=== PATIENT | male | born 1940 | race Hispanic/Latino ===

== ENCOUNTER 2017-10-15 19:38 | Inpatient (IN) | payer MEDICARE, OTHER ==
--- NOTE | 2017-10-15 20:13 | C.PDOC ---
History Of Present Illness 76 y/o male, w/PMhx of hip replacement surgery and falls, presents to the ER for evaluation after he had a fall today. Family states that he was trying to reach for his walker when his right leg gave out and and he fell to the ground. He is complaining of a headache and an abrasion to the right elbow. Of note, patient had his last tetanus injection within the past 10 years. - HPI Time Seen by Provider: 10/15/17 19:43 Chief Complaint (Nursing): Trauma History Per: Patient, Family History/Exam Limitations: no limitations Onset/Duration Of Symptoms: Hrs Severity: Moderate Past Medical History Reviewed: Historical Data, Nursing Documentation, Vital Signs Vital Signs: Last Vital Signs Temp 97.7 F 10/15/17 19:50 Pulse 62 10/15/17 22:35 Resp 19 10/15/17 22:35 BP 162/82 H 10/15/17 22:35 Pulse Ox 99 10/15/17 22:35 - Medical History PMH: Bronchitis, Cardia Arrhythmia, COPD, Depression, Diabetes, Fractures (left and right hip fx), HTN, Hypercholesterolemia, Hyperlipidemia, Chronic Kidney Disease Other Surgeries: Hx of surgeries - [facility] Procedures ANESTH INJECT-SPIN CANAL (06/23/12) CORONAR ARTERIOGR-2 CATH (09/26/14) INJECT STEROID (06/23/12) LEFT HEART CARDIAC CATH (09/26/14) LT HEART ANGIOCARDIOGRAM (09/26/14) LUMBOSAC SPINE X-RAY NEC (06/23/12) OPEN REDUC-INT FIX FEMUR (09/26/14) PACKED CELL TRANSFUSION (09/26/14) PARTIAL HIP REPLACEMENT (07/30/14) SPINAL CANAL INJECT NEC (06/23/12) Family History: States: No Known Family Hx - Social History Hx Tobacco Use: No Hx Alcohol Use: No Hx Substance Use: No - Immunization History Hx Tetanus Toxoid Vaccination: No Hx Influenza Vaccination: Yes Hx Pneumococcal Vaccination: Yes Review Of Systems Except As Marked, All Systems Reviewed And Found Negative. Constitutional: Negative for: Fever, Chills Cardiovascular: Negative for: Chest Pain, Palpitations Respiratory: Negative for: Cough, Shortness of Breath, SOB with Excertion, Wheezing Gastrointestinal: Negative for: Nausea, Vomiting, Abdominal Pain, Diarrhea, Constipation Genitourinary: Negative for: Dysuria, Hematuria Musculoskeletal: Negative for: Neck Pain Skin: Positive for: Other (abrasion to right elbow, hematoma to R forehead) Neurological: Positive for: Headache. Negative for: Weakness, Numbness, Incoordination, Change in Speech, Confusion, Seizures, Altered Mental Status, Dizziness Physical Exam - Physical Exam Appears: Well, Non-toxic, No Acute Distress Skin: Normal Color, Warm, Other Head: Normacephalic, Abrasion (above R eye), Other (hematoma to right forehead) Eye(s): bilateral: Normal Inspection, PERRL, EOMI Nose: Normal Oral Mucosa: Moist Neck: No Midline Cervical Tenderness, Supple Chest: Symmetrical Cardiovascular: Rhythm Regular Respiratory: Normal Breath Sounds, No Rales, No Rhonchi, No Wheezing Gastrointestinal/Abdominal: Soft, No Tenderness Back: Normal Inspection, No CVA Tenderness Extremity: Normal ROM, No Tenderness, Other (abrasion to right elbow) Neurological/Psych: Oriented x3, Normal Speech ED Course And Treatment - Laboratory Results Result Diagrams: 10/15/17 21:51 10/15/17 21:51 O2 Sat by Pulse Oximetry: 98 (RA) Pulse Ox Interpretation: Normal - CT Scan/US CT-Head Other Rad Studies (CT/US): Read By Radiologist, Radiology Report Reviewed CT/US Interpretation: . HEAD W/O CONTRAST Exam Date: 10/15/17. . This imaging exam was performed at [facility]. EXAM: CT Head Without Intravenous Contrast. . EXAM DATE/TIME: Exam ordered 2017 8:00 PM. . CLINICAL HISTORY: 76 years old, male; Injury or trauma; Fall ; Initial encounter; Abrasion;. Forehead; Additional info: Head injury. . TECHNIQUE: Axial computed tomography images of the head/brain without intravenous. contrast. All CT scans at this facility use one or more dose reduction. techniques, viz.: automated exposure control; ma/kV adjustment per patient size. (including targeted exams where dose is matched to indication; i.e. head); or. iterative reconstruction technique. Coronal and sagittal reformatted images were created and reviewed. . COMPARISON: No relevant prior studies available. . FINDINGS: Brain: There is generalized cortical atrophy Low density is noted within. the periventricular white matter extending into the alcazar radiata and centrum. semi-ovale bilaterally. An area of encephalomalacia is noted in the right. posterior parietal lobe reflecting previous changes related to previous. infarct. Area of encephalomalacia is noted in the left temporal lobe again. reflecting encephalomalacia from chronic infarct. Lacunar infarcts are noted. within the external capsule bilaterally. The largest measures 6 mm. There is a. scalp hematoma over the right frontal bone. Ventricles: Unremarkable. No ventriculomegaly. Bones/joints: Unremarkable. No acute fracture. Soft tissues: See above. Vasculature: The is calcification of the cavernous carotid arteries. Sinuses: Mucosal thickening is noted within the maxillary sinuses. bilaterally. Mild mucosal thickening is seen in the ethmoid air cells. Mastoid air cells: There is under pneumatization of the mastoid air cells. bilaterally. Soft tissue or fluid is noted in the left aditus ad antrum of the. mastoid. Auditory system: Soft tissue/debris is noted within the external auditory. canals bilaterally. Orbits: There's been bilateral lens replacement surgery. . IMPRESSION: 1. Scalp hematoma overlying the right frontal bone. No fracture seen. . 2. 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 temporal lobe. . 3. Chronic microvascular ischemic change in the deep white matter including. lacunar infarcts in the external capsules bilaterally. . 4. Fluid/soft tissue in the left mastoid suggesting mastoiditis. Decreased. pneumatization of both mastoid bones may reflect chronic mastoiditis. . 5. Chronic maxillary sinusitis.. Medical Decision Making Medical Decision Making: Plan: --CT-Head --Tylenol PO 9:13PM Patinet has normal ROM of extremities with no bony tenderness. No indication for imaging. No complaint of chest pain. Hips non-tender. No midline tenderness and moving all extremities. CT head negative. Patient neurologically intact. Due to plavix use, Dr. Mancia recommending observation overnight. Dermabond placed on abrasion. Family in agreement of this plan Disposition - Disposition Disposition: HOSPITALIZED Disposition Time: 21:28 Condition: FAIR - Clinical Impression Clinical Impression: Head trauma, Hematoma, Fall - Scribe Statement The provider has reviewed the documentation as recorded by the Antoine Childers Provider Attestation: All medical record entries made by the Scribe were at my direction and personally dictated by me. I have reviewed the chart and agree that the record accurately reflects my personal performance of the history, physical exam, medical decision making, and the department course for this patient. I have also personally directed, reviewed, and agree with the discharge instructions and disposition.
--- NOTE | 2017-10-15 21:09 | CT ---
EXAM: CT Head Without Intravenous Contrast EXAM DATE/TIME: Exam ordered 10/15/2017 8:00 PM CLINICAL HISTORY: 76 years old, male; Injury or trauma; Fall; Initial encounter; Abrasion; Forehead; Additional info: Head injury TECHNIQUE: Axial computed tomography images of the head/brain without intravenous contrast. All CT scans at this facility use one or more dose reduction techniques, viz.: automated exposure control; ma/kV adjustment per patient size (including targeted exams where dose is matched to indication; i.e. head); or iterative reconstruction technique. Coronal and sagittal reformatted images were created and reviewed. COMPARISON: No relevant prior studies available. FINDINGS: Brain: There is generalized cortical atrophy Low density is noted within the periventricular white matter extending into the alcazar radiata and centrum semi-ovale bilaterally. An area of encephalomalacia is noted in the right posterior parietal lobe reflecting previous changes related to previous infarct. Area of encephalomalacia is noted in the left temporal lobe again reflecting encephalomalacia from chronic infarct. Lacunar infarcts are noted within the external capsule bilaterally. The largest measures 6 mm. There is a scalp hematoma over the right frontal bone. Ventricles: Unremarkable. No ventriculomegaly. Bones/joints: Unremarkable. No acute fracture. Soft tissues: See above. Vasculature: The is calcification of the cavernous carotid arteries. Sinuses: Mucosal thickening is noted within the maxillary sinuses bilaterally. Mild mucosal thickening is seen in the ethmoid air cells. Mastoid air cells: There is under pneumatization of the mastoid air cells bilaterally. Soft tissue or fluid is noted in the left aditus ad antrum of the mastoid. Auditory system: Soft tissue/debris is noted within the external auditory canals bilaterally. Orbits: There's been bilateral lens replacement surgery. IMPRESSION: 1. Scalp hematoma overlying the right frontal bone. No fracture seen. 2. Chronic infarcts noted within the right posterior parietal lobe and the left temporal lobe. 3. Chronic microvascular ischemic change in the deep white matter including lacunar infarcts in the external capsules bilaterally. 4. Fluid/soft tissue in the left mastoid suggesting mastoiditis. Decreased pneumatization of both mastoid bones may reflect chronic mastoiditis. 5. Chronic maxillary sinusitis..
[2017-10-15 21:54] LABS: BASO # 0.1 K/uL (0.0-0.2); BASO % 0.8 % (0.0-2.0); EOS # 0.4 K/uL (0.0-0.7); HEMOGLOBIN 11.4 g/dL (12.0-18.0); LYMPH # 1.2 K/uL (1.0-4.3); LYMPH % 13.4 % (20.0-40.0); MEAN CORPUSCULAR HEMOGLOBIN 29.7 pg (27.0-31.0); MEAN CORPUSCULAR HGB CONC 34.8 g/dL (33.0-37.0); MEAN PLATELET VOLUME 8.5 fL (7.2-11.7); MONO # 0.5 K/uL (0.0-0.8); MONO % 6.2 % (0.0-10.0); NEUT # 6.6 K/uL (1.8-7.0); NEUT % 75.6 % (50.0-75.0); RBC 3.82 Mil/uL (4.40-5.90); RED CELL DISTRIBUTION WIDTH 13.2 % (11.5-14.5); WHITE BLOOD COUNT 8.7 K/uL (4.8-10.8)
[2017-10-15] MEDS ORDERED: oxyCODONE 30 mg Immediate Release Tab PO STA (21:54)
[2017-10-15 21:56] LABS: MEAN CELL VOLUME 85.4 fL (80.0-94.0)
[2017-10-15 22:07] LABS: ALB/GLOB RATIO 1.1 (1.0-2.1); ALBUMIN 3.7 g/dL (3.5-5.0); ALT/SGPT 28 U/L (21-72); AST/SGOT 30 U/L (17-59); BLOOD UREA NITROGEN 12 mg/dL (9-20); CALCIUM 8.4 mg/dl (8.6-10.4); GFR AFRICAN-AMERICAN > 60; GFR NON-AFRICAN AMERICAN > 60
[2017-10-15] MEDS ORDERED: oxyCODONE 30 mg Immediate Release Tab ONE (22:09)
--- NOTE | 2017-10-15 23:47 | CP.PCM.HP ---
History of Present Illness - History of Present Illness History of Present Illness: COMPREHENSIVE HISTORY & PHYSICAL EXAM HPI PT. FELL AT HOME PER FAMILY WHILE TRYING TO REACH FOR HIS WALKER . SUSTAINED HEAD TRAUMA AND R. ELBOW ABRASION . NO LOC . CT HEAD R SCALP HEMATOMA , NO SKULL FX, OR INTRACRANIAL BLEED PAST HIST. CAD/STENT/CVA/HTN/T2DM/COPD/B. HIP FX WITH REPLACEMENT PERSONAL HIST: Smoking. N Alcohol. N Allergy N Travel_- . FAMILY HIST : ROS : Constitutional: Negative for weight change, chills, night sweats, fatigue and usage of assist device. Eyes: Negative for redness, swelling, itching, discharge, vision changes, blurry vision, double vision, glaucoma, cataracts, Ears: Negative for hearing loss, ringing, , tinnitus, vertigo Nose: Negative for rhinorrhea, stuffiness, sniffing, itching, postnasal drip, discoloration, nasal congestion and epistaxis. Throat: Negative for throat clearing, sore throat, hoarseness, difficulty swallowing and difficulty speaking. Respiratory: Negative for cough, , sputum production, chest tightness, wheezing, pleuritic chest pain ,daytime somnolence, chronic cough, hemoptysis, snoring at night, Cardiovascular: Negative for chest pain, palpitations, orthopnea, PND, Edema of legs, leg cramps, angina, claudication, , irregular heartbeat, Neurology: Negative for irritability, muscle weakness, numbness and tingling, seizures, tremors, migraines, slurred speech, syncope, memory loss, mood changes , recurrent headaches Gastrointestinal: Negative for difficulty swallowing, diarrhea, constipation, black stools, rectal bleeding, nausea, flatulence, reflux, poor appetite, changes in bowel habits, abdominal pain Genitourinary: Negative for frequent urination, hematuria, discharge, incontinence, urinary retention, frequent UTI, Psychiatric: Negative for depression, anxiety/panic, suicidal tendencies, Musculoskeletal: POS R FOREHEAD AND ELBOW PAIN . BACK PAIN OLD Skin: Negative for rash, ulcers, itching, dry skin and pigmented lesions. P/E: Constitutional: Appears stated age and in no apparent distress. Head: Normocephalic. R. FOREHEAD SUBCUT. HEMATOMA Ears: External ear canals patent without inflammation. Tympanic membranes intact with normal light reflex and landmark. Eyes: Pupils are central, bilaterally equal, symmetrical and reacts to light with normal movements and no icterus or pallor. Nose: External nares are patent. Mucosa is pink Mouth-Throat: Good general appearance and condition. No post-pharyngeal/oropharyngeal erythema and tonsillar hypertrophy. Good dental hygiene. Neck-Lymphatic: Neck is supple with normal ROM, no thyromegaly, lymph nodes or masses. JVD is normal with no carotid bruit. Lungs: Clear to percussion and auscultation with bilateral normal air entry. Cardiovascular: S1 and S2 are normal with no murmurs, gallops and rub. GI Exam: No hepatomegaly. Abdomen is soft and non-tender. No Organomegaly , masses or hernias are evident and bowel sounds are normal and active. Neurology: Higher function and all cranial nerves intact, with no gross motor or sensory deficit. Superficial and deep reflexes are normal with downwards planters. No cerebellar deficit with normal gait. Musculoskeletal: No tender spots with normal curvature of the spine with no swelling or restricted ROM of the small and large joints. R. ELBOW ABRASION Extremities: Homans sign absent. Intact pulses with no pitting edema, calf tenderness or skin color changes. Skin: No rash, eruptions or abnormal skin pigmentation LAB/RADIOLOGY: ASSESMENT : H/O FALL WITH FOREHEAD CONTUSION CAD/DM/COPD/B. HIP SURGERY PLAN: IN VIEW OF PT BEING ON BLOOD ANTICOAGULATION , WILL NEED 48HRS OBSERVATION X RAY HIP TO EVALUATE PROSTHESIS Present on Admission - Present on Admission Any Indicators Present on Admission: No Past Patient History - Infectious Disease Hx of Infectious Diseases: None - Past Medical History & Family History Past Medical History?: Yes - Past Social History Smoking Status: Former Smoker - CARDIAC Hx Cardia Arrhythmia: Yes Hx Hypercholesterolemia: Yes Hx Hypertension: Yes - PULMONARY Hx Bronchitis: Yes Hx Chronic Obstructive Pulmonary Disease (COPD): Yes - NEUROLOGICAL Hx Neurological Disorder: No - HEENT Hx HEENT Problems: No - RENAL Hx Chronic Kidney Disease: Yes - ENDOCRINE/METABOLIC Hx Diabetes Mellitus Type 1: Yes Hx Diabetes Mellitus Type 2: Yes - HEMATOLOGICAL/ONCOLOGICAL Hx Blood Disorders: No - INTEGUMENTARY Hx Dermatological Problems: No - MUSCULOSKELETAL/RHEUMATOLOGICAL Hx Fractures: Yes (left and right hip fx) - GASTROINTESTINAL Hx Gastrointestinal Disorders: No - GENITOURINARY/GYNECOLOGICAL Hx Genitourinary Disorders: No Hx Prostate Problems: Yes - PSYCHIATRIC Hx Depression: Yes Hx Substance Use: No - SURGICAL HISTORY Hx Surgeries: Yes Hx Cardiac Catheterization: Yes Hx Orthopedic Surgery: Yes (left and right hip) - ANESTHESIA Hx Anesthesia: Yes Hx Anesthesia Reactions: No Hx Malignant Hyperthermia: No Meds Allergies/Adverse Reactions: Allergies Allergy/AdvReac Type Severity Reaction Status Date / Time No Known Allergies Allergy Verified 10/15/17 19:47 Results - Vital Signs Recent Vital Signs: Last Vital Signs Temp 97.7 F 10/15/17 19:50 Pulse 62 10/15/17 22:35 Resp 19 10/15/17 22:35 BP 162/82 H 10/15/17 22:35 Pulse Ox 98 10/15/17 22:45 - Labs Result Diagrams: 10/15/17 21:51 10/15/17 21:51 Labs: Laboratory Results - last 24 hr 10/15/17 10/15/17 10/15/17 19:45 21:51 21:51 WBC 8.7 RBC 3.82 L Hgb 11.4 L Hct 32.6 L MCV 85.4 D MCH 29.7 MCHC 34.8 RDW 13.2 Plt Count 204 MPV 8.5 Neut % (Auto) 75.6 H Lymph % (Auto) 13.4 L Navarro % (Auto) 6.2 Eos % (Auto) 4.0 Baso % (Auto) 0.8 Neut # (Auto) 6.6 Lymph # (Auto) 1.2 Navarro # (Auto) 0.5 Eos # (Auto) 0.4 Baso # (Auto) 0.1 Sodium 127 L Potassium 5.1 Chloride 89 L Carbon Dioxide 29 Anion Gap 15 BUN 12 Creatinine 0.9 Est GFR ( Amer) > 60 Est GFR (Non-Af Amer) > 60 POC Glucose (mg/dL) 262 H Random Glucose 195 H Calcium 8.4 L Total Bilirubin 0.5 AST 30 ALT 28 Alkaline Phosphatase 58 Troponin I < 0.0120 Total Protein 7.2 Albumin 3.7 Globulin 3.4 Albumin/Globulin Ratio 1.1
[2017-10-16] MEDS ORDERED: (Lantus) Insulin Glargine, Recombinant SC SCH ×2 (07:30→22:00)
[2017-10-16] MEDS ORDERED: BISOPROLOL FUMARATE 10 MG PO SCH (10:00)
[2017-10-16] MEDS ORDERED: LISINOPRIL 2.5 MG PO SCH (10:00)
[2017-10-16] MEDS ORDERED: Albuterol Sulfate 2 mg/5 ml Cup PO SCH ×2 (10:00→18:00)
[2017-10-16] MEDS ORDERED: Home Med 1 UNIT (Metformin [Glucophage] 500 MG) PO SCH (10:00)
--- NOTE | 2017-10-16 14:07 | CP.PCM.PN ---
Subjective - Date & Time of Evaluation Date of Evaluation: 10/16/17 Time of Evaluation: 14:06 - Subjective Subjective: FOREHEAD PAIN NO LOC VS STABLE R. FOREHEAD HEMATOMA R. ELBOW MOVING N B. HIP ROM ,PAINFUL SEE ORDER Objective - Vital Signs/Intake and Output Vital Signs (last 24 hours): Temp Pulse Resp BP Pulse Ox 98.7 F 73 20 134/75 96 10/16/17 08:00 10/16/17 08:00 10/16/17 08:00 10/16/17 08:00 10/16/17 08:00 - Medications Medications: Current Medications Albuterol Sulfate (Albuterol Sulfate) 2 mg PO BID [facility] Bisoprolol Fumarate (Zebeta) 10 mg PO DAILY [facility] Clopidogrel Bisulfate (Plavix) 75 mg PO DAILY [facility] Last Admin: 10/16/17 10:16 Dose: 75 mg Sodium Chloride (Sodium Chloride 0.9%) 1,000 mls @ 80 mls/hr IV .[id number] [facility] Insulin Glargine (Lantus) 0 unit SC HS [facility] PRN Reason: Protocol Lisinopril (Zestril) 2.5 mg PO DAILY [facility] Metformin HCl (Glucophage) 500 mg PO BIDCC [facility] Mirtazapine (Remeron) 15 mg PO HS [facility] Montelukast Sodium (Singulair) 10 mg PO DAILY [facility] Rosuvastatin Calcium (Crestor) 10 mg PO HS [facility] Sitagliptin Phosphate (Januvia) 100 mg PO DAILY [facility] Last Admin: 10/16/17 10:16 Dose: 100 mg Zolpidem Tartrate (Ambien) 5 mg PO HS [facility] - Labs Labs: 10/15/17 21:51 10/15/17 21:51
[2017-10-16] MEDS: Sodium Chloride 0.9% 1,000 ML IV SCH (15:08)
--- NOTE | 2017-10-16 16:11 | RAD ---
PROCEDURE: Radiographs of the pelvis and bilateral hips HISTORY: h/o fall b. hip surgery COMPARISON: Pelvis x-ray dated 09/26/2014. FINDINGS: BONES: Pelvis: Unremarkable Right hip:Right intramedullary darryn and screw. Left hip:Prior arthroplasty. JOINTS: Right hip: Joint space narrowing. Left hip: Prior arthroplasty. Sacroiliac Joints: Narrowed. Pubic symphysis: Degenerative changes. SOFT TISSUES: Normal. OTHER FINDINGS: None. IMPRESSION: No demonstrated acute fracture or dislocation. Bilateral hip hardware intact.
[2017-10-16] MEDS ORDERED: Albuterol-Ipratrop 3 mg / 0.5 (3 ml) UD INH PRN (16:32)
[2017-10-16] MEDS: (Novolin R) Insulin Human Regular 100 units/ml vial SC SCH (21:25)
[2017-10-17] MEDS: Sodium Chloride 0.9% 1,000 ML IV SCH ×2 (04:00→22:38)
[2017-10-17] MEDS: (Novolin R) Insulin Human Regular 100 units/ml vial SC SCH ×4 (07:39→22:23)
[2017-10-17 09:16] LABS: BASO # 0.1 K/uL (0.0-0.2); BASO % 0.7 % (0.0-2.0); EOS # 0.3 K/uL (0.0-0.7); EOS % 4.6 % (0.0-4.0); HEMOGLOBIN 11.8 g/dL (12.0-18.0); LYMPH # 1.1 K/uL (1.0-4.3); LYMPH % 15.2 % (20.0-40.0); MEAN CELL VOLUME 86.1 fL (80.0-94.0); MEAN CORPUSCULAR HEMOGLOBIN 30.2 pg (27.0-31.0); MEAN PLATELET VOLUME 9.2 fL (7.2-11.7); MONO # 0.5 K/uL (0.0-0.8); MONO % 7.2 % (0.0-10.0); NEUT % 72.3 % (50.0-75.0); RBC 3.91 Mil/uL (4.40-5.90); RED CELL DISTRIBUTION WIDTH 13.3 % (11.5-14.5); WHITE BLOOD COUNT 6.9 K/uL (4.8-10.8)
[2017-10-17 09:33] LABS: ALBUMIN 3.7 g/dL (3.5-5.0); ALT/SGPT 20 U/L (21-72); AST/SGOT 28 U/L (17-59); BLOOD UREA NITROGEN 12 mg/dL (9-20); CALCIUM 8.6 mg/dl (8.6-10.4); GFR AFRICAN-AMERICAN > 60; GFR NON-AFRICAN AMERICAN > 60
--- NOTE | 2017-10-17 15:18 | CP.PCM.PN ---
Subjective - Date & Time of Evaluation Date of Evaluation: 10/17/17 Time of Evaluation: 15:17 - Subjective Subjective: HEADACHE VS STABLE P/E R. FOREHEAD HEMATOMA ABRASION ON R ELBOW IMPROVING PLAN PT /GAIT TRAINING Objective - Vital Signs/Intake and Output Vital Signs (last 24 hours): Temp Pulse Resp BP Pulse Ox 98.1 F 90 20 183/78 H 95 10/17/17 07:00 10/17/17 07:00 10/17/17 07:00 10/17/17 07:00 10/17/17 07:00 Intake and Output: 10/17/17 10/17/17 11:59 23:59 Intake Total 1320 Balance 1320 - Medications Medications: Current Medications Acetaminophen (Tylenol 325mg Tab) 650 mg PO Q6 PRN PRN Reason: Pain, moderate (4-7) Last Admin: 10/17/17 09:36 Dose: 650 mg Albuterol/Ipratropium (Duoneb 3 Mg/0.5 Mg (3 Ml) Ud) 3 ml INH RQ6 PRN PRN Reason: Wheezing Bisoprolol Fumarate (Zebeta) 10 mg PO DAILY [facility] Last Admin: 10/17/17 09:38 Dose: 10 mg Clopidogrel Bisulfate (Plavix) 75 mg PO DAILY [facility] Last Admin: 10/17/17 09:36 Dose: 75 mg Sodium Chloride (Sodium Chloride 0.9%) 1,000 mls @ 80 mls/hr IV .[id number] [facility] Last Admin: 10/17/17 04:00 Dose: 80 mls/hr Insulin Glargine (Lantus) 10 unit SC HS [facility] Insulin Human Regular (Novolin R) 0 unit SC [facility] PRN Reason: Protocol Last Admin: 10/17/17 11:46 Dose: 2 unit Lisinopril (Zestril) 2.5 mg PO DAILY [facility] Last Admin: 10/17/17 09:38 Dose: 2.5 mg Metformin HCl (Glucophage) 500 mg PO BIDCC [facility] Last Admin: 10/17/17 08:00 Dose: 500 mg Mirtazapine (Remeron) 15 mg PO HS [facility] Last Admin: 10/16/17 21:23 Dose: 15 mg Montelukast Sodium (Singulair) 10 mg PO DAILY [facility] Last Admin: 10/17/17 09:36 Dose: 10 mg Rosuvastatin Calcium (Crestor) 10 mg PO [facility] Last Admin: 10/16/17 21:22 Dose: 10 mg Sitagliptin Phosphate (Januvia) 100 mg PO DAILY [facility] Last Admin: 10/17/17 09:36 Dose: 100 mg Zolpidem Tartrate (Ambien) 5 mg PO [facility] Last Admin: 10/16/17 21:21 Dose: 5 mg - Labs Labs: 10/17/17 08:57 10/17/17 08:57
[2017-10-17] MEDS: oxyCODONE 30 mg Immediate Release Tab PO SCH (22:18)
[2017-10-17] MEDS: (Lantus) Insulin Glargine, Recombinant SC SCH (22:19)
[2017-10-18] MEDS: Sodium Chloride 0.9% 1,000 ML IV SCH ×2 (02:15→14:18)
[2017-10-18] MEDS: (Novolin R) Insulin Human Regular 100 units/ml vial SC SCH ×4 (07:30→22:20)
[2017-10-18] MEDS: oxyCODONE 30 mg Immediate Release Tab PO SCH ×2 (10:16→19:06)
--- NOTE | 2017-10-18 15:38 | CP.PCM.PN ---
Subjective - Date & Time of Evaluation Date of Evaluation: 10/18/17 Time of Evaluation: 15:38 - Subjective Subjective: BACKPAIN VS STABLE P/E R. FOREHEAD HEMATOMA ABRASION ON R ELBOW IMPROVING PLAN PT /GAIT TRAINING OXYCODONE PRN Objective - Vital Signs/Intake and Output Vital Signs (last 24 hours): Temp Pulse Resp BP Pulse Ox 97.3 F L 59 L 12 156/63 H 96 10/18/17 07:30 10/18/17 07:30 10/18/17 07:30 10/18/17 07:30 10/18/17 07:30 Intake and Output: 10/18/17 10/18/17 11:59 23:59 Intake Total 840 640 Balance 840 640 - Medications Medications: Current Medications Acetaminophen (Tylenol 325mg Tab) 650 mg PO Q6 PRN PRN Reason: Pain, moderate (4-7) Last Admin: 10/18/17 14:16 Dose: 650 mg Albuterol/Ipratropium (Duoneb 3 Mg/0.5 Mg (3 Ml) Ud) 3 ml INH RQ6 PRN PRN Reason: Wheezing Bisoprolol Fumarate (Zebeta) 10 mg PO DAILY [facility] Last Admin: 10/18/17 10:15 Dose: 10 mg Clopidogrel Bisulfate (Plavix) 75 mg PO DAILY [facility] Last Admin: 10/18/17 10:15 Dose: 75 mg Sodium Chloride (Sodium Chloride 0.9%) 1,000 mls @ 80 mls/hr IV .[id number] [facility] Last Admin: 10/18/17 14:18 Dose: 80 mls/hr Insulin Glargine (Lantus) 10 unit SC HS [facility] Last Admin: 10/17/17 22:19 Dose: 10 unit Insulin Human Regular (Novolin R) 0 unit SC ACHS [facility] PRN Reason: Protocol Last Admin: 10/18/17 11:44 Dose: Not Given Lisinopril (Zestril) 2.5 mg PO DAILY [facility] Last Admin: 10/18/17 10:16 Dose: 2.5 mg Metformin HCl (Glucophage) 500 mg PO BIDCC [facility] Last Admin: 10/18/17 08:43 Dose: 500 mg Mirtazapine (Remeron) 15 mg PO HS [facility] Last Admin: 10/16/17 21:23 Dose: 15 mg Montelukast Sodium (Singulair) 10 mg PO DAILY [facility] Last Admin: 10/18/17 10:16 Dose: 10 mg Oxycodone HCl (Oxycodone Immediate Release Tab) 30 mg PO BID [facility] Last Admin: 10/18/17 10:16 Dose: 30 mg Rosuvastatin Calcium (Crestor) 10 mg PO HS [facility] Last Admin: 10/17/17 22:22 Dose: 10 mg Sitagliptin Phosphate (Januvia) 100 mg PO DAILY [facility] Last Admin: 10/18/17 10:16 Dose: 100 mg Zolpidem Tartrate (Ambien) 5 mg PO HS [facility] Last Admin: 10/17/17 22:23 Dose: 5 mg - Labs Labs: 10/17/17 08:57 10/17/17 08:57
[2017-10-18] MEDS: (Lantus) Insulin Glargine, Recombinant SC SCH (22:22)
[2017-10-19] MEDS: Sodium Chloride 0.9% 1,000 ML IV SCH (02:40)
[2017-10-19] MEDS: (Novolin R) Insulin Human Regular 100 units/ml vial SC SCH ×4 (07:46→21:54)
[2017-10-19] MEDS: oxyCODONE 30 mg Immediate Release Tab PO SCH ×2 (10:14→18:20)
[2017-10-19 11:41] LABS: BASO # 0.1 K/uL (0.0-0.2); BASO % 0.8 % (0.0-2.0); EOS # 0.4 K/uL (0.0-0.7); HEMOGLOBIN 10.6 g/dL (12.0-18.0); LYMPH # 1.3 K/uL (1.0-4.3); LYMPH % 17.9 % (20.0-40.0); MEAN CELL VOLUME 86.5 fL (80.0-94.0); MEAN CORPUSCULAR HEMOGLOBIN 29.9 pg (27.0-31.0); MEAN CORPUSCULAR HGB CONC 34.6 g/dL (33.0-37.0); MEAN PLATELET VOLUME 9.4 fL (7.2-11.7); MONO # 0.6 K/uL (0.0-0.8); MONO % 8.5 % (0.0-10.0); NEUT % 66.8 % (50.0-75.0); RBC 3.55 Mil/uL (4.40-5.90); RED CELL DISTRIBUTION WIDTH 13.2 % (11.5-14.5); WHITE BLOOD COUNT 7.5 K/uL (4.8-10.8)
[2017-10-19 11:47] LABS: PROTHROMBIN TIME 11.2 SECONDS (9.7-12.2)
[2017-10-19 12:11] LABS: BLOOD UREA NITROGEN 19 mg/dL (9-20); CALCIUM 8.3 mg/dl (8.6-10.4); GFR AFRICAN-AMERICAN > 60; GFR NON-AFRICAN AMERICAN > 60
--- NOTE | 2017-10-19 14:04 | CP.PCM.DIS ---
Provider - Provider Date of Admission: 10/16/17 15:39 Attending physician: Dayton Mancia MD Primary care physician: Dayton Mancia MD Time Spent in preparation of Discharge (in minutes): 35 Hospital Course - Lab Results Lab Results: Most Recent Lab Values WBC 7.5 K/uL (4.8-10.8) 10/19/17 11:34 RBC 3.55 Mil/uL (4.40-5.90) L 10/19/17 11:34 Hgb 10.6 g/dL (12.0-18.0) L 10/19/17 11:34 Hct 30.7 % (35.0-51.0) L 10/19/17 11:34 MCV 86.5 fL (80.0-94.0) 10/19/17 11:34 MCH 29.9 pg (27.0-31.0) 10/19/17 11:34 MCHC 34.6 g/dL (33.0-37.0) 10/19/17 11:34 RDW 13.2 % (11.5-14.5) 10/19/17 11:34 Plt Count 172 K/uL (130-400) 10/19/17 11:34 MPV 9.4 fL (7.2-11.7) 10/19/17 11:34 Neut % (Auto) 66.8 % (50.0-75.0) 10/19/17 11:34 Lymph % (Auto) 17.9 % (20.0-40.0) L 10/19/17 11:34 [place] % (Auto) 8.5 % (0.0-10.0) 10/19/17 11:34 Eos % (Auto) 6.0 % (0.0-4.0) H 10/19/17 11:34 Baso % (Auto) 0.8 % (0.0-2.0) 10/19/17 11:34 Neut # (Auto) 5.0 K/uL (1.8-7.0) 10/19/17 11:34 Lymph # (Auto) 1.3 K/uL (1.0-4.3) 10/19/17 11:34 [place] # (Auto) 0.6 K/uL (0.0-0.8) 10/19/17 11:34 Eos # (Auto) 0.4 K/uL (0.0-0.7) 10/19/17 11:34 Baso # (Auto) 0.1 K/uL (0.0-0.2) 10/19/17 11:34 PT 11.2 SECONDS (9.7-12.2) 10/19/17 11:34 INR 1.0 10/19/17 11:34 Sodium 134 mmol/L (132-148) 10/19/17 11:34 Potassium 4.3 mmol/L (3.6-5.2) 10/19/17 11:34 Chloride 99 mmol/L (98-107) 10/19/17 11:34 Carbon Dioxide 28 mmol/L (22-30) 10/19/17 11:34 Anion Gap 12 (10-20) 10/19/17 11:34 BUN 19 mg/dL (9-20) 10/19/17 11:34 Creatinine 1.0 mg/dL (0.8-1.5) 10/19/17 11:34 Est GFR ( Amer) > 60 10/19/17 11:34 Est GFR (Non-Af Amer) > 60 10/19/17 11:34 POC Glucose (mg/dL) 176 mg/dL (65-110) H 10/19/17 11:19 Random Glucose 170 mg/dL (75-110) H 10/19/17 11:34 Calcium 8.3 mg/dl (8.6-10.4) L 10/19/17 11:34 Total Bilirubin 0.6 mg/dL (0.2-1.3) 10/17/17 08:57 AST 28 U/L (17-59) 10/17/17 08:57 ALT 20 U/L (21-72) L D 10/17/17 08:57 Alkaline Phosphatase 71 U/L (38-126) 10/17/17 08:57 Troponin I < 0.0120 ng/mL (0.00-0.120) 10/15/17 21:51 Total Protein 7.4 g/dL (6.3-8.3) 10/17/17 08:57 Albumin 3.7 g/dL (3.5-5.0) 10/17/17 08:57 Globulin 3.7 gm/dL (2.2-3.9) 10/17/17 08:57 Albumin/Globulin Ratio 1.0 (1.0-2.1) 10/17/17 08:57 - Hospital Course Hospital Course: PT. FELL AT HOME PER FAMILY WHILE TRYING TO REACH FOR HIS WALKER . SUSTAINED HEAD TRAUMA AND R. ELBOW ABRASION . NO LOC . CT HEAD R SCALP HEMATOMA , NO SKULL FX, OR INTRACRANIAL BLEED PAST HIST. CAD/STENT/CVA/HTN/T2DM/COPD/B. HIP FX WITH REPLACEMENT SKELETAL SURVEY SHOWED NO FX OR DISPLACEMENT PT HAD GROIN/BACKPAIN HAD UNSTEADY /PAINFUL GAIT PT WAS TRANSFERRED TO REHAB FOR FURTHER PT/GAIT TRAINING Discharge Plan - Discharge Medications Prescriptions: Insulin Glargine, Recombina [Lantus] 10 unit SC HS 30 Days unit - Follow Up Plan Condition: FAIR Disposition: HOME/ ROUTINE Referrals: Dayton Mancia MD [Primary Care Provider] -
[2017-10-19] MEDS: (Lantus) Insulin Glargine, Recombinant SC SCH (21:59)
[2017-10-20 00:20] VITALS: RESP 20
[2017-10-20 07:38] VITALS: BP 180/69; PULSE 56; TEMP 97.8; O2SAT 95
[2017-10-20] MEDS: (Novolin R) Insulin Human Regular 100 units/ml vial SC SCH (07:40)
[2017-10-20] MEDS: oxyCODONE 30 mg Immediate Release Tab PO SCH (09:10)
--- NOTE | 2017-10-20 15:30 | CP.PCM.PN ---
Subjective - Date & Time of Evaluation Date of Evaluation: 10/20/17 Time of Evaluation: 11:00 - Subjective Subjective: Alert, awake, follows commands. Objective - Vital Signs/Intake and Output Vital Signs (last 24 hours): Temp Pulse Resp BP Pulse Ox 97.8 F 56 L 20 180/69 H 95 10/20/17 07:31 10/20/17 07:31 10/20/17 07:31 10/20/17 07:31 10/20/17 07:31 Intake and Output: 10/20/17 10/20/17 06:59 18:59 Intake Total 750 Balance 750 - Labs Labs: 10/19/17 11:34 10/19/17 11:34 PT 11.2 SECONDS (9.7-12.2) 10/19/17 11:34 INR 1.0 10/19/17 11:34 Assessment and Plan - Assessment and Plan (Free Text) Assessment: Patient is seen and examined. Apparently patient refused to go to the rehab last night when the transportation arrived. Sitting on the chair, alert, talking , no complaints of pain. The son arrived and agreed to go with the transportation today and the patient agreed to go. No distress noted, will continue with PT/OT. Dr Mancia made aware.
== END 2017-10-20 13:20 | DRG 605 ==
LOC: SUPCPDRO 19:38 → C.ER 19:38 → C.9E 22:05 → C.3T 22:52 → OBSVTOIN 10-16 15:39 → C.3T 10-16 21:10
PROVIDERS: ADMIT Internal Medicine Cardiovascular Disease; ATTEND Internal Medicine Cardiovascular Disease
DX: S00.03XA Contusion of scalp, initial encounter (principal); S50.311A Abrasion of right elbow, initial encounter; S00.83XA Contusion of other part of head, initial encounter; W19.XXXA Unspecified fall, initial encounter; E11.22 Type 2 diabetes mellitus with diabetic chronic kidney disease; J44.9 Chronic obstructive pulmonary disease, unspecified; I12.9 Hypertensive chronic kidney disease with stage 1 through stage 4 chronic kidney disease, or unspecified chronic kidney disease; N18.9 Chronic kidney disease, unspecified; J32.0 Chronic maxillary sinusitis; R26.81 Unsteadiness on feet; E78.5 Hyperlipidemia, unspecified; E78.00 Pure hypercholesterolemia, unspecified; Z96.642 Presence of left artificial hip joint; Y92.009 Unspecified place in unspecified non-institutional (private) residence as the place of occurrence of the external cause; Z87.891 Personal history of nicotine dependence; Z79.4 Long term (current) use of insulin; Z91.81 History of falling; Z87.81 Personal history of (healed) traumatic fracture; Z98.890 Other specified postprocedural states

== ENCOUNTER 2018-02-02 10:36 | Emergency (ER) | payer MEDICARE, OTHER ==
[2018-02-02 10:48] VITALS: TEMP 99.1
[2018-02-02] MEDS ORDERED: Albuterol-Ipratrop 3 mg / 0.5 (3 ml) UD INH STA (11:00)
[2018-02-02] MEDS ORDERED: Albuterol-Ipratrop 3 mg / 0.5 (3 ml) UD ONE (11:02)
--- NOTE | 2018-02-02 11:13 | C.PDOC ---
History Of Present Illness <Janiya Evangelista - Last Filed: 02/02/18 11:16> <Cristiano Millan - Last Filed: 02/02/18 13:35> 77 year old male with past medical history per chart (as patient states he does not know - his son gives him all his medications) CAD with stent, HTN, CVA, HLD , COPD, Diabetes Type II, hip fracture with hip replacement presents to the ER s /p fall Thursday. Patient states he was rushing to go to the bathroom without his walker when he fell getting out of his bed. He states he fell backwards and hit his head but denies loss of consciousness. Patient states this was an unwitnessed fall. He states he has lower back pain and left anterior rib pain. The rib pain is made worse when he breathes. He states he has been coughing green/white sputum since Thursday. He denies chest pain, shortness of breath, fever, home oxygen, or palpitations. (Janiya Evangelista) - HPI History Per: Patient History/Exam Limitations: no limitations <Janiya Evangelista - Last Filed: 02/02/18 11:16> <Cristiano Millan - Last Filed: 02/02/18 13:35> - HPI Chief Complaint (Nursing): Trauma Past Medical History - Medical History PMH: Bronchitis, Cardia Arrhythmia, COPD, Depression, Diabetes, Fractures (left and right hip fx), HTN, Hypercholesterolemia, Hyperlipidemia, Chronic Kidney Disease Surgical History: Family History: States: Unknown Family Hx - Social History Hx Tobacco Use: No Hx Alcohol Use: No Hx Substance Use: No - Immunization History Hx Tetanus Toxoid Vaccination: No Hx Influenza Vaccination: Yes Hx Pneumococcal Vaccination: Yes <Janiya Evangelista - Last Filed: 02/02/18 11:16> Vital Signs: Last Vital Signs Temp 99.1 F 02/02/18 10:45 Pulse 88 02/02/18 10:45 Resp 22 02/02/18 11:04 BP 176/94 H 02/02/18 10:45 Pulse Ox 93 L 02/02/18 11:19 - [facility] Procedures ANESTH INJECT-SPIN CANAL (06/23/12) CORONAR ARTERIOGR-2 CATH (09/26/14) INJECT STEROID (06/23/12) LEFT HEART CARDIAC CATH (09/26/14) LT HEART ANGIOCARDIOGRAM (09/26/14) LUMBOSAC SPINE X-RAY NEC (06/23/12) OPEN REDUC-INT FIX FEMUR (09/26/14) PACKED CELL TRANSFUSION (09/26/14) PARTIAL HIP REPLACEMENT (07/30/14) SPINAL CANAL INJECT NEC (06/23/12) Review Of Systems Constitutional: Negative for: Fever, Chills Cardiovascular: Negative for: Chest Pain, Palpitations, Edema Respiratory: Positive for: Cough, Sputum. Negative for: Shortness of Breath Gastrointestinal: Positive for: Other (left anterior rib pain ). Negative for: Nausea, Vomiting, Abdominal Pain Musculoskeletal: Positive for: Other (lower back pain ) <Janiya Evangelista - Last Filed: 02/02/18 11:16> Physical Exam - Physical Exam Appears: Chronically Ill Skin: Normal Color Head: Atraumatic, Normacephalic Eye(s): bilateral: Normal Inspection, PERRL, EOMI Oral Mucosa: Moist Lymphatic: No Adenopathy (negative cervical lymphadenopathy ) Cardiovascular: Rhythm Regular Respiratory: Wheezing (bilateral wheezing ) Gastrointestinal/Abdominal: Soft, No Tenderness, Other (tenderness to the left anterior rib 5-7 ) Neurological/Psych: Oriented x3 Gait: With Assistance <Janiya Evangelista - Last Filed: 02/02/18 11:16> ED Course And Treatment O2 Sat by Pulse Oximetry: 93 <Janiya Evangelista - Last Filed: 02/02/18 11:16> Medical Decision Making <Janiya Evangelista - Last Filed: 02/02/18 11:16> <Cristiano Millan - Last Filed: 02/02/18 13:35> Medical Decision Making: Seen and examined with resident. 77 y/o M p/w mechanical fall, complains of pain in L sided thorax, lower back. Denies dyspnea, fever, cough. On exam, tenderness over lateral rib cage without deformity or crepitus. XR reveals rib fracture, other old rib fractures. No pneumonia or pneumothorax. No wheezing on exam at discharge, patient denies dyspnea. Will discharge, patient will take his prescribed pain medication that he has at home. F/u Dr. Mancia, instructed to return to ED for worsening pain, dyspnea, fever, cough, or any other problem. XR RIBS FINDINGS: LEFT RIBS: A nondisplaced fracture of the lateral segment of the 7th rib is appreciated. Old healed fractures of the 6th and 7th ribs more posteriorly, as well as the 4th and 5th ribs laterally. LUNGS: Clear. PLEURA: No pneumothorax or pleural fluid. CARDIOVASCULAR: Normal sized heart. No pulmonary vascular congestion. OTHER FINDINGS: None. XR LS SPINE FINDINGS: BONES: Straightened upper lumbar curvature. No fracture or spondylolisthesis is appreciated gross degenerative endplate sclerosis, osteophyte development and disc height loss is identified diffusely, compatible with advanced degenerative disease. DISC SPACES: As above. OTHER FINDINGS: None. CT HEAD IMPRESSION: Stable unenhanced head CT with exception of resolution of right frontal scalp hematoma. No fracture or acute intracranial finding appreciated in the current exam. Stable age related neuro degenerative changes are identified as well as bilateral chronic basal ganglia lacunes and right frontal chronic lobar infarction. (Cristiaon Millan) Disposition Discussed With : Cristiano Blanca [facility] Doctor Will See Patient In The: ED <Janiya Evangelista - Last Filed: 02/02/18 11:16> - Disposition Disposition Time: 13:24 <Cristiano Millan - Last Filed: 02/02/18 13:35> - Disposition Referrals: Dayton Mancia MD [Staff Provider] - Disposition: HOME/ ROUTINE Condition: STABLE Instructions: Rib Fracture (DC) Forms: [facility] (Armenian) - Clinical Impression Clinical Impression: Rib fracture Critical Care Time - PA / RANCH COOK / Resident Statement / has reviewed & agrees with the documentation as recorded. / has examined the patient and agrees with the treatment plan. <Janiya Evangelista - Last Filed: 02/02/18 11:16>
--- NOTE | 2018-02-02 11:55 | CT ---
Date of service: 02/02/2018 PROCEDURE: CT HEAD WITHOUT CONTRAST. HISTORY: s/p fall COMPARISON: Noncontrast head CT 10/15/2017. TECHNIQUE: Axial computed tomography images were obtained through the head/brain without intravenous contrast. Radiation dose: Total exam DLP = 1160.04 mGy-cm. This CT exam was performed using one or more of the following dose reduction techniques: Automated exposure control, adjustment of the mA and/or kV according to patient size, and/or use of iterative reconstruction technique. FINDINGS: HEMORRHAGE: No intracranial hemorrhage. BRAIN: Chronic lobar infarction right parietal lobe reiterated as well as bilateral basal ganglia chronic lacunes. Corticomedullary differentiation remains good throughout. Proportional, diffuse cerebral atrophy and chronic microangiopathy are reiterated. No interval mass effect is identified or suspicious extra-axial fluid collection in the midline brain and appears diffusely unremarkable nevertheless. Posterior fossa contents remain unremarkable including the brainstem. VENTRICLES: Unremarkable. No hydrocephalus. CALVARIUM: No destructive bony lesion or displaced fracture identified including through the skullbase. Resolution of prior moderate right frontal scalp hematoma with no scalp hematoma appreciated throughout the scalp soft tissues diffusely. PARANASAL SINUSES: Unremarkable as visualized. No significant inflammatory changes. MASTOID AIR CELLS: Unremarkable as visualized. No inflammatory changes. OTHER FINDINGS: None. IMPRESSION: Stable unenhanced head CT with exception of resolution of right frontal scalp hematoma. No fracture or acute intracranial finding appreciated in the current exam. Stable age related neuro degenerative changes are identified as well as bilateral chronic basal ganglia lacunes and right frontal chronic lobar infarction.
--- NOTE | 2018-02-02 13:11 | RAD ---
Date of service: 02/02/2018 PROCEDURE: Radiographs of the Chest and Left Ribs. HISTORY: s/p fall; anterior left rib 5-6 pain; wheezing COMPARISON: Portable chest 08/17/2015.. TECHNIQUE: Frontal radiograph of the chest and multiple oblique radiographs of the left ribs were obtained. FINDINGS: LEFT RIBS: A nondisplaced fracture of the lateral segment of the 7th rib is appreciated. Old healed fractures of the 6th and 7th ribs more posteriorly, as well as the 4th and 5th ribs laterally. LUNGS: Clear. PLEURA: No pneumothorax or pleural fluid. CARDIOVASCULAR: Normal sized heart. No pulmonary vascular congestion. OTHER FINDINGS: None. IMPRESSION: There is a definite acute fracture of the lateral segment left 7th rib. Additional fractures at the more posterior segments of the 6th and 7th ribs as well as the lateral segments of the 4th and 5th ribs are felt to be chronic though underlying acute fracture not excluded here. CT may be helpful for better characterization if indicated. No infiltrate or apparent pneumothorax bilaterally.
--- NOTE | 2018-02-02 13:12 | RAD ---
Date of service: 02/02/2018 PROCEDURE: Radiographs of the Lumbar Spine. HISTORY: s/p fall; lower back pain COMPARISON: No prior. FINDINGS: BONES: Straightened upper lumbar curvature. No fracture or spondylolisthesis is appreciated gross degenerative endplate sclerosis, osteophyte development and disc height loss is identified diffusely, compatible with advanced degenerative disease. DISC SPACES: As above. OTHER FINDINGS: None. 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
[2018-02-02] MEDS ORDERED: Oxycodone/Acetaminophen 5/325 mg Tab PO STA (13:23)
[2018-02-02] MEDS ORDERED: Oxycodone/Acetaminophen 5/325 mg Tab ONE (13:28)
[2018-02-02 14:08] VITALS: BP 176/89; PULSE 78; RESP 20; O2SAT 96
== END 2018-02-02 14:17 | disposition home or self-care (01) ==
LOC: C.ER 10:36
DX: S22.32XA Fracture of one rib, left side, initial encounter for closed fracture (principal); W06.XXXA Fall from bed, initial encounter; Y92.003 Bedroom of unspecified non-institutional (private) residence as the place of occurrence of the external cause; I25.10 Atherosclerotic heart disease of native coronary artery without angina pectoris; J44.9 Chronic obstructive pulmonary disease, unspecified; E11.22 Type 2 diabetes mellitus with diabetic chronic kidney disease; Z95.5 Presence of coronary angioplasty implant and graft; Z87.891 Personal history of nicotine dependence

== ENCOUNTER 2018-03-02 05:04 | Inpatient (IN) | payer MEDICARE, OTHER ==
--- NOTE | 2018-03-02 05:27 | C.PDOC ---
History Of Present Illness 77 year old male with PMHx DM, HTN, HLD is brought in to the ED by EMS from home for evaluation of reported low blood sugar. As per EMS patient was found by son altered and found to habe low blood sugar. Patient was given 1 AMP of dextrose, upon arrival to the ED patient is alert, responsive. Patient denies any complaints however patient is found to be hypothermic while in the ED. Time Seen by Provider: 03/02/18 05:10 Chief Complaint (Nursing): Medical Clearance History Per: Patient, EMS, Family History/Exam Limitations: no limitations Onset/Duration Of Symptoms: Hrs Current Symptoms Are (Timing): Better Recent travel outside of the [place]: No Additional History Per: Patient, EMS, Family Past Medical History Reviewed: Historical Data, Nursing Documentation, Vital Signs Vital Signs: Last Vital Signs Temp 98.1 F 03/08/18 00:00 Pulse 52 L 03/08/18 00:00 Resp 20 03/08/18 00:00 BP 166/63 H 03/08/18 00:00 Pulse Ox 100 03/08/18 00:00 - Medical History PMH: Bronchitis, Cardia Arrhythmia, COPD, Depression, Diabetes, Fractures (left and right hip fx), HTN, Hypercholesterolemia, Hyperlipidemia, Chronic Kidney Disease Surgical History: No Surg Hx - [facility] Procedures ANESTH INJECT-SPIN CANAL (06/23/12) CORONAR ARTERIOGR-2 CATH (09/26/14) INJECT STEROID (06/23/12) LEFT HEART CARDIAC CATH (09/26/14) LT HEART ANGIOCARDIOGRAM (09/26/14) LUMBOSAC SPINE X-RAY NEC (06/23/12) OPEN REDUC-INT FIX FEMUR (09/26/14) PACKED CELL TRANSFUSION (09/26/14) PARTIAL HIP REPLACEMENT (07/30/14) SPINAL CANAL INJECT NEC (06/23/12) Family History: States: Unknown Family Hx - Social History Hx Tobacco Use: No Hx Alcohol Use: No Hx Substance Use: No - Immunization History Hx Tetanus Toxoid Vaccination: No Hx Influenza Vaccination: Yes Hx Pneumococcal Vaccination: Yes Review Of Systems Except As Marked, All Systems Reviewed And Found Negative. Cardiovascular: Negative for: Chest Pain Respiratory: Negative for: Shortness of Breath Neurological: Negative for: Confusion, Dizziness Physical Exam - Physical Exam Appears: Non-toxic, No Acute Distress Skin: Normal Color, Warm, Dry Head: Atraumatic, Normacephalic Eye(s): bilateral: Normal Inspection Oral Mucosa: Moist Neck: Normal ROM, Supple Chest: Symmetrical Cardiovascular: Rhythm Regular Respiratory: Normal Breath Sounds, No Rales, No Rhonchi, No Wheezing Gastrointestinal/Abdominal: Soft, No Tenderness, No Guarding, No Rebound Extremity: Normal ROM, No Tenderness, No Swelling Neurological/Psych: Oriented x3, Normal Speech, Normal Cognition Gait: Steady ED Course And Treatment - Laboratory Results Result Diagrams: 03/07/18 07:49 03/07/18 07:49 ECG: Interpreted By Me, Viewed By Me ECG Rhythm: Sinus Bradycardia Interpretation Of ECG: Poor tracing secondary to artifact Rate From EC (BPM) O2 Sat by Pulse Oximetry: 98 (ON RA) Pulse Ox Interpretation: Normal Medical Decision Making Medical Decision Making: sp hypoglyecmia episode - pt unsure of diabetic meds, but previous records shows long acting dm meds. Plan: * VBG * EKG * CXR * Labs * UA pt also noted to be hypothermic upon arrival to er. ?2/2 sepsis vs hypoglyecmic episod.e cxr neg. no LA, no leukoctyosis, thyrod studies neg. UA pending. d51/ 2ns started. case discussed with dr laboy. requests obs. Disposition - Disposition Disposition: HOSPITALIZED Disposition Time: 12:00 Condition: STABLE - Clinical Impression Clinical Impression: Hypoglycemia - Scribe Statement The provider has reviewed the documentation as recorded by the Scribe Chuck Alberto All medical record entries made by the Scribe were at my direction and personally dictated by me. I have reviewed the chart and agree that the record accurately reflects my personal performance of the history, physical exam, medical decision making, and the department course for this patient. I have also personally directed, reviewed, and agree with the discharge instructions and disposition.
[2018-03-02 05:39] LABS: VENOUS BLOOD GAS BASE EXCESS 2.8 mmol/L (0.0-2.0); VENOUS BLOOD GAS PCO2 61 mmHg (40-60); VENOUS BLOOD GAS PO2 16 mm/Hg (30-55); VENOUS BLOOD PH 7.31 (7.32-7.43)
[2018-03-02 05:43] LABS: BASO # 0.1 K/uL (0.0-0.2); BASO % 0.7 % (0.0-2.0); EOS # 0.1 K/uL (0.0-0.7); EOS % 1.7 % (0.0-4.0); HEMOGLOBIN 11.4 g/dL (12.0-18.0); LYMPH % 13.8 % (20.0-40.0); MEAN CELL VOLUME 83.7 fL (80.0-94.0); MEAN CORPUSCULAR HEMOGLOBIN 29.1 pg (27.0-31.0); MEAN CORPUSCULAR HGB CONC 34.8 g/dL (33.0-37.0); MEAN PLATELET VOLUME 8.9 fL (7.2-11.7); MONO # 0.4 K/uL (0.0-0.8); NEUT # 5.6 K/uL (1.8-7.0); NEUT % 77.8 % (50.0-75.0); RBC 3.92 Mil/uL (4.40-5.90); RED CELL DISTRIBUTION WIDTH 14.7 % (11.5-14.5); WHITE BLOOD COUNT 7.3 K/uL (4.8-10.8)
[2018-03-02 06:10] LABS: ALB/GLOB RATIO 1.2 (1.0-2.1); ALBUMIN 3.9 g/dL (3.5-5.0); ALT/SGPT 39 U/L (21-72); AST/SGOT 34 U/L (17-59); BLOOD UREA NITROGEN 14 mg/dL (9-20); CALCIUM 9.2 mg/dl (8.6-10.4); GFR NON-AFRICAN AMERICAN > 60; LIPASE 11 U/L (23-300)
[2018-03-02 06:12] LABS: PROTHROMBIN TIME 10.5 SECONDS (9.7-12.2)
[2018-03-02] MEDS ORDERED: Albuterol 0.083% Inhal Sol (2.5 mg/3 mL) UD INH PRN (06:28)
[2018-03-02] MEDS ORDERED: Dextrose 5%/0.45% NS 1,000 ML IV SCH (06:30)
--- NOTE | 2018-03-02 09:46 | RAD ---
Date of service: 03/02/2018 PROCEDURE: CHEST RADIOGRAPH, 1 VIEW HISTORY: chest pain COMPARISON: 02/03/2008 FINDINGS: LUNGS: Clear. Nodular density projecting of the right lung base and right hemidiaphragm is believe most compatible with a nipple shadow given its projection over extraosseous soft tissues on the prior 02/02/2018 images PLEURA: No pneumothorax or pleural fluid seen. CARDIOVASCULAR: Borderline cardiomegaly. Tortuous thoracic aorta -as before. Atherosclerotic vascular calcifications present. OSSEOUS STRUCTURES: Right posterior 7th rib healed fracture deformity. Unchanged. Last exam 02/02/2018 referenced old left rib fractures. These are more difficult to appreciate on this exam probably due to differences in technique. And the prior study being on left rib series VISUALIZED UPPER ABDOMEN: Normal. OTHER FINDINGS: None. IMPRESSION: No active disease. Other findings as above.
[2018-03-02] MEDS ORDERED: Home Med 1 UNIT (Metformin [Glucophage] 500 MG) PO SCH (10:00)
[2018-03-02] MEDS ORDERED: BISOPROLOL FUMARATE 10 MG PO SCH (10:00)
[2018-03-02] MEDS: (Novolin R) Insulin Human Regular 100 units/ml vial SC SCH ×4 (10:50→21:18)
[2018-03-02] MEDS: oxyCODONE 30 mg Immediate Release Tab PO SCH ×3 (10:53→21:18)
--- NOTE | 2018-03-02 14:13 | CP.PCM.HP ---
History of Present Illness - History of Present Illness History of Present Illness: COMPREHENSIVE HISTORY & PHYSICAL EXAM Patient was brought to the emergency room by paramedics in hypoglycemia. HPI This morning patient was found to be disoriented and generalized weakness. The son called the paramedics found her blood sugar and responded partly with D50 IV push. Patient currently is clear mental status and in no acute distress PAST HIST. Patient has a history of type 2 diabetes. Occasionally the son gives patient Lantus at night for high sugar but most of the time patient takes metformin. Patient used to take glipizide was discontinued due to frequent hypoglycemia. Patient has a history of coronary artery disease COPD bilateral hip fractures and lumbar radiculopathy. PERSONAL HIST: Smoking. N Alcohol. N Allergy N Travel_- . FAMILY HIST : ROS : Constitutional: Negative for weight change, chills Eyes: Negative for redness, swelling, itching, discharge, vision changes, blurry vision, double vision, glaucoma, cataracts, Ears: Negative for hearing loss, ringing, , tinnitus, vertigo Nose: Negative for rhinorrhea, stuffiness, sniffing, itching, postnasal drip, discoloration, nasal congestion and epistaxis. Throat: Negative for throat clearing, sore throat, hoarseness, difficulty swallowing and difficulty speaking. Respiratory: Negative for cough, , sputum production, chest tightness, wheezing, pleuritic chest pain ,daytime somnolence, chronic cough, hemoptysis, snoring at night, Cardiovascular: Negative for chest pain, palpitations, orthopnea, PND, Edema of legs, leg cramps, angina, claudication, , irregular heartbeat, Neurology: Negative for irritability, muscle weakness, numbness and tingling, seizures, tremors, migraines, slurred speech, syncope, memory loss, mood changes , recurrent headaches Gastrointestinal: Negative for difficulty swallowing, diarrhea, constipation, black stools, rectal bleeding, nausea, flatulence, reflux, poor appetite, changes in bowel habits, abdominal pain Genitourinary: Negative for frequent urination, hematuria, discharge, incontinence, urinary retention, frequent UTI, Psychiatric: Negative for depression, anxiety/panic, suicidal tendencies, Musculoskeletal: Negative for swollen joints, back pain, , neck pain, morning stiffness of joints, . Skin: Negative for rash, ulcers, itching, dry skin and pigmented lesions. P/E: Constitutional: Appears stated age and in no apparent distress. Head: Normocephalic. Ears: External ear canals patent without inflammation. Tympanic membranes intact with normal light reflex and landmark. Eyes: Pupils are central, bilaterally equal, symmetrical and reacts to light with normal movements and no icterus or pallor. Nose: External nares are patent. Mucosa is pink Mouth-Throat: Good general appearance and condition. No post-pharyngeal/oropharyngeal erythema and tonsillar hypertrophy. Good dental hygiene. Neck-Lymphatic: Neck is supple with normal ROM, no thyromegaly, lymph nodes or masses. JVD is normal with no carotid bruit. Lungs: Clear to percussion and auscultation with bilateral normal air entry. Cardiovascular: S1 and S2 are normal with no murmurs, gallops and rub. GI Exam: No hepatomegaly. Abdomen is soft and non-tender. No Organomegaly , masses or hernias are evident and bowel sounds are normal and active. Neurology: Higher function and all cranial nerves intact, with no gross motor or sensory deficit. Superficial and deep reflexes are normal with downwards planters. No cerebellar deficit with normal gait. Musculoskeletal: No tender spots with normal curvature of the spine with no swelling or restricted ROM of the small and large joints. Extremities: Homans sign absent. Intact pulses with no pitting edema, calf tenderness or skin color changes. Skin: No rash, eruptions or abnormal skin pigmentation LAB/RADIOLOGY: ASSESMENT : Symptomatic hypoglycemia improving with medications Type 2 diabetes occasionally takes insulin COPD coronary artery disease Bilateral hip fracture with lumbar radiculopathy PLAN: See orders Present on Admission - Present on Admission Any Indicators Present on Admission: No Past Patient History - Infectious Disease Hx of Infectious Diseases: None - Past Medical History & Family History Past Medical History?: Yes - Past Social History Smoking Status: Former Smoker - CARDIAC Hx Cardia Arrhythmia: Yes Hx Hypercholesterolemia: Yes Hx Hypertension: Yes - PULMONARY Hx Bronchitis: Yes Hx Chronic Obstructive Pulmonary Disease (COPD): Yes - NEUROLOGICAL Hx Neurological Disorder: Yes HX Cerebrovascular Accident: Yes - HEENT Hx HEENT Problems: No - RENAL Hx Chronic Kidney Disease: Yes - ENDOCRINE/METABOLIC Hx Endocrine Disorders: Yes Hx Diabetes Mellitus Type 1: Yes Hx Diabetes Mellitus Type 2: Yes - HEMATOLOGICAL/ONCOLOGICAL Hx Blood Disorders: No - INTEGUMENTARY Hx Dermatological Problems: No - MUSCULOSKELETAL/RHEUMATOLOGICAL Hx Fractures: Yes (left and right hip fx) - GASTROINTESTINAL Hx Gastrointestinal Disorders: No - GENITOURINARY/GYNECOLOGICAL Hx Genitourinary Disorders: Yes Hx Prostate Problems: Yes - PSYCHIATRIC Hx Depression: Yes Hx Substance Use: No - SURGICAL HISTORY Hx Surgeries: Yes Hx Cardiac Catheterization: Yes Hx Orthopedic Surgery: Yes (left and right hip) - ANESTHESIA Hx Anesthesia: Yes Hx Anesthesia Reactions: No Hx Malignant Hyperthermia: No Meds Allergies/Adverse Reactions: Allergies Allergy/AdvReac Type Severity Reaction Status Date / Time No Known Allergies Allergy Verified 03/02/18 05:21 Results - Vital Signs Recent Vital Signs: Last Vital Signs Temp 98 F 03/02/18 11:15 Pulse 84 03/02/18 11:30 Resp 20 03/02/18 11:15 BP 151/73 H 03/02/18 11:15 Pulse Ox 99 03/02/18 11:57 - Labs Result Diagrams: 03/02/18 05:40 03/02/18 05:40 Labs: Laboratory Results - last 24 hr 03/02/18 03/02/18 03/02/18 05:16 05:30 05:40 WBC 7.3 RBC 3.92 L Hgb 11.4 L Hct 32.8 L MCV 83.7 D MCH 29.1 MCHC 34.8 RDW 14.7 H Plt Count 209 MPV 8.9 Neut % (Auto) 77.8 H Lymph % (Auto) 13.8 L [place] % (Auto) 6.0 Eos % (Auto) 1.7 Baso % (Auto) 0.7 Neut # (Auto) 5.6 Lymph # (Auto) 1.0 [place] # (Auto) 0.4 Eos # (Auto) 0.1 Baso # (Auto) 0.1 PT INR APTT pO2 16 L VBG pH 7.31 L VBG pCO2 61 H VBG HCO3 24.9 VBG Total CO2 32.6 H VBG O2 Sat (Calc) 24.6 L VBG Base Excess 2.8 H VBG Potassium 3.4 L Sodium 130.0 L Chloride 94.0 L Glucose 98 Lactate 1.8 Potassium Carbon Dioxide Anion Gap BUN Creatinine Est GFR ( Amer) Est GFR (Non-Af Amer) POC Glucose (mg/dL) 138 H Random Glucose Calcium Total Bilirubin AST ALT Alkaline Phosphatase Troponin I Total Protein Albumin Globulin Albumin/Globulin Ratio Lipase Free T4 TSH 3rd Generation Venous Blood Potassium 3.4 L 03/02/18 03/02/18 03/02/18 05:40 05:40 05:40 WBC RBC Hgb Hct MCV MCH MCHC RDW Plt Count MPV Neut % (Auto) Lymph % (Auto) [place] % (Auto) Eos % (Auto) Baso % (Auto) Neut # (Auto) Lymph # (Auto) [place] # (Auto) Eos # (Auto) Baso # (Auto) PT 10.5 INR 1.0 APTT 34 pO2 VBG pH VBG pCO2 VBG HCO3 VBG Total CO2 VBG O2 Sat (Calc) VBG Base Excess VBG Potassium Sodium 131 L Chloride 91 L Glucose Lactate Potassium 3.7 Carbon Dioxide 31 H Anion Gap 14 BUN 14 Creatinine 0.8 Est GFR ( Amer) > 60 Est GFR (Non-Af Amer) > 60 POC Glucose (mg/dL) Random Glucose 100 Calcium 9.2 Total Bilirubin 0.3 AST 34 ALT 39 Alkaline Phosphatase 136 H D Troponin I 0.0310 Total Protein 7.2 Albumin 3.9 Globulin 3.3 Albumin/Globulin Ratio 1.2 Lipase 11 L Free T4 1.24 TSH 3rd Generation 3.74 Venous Blood Potassium 03/02/18 03/02/18 03/02/18 06:11 08:34 10:58 WBC RBC Hgb Hct MCV MCH MCHC RDW Plt Count MPV Neut % (Auto) Lymph % (Auto) [place] % (Auto) Eos % (Auto) Baso % (Auto) Neut # (Auto) Lymph # (Auto) [place] # (Auto) Eos # (Auto) Baso # (Auto) PT INR APTT pO2 VBG pH VBG pCO2 VBG HCO3 VBG Total CO2 VBG O2 Sat (Calc) VBG Base Excess VBG Potassium Sodium Chloride Glucose Lactate Potassium Carbon Dioxide Anion Gap BUN Creatinine Est GFR ( Amer) Est GFR (Non-Af Amer) POC Glucose (mg/dL) 75 94 167 H Random Glucose Calcium Total Bilirubin AST ALT Alkaline Phosphatase Troponin I Total Protein Albumin Globulin Albumin/Globulin Ratio Lipase Free T4 TSH 3rd Generation Venous Blood Potassium 03/02/18 11:43 WBC RBC Hgb Hct MCV MCH MCHC RDW Plt Count MPV Neut % (Auto) Lymph % (Auto) [place] % (Auto) Eos % (Auto) Baso % (Auto) Neut # (Auto) Lymph # (Auto) [place] # (Auto) Eos # (Auto) Baso # (Auto) PT INR APTT pO2 VBG pH VBG pCO2 VBG HCO3 VBG Total CO2 VBG O2 Sat (Calc) VBG Base Excess VBG Potassium Sodium Chloride Glucose Lactate Potassium Carbon Dioxide Anion Gap BUN Creatinine Est GFR ( Amer) Est GFR (Non-Af Amer) POC Glucose (mg/dL) 184 H Random Glucose Calcium Total Bilirubin AST ALT Alkaline Phosphatase Troponin I Total Protein Albumin Globulin Albumin/Globulin Ratio Lipase Free T4 TSH 3rd Generation Venous Blood Potassium
[2018-03-02] MEDS: Piperacill/Tazo 3.375gm in Dex 3.375 GM/50 ML BAG IVPB SCH (18:46)
[2018-03-02] MEDS ORDERED: (Lantus) Insulin Glargine, Recombinant SC SCH (22:00)
--- NOTE | 2018-03-02 23:53 | CP.PCM.CON ---
History of Present Illness - History of Present Illness History of Present Illness: INFECTIOUS DISEASE CONSULT' HPI; 77-year-old male with history off DM type II, CAD, COPD, history of LEFT hip fracture/ ORIF and lumbar radiculopathy who was admitted on 03/02/18 because of altered mental status, confusion and found to be hypoglycemic. Patient responded to D50 IV push by paramedics. Patient presently clear mental status and in no acute distress. Infectious disease consultation requested by PMD for evaluation off bilateral ulceration of both feet digits. Patient denies any pain or any malodorous discharge. Patient also denies any pain to the ulceration sites or 2 lower extremities. Patient denies any nausea or vomiting, fever or chills, chest pain, dyspnea. Patient is hard of hearing and wants his TV loud. Meds: See MAR All: NKDA PSH: L hip ORIF FH: Unknown SH: Denies smoking or alcohol use Review of Systems - Constitutional Constitutional: absent: Chills, Fever - EENT Eyes: absent: Change in Vision Ears: Decreased Hearing Nose/Mouth/Throat: absent: Dry Mouth, Mouth Lesions - Cardiovascular Cardiovascular: absent: Chest Pain, Leg Edema, Pedal Edema - Respiratory Respiratory: absent: Cough, Hemoptysis - Gastrointestinal Gastrointestinal: absent: Diarrhea, Nausea, Odynophagia, Vomiting - Genitourinary Genitourinary: absent: Dysuria, Urinary Frequency - Neurological Neurological: absent: Headaches, Paresthesias - Hematologic/Lymphatic Hematologic: As Per HPI. absent: Easy Bruising Past Patient History - Infectious Disease Hx of Infectious Diseases: None - Past Medical History & Family History Past Medical History?: Yes - Past Social History Smoking Status: Former Smoker - CARDIAC Hx Cardia Arrhythmia: Yes Hx Hypercholesterolemia: Yes Hx Hypertension: Yes - PULMONARY Hx Bronchitis: Yes Hx Chronic Obstructive Pulmonary Disease (COPD): Yes - NEUROLOGICAL Hx Neurological Disorder: Yes HX Cerebrovascular Accident: Yes - HEENT Hx HEENT Problems: No - RENAL Hx Chronic Kidney Disease: Yes - ENDOCRINE/METABOLIC Hx Endocrine Disorders: Yes Hx Diabetes Mellitus Type 1: Yes Hx Diabetes Mellitus Type 2: Yes - HEMATOLOGICAL/ONCOLOGICAL Hx Blood Disorders: No - INTEGUMENTARY Hx Dermatological Problems: No - MUSCULOSKELETAL/RHEUMATOLOGICAL Hx Fractures: Yes (left and right hip fx) - GASTROINTESTINAL Hx Gastrointestinal Disorders: No - GENITOURINARY/GYNECOLOGICAL Hx Genitourinary Disorders: Yes Hx Prostate Problems: Yes - PSYCHIATRIC Hx Depression: Yes Hx Substance Use: No - SURGICAL HISTORY Hx Surgeries: Yes Hx Cardiac Catheterization: Yes Hx Orthopedic Surgery: Yes (left and right hip) - ANESTHESIA Hx Anesthesia: Yes Hx Anesthesia Reactions: No Hx Malignant Hyperthermia: No Meds Allergies/Adverse Reactions: Allergies Allergy/AdvReac Type Severity Reaction Status Date / Time No Known Allergies Allergy Verified 03/02/18 05:21 - Medications Medications: Current Medications Acetaminophen (Tylenol 325mg Tab) 650 mg PO Q6 PRN PRN Reason: Pain, moderate (4-7) Albuterol Sulfate (Albuterol 0.083% Inhal Sandrine (2.5 Mg/3 Ml) Ud) 2.5 mg INH RQ6 PRN PRN Reason: Wheezing Bisoprolol Fumarate (Zebeta) 10 mg PO DAILY [facility] Clopidogrel Bisulfate (Plavix) 75 mg PO DAILY [facility] Last Admin: 03/02/18 10:53 Dose: 75 mg Heparin Sodium (Porcine) (Heparin) 5,000 units SC Q12 [facility] Last Admin: 03/02/18 21:19 Dose: 5,000 units Piperacillin Sod/Tazobactam Sod (Zosyn 3.375 Gm Iv Premix) 3.375 gm in 50 mls @ 200 mls/hr IVPB Q8H [facility] PRN Reason: Protocol Last Admin: 03/02/18 18:46 Dose: 200 mls/hr Insulin Glargine (Lantus) 10 unit SC HS [facility] Last Admin: 03/02/18 22:18 Dose: 10 unit Insulin Human Regular (Novolin R) 0 unit SC ACHS [facility] PRN Reason: Protocol Last Admin: 03/02/18 21:18 Dose: Not Given Metformin HCl (Glucophage) 500 mg PO BID [facility] Last Admin: 03/02/18 18:51 Dose: Not Given Mirtazapine (Remeron) 15 mg PO HS [facility] Last Admin: 03/02/18 21:18 Dose: 15 mg Montelukast Sodium (Singulair) 10 mg PO HS [facility] Oxycodone HCl (Oxycodone Immediate Release Tab) 30 mg PO BID [facility] Last Admin: 03/02/18 21:18 Dose: 30 mg Pneumococcal Polyvalent Vaccine (Pneumovax 23 Vaccine) 0.5 ml IM .ONCE ONE Stop: 03/04/18 10:01 Rosuvastatin Calcium (Crestor) 10 mg PO HS RADHA Sitagliptin Phosphate (Januvia) 100 mg PO DAILY [facility] Last Admin: 03/02/18 10:52 Dose: 100 mg Physical Exam - Constitutional Appears: No Acute Distress - Head Exam Head Exam: ATRAUMATIC, NORMOCEPHALIC - Eye Exam Eye Exam: EOMI, PERRL - ENT Exam ENT Exam: Normal Oropharynx - Neck Exam Neck exam: Positive for: Normal Inspection - Respiratory Exam Respiratory Exam: NORMAL BREATHING PATTERN - Cardiovascular Exam Cardiovascular Exam: REGULAR RHYTHM, +S1, +S2 - GI/Abdominal Exam GI & Abdominal Exam: Normal Bowel Sounds, Soft. absent: Tenderness - Extremities Exam Extremities exam: Positive for: normal capillary refill (left foot third digit, fifth digit with superficial ulcerations. No malodorous no drainage noted.), pedal pulses present. Negative for: calf tenderness, normal inspection ( third digit with superficial ulceration. No malodorous discharge. Bilateral elongated dystrophic toenails noted both feet.), pedal edema - Neurological Exam Neurological exam: Abnormal Gait, CN II-XII Intact, Oriented x3 - Psychiatric Exam Psychiatric exam: Normal Mood - Skin Skin Exam: Normal Color, Warm Results - Vital Signs Recent Vital Signs: Last Vital Signs Temp 98 F 03/02/18 16:28 Pulse 71 03/02/18 16:28 Resp 20 03/02/18 16:28 BP 157/72 H 03/02/18 16:28 Pulse Ox 97 03/02/18 16:28 - Labs Result Diagrams: 03/03/18 07:13 03/03/18 07:13 Labs: Laboratory Results - last 24 hr 03/02/18 03/02/18 03/02/18 05:16 05:30 05:40 WBC 7.3 RBC 3.92 L Hgb 11.4 L Hct 32.8 L MCV 83.7 D MCH 29.1 MCHC 34.8 RDW 14.7 H Plt Count 209 MPV 8.9 Neut % (Auto) 77.8 H Lymph % (Auto) 13.8 L [place] % (Auto) 6.0 Eos % (Auto) 1.7 Baso % (Auto) 0.7 Neut # (Auto) 5.6 Lymph # (Auto) 1.0 [place] # (Auto) 0.4 Eos # (Auto) 0.1 Baso # (Auto) 0.1 PT INR APTT pO2 16 L VBG pH 7.31 L VBG pCO2 61 H VBG HCO3 24.9 VBG Total CO2 32.6 H VBG O2 Sat (Calc) 24.6 L VBG Base Excess 2.8 H VBG Potassium 3.4 L Sodium 130.0 L Chloride 94.0 L Glucose 98 Lactate 1.8 Potassium Carbon Dioxide Anion Gap BUN Creatinine Est GFR ( Amer) Est GFR (Non-Af Amer) POC Glucose (mg/dL) 138 H Random Glucose Calcium Total Bilirubin AST ALT Alkaline Phosphatase Troponin I Total Protein Albumin Globulin Albumin/Globulin Ratio Lipase Free T4 TSH 3rd Generation Venous Blood Potassium 3.4 L 03/02/18 03/02/18 03/02/18 05:40 05:40 05:40 WBC RBC Hgb Hct MCV MCH MCHC RDW Plt Count MPV Neut % (Auto) Lymph % (Auto) [place] % (Auto) Eos % (Auto) Baso % (Auto) Neut # (Auto) Lymph # (Auto) [place] # (Auto) Eos # (Auto) Baso # (Auto) PT 10.5 INR 1.0 APTT 34 pO2 VBG pH VBG pCO2 VBG HCO3 VBG Total CO2 VBG O2 Sat (Calc) VBG Base Excess VBG Potassium Sodium 131 L Chloride 91 L Glucose Lactate Potassium 3.7 Carbon Dioxide 31 H Anion Gap 14 BUN 14 Creatinine 0.8 Est GFR ( Amer) > 60 Est GFR (Non-Af Amer) > 60 POC Glucose (mg/dL) Random Glucose 100 Calcium 9.2 Total Bilirubin 0.3 AST 34 ALT 39 Alkaline Phosphatase 136 H D Troponin I 0.0310 Total Protein 7.2 Albumin 3.9 Globulin 3.3 Albumin/Globulin Ratio 1.2 Lipase 11 L Free T4 1.24 TSH 3rd Generation 3.74 Venous Blood Potassium 03/02/18 03/02/18 03/02/18 06:11 08:34 10:58 WBC RBC Hgb Hct MCV MCH MCHC RDW Plt Count MPV Neut % (Auto) Lymph % (Auto) [place] % (Auto) Eos % (Auto) Baso % (Auto) Neut # (Auto) Lymph # (Auto) [place] # (Auto) Eos # (Auto) Baso # (Auto) PT INR APTT pO2 VBG pH VBG pCO2 VBG HCO3 VBG Total CO2 VBG O2 Sat (Calc) VBG Base Excess VBG Potassium Sodium Chloride Glucose Lactate Potassium Carbon Dioxide Anion Gap BUN Creatinine Est GFR ( Amer) Est GFR (Non-Af Amer) POC Glucose (mg/dL) 75 94 167 H Random Glucose Calcium Total Bilirubin AST ALT Alkaline Phosphatase Troponin I Total Protein Albumin Globulin Albumin/Globulin Ratio Lipase Free T4 TSH 3rd Generation Venous Blood Potassium 03/02/18 03/02/18 03/02/18 11:43 16:37 20:59 WBC RBC Hgb Hct MCV MCH MCHC RDW Plt Count MPV Neut % (Auto) Lymph % (Auto) [place] % (Auto) Eos % (Auto) Baso % (Auto) Neut # (Auto) Lymph # (Auto) [place] # (Auto) Eos # (Auto) Baso # (Auto) PT INR APTT pO2 VBG pH VBG pCO2 VBG HCO3 VBG Total CO2 VBG O2 Sat (Calc) VBG Base Excess VBG Potassium Sodium Chloride Glucose Lactate Potassium Carbon Dioxide Anion Gap BUN Creatinine Est GFR ( Amer) Est GFR (Non-Af Amer) POC Glucose (mg/dL) 184 H 140 H 236 H Random Glucose Calcium Total Bilirubin AST ALT Alkaline Phosphatase Troponin I Total Protein Albumin Globulin Albumin/Globulin Ratio Lipase Free T4 TSH 3rd Generation Venous Blood Potassium - Imaging and Cardiology x-ray feet Status: Report reviewed by me (no acute findings. Bilateral hammertoes.) Assessment & Plan (1) Bilateral pressure ulcer of feet Status: Acute (2) COPD (chronic obstructive pulmonary disease) Status: Acute (3) Diabetes Status: Acute (4) HTN (hypertension) Status: Acute (5) Onychomycosis of left great toe Assessment and Plan: podiatry in case. bilateral foot care. dressing dry/clean. Status: Acute - Assessment and Plan (Free Text) Plan: PLAN; ESR CRP. CONTINUE ZOSYN 3.375 EVERY 8 HOURLY. THREE-PHASE BONE SCAN LEFT FOOT TO RULE OUT OSTEOMYELITIS THIRD AND FIFTH DIGIT. wE WILL REVIEW ULTRASOUND OF LOWER EXTREMITIES ORDERED BY PODIATRY. lOCAL WOUND CARE PER PODIATRY..
[2018-03-03] MEDS ORDERED: DiphenhydrAMINE 50 mg/ml Inj IVP STA (01:49)
[2018-03-03] MEDS: Piperacill/Tazo 3.375gm in Dex 3.375 GM/50 ML BAG IVPB SCH ×3 (02:25→18:27)
[2018-03-03] MEDS ORDERED: Dextrose 50% SYRINGE Inj (50 ml) IV STA ×2 (06:56→16:38)
[2018-03-03 07:35] LABS: BASO # 0.1 K/uL (0.0-0.2); BASO % 0.7 % (0.0-2.0); EOS # 0.2 K/uL (0.0-0.7); HEMOGLOBIN 10.6 g/dL (12.0-18.0); LYMPH % 11.9 % (20.0-40.0); MEAN CELL VOLUME 83.7 fL (80.0-94.0); MEAN CORPUSCULAR HEMOGLOBIN 29.3 pg (27.0-31.0); MEAN CORPUSCULAR HGB CONC 35.1 g/dL (33.0-37.0); MEAN PLATELET VOLUME 9.7 fL (7.2-11.7); MONO # 0.5 K/uL (0.0-0.8); MONO % 6.5 % (0.0-10.0); NEUT # 6.5 K/uL (1.8-7.0); NEUT % 78.9 % (50.0-75.0); NRBC % 0.1 % (0.0-2.0); RBC 3.62 Mil/uL (4.40-5.90); RED CELL DISTRIBUTION WIDTH 14.9 % (11.5-14.5); WHITE BLOOD COUNT 8.2 K/uL (4.8-10.8)
[2018-03-03] MEDS: (Novolin R) Insulin Human Regular 100 units/ml vial SC SCH ×4 (07:36→21:39)
[2018-03-03 08:01] LABS: ALB/GLOB RATIO 1.1 (1.0-2.1); ALBUMIN 3.4 g/dL (3.5-5.0); ALT/SGPT 28 U/L (21-72); AST/SGOT 27 U/L (17-59); BLOOD UREA NITROGEN 13 mg/dL (9-20); CALCIUM 8.8 mg/dl (8.6-10.4); GFR NON-AFRICAN AMERICAN > 60
[2018-03-03] MEDS: oxyCODONE 30 mg Immediate Release Tab PO SCH ×2 (10:28→17:34)
--- NOTE | 2018-03-03 11:30 | CP.PCM.CON ---
History of Present Illness - History of Present Illness History of Present Illness: Podiatry Consult note for Dr. Juárez 77M with PMH DM2, COPD, CAD seen and evaluated at bedside for ulcerations of b/ l toes as well as elongated, dystrophic nails. Patient states that he is not sure how long the ulcerations have been present. He denies any pain to the ulceration sites. Denies any redness, drainage or malodor from the ulceration sites. Patient is AAO x 3 and NAD during examination. Denies any acute overnight events or other pedal complaints at this time. Denies any recent N/V/F /C/CP/D Meds: See MAR All: NKDA PSH: L hip ORIF FH: Unknown SH: Denies smoking or alcohol use Review of Systems - Review of Systems All systems: reviewed and no additional remarkable complaints except Review of Systems: as per HPI Past Patient History - Infectious Disease Hx of Infectious Diseases: None - Past Medical History & Family History Past Medical History?: Yes - Past Social History Smoking Status: Former Smoker - CARDIAC Hx Cardia Arrhythmia: Yes Hx Hypercholesterolemia: Yes Hx Hypertension: Yes - PULMONARY Hx Bronchitis: Yes Hx Chronic Obstructive Pulmonary Disease (COPD): Yes - NEUROLOGICAL Hx Neurological Disorder: Yes HX Cerebrovascular Accident: Yes - HEENT Hx HEENT Problems: No - RENAL Hx Chronic Kidney Disease: Yes - ENDOCRINE/METABOLIC Hx Endocrine Disorders: Yes Hx Diabetes Mellitus Type 1: Yes Hx Diabetes Mellitus Type 2: Yes - HEMATOLOGICAL/ONCOLOGICAL Hx Blood Disorders: No - INTEGUMENTARY Hx Dermatological Problems: No - MUSCULOSKELETAL/RHEUMATOLOGICAL Hx Fractures: Yes (left and right hip fx) - GASTROINTESTINAL Hx Gastrointestinal Disorders: No - GENITOURINARY/GYNECOLOGICAL Hx Genitourinary Disorders: Yes Hx Prostate Problems: Yes - PSYCHIATRIC Hx Depression: Yes Hx Substance Use: No - SURGICAL HISTORY Hx Surgeries: Yes Hx Cardiac Catheterization: Yes Hx Orthopedic Surgery: Yes (left and right hip) - ANESTHESIA Hx Anesthesia: Yes Hx Anesthesia Reactions: No Hx Malignant Hyperthermia: No Meds Allergies/Adverse Reactions: Allergies Allergy/AdvReac Type Severity Reaction Status Date / Time No Known Allergies Allergy Verified 03/02/18 05:21 - Medications Medications: Current Medications Acetaminophen (Tylenol 325mg Tab) 650 mg PO Q6 PRN PRN Reason: Pain, moderate (4-7) Albuterol Sulfate (Albuterol 0.083% Inhal Sandrine (2.5 Mg/3 Ml) Ud) 2.5 mg INH RQ6 PRN PRN Reason: Wheezing Bisoprolol Fumarate (Zebeta) 10 mg PO DAILY [facility] Last Admin: 03/03/18 10:38 Dose: 10 mg Clopidogrel Bisulfate (Plavix) 75 mg PO DAILY [facility] Last Admin: 03/03/18 10:28 Dose: 75 mg Heparin Sodium (Porcine) (Heparin) 5,000 units SC Q12 [facility] Last Admin: 03/03/18 10:28 Dose: 5,000 units Piperacillin Sod/Tazobactam Sod (Zosyn 3.375 Gm Iv Premix) 3.375 gm in 50 mls @ 200 mls/hr IVPB Q8H [facility] PRN Reason: Protocol Last Admin: 03/03/18 10:39 Dose: 200 mls/hr Insulin Glargine (Lantus) 10 unit SC HS [facility] Last Admin: 03/02/18 22:18 Dose: 10 unit Insulin Human Regular (Novolin R) 0 unit SC ACHS [facility] PRN Reason: Protocol Last Admin: 03/03/18 07:36 Dose: Not Given Metformin HCl (Glucophage) 500 mg PO BID [facility] Last Admin: 03/03/18 10:28 Dose: 500 mg Mirtazapine (Remeron) 15 mg PO HS [facility] Last Admin: 03/02/18 21:18 Dose: 15 mg Montelukast Sodium (Singulair) 10 mg PO HS [facility] Mupirocin (Bactroban Ointment) 0 gm TOP DAILY [facility] Last Admin: 03/03/18 10:32 Dose: Not Given Oxycodone HCl (Oxycodone Immediate Release Tab) 30 mg PO BID [facility] Last Admin: 03/03/18 10:28 Dose: 30 mg Pneumococcal Polyvalent Vaccine (Pneumovax 23 Vaccine) 0.5 ml IM .ONCE ONE Stop: 03/04/18 10:01 Rosuvastatin Calcium (Crestor) 10 mg PO HS [facility] Sitagliptin Phosphate (Januvia) 100 mg PO DAILY [facility] Last Admin: 03/03/18 10:28 Dose: 100 mg Physical Exam - Constitutional Appears: Well, Non-toxic, No Acute Distress - Extremities Exam Additional comments: B/l LE focused exam: Vasc: DP/PT pulses 1/4 b/l. Skin temperature warm to warm from proximal to distal. CFT < 3 seconds to all digits b/l. No edema noted to periwound areas Neuro: Epicritic and protective sensation grossly intact b/l Derm: Superficial, unstagable ulcerations noted to dorsal aspect of left third and fifth digit as well as right third digit. Minimal periwound erythema noted to all wounds without streaking. No malodor, no drainage, no probe to bone, no other clinical signs of infection. Elongated, dystrophic, onychomycotic toe nails noted to digits 1-5 b/l MSK: Minimal tenderness on palpation of all ulceration sites. ROM WNL at all major joints given age and comorbidities. MMT 4/5 in all major muscle groups b/l - Neurological Exam Neurological exam: Alert, Oriented x3 - Psychiatric Exam Psychiatric exam: Normal Affect, Normal Mood Results - Vital Signs Recent Vital Signs: Last Vital Signs Temp 97.6 F 03/03/18 08:02 Pulse 72 03/03/18 08:02 Resp 20 03/03/18 08:02 BP 155/80 H 03/03/18 08:02 Pulse Ox 96 03/03/18 08:02 - Labs Result Diagrams: 03/03/18 07:13 03/03/18 07:13 Labs: Laboratory Results - last 24 hr 03/02/18 03/02/18 03/02/18 06:11 11:43 16:37 WBC RBC Hgb Hct MCV MCH MCHC RDW Plt Count MPV Neut % (Auto) Lymph % (Auto) [place] % (Auto) Eos % (Auto) Baso % (Auto) Neut # (Auto) Lymph # (Auto) [place] # (Auto) Eos # (Auto) Baso # (Auto) Sodium Potassium Chloride Carbon Dioxide Anion Gap BUN Creatinine Est GFR ( Amer) Est GFR (Non-Af Amer) POC Glucose (mg/dL) 75 184 H 140 H Random Glucose Calcium Phosphorus Magnesium Total Bilirubin AST ALT Alkaline Phosphatase Total Protein Albumin Globulin Albumin/Globulin Ratio 03/02/18 03/03/18 03/03/18 20:59 01:57 06:10 WBC RBC Hgb Hct MCV MCH MCHC RDW Plt Count MPV Neut % (Auto) Lymph % (Auto) [place] % (Auto) Eos % (Auto) Baso % (Auto) Neut # (Auto) Lymph # (Auto) [place] # (Auto) Eos # (Auto) Baso # (Auto) Sodium Potassium Chloride Carbon Dioxide Anion Gap BUN Creatinine Est GFR ( Amer) Est GFR (Non-Af Amer) POC Glucose (mg/dL) 236 H 149 H 53 L Random Glucose Calcium Phosphorus Magnesium Total Bilirubin AST ALT Alkaline Phosphatase Total Protein Albumin Globulin Albumin/Globulin Ratio 03/03/18 03/03/18 03/03/18 06:12 06:50 07:13 WBC 8.2 RBC 3.62 L Hgb 10.6 L Hct 30.3 L MCV 83.7 MCH 29.3 MCHC 35.1 RDW 14.9 H Plt Count 192 MPV 9.7 Neut % (Auto) 78.9 H Lymph % (Auto) 11.9 L [place] % (Auto) 6.5 Eos % (Auto) 2.0 Baso % (Auto) 0.7 Neut # (Auto) 6.5 Lymph # (Auto) 1.0 [place] # (Auto) 0.5 Eos # (Auto) 0.2 Baso # (Auto) 0.1 Sodium Potassium Chloride Carbon Dioxide Anion Gap BUN Creatinine Est GFR ( Amer) Est GFR (Non-Af Amer) POC Glucose (mg/dL) 52 L 59 L Random Glucose Calcium Phosphorus Magnesium Total Bilirubin AST ALT Alkaline Phosphatase Total Protein Albumin Globulin Albumin/Globulin Ratio 03/03/18 03/03/18 03/03/18 07:13 07:16 11:01 WBC RBC Hgb Hct MCV MCH MCHC RDW Plt Count MPV Neut % (Auto) Lymph % (Auto) [place] % (Auto) Eos % (Auto) Baso % (Auto) Neut # (Auto) Lymph # (Auto) [place] # (Auto) Eos # (Auto) Baso # (Auto) Sodium 129 L Potassium 3.8 Chloride 92 L Carbon Dioxide 29 Anion Gap 13 BUN 13 Creatinine 0.8 Est GFR ( Amer) > 60 Est GFR (Non-Af Amer) > 60 POC Glucose (mg/dL) 220 H 202 H Random Glucose 52 L Calcium 8.8 Phosphorus 3.0 Magnesium 1.5 L Total Bilirubin 0.5 AST 27 ALT 28 Alkaline Phosphatase 117 Total Protein 6.6 Albumin 3.4 L Globulin 3.2 Albumin/Globulin Ratio 1.1 Assessment & Plan - Assessment and Plan (Free Text) Assessment: 77M with PMH DM2, COPD, CAD seen and evaluated at bedside for ulcerations of b/ l toes as well as elongated, dystrophic nails Plan: Patient seen and evaluated with Dr. Juárez Afebrile, absent leukocytosis Continue IV abx per ID B/l foot xrays: Read pending Wound dressed with DSD Bactroban ordered for tomorrow's dressing change PVR/Segmental pressures ordered Will debride patient's nails during tomorrow's dressing change Podiatry will continue to follow while patient in house - Date & Time Date: 03/03/18 Time: 11:37
--- NOTE | 2018-03-03 13:46 | CP.PCM.PN ---
Subjective - Date & Time of Evaluation Date of Evaluation: 03/03/18 Time of Evaluation: 13:43 - Subjective Subjective: CHIEF COMPLAINTS TODAY : No further hypoglycemic episodes. Patient has a wound on the left third toe which appears to be infected ROS. HEENT : N. Resp : No cough, wheezing ,pleuritic CP ,or hemoptysis Cardio : No anginal CP, PND, orthopnea, palpitation GI : No abd.pain, n/v ,diarrhea or GI bleeding . [employer] : No headache, vertigo, focal deficit. Musculoskel : No joint swelling , Derm : No rash Psych : Normal affect. Ext : No swelling ,calf pain PE. Pt. is alert awake in no distress. V.S As noted in the chart Head ,ear nose,throat and eyes : Normal. Neck : Supple with normal carotids. Lungs: Clear air entry. Heart : S1 & S2 normal with S4. No murmur. Abd : Soft non tender with normal bowel sounds. Neuro : Moves all ext. with no localized deficit. Ext : No edema with intact pulses.Non tender calves on the dorsal surface of the third right toe there is a superficial ulcer with dried pus Derm : No rashes or decubitus ulcer. LABS/RADIOLOGY: ASSESSMENT/PLAN : Continue IV antibiotics Local wound care as outlined by the lap hand tool monitor blood sugars Objective - Vital Signs/Intake and Output Vital Signs (last 24 hours): Temp Pulse Resp BP Pulse Ox 97.6 F 60 20 155/80 H 96 03/03/18 08:02 03/03/18 11:27 03/03/18 08:02 03/03/18 08:02 03/03/18 08:02 - Medications Medications: Current Medications Acetaminophen (Tylenol 325mg Tab) 650 mg PO Q6 PRN PRN Reason: Pain, moderate (4-7) Albuterol Sulfate (Albuterol 0.083% Inhal Sandrine (2.5 Mg/3 Ml) Ud) 2.5 mg INH RQ6 PRN PRN Reason: Wheezing Bisoprolol Fumarate (Zebeta) 10 mg PO DAILY [facility] Clopidogrel Bisulfate (Plavix) 75 mg PO DAILY [facility] Last Admin: 03/03/18 10:28 Dose: 75 mg Heparin Sodium (Porcine) (Heparin) 5,000 units SC Q12 [facility] Last Admin: 03/03/18 10:28 Dose: 5,000 units Piperacillin Sod/Tazobactam Sod (Zosyn 3.375 Gm Iv Premix) 3.375 gm in 50 mls @ 200 mls/hr IVPB Q8H [facility] PRN Reason: Protocol Last Admin: 03/03/18 10:39 Dose: 200 mls/hr Insulin Glargine (Lantus) 10 unit SC HS [facility] Last Admin: 03/02/18 22:18 Dose: 10 unit Insulin Human Regular (Novolin R) 0 unit SC [facility] PRN Reason: Protocol Last Admin: 03/03/18 13:16 Dose: 3 units Metformin HCl (Glucophage) 500 mg PO BID [facility] Last Admin: 03/03/18 10:28 Dose: 500 mg Mirtazapine (Remeron) 15 mg PO [facility] Last Admin: 03/02/18 21:18 Dose: 15 mg Montelukast Sodium (Singulair) 10 mg PO HS [facility] Mupirocin (Bactroban Ointment) 0 gm TOP DAILY [facility] Last Admin: 03/03/18 10:32 Dose: Not Given Oxycodone HCl (Oxycodone Immediate Release Tab) 30 mg PO BID [facility] Last Admin: 03/03/18 10:28 Dose: 30 mg Pneumococcal Polyvalent Vaccine (Pneumovax 23 Vaccine) 0.5 ml IM .ONCE ONE Stop: 03/04/18 10:01 Rosuvastatin Calcium (Crestor) 10 mg PO [facility] Sitagliptin Phosphate (Januvia) 100 mg PO DAILY [facility] Last Admin: 03/03/18 10:28 Dose: 100 mg - Labs Labs: 03/03/18 07:13 03/03/18 07:13 PT 10.5 SECONDS (9.7-12.2) 03/02/18 05:40 INR 1.0 03/02/18 05:40 APTT 34 SECONDS (21-34) 03/02/18 05:40
--- NOTE | 2018-03-03 14:21 | VASCLAB ---
Date of service: 03/03/2018 STUDY DESCRIPTION: HISTORY: b/l diabetic ulcerations on toes PRIORS: None. TECHNIQUE: Pulse volume recording waveforms and segmental pressures of bilateral lower extremities at multiple levels were obtained. Ankle Brachial Indices (ABIs) were calculated. Report prepared by Quirino Daniels, BS, RVT RIGHT LOWER EXTREMITY: * Brachial artery: Pressure - 170 mmHg. * High thigh: Pressure - 220 mmHg: Ratio - NC: PVR waveform - Pulsatile * Low thigh: Pressure - 220 mmHg: Ratio - NC PVR waveform: Pulsatile * Calf: Pressure - 220 mmHg: Ratio - NC PVR waveform: Pulsatile * Posterior tibial Artery: Pressure - 220 mmHg: Ratio - NC PVR waveform: Pulsatile * Dorsalis pedis Artery: Pressure - 220 mmHg: Ratio - NC PVR waveform: Pulsatile * Great toe: Pressure - mmHg: Ratio - PVR waveform: Ankle brachial index (DEISY): NC LEFT LOWER EXTREMITY: * Brachial artery: Pressure - 168 mmHg. * High thigh: Pressure - 220 mmHg: Ratio - NC: PVR waveform - Pulsatile * Low thigh: Pressure - 220 mmHg: Ratio - NC PVR waveform: Pulsatile * Calf: Pressure - 220 mmHg: Ratio - NC PVR waveform: Pulsatile * Posterior tibial Artery: Pressure - 220 mmHg: Ratio - NC PVR waveform: Pulsatile * Dorsalis pedis Artery: Pressure - 220 mmHg: Ratio - NC PVR waveform: Pulsatile * Great toe: Pressure - mmHg: Ratio - PVR waveform: Ankle brachial index (DEISY): NC OTHER FINDINGS: Right: Left: IMPRESSION: Right: The ankle pressure index of the right lower extremity is non-diagnostic due to possible arterial wall calcifications. Left: The ankle pressure index of the left lower extremity is non-diagnostic due to possible arterial wall calcifications.
[2018-03-03] MEDS ORDERED: Dextrose 50% SYRINGE Inj (50 ml) ONE (16:38)
--- NOTE | 2018-03-03 16:55 | CARD ---
APPROVED REPORT Date of service: 03/02/2018 EKG Measurement Heart [id number] <Conclusion> Sinus rhythm Possible reversal of V2 -V3 electrodes Low voltage in precordial leads Abnormal ECG
--- NOTE | 2018-03-03 17:08 | RAD ---
Date of service: 03/03/2018 PROCEDURE: Bilateral Feet Radiographs. HISTORY: ulcers of feet COMPARISON: None. FINDINGS: BONES: Right Foot: No acute fractures . Diffuse osteopenia. Left Foot: No fractures identified. Diffuse osteopenia JOINTS: Right Foot: Mild hallux valgus deformity. Left Foot: Moderate hallux valgus deformity. SOFT TISSUES: Right Foot: Normal. Left Foot: Normal. OTHER FINDINGS: Bilateral hammertoe deformities. IMPRESSION: No acute findings related to/accounting for the clinical presentation. Additional benign and/or incidental findings described above.
[2018-03-03 19:06] LABS: URINE BILIRUBIN NEGATIVE (NEGATIVE); URINE BLOOD NEGATIVE (NEGATIVE); URINE CLARITY Clear (Clear); URINE COLOR Straw (YELLOW); URINE GLUCOSE (UA) 3+ mg/dL (Normal); URINE LEUKOCYTE ESTERASE NEG Leu/uL (Negative); URINE PROTEIN NEGATIVE (NEGATIVE); URINE UROBILINOGEN NORMAL mg/dL (0.2-1.0)
[2018-03-04] MEDS: Piperacill/Tazo 3.375gm in Dex 3.375 GM/50 ML BAG IVPB SCH ×3 (02:12→18:26)
[2018-03-04 07:24] LABS: BASO # 0.1 K/uL (0.0-0.2); EOS # 0.1 K/uL (0.0-0.7); EOS % 2.3 % (0.0-4.0); HEMOGLOBIN 10.7 g/dL (12.0-18.0); LYMPH # 0.7 K/uL (1.0-4.3); LYMPH % 11.1 % (20.0-40.0); MEAN CELL VOLUME 83.9 fL (80.0-94.0); MEAN CORPUSCULAR HEMOGLOBIN 29.5 pg (27.0-31.0); MEAN CORPUSCULAR HGB CONC 35.2 g/dL (33.0-37.0); MEAN PLATELET VOLUME 9.9 fL (7.2-11.7); MONO # 0.4 K/uL (0.0-0.8); MONO % 5.4 % (0.0-10.0); NEUT # 5.3 K/uL (1.8-7.0); NEUT % 80.2 % (50.0-75.0); NRBC % 0.1 % (0.0-2.0); RBC 3.62 Mil/uL (4.40-5.90); RED CELL DISTRIBUTION WIDTH 14.8 % (11.5-14.5); WHITE BLOOD COUNT 6.6 K/uL (4.8-10.8)
[2018-03-04 07:34] LABS: BLOOD UREA NITROGEN 13 mg/dL (9-20); GFR NON-AFRICAN AMERICAN > 60
[2018-03-04] MEDS: (Novolin R) Insulin Human Regular 100 units/ml vial SC SCH ×4 (08:47→21:44)
[2018-03-04] MEDS ORDERED: Pneumococcal 23-Valent Vaccine IM ONE (10:00)
[2018-03-04 10:37] LABS: ALB/GLOB RATIO 1.1 (1.0-2.1); ALBUMIN 3.4 g/dL (3.5-5.0); ALT/SGPT 28 U/L (21-72); AST/SGOT 28 U/L (17-59); BILIRUBIN,DIRECT 0.3 mg/dL (0.0-0.4)
[2018-03-04] MEDS: oxyCODONE 30 mg Immediate Release Tab PO SCH ×2 (11:33→18:19)
--- NOTE | 2018-03-04 12:56 | NM ---
Date of service: 03/04/2018 PROCEDURE: Whole Body Bone Scan HISTORY: LE, r/o osteo COMPARISON: 09/19/2014. Three-phase bone scan March 03, 2018. Bilateral foot radiographs TECHNIQUE: Following administration of 23.4 miCu of Tc MDP three-phase bone scan attention lower extremities. FINDINGS: Flow component: Increased flow to the right 4th digit and left 3rd digit. Blood pool component: Accumulation of radionuclide right 4th digit, left 3rd digit. Delayed images at 3:00: Retention of radionuclide right 4th digit and left 3rd digit. Other findings: Degenerative changes both knees and feet. IMPRESSION: Positive three-phase bone scan right 4th digit left 3rd digit.
--- NOTE | 2018-03-04 14:02 | CP.PCM.PN ---
Subjective - Date & Time of Evaluation Date of Evaluation: 03/04/18 Time of Evaluation: 11:59 - Subjective Subjective: Podiatry Progress Note for Dr. Juárez 77M seen and evaluated at bedside for b/l diabetic foot ulcerations and elongated, dystrophic nails. Patient is AAO x 3 and NAD, resting comfortably in bed. Denies any pain to his feet. Denies any acute overnight events or new pedal complaints at this time. Denies any recent N/V/F/C/CP/SOB/D/posterior calf pain when squeezed. Objective - Vital Signs/Intake and Output Vital Signs (last 24 hours): Temp Pulse Resp BP Pulse Ox 98.3 F 66 18 175/65 H 96 03/04/18 07:59 03/04/18 07:59 03/04/18 07:59 03/04/18 07:59 03/04/18 07:59 - Medications Medications: Current Medications Acetaminophen (Tylenol 325mg Tab) 650 mg PO Q6 PRN PRN Reason: Pain, moderate (4-7) Albuterol Sulfate (Albuterol 0.083% Inhal Sandrine (2.5 Mg/3 Ml) Ud) 2.5 mg INH RQ6 PRN PRN Reason: Wheezing Bisoprolol Fumarate (Zebeta) 10 mg PO DAILY [facility] Last Admin: 03/04/18 11:34 Dose: 10 mg Clopidogrel Bisulfate (Plavix) 75 mg PO DAILY [facility] Last Admin: 03/04/18 11:32 Dose: 75 mg Heparin Sodium (Porcine) (Heparin) 5,000 units SC Q12 [facility] Last Admin: 03/04/18 11:32 Dose: 5,000 units Piperacillin Sod/Tazobactam Sod (Zosyn 3.375 Gm Iv Premix) 3.375 gm in 50 mls @ 200 mls/hr IVPB Q8H [facility] PRN Reason: Protocol Last Admin: 03/04/18 11:57 Dose: 200 mls/hr Insulin Glargine (Lantus) 10 unit SC HS [facility] Last Admin: 03/02/18 22:18 Dose: 10 unit Insulin Human Regular (Novolin R) 0 unit SC ACHS [facility] PRN Reason: Protocol Last Admin: 03/04/18 11:57 Dose: 6 units Metformin HCl (Glucophage) 500 mg PO BID [facility] Last Admin: 03/04/18 11:32 Dose: 500 mg Mirtazapine (Remeron) 15 mg PO [facility] Last Admin: 03/03/18 21:48 Dose: 15 mg Montelukast Sodium (Singulair) 10 mg PO [facility] Last Admin: 03/03/18 21:48 Dose: 10 mg Mupirocin (Bactroban Ointment) 0 gm TOP DAILY [facility] Last Admin: 03/04/18 11:35 Dose: Not Given Oxycodone HCl (Oxycodone Immediate Release Tab) 30 mg PO BID [facility] Last Admin: 03/04/18 11:33 Dose: 30 mg Rosuvastatin Calcium (Crestor) 10 mg PO [facility] Last Admin: 03/03/18 21:48 Dose: 10 mg Sitagliptin Phosphate (Januvia) 100 mg PO DAILY [facility] Last Admin: 03/03/18 10:28 Dose: 100 mg - Labs Labs: 03/04/18 06:27 03/04/18 06:27 PT 10.5 SECONDS (9.7-12.2) 03/02/18 05:40 INR 1.0 03/02/18 05:40 APTT 34 SECONDS (21-34) 03/02/18 05:40 - Constitutional Appears: Well, Non-toxic, No Acute Distress - Extremities Exam Additional comments: B/l LE focused exam: Vasc: DP/PT pulses 1/4 b/l. Skin temperature warm to warm from proximal to distal. CFT < 3 seconds to all digits b/l. No edema noted to periwound areas Neuro: Epicritic and protective sensation grossly intact b/l Derm: Superficial, unstagable ulcerations noted to dorsal aspect of left third and fifth digit as well as right third digit. Minimal periwound erythema noted to all wounds without streaking, improved since yesterday. No malodor, no drainage, no probe to bone, no other clinical signs of infection. Elongated, dystrophic, onychomycotic toe nails noted to digits 1-5 b/l MSK: Minimal tenderness on palpation of all ulceration sites. ROM WNL at all major joints given age and comorbidities. MMT 4/5 in all major muscle groups b/l - Neurological Exam Neurological Exam: Alert, Awake, Oriented x3 - Psychiatric Exam Psychiatric exam: Normal Affect, Normal Mood Assessment and Plan - Assessment and Plan (Free Text) Assessment: 77M seen and evaluated at bedside for b/l diabetic foot ulcerations and elongated, dystrophic nails Plan: Patient seen and evaluated Plan discussed with attending Dr. Juárez Afebrile, absent leukocytosis Foot xrays: No acute findings related to/accounting for the clinical presentation DEISY/PVRs: Nondiagnostic due to vessel wall calcifications Vascular consult placed, recs appreciated Wounds dressed with Bactroban, DSD Nails 1-5 b/l reduced to appropriate length using nail nippers without incident No plan for surgical intervention at this time Podiatry will continue to follow while patient in house
--- NOTE | 2018-03-04 14:22 | CP.PCM.PN ---
Subjective - Date & Time of Evaluation Date of Evaluation: 03/04/18 Time of Evaluation: 14:21 - Subjective Subjective: CHIEF COMPLAINTS TODAY : No further hypoglycemic episodes. Patient has a wound on the left third toe which appears to be infected ROS. HEENT : N. Resp : No cough, wheezing ,pleuritic CP ,or hemoptysis Cardio : No anginal CP, PND, orthopnea, palpitation GI : No abd.pain, n/v ,diarrhea or GI bleeding . [employer] : No headache, vertigo, focal deficit. Musculoskel : No joint swelling , Derm : No rash Psych : Normal affect. Ext : No swelling ,calf pain PE. Pt. is alert awake in no distress. V.S As noted in the chart Head ,ear nose,throat and eyes : Normal. Neck : Supple with normal carotids. Lungs: Clear air entry. Heart : S1 & S2 normal with S4. No murmur. Abd : Soft non tender with normal bowel sounds. Neuro : Moves all ext. with no localized deficit. Ext : No edema with intact pulses.Non tender calves on the dorsal surface of the third right toe there is a superficial ulcer with dried pus Derm : No rashes or decubitus ulcer. LABS/RADIOLOGY: Bone scan is positive for osteomyelitis of the fourth right toe and third left toe. There is severe vascular calcification of lower extremities could not determine arterial Doppler studies ASSESSMENT/PLAN : Continue IV antibiotics local wound care. Objective - Vital Signs/Intake and Output Vital Signs (last 24 hours): Temp Pulse Resp BP Pulse Ox 98.3 F 66 18 175/65 H 96 03/04/18 07:59 03/04/18 07:59 03/04/18 07:59 03/04/18 07:59 03/04/18 07:59 - Medications Medications: Current Medications Acetaminophen (Tylenol 325mg Tab) 650 mg PO Q6 PRN PRN Reason: Pain, moderate (4-7) Albuterol Sulfate (Albuterol 0.083% Inhal Sandrine (2.5 Mg/3 Ml) Ud) 2.5 mg INH RQ6 PRN PRN Reason: Wheezing Bisoprolol Fumarate (Zebeta) 10 mg PO DAILY [facility] Last Admin: 03/04/18 11:34 Dose: 10 mg Clopidogrel Bisulfate (Plavix) 75 mg PO DAILY [facility] Last Admin: 03/04/18 11:32 Dose: 75 mg Heparin Sodium (Porcine) (Heparin) 5,000 units SC Q12 [facility] Last Admin: 03/04/18 11:32 Dose: 5,000 units Piperacillin Sod/Tazobactam Sod (Zosyn 3.375 Gm Iv Premix) 3.375 gm in 50 mls @ 200 mls/hr IVPB Q8H [facility] PRN Reason: Protocol Last Admin: 03/04/18 11:57 Dose: 200 mls/hr Insulin Glargine (Lantus) 10 unit SC [facility] Last Admin: 03/02/18 22:18 Dose: 10 unit Insulin Human Regular (Novolin R) 0 unit SC ACHS [facility] PRN Reason: Protocol Last Admin: 03/04/18 11:57 Dose: 6 units Metformin HCl (Glucophage) 500 mg PO BID [facility] Last Admin: 03/04/18 11:32 Dose: 500 mg Mirtazapine (Remeron) 15 mg PO [facility] Last Admin: 03/03/18 21:48 Dose: 15 mg Montelukast Sodium (Singulair) 10 mg PO [facility] Last Admin: 03/03/18 21:48 Dose: 10 mg Mupirocin (Bactroban Ointment) 0 gm TOP DAILY [facility] Last Admin: 03/04/18 11:35 Dose: Not Given Oxycodone HCl (Oxycodone Immediate Release Tab) 30 mg PO BID [facility] Last Admin: 03/04/18 11:33 Dose: 30 mg Rosuvastatin Calcium (Crestor) 10 mg PO [facility] Last Admin: 03/03/18 21:48 Dose: 10 mg Sitagliptin Phosphate (Januvia) 100 mg PO DAILY [facility] Last Admin: 03/03/18 10:28 Dose: 100 mg - Labs Labs: 03/04/18 06:27 03/04/18 06:27 PT 10.5 SECONDS (9.7-12.2) 03/02/18 05:40 INR 1.0 03/02/18 05:40 APTT 34 SECONDS (21-34) 03/02/18 05:40
--- NOTE | 2018-03-04 14:26 | CP.PCM.PN ---
Subjective - Date & Time of Evaluation Date of Evaluation: 03/04/18 Time of Evaluation: 14:26 - Subjective Subjective: CHIEF COMPLAINTS TODAY : AFEBRILE, VSS denies any further hypoglycemic episodes. Bilateral ulcers on the dorsal surface of the left third and fifth digit left foot and right fourth digit right foot ROS. HEENT : N. Resp : No cough, wheezing ,pleuritic CP ,or hemoptysis Cardio : No anginal CP, PND, orthopnea, palpitation GI : No abd.pain, n/v ,diarrhea or GI bleeding . NEONATAL SPECIALIST : No headache, vertigo, focal deficit. Musculoskel : No joint swelling , Derm : No rash Psych : Normal affect. Ext : No swelling ,calf pain PE. Pt. is alert awake in no distress. V.S As noted in the chart Head ,ear nose,throat and eyes : Normal. Neck : Supple with normal carotids. Lungs: Clear air entry. Heart : S1 & S2 normal with S4. No murmur. Abd : Soft non tender with normal bowel sounds. Neuro : Moves all ext. with no localized deficit. Ext : No edema with intact pulses.Non tender calves .left foot third digit and fifth digit with ulcerations. On the dorsal surface of the third right toe there is a superficial ulcer with dried pus Derm : No rashes or decubitus ulcer. LABS/RADIOLOGY: Bone scan is positive for osteomyelitis of the fourth right toe and third left toe. There is severe vascular calcification of lower extremities could not determine arterial Doppler Objective - Vital Signs/Intake and Output Vital Signs (last 24 hours): Temp Pulse Resp BP Pulse Ox 98.3 F 66 18 175/65 H 96 03/04/18 07:59 03/04/18 07:59 03/04/18 07:59 03/04/18 07:59 03/04/18 07:59 - Medications Medications: Current Medications Acetaminophen (Tylenol 325mg Tab) 650 mg PO Q6 PRN PRN Reason: Pain, moderate (4-7) Albuterol Sulfate (Albuterol 0.083% Inhal Sandrine (2.5 Mg/3 Ml) Ud) 2.5 mg INH RQ6 PRN PRN Reason: Wheezing Bisoprolol Fumarate (Zebeta) 10 mg PO DAILY [facility] Last Admin: 03/04/18 11:34 Dose: 10 mg Clopidogrel Bisulfate (Plavix) 75 mg PO DAILY [facility] Last Admin: 03/04/18 11:32 Dose: 75 mg Heparin Sodium (Porcine) (Heparin) 5,000 units SC Q12 [facility] Last Admin: 03/04/18 11:32 Dose: 5,000 units Piperacillin Sod/Tazobactam Sod (Zosyn 3.375 Gm Iv Premix) 3.375 gm in 50 mls @ 200 mls/hr IVPB Q8H [facility] PRN Reason: Protocol Last Admin: 03/04/18 11:57 Dose: 200 mls/hr Insulin Glargine (Lantus) 10 unit SC [facility] Last Admin: 03/02/18 22:18 Dose: 10 unit Insulin Human Regular (Novolin R) 0 unit SC ACHS [facility] PRN Reason: Protocol Last Admin: 03/04/18 11:57 Dose: 6 units Metformin HCl (Glucophage) 500 mg PO BID [facility] Last Admin: 03/04/18 11:32 Dose: 500 mg Mirtazapine (Remeron) 15 mg PO [facility] Last Admin: 03/03/18 21:48 Dose: 15 mg Montelukast Sodium (Singulair) 10 mg PO [facility] Last Admin: 03/03/18 21:48 Dose: 10 mg Mupirocin (Bactroban Ointment) 0 gm TOP DAILY [facility] Last Admin: 03/04/18 11:35 Dose: Not Given Oxycodone HCl (Oxycodone Immediate Release Tab) 30 mg PO BID [facility] Last Admin: 03/04/18 11:33 Dose: 30 mg Rosuvastatin Calcium (Crestor) 10 mg PO [facility] Last Admin: 03/03/18 21:48 Dose: 10 mg Sitagliptin Phosphate (Januvia) 100 mg PO DAILY [facility] Last Admin: 03/03/18 10:28 Dose: 100 mg - Labs Labs: 03/04/18 06:27 03/04/18 06:27 PT 10.5 SECONDS (9.7-12.2) 03/02/18 05:40 INR 1.0 03/02/18 05:40 APTT 34 SECONDS (21-34) 03/02/18 05:40 Assessment and Plan (1) Bilateral pressure ulcer of feet Assessment & Plan: three-phase bone scan +ve osteomyelitis left third digit/and right fourth digit. WOUND CULTURE LT FOOT ULCER ORDERED 9/6/18 VASCULAR W/U IN PROGRESS. UNABLE TO GET MRI LT FOOT BECAUSE OF HARDWARE /AND SCREWS BILATERAL HIPS. CONTINUE iv ZOSYN 3.375 EVERY 8 HOURLY FOR NOW WHILE AWAITING CULTURES. WILL ADJUST ANTIBIOTICS ACCORDING TO CULTURES. TO DISCUSS CASE WITH PODIATRY DR. BILLS CASE DISCUSSED WITH RECRUIT INSTRUCTOR MR PERFECTO ProctorBrittany Status: Acute (2) COPD (chronic obstructive pulmonary disease) Status: Acute (3) Diabetes Status: Acute (4) HTN (hypertension) Status: Acute (5) Onychomycosis of left great toe Assessment & Plan: FOOT CARE PER PODIATRY dR. Bills. Status: Acute
--- NOTE | 2018-03-04 15:54 | CP.PCM.CON ---
History of Present Illness - History of Present Illness History of Present Illness: Surgery Consult Note for Dr. Saeed A 77 year old male with PMHx of DM2, COPD, CAD with ulcerations of b/l toes as well as onchomyochotic nails. Patient was seen and evaluated at bedside. Patient is in no acute distress. Patient states he is unaware how long the ulcerations have been present. He denies pain, loss of sensation, drainage, redness, or malodor at the ulceration sites. Patient denies headache, fever, nausea, vomiting, chest pain, palpitations, and shortness of breath. Review of Systems - Constitutional Constitutional: As Per HPI - EENT Eyes: As Per HPI Ears: As Per HPI - Cardiovascular Cardiovascular: As Per HPI - Respiratory Respiratory: As Per HPI - Gastrointestinal Gastrointestinal: As Per HPI - Genitourinary Genitourinary: As Per HPI - Reproductive: Male Reproductive:Male: As Per HPI - Musculoskeletal Musculoskeletal: As Per HPI, Back Pain - Integumentary Integumentary: As Per HPI - Neurological Neurological: As Per HPI - Psychiatric Psychiatric: As Per HPI - Endocrine Endocrine: As Per HPI - Hematologic/Lymphatic Hematologic: As Per HPI Past Patient History - Infectious Disease Hx of Infectious Diseases: None - Past Medical History & Family History Past Medical History?: Yes - Past Social History Smoking Status: Former Smoker - CARDIAC Hx Cardia Arrhythmia: Yes Hx Hypercholesterolemia: Yes Hx Hypertension: Yes - PULMONARY Hx Bronchitis: Yes Hx Chronic Obstructive Pulmonary Disease (COPD): Yes - NEUROLOGICAL Hx Neurological Disorder: Yes HX Cerebrovascular Accident: Yes - HEENT Hx HEENT Problems: No - RENAL Hx Chronic Kidney Disease: Yes - ENDOCRINE/METABOLIC Hx Endocrine Disorders: Yes Hx Diabetes Mellitus Type 1: Yes Hx Diabetes Mellitus Type 2: Yes - HEMATOLOGICAL/ONCOLOGICAL Hx Blood Disorders: No - INTEGUMENTARY Hx Dermatological Problems: No - MUSCULOSKELETAL/RHEUMATOLOGICAL Hx Fractures: Yes (left and right hip fx) - GASTROINTESTINAL Hx Gastrointestinal Disorders: No - GENITOURINARY/GYNECOLOGICAL Hx Genitourinary Disorders: Yes Hx Prostate Problems: Yes - PSYCHIATRIC Hx Depression: Yes Hx Substance Use: No - SURGICAL HISTORY Hx Surgeries: Yes Hx Cardiac Catheterization: Yes Hx Orthopedic Surgery: Yes (left and right hip) - ANESTHESIA Hx Anesthesia: Yes Hx Anesthesia Reactions: No Hx Malignant Hyperthermia: No Meds Allergies/Adverse Reactions: Allergies Allergy/AdvReac Type Severity Reaction Status Date / Time No Known Allergies Allergy Verified 03/02/18 05:21 - Medications Medications: Current Medications Acetaminophen (Tylenol 325mg Tab) 650 mg PO Q6 PRN PRN Reason: Pain, moderate (4-7) Albuterol Sulfate (Albuterol 0.083% Inhal Sandrine (2.5 Mg/3 Ml) Ud) 2.5 mg INH RQ6 PRN PRN Reason: Wheezing Bisoprolol Fumarate (Zebeta) 10 mg PO DAILY [facility] Last Admin: 03/04/18 11:34 Dose: 10 mg Clopidogrel Bisulfate (Plavix) 75 mg PO DAILY [facility] Last Admin: 03/04/18 11:32 Dose: 75 mg Heparin Sodium (Porcine) (Heparin) 5,000 units SC Q12 [facility] Last Admin: 03/04/18 11:32 Dose: 5,000 units Piperacillin Sod/Tazobactam Sod (Zosyn 3.375 Gm Iv Premix) 3.375 gm in 50 mls @ 200 mls/hr IVPB Q8H [facility] PRN Reason: Protocol Last Admin: 03/04/18 11:57 Dose: 200 mls/hr Insulin Glargine (Lantus) [address] [facility] Last Admin: 03/02/18 22:18 Dose: 10 unit Insulin Human Regular (Novolin R) 0 unit SC [facility] PRN Reason: Protocol Last Admin: 03/04/18 11:57 Dose: 6 units Metformin HCl (Glucophage) 500 mg PO BID [facility] Last Admin: 03/04/18 11:32 Dose: 500 mg Mirtazapine (Remeron) 15 mg PO [facility] Last Admin: 03/03/18 21:48 Dose: 15 mg Montelukast Sodium (Singulair) 10 mg PO HS [facility] Last Admin: 03/03/18 21:48 Dose: 10 mg Mupirocin (Bactroban Ointment) 0 gm TOP DAILY [facility] Last Admin: 03/04/18 11:35 Dose: Not Given Oxycodone HCl (Oxycodone Immediate Release Tab) 30 mg PO BID [facility] Last Admin: 03/04/18 11:33 Dose: 30 mg Rosuvastatin Calcium (Crestor) 10 [address] [facility] Last Admin: 03/03/18 21:48 Dose: 10 mg Sitagliptin Phosphate (Januvia) 100 mg PO DAILY [facility] Last Admin: 03/03/18 10:28 Dose: 100 mg Physical Exam - Head Exam Head Exam: NORMAL INSPECTION - Eye Exam Eye Exam: EOMI, Normal appearance, PERRL Pupil Exam: NORMAL ACCOMODATION - ENT Exam ENT Exam: Mucous Membranes Moist, Normal Exam - Neck Exam Neck exam: Positive for: Normal Inspection - Respiratory Exam Respiratory Exam: NORMAL BREATHING PATTERN - Cardiovascular Exam Cardiovascular Exam: +S1, +S2. absent: Systolic Murmur - GI/Abdominal Exam GI & Abdominal Exam: Normal Bowel Sounds - Extremities Exam Extremities exam: Positive for: tenderness. Negative for: calf tenderness Additional comments: Tenderness to palpation of right third toe, left third and fifth toes - Back Exam Back exam: NORMAL INSPECTION - Neurological Exam Neurological exam: Alert, Oriented x3 - Psychiatric Exam Psychiatric exam: Normal Affect, Normal Mood - Skin Skin Exam: Erythema, Warm Additional comments: Right third toe and left third and fifth toes dorsal ulcerations with erythema Results - Vital Signs Recent Vital Signs: Last Vital Signs Temp 98.3 F 03/04/18 07:59 Pulse 66 03/04/18 07:59 Resp 18 03/04/18 07:59 BP 175/65 H 03/04/18 07:59 Pulse Ox 96 03/04/18 07:59 - Labs Result Diagrams: 03/04/18 06:27 03/04/18 06:27 Labs: Laboratory Results - last 24 hr 03/03/18 03/03/18 03/03/18 16:32 16:33 17:02 WBC RBC Hgb Hct MCV MCH MCHC RDW Plt Count MPV Neut % (Auto) Lymph % (Auto) Ritchie % (Auto) Eos % (Auto) Baso % (Auto) Neut # (Auto) Lymph # (Auto) Ritchie # (Auto) Eos # (Auto) Baso # (Auto) Sodium Potassium Chloride Carbon Dioxide Anion Gap BUN Creatinine Est GFR ( Amer) Est GFR (Non-Af Amer) POC Glucose (mg/dL) 27 L* 27 L* 206 H Random Glucose Hemoglobin A1c Calcium Total Bilirubin Direct Bilirubin AST ALT Alkaline Phosphatase Total Protein Albumin Globulin Albumin/Globulin Ratio Urine Color Urine Clarity Urine pH Ur Specific [place] Urine Protein Urine Glucose (UA) Urine Ketones Urine Blood Urine Nitrate Urine Bilirubin Urine Urobilinogen Ur Leukocyte Esterase Urine WBC (Auto) Urine RBC (Auto) 03/03/18 03/03/18 03/04/18 18:45 21:05 01:56 WBC RBC Hgb Hct MCV MCH MCHC RDW Plt Count MPV Neut % (Auto) Lymph % (Auto) Ritchie % (Auto) Eos % (Auto) Baso % (Auto) Neut # (Auto) Lymph # (Auto) Ritchie # (Auto) Eos # (Auto) Baso # (Auto) Sodium Potassium Chloride Carbon Dioxide Anion Gap BUN Creatinine Est GFR ( Amer) Est GFR (Non-Af Amer) POC Glucose (mg/dL) 189 H 162 H Random Glucose Hemoglobin A1c Calcium Total Bilirubin Direct Bilirubin AST ALT Alkaline Phosphatase Total Protein Albumin Globulin Albumin/Globulin Ratio Urine Color Straw Urine Clarity Clear Urine pH 7.0 Ur Specific [place] 1.006 Urine Protein Negative Urine Glucose (UA) 3+ H Urine Ketones Negative Urine Blood Negative Urine Nitrate Negative Urine Bilirubin Negative Urine Urobilinogen Normal Ur Leukocyte Esterase Neg Urine WBC (Auto) < 1 Urine RBC (Auto) < 1 03/04/18 03/04/18 03/04/18 06:10 06:27 06:27 WBC 6.6 RBC 3.62 L Hgb 10.7 L Hct 30.4 L MCV 83.9 MCH 29.5 MCHC 35.2 RDW 14.8 H Plt Count 180 MPV 9.9 Neut % (Auto) 80.2 H Lymph % (Auto) 11.1 L Ritchie % (Auto) 5.4 Eos % (Auto) 2.3 Baso % (Auto) 1.0 Neut # (Auto) 5.3 Lymph # (Auto) 0.7 L Ritchie # (Auto) 0.4 Eos # (Auto) 0.1 Baso # (Auto) 0.1 Sodium 128 L Potassium 4.2 Chloride 91 L Carbon Dioxide 29 Anion Gap 12 BUN 13 Creatinine 0.9 Est GFR ( Amer) > 60 Est GFR (Non-Af Amer) > 60 POC Glucose (mg/dL) 185 H Random Glucose 170 H Hemoglobin A1c Calcium 9.0 Total Bilirubin 0.4 Direct Bilirubin 0.3 AST 28 ALT 28 Alkaline Phosphatase 115 Total Protein 6.5 Albumin 3.4 L Globulin 3.1 Albumin/Globulin Ratio 1.1 Urine Color Urine Clarity Urine pH Ur Specific [place] Urine Protein Urine Glucose (UA) Urine Ketones Urine Blood Urine Nitrate Urine Bilirubin Urine Urobilinogen Ur Leukocyte Esterase Urine WBC (Auto) Urine RBC (Auto) 03/04/18 03/04/18 06:27 11:46 WBC RBC Hgb Hct MCV MCH MCHC RDW Plt Count MPV Neut % (Auto) Lymph % (Auto) Ritchie % (Auto) Eos % (Auto) Baso % (Auto) Neut # (Auto) Lymph # (Auto) Ritchie # (Auto) Eos # (Auto) Baso # (Auto) Sodium Potassium Chloride Carbon Dioxide Anion Gap BUN Creatinine Est GFR ( Amer) Est GFR (Non-Af Amer) POC Glucose (mg/dL) 347 H Random Glucose Hemoglobin A1c 7.7 H Calcium Total Bilirubin Direct Bilirubin AST ALT Alkaline Phosphatase Total Protein Albumin Globulin Albumin/Globulin Ratio Urine Color Urine Clarity Urine pH Ur Specific [place] Urine Protein Urine Glucose (UA) Urine Ketones Urine Blood Urine Nitrate Urine Bilirubin Urine Urobilinogen Ur Leukocyte Esterase Urine WBC (Auto) Urine RBC (Auto) Assessment & Plan - Assessment and Plan (Free Text) Assessment: A 77 year old male with PMHx of DM2, COPD, and CAD with ulcerations of b/l toes Plan: Afebrile, absent leukocytosis Continue IV abx per ID recs wound dressing changed with resident arterial duplex and CTA ordered F/U further recs with Dr. Saeed
[2018-03-04 16:53] LABS: BASO # 0.1 K/uL (0.0-0.2); BASO % 0.7 % (0.0-2.0); EOS # 0.2 K/uL (0.0-0.7); EOS % 2.7 % (0.0-4.0); HEMOGLOBIN 10.7 g/dL (12.0-18.0); LYMPH # 1.5 K/uL (1.0-4.3); MEAN CELL VOLUME 85.7 fL (80.0-94.0); MEAN CORPUSCULAR HEMOGLOBIN 28.4 pg (27.0-31.0); MEAN CORPUSCULAR HGB CONC 33.2 g/dL (33.0-37.0); MEAN PLATELET VOLUME 9.7 fL (7.2-11.7); MONO # 0.7 K/uL (0.0-0.8); MONO % 7.8 % (0.0-10.0); NEUT # 6.1 K/uL (1.8-7.0); NEUT % 71.8 % (50.0-75.0); RBC 3.78 Mil/uL (4.40-5.90); RED CELL DISTRIBUTION WIDTH 15.1 % (11.5-14.5); WHITE BLOOD COUNT 8.6 K/uL (4.8-10.8)
[2018-03-04 17:27] LABS: BLOOD UREA NITROGEN 16 mg/dL (9-20); GFR NON-AFRICAN AMERICAN > 60
[2018-03-04 17:28] LABS: ALB/GLOB RATIO 1.1 (1.0-2.1); ALBUMIN 3.6 g/dL (3.5-5.0); ALT/SGPT 22 U/L (21-72); AST/SGOT 29 U/L (17-59); CALCIUM 8.9 mg/dl (8.6-10.4)
[2018-03-05] MEDS: Piperacill/Tazo 3.375gm in Dex 3.375 GM/50 ML BAG IVPB SCH ×3 (03:40→18:24)
--- NOTE | 2018-03-05 07:40 | CP.PCM.PN ---
<Elliot Juárez - Last Filed: 03/05/18 07:40> Subjective - Date & Time of Evaluation Date of Evaluation: 03/05/18 Time of Evaluation: 07:38 - Subjective Subjective: Pt seen for continued treatment of ungradable ulcers which appear rather superficial b/l . Bone scan noted and positive for OM . Objective - Vital Signs/Intake and Output Vital Signs (last 24 hours): Temp Pulse Resp BP Pulse Ox 97.4 F L 54 L 20 196/83 H 100 03/05/18 07:23 03/05/18 07:23 03/05/18 07:23 03/05/18 07:23 03/05/18 07:23 - Medications Medications: Current Medications Acetaminophen (Tylenol 325mg Tab) 650 mg PO Q6 PRN PRN Reason: Pain, moderate (4-7) Albuterol Sulfate (Albuterol 0.083% Inhal Sandrine (2.5 Mg/3 Ml) Ud) 2.5 mg INH RQ6 PRN PRN Reason: Wheezing Bisoprolol Fumarate (Zebeta) 10 mg PO DAILY [facility] Last Admin: 03/04/18 11:34 Dose: 10 mg Clopidogrel Bisulfate (Plavix) 75 mg PO DAILY [facility] Last Admin: 03/04/18 11:32 Dose: 75 mg Heparin Sodium (Porcine) (Heparin) 5,000 units SC Q12 [facility] Last Admin: 03/04/18 21:45 Dose: 5,000 units Piperacillin Sod/Tazobactam Sod (Zosyn 3.375 Gm Iv Premix) 3.375 gm in 50 mls @ 200 mls/hr IVPB Q8H [facility] PRN Reason: Protocol Last Admin: 03/05/18 03:40 Dose: 200 mls/hr Insulin Glargine (Lantus) 10 unit SC HS [facility] Last Admin: 03/02/18 22:18 Dose: 10 unit Insulin Human Regular (Novolin R) 0 unit SC ACHS [facility] PRN Reason: Protocol Last Admin: 03/04/18 21:44 Dose: Not Given Metformin HCl (Glucophage) 500 mg PO BID [facility] Last Admin: 03/04/18 18:18 Dose: Not Given Mirtazapine (Remeron) 15 mg PO HS [facility] Last Admin: 03/04/18 21:46 Dose: 15 mg Montelukast Sodium (Singulair) 10 mg PO HS [facility] Last Admin: 03/04/18 21:46 Dose: 10 mg Mupirocin (Bactroban Ointment) 0 gm TOP DAILY [facility] Last Admin: 03/04/18 11:35 Dose: Not Given Oxycodone HCl (Oxycodone Immediate Release Tab) 30 mg PO BID [facility] Last Admin: 03/04/18 18:19 Dose: Not Given Rosuvastatin Calcium (Crestor) 10 mg PO [facility] Last Admin: 03/04/18 21:45 Dose: 10 mg Sitagliptin Phosphate (Januvia) 100 mg PO DAILY [facility] Last Admin: 03/03/18 10:28 Dose: 100 mg - Labs Labs: 03/04/18 16:42 03/04/18 16:42 PT 10.5 SECONDS (9.7-12.2) 03/02/18 05:40 INR 1.0 03/02/18 05:40 APTT 34 SECONDS (21-34) 03/02/18 05:40 Assessment and Plan - Assessment and Plan (Free Text) Plan: P/ Wounds are superficial and arterial calcifications noted . Best to treat with IV antibiotics . Will discuss with DR Cristina . <Clark Weaver - Last Filed: 03/05/18 13:33> Subjective - Subjective Subjective: Podiatry Progress Note for Dr. Juárez 77M seen and evaluated at bedside for b/l diabetic foot ulcerations. Patient is AAO x 3 and NAD, resting comfortably in bed. Denies any pain to his feet. Denies any acute overnight events or new pedal complaints at this time. Denies any recent N/V/F/C/CP/SOB/D/posterior calf pain when squeezed. Objective - Vital Signs/Intake and Output Vital Signs (last 24 hours): Temp Pulse Resp BP Pulse Ox 97.4 F L 48 L 20 196/83 H 100 03/05/18 07:23 03/05/18 08:39 03/05/18 07:23 03/05/18 07:23 03/05/18 07:23 - Medications Medications: Current Medications Acetaminophen (Tylenol 325mg Tab) 650 mg PO Q6 PRN PRN Reason: Pain, moderate (4-7) Albuterol Sulfate (Albuterol 0.083% Inhal Sandrine (2.5 Mg/3 Ml) Ud) 2.5 mg INH RQ6 PRN PRN Reason: Wheezing Bisoprolol Fumarate (Zebeta) 10 mg PO DAILY [facility] Last Admin: 03/05/18 09:19 Dose: 10 mg Clopidogrel Bisulfate (Plavix) 75 mg PO DAILY [facility] Last Admin: 03/05/18 09:20 Dose: 75 mg Heparin Sodium (Porcine) (Heparin) 5,000 units SC Q12 [facility] Last Admin: 03/05/18 09:20 Dose: 5,000 units Piperacillin Sod/Tazobactam Sod (Zosyn 3.375 Gm Iv Premix) 3.375 gm in 50 mls @ 200 mls/hr IVPB Q8H [facility] PRN Reason: Protocol Last Admin: 03/05/18 10:47 Dose: 200 mls/hr Insulin Glargine (Lantus) 10 unit SC HS [facility] Last Admin: 03/02/18 22:18 Dose: 10 unit Insulin Human Regular (Novolin R) 0 unit SC ACHS [facility] PRN Reason: Protocol Last Admin: 03/05/18 12:57 Dose: 3 units Metformin HCl (Glucophage) 500 mg PO BID [facility] Last Admin: 03/05/18 09:19 Dose: 500 mg Mirtazapine (Remeron) 15 mg PO HS [facility] Last Admin: 03/04/18 21:46 Dose: 15 mg Montelukast Sodium (Singulair) 10 mg PO HS [facility] Last Admin: 03/04/18 21:46 Dose: 10 mg Mupirocin (Bactroban Ointment) 0 gm TOP DAILY [facility] Last Admin: 03/04/18 11:35 Dose: Not Given Oxycodone HCl (Oxycodone Immediate Release Tab) 30 mg PO BID [facility] Last Admin: 03/05/18 09:25 Dose: Not Given Rosuvastatin Calcium (Crestor) 10 mg PO HS [facility] Last Admin: 03/04/18 21:45 Dose: 10 mg Sitagliptin Phosphate (Januvia) 100 mg PO DAILY [facility] Last Admin: 03/03/18 10:28 Dose: 100 mg - Labs Labs: 03/05/18 08:19 03/05/18 08:19 PT 10.5 SECONDS (9.7-12.2) 03/02/18 05:40 INR 1.0 03/02/18 05:40 APTT 34 SECONDS (21-34) 03/02/18 05:40 - Constitutional Appears: Well, Non-toxic, No Acute Distress - Extremities Exam Additional comments: Dressings left C/D/I - Neurological Exam Neurological Exam: Alert, Awake, Oriented x3 - Psychiatric Exam Psychiatric exam: Normal Affect, Normal Mood Assessment and Plan - Assessment and Plan (Free Text) Assessment: 77M seen and evaluated at bedside for b/l diabetic foot ulcerations Plan: Nuclear bone scan + for OM Abdominal angiography read pending No plan for surgical intervention at this time Podiatry will continue to follow while patient in house
[2018-03-05 08:28] LABS: BASO # 0.1 K/uL (0.0-0.2); BASO % 0.9 % (0.0-2.0); EOS # 0.2 K/uL (0.0-0.7); EOS % 2.9 % (0.0-4.0); HEMOGLOBIN 10.9 g/dL (12.0-18.0); LYMPH # 0.9 K/uL (1.0-4.3); LYMPH % 13.6 % (20.0-40.0); MEAN CELL VOLUME 83.8 fL (80.0-94.0); MEAN CORPUSCULAR HEMOGLOBIN 29.2 pg (27.0-31.0); MEAN CORPUSCULAR HGB CONC 34.9 g/dL (33.0-37.0); MEAN PLATELET VOLUME 9.4 fL (7.2-11.7); MONO # 0.4 K/uL (0.0-0.8); MONO % 6.3 % (0.0-10.0); NEUT # 5.1 K/uL (1.8-7.0); NEUT % 76.3 % (50.0-75.0); RBC 3.74 Mil/uL (4.40-5.90); RED CELL DISTRIBUTION WIDTH 14.7 % (11.5-14.5); WHITE BLOOD COUNT 6.7 K/uL (4.8-10.8)
[2018-03-05] MEDS: (Novolin R) Insulin Human Regular 100 units/ml vial SC SCH ×4 (08:32→22:39)
[2018-03-05 08:43] LABS: ALB/GLOB RATIO 1.2 (1.0-2.1); ALBUMIN 3.7 g/dL (3.5-5.0); ALT/SGPT 31 U/L (21-72); AST/SGOT 25 U/L (17-59); BLOOD UREA NITROGEN 15 mg/dL (9-20); GFR NON-AFRICAN AMERICAN > 60
[2018-03-05] MEDS: oxyCODONE 30 mg Immediate Release Tab PO SCH ×2 (09:25→18:25)
--- NOTE | 2018-03-05 09:40 | CP.PCM.PN ---
Subjective - Date & Time of Evaluation Date of Evaluation: 03/05/18 Time of Evaluation: 09:36 - Subjective Subjective: Surgery Pt seen and examined w Dr. Saeed. Denies foot pain. dopplerable distal LE pulses. Palapble SFA and popliteal. Pt went for bone scan yesterday. + for OM. Objective - Vital Signs/Intake and Output Vital Signs (last 24 hours): Temp Pulse Resp BP Pulse Ox 97.4 F L 48 L 20 196/83 H 100 03/05/18 07:23 03/05/18 08:39 03/05/18 07:23 03/05/18 07:23 03/05/18 07:23 - Medications Medications: Current Medications Acetaminophen (Tylenol 325mg Tab) 650 mg PO Q6 PRN PRN Reason: Pain, moderate (4-7) Albuterol Sulfate (Albuterol 0.083% Inhal Sandrine (2.5 Mg/3 Ml) Ud) 2.5 mg INH RQ6 PRN PRN Reason: Wheezing Bisoprolol Fumarate (Zebeta) 10 mg PO DAILY [facility] Last Admin: 03/05/18 09:19 Dose: 10 mg Clopidogrel Bisulfate (Plavix) 75 mg PO DAILY [facility] Last Admin: 03/05/18 09:20 Dose: 75 mg Heparin Sodium (Porcine) (Heparin) 5,000 units SC Q12 [facility] Last Admin: 03/05/18 09:20 Dose: 5,000 units Piperacillin Sod/Tazobactam Sod (Zosyn 3.375 Gm Iv Premix) 3.375 gm in 50 mls @ 200 mls/hr IVPB Q8H [facility] PRN Reason: Protocol Last Admin: 03/05/18 03:40 Dose: 200 mls/hr Insulin Glargine (Lantus) 10 unit SC HS [facility] Last Admin: 03/02/18 22:18 Dose: 10 unit Insulin Human Regular (Novolin R) 0 unit SC ACHS [facility] PRN Reason: Protocol Last Admin: 03/05/18 08:32 Dose: 2 units Metformin HCl (Glucophage) 500 mg PO BID [facility] Last Admin: 03/05/18 09:19 Dose: 500 mg Mirtazapine (Remeron) 15 mg PO HS [facility] Last Admin: 03/04/18 21:46 Dose: 15 mg Montelukast Sodium (Singulair) 10 mg PO HS [facility] Last Admin: 03/04/18 21:46 Dose: 10 mg Mupirocin (Bactroban Ointment) 0 gm TOP DAILY [facility] Last Admin: 03/04/18 11:35 Dose: Not Given Oxycodone HCl (Oxycodone Immediate Release Tab) 30 mg PO BID [facility] Last Admin: 03/05/18 09:25 Dose: Not Given Rosuvastatin Calcium (Crestor) 10 mg PO [facility] Last Admin: 03/04/18 21:45 Dose: 10 mg Sitagliptin Phosphate (Januvia) 100 mg PO DAILY [facility] Last Admin: 03/03/18 10:28 Dose: 100 mg - Labs Labs: 03/05/18 08:19 03/05/18 08:19 PT 10.5 SECONDS (9.7-12.2) 03/02/18 05:40 INR 1.0 03/02/18 05:40 APTT 34 SECONDS (21-34) 03/02/18 05:40 - Constitutional Appears: No Acute Distress - Head Exam Head Exam: ATRAUMATIC, NORMAL INSPECTION, NORMOCEPHALIC - Eye Exam Eye Exam: EOMI, Normal appearance, PERRL Pupil Exam: NORMAL ACCOMODATION, PERRL - ENT Exam ENT Exam: Mucous Membranes Moist, Normal Exam - Neck Exam Neck Exam: Full ROM, Normal Inspection. absent: Lymphadenopathy - Respiratory Exam Respiratory Exam: NORMAL BREATHING PATTERN - Cardiovascular Exam Cardiovascular Exam: REGULAR RHYTHM, +S1, +S2. absent: Murmur - GI/Abdominal Exam GI & Abdominal Exam: Normal Bowel Sounds - Exam Exam: NORMAL INSPECTION - Extremities Exam Extremities Exam: Full ROM. absent: Normal Inspection Additional comments: palpable SFA popliteal b/l. dopplerable distal pulses - Back Exam Back Exam: NORMAL INSPECTION - Neurological Exam Neurological Exam: Alert, Awake, CN II-XII Intact, Normal Gait, Oriented x3 - Psychiatric Exam Psychiatric exam: Normal Affect, Normal Mood - Skin Skin Exam: Erythema, Intact, Normal Color, Warm Assessment and Plan - Assessment and Plan (Free Text) Assessment: A 77 year old male with PMHx of DM2, COPD, and CAD with ulcerations of b/l toes : unlikely PVD : good distal pulses BOne scan R toes osteomyelitis Plan: Afebrile, absent leukocytosis f/u CTA Continue IV abx per ID recs wound dressing changed with resident F/U further recs with Dr. Saeed
[2018-03-05] MEDS ORDERED: Iodixanol 320 mg/ml 150 ml Bottle IV ONE (11:56)
--- NOTE | 2018-03-05 13:59 | CP.PCM.PN ---
Subjective - Date & Time of Evaluation Date of Evaluation: 03/05/18 Time of Evaluation: 13:57 - Subjective Subjective: CHIEF COMPLAINTS TODAY : No further hypoglycemic episodes. Patient has a wound on the left third toe which appears to be infected ROS. HEENT : N. Resp : No cough, wheezing ,pleuritic CP ,or hemoptysis Cardio : No anginal CP, PND, orthopnea, palpitation GI : No abd.pain, n/v ,diarrhea or GI bleeding . THERAPIST ASST : No headache, vertigo, focal deficit. Musculoskel : No joint swelling , Derm : No rash Psych : Normal affect. Ext : No swelling ,calf pain PE. Pt. is alert awake in no distress. V.S As noted in the chart Head ,ear nose,throat and eyes : Normal. Neck : Supple with normal carotids. Lungs: Clear air entry. Heart : S1 & S2 normal with S4. No murmur. Abd : Soft non tender with normal bowel sounds. Neuro : Moves all ext. with no localized deficit. Ext : No edema with intact pulses.Non tender calves on the dorsal surface of the third right toe there is a superficial ulcer with dried pus Derm : No rashes or decubitus ulcer. LABS/RADIOLOGY: Bone scan is positive for osteomyelitis of the fourth right toe and third left toe. There is severe vascular calcification of lower extremities could not determine arterial Doppler studies ASSESSMENT/PLAN : Continue IV antibiotics local wound care. CTA of the lower extremities. Patient will need a PICC antibiotics and probably 2 weeks of rehab Objective - Vital Signs/Intake and Output Vital Signs (last 24 hours): Temp Pulse Resp BP Pulse Ox 97.4 F L 48 L 20 196/83 H 100 03/05/18 07:23 03/05/18 08:39 03/05/18 07:23 03/05/18 07:23 03/05/18 07:23 - Medications Medications: Current Medications Acetaminophen (Tylenol 325mg Tab) 650 mg PO Q6 PRN PRN Reason: Pain, moderate (4-7) Albuterol Sulfate (Albuterol 0.083% Inhal Sandrine (2.5 Mg/3 Ml) Ud) 2.5 mg INH RQ6 PRN PRN Reason: Wheezing Bisoprolol Fumarate (Zebeta) 10 mg PO DAILY [facility] Last Admin: 03/05/18 09:19 Dose: 10 mg Clopidogrel Bisulfate (Plavix) 75 mg PO DAILY [facility] Last Admin: 03/05/18 09:20 Dose: 75 mg Heparin Sodium (Porcine) (Heparin) 5,000 units SC Q12 [facility] Last Admin: 03/05/18 09:20 Dose: 5,000 units Piperacillin Sod/Tazobactam Sod (Zosyn 3.375 Gm Iv Premix) 3.375 gm in 50 mls @ 200 mls/hr IVPB Q8H [facility] PRN Reason: Protocol Last Admin: 03/05/18 10:47 Dose: 200 mls/hr Insulin Glargine (Lantus) 10 unit SC HS [facility] Last Admin: 03/02/18 22:18 Dose: 10 unit Insulin Human Regular (Novolin R) 0 unit SC ACHS [facility] PRN Reason: Protocol Last Admin: 03/05/18 12:57 Dose: 3 units Metformin HCl (Glucophage) 500 mg PO BID [facility] Last Admin: 03/05/18 09:19 Dose: 500 mg Mirtazapine (Remeron) 15 mg PO [facility] Last Admin: 03/04/18 21:46 Dose: 15 mg Montelukast Sodium (Singulair) 10 mg PO HS [facility] Last Admin: 03/04/18 21:46 Dose: 10 mg Mupirocin (Bactroban Ointment) 0 gm TOP DAILY [facility] Last Admin: 03/04/18 11:35 Dose: Not Given Oxycodone HCl (Oxycodone Immediate Release Tab) 30 mg PO BID [facility] Last Admin: 03/05/18 09:25 Dose: Not Given Rosuvastatin Calcium (Crestor) 10 mg PO [facility] Last Admin: 03/04/18 21:45 Dose: 10 mg Sitagliptin Phosphate (Januvia) 100 mg PO DAILY [facility] Last Admin: 03/03/18 10:28 Dose: 100 mg - Labs Labs: 03/05/18 08:19 03/05/18 08:19 PT 10.5 SECONDS (9.7-12.2) 03/02/18 05:40 INR 1.0 03/02/18 05:40 APTT 34 SECONDS (21-34) 03/02/18 05:40
--- NOTE | 2018-03-05 14:51 | CT ---
Date of service: 03/05/2018 PROCEDURE: CT Angiography Abdomen, Pelvis and Lower Extremity with Contrast HISTORY: pvd gangrene COMPARISON: None available. TECHNIQUE: Technique: CT angiography of the abdomen, pelvis and bilateral lower extremities performed in the arterial phase of enhancement. Coronal and sagittal reformats, and well as rotating MIP images of the vessels generated at the workstation. Intravenous contrast dose: 150 MILLILITERS VISIPAQUE 20 Radiation dose: Total exam DLP = 1364.18 MGy-cm. This CT exam was performed using one or more of the following dose reduction techniques: Automated exposure control, adjustment of the mA and/or kV according to patient size, and/or use of iterative reconstruction technique. FINDINGS: CT ANGIOGRAPHY: ABDOMINAL AORTA:: The abdominal was unremarkable without aneurysm or stenosis. MAJOR AORTIC BRANCHES: Celiac [place]: Unremarkable. Superior mesenteric artery: Unremarkable. Inferior mesenteric artery: Unremarkable. Renal arteries: Unremarkable. PELVIC ARTERIES: Right Common Iliac: Unremarkable. Right External Iliac: Unremarkable. Right Internal Iliac: Unremarkable. Left Common Iliac: Unremarkable. Left External Iliac: Unremarkable. Left Internal Iliac: Unremarkable. RIGHT LOWER EXTREMITY ARTERIES: Right Common Femoral: Unremarkable. Right Superficial Femoral: Mild calcific plaque throughout the SFA without significant stenosis. Right Profunda Femoris: Unremarkable. Right Popliteal:Mild plaque in the popliteal artery without significant stenosis. Right Anterior Tibial: Heavily calcified which limits evaluation. Believed to be occluded. Right Tibioperoneal Trunk: Unremarkable. Right Posterior Tibial: Heavily calcified which limits evaluation. Believed to be patent. Right Peroneal: Moderate calcific plaque. Appears patent. Right dorsalis pedis : Unremarkable. LEFT LOWER EXTREMITY ARTERIES: Left Common Femoral: Unremarkable. Left Superficial Femoral: Mild plaque throughout the SFA without significant stenosis. Left Profunda Femoris: Unremarkable. Left Popliteal: No significant stenosis. Left Anterior Tibial: Moderate calcific throughout tibial anterior tibial artery which limits evaluation. Anterior tibial artery appears occluded in distal segment. Left Tibioperoneal Trunk: Unremarkable. Left Posterior Tibial: Moderate calcific plaque and patent. Left Peroneal: Moderate Calcific plaque but appears patent. Left Dorsalis pedis: Unremarkable. NON-ANGIOGRAPHIC ASPECT OF THE EXAM: LOWER THORAX: Unremarkable. LIVER: Unremarkable. No gross lesion or ductal dilatation. GALLBLADDER AND BILE DUCTS: Several small gallstones. Gallbladder otherwise unremarkable. PANCREAS: Slightly atrophic pancreas. SPLEEN: Unremarkable. ADRENALS: Unremarkable. No mass. KIDNEYS AND URETERS: Unremarkable. No hydronephrosis. No solid mass. STOMACH AND BOWEL: Live very limited evaluation without PO contrast. No obstruction. No gross mural thickening. APPENDIX: PERITONEUM: Unremarkable. No free fluid. No free air. LYMPH NODES: Unremarkable. No enlarged lymph nodes. BLADDER: Urinary bladder is very distended. REPRODUCTIVE: Unremarkable. BONES: No acute fracture. OTHER FINDINGS: None. IMPRESSION: CT ANGIOGRAM ABDOMEN/PELVIS: 1. Essentially unremarkable CT angiogram of the abdomen pelvis. LEFT LOWER EXTREMITY CT ANGIOGRAM: 1. There is moderate plaque throughout the SFA and popliteal artery without significant stenosis. 2. The common femoral artery is unremarkable. The profunda femoral artery is unremarkable. 3. Runoff shows moderately calcified anterior and posterior tibial arteries along with peroneal artery. The anterior tibial artery is believed to be occluded in the distal segment. Both the posterior tibial artery and peroneal artery are believed to be patent. RIGHT LOWER EXTREMITY CT ANGIOGRAM: 1. There is moderate plaque throughout the SFA and popliteal artery without significant stenosis. 2. The common femoral artery is unremarkable. The profunda femoral artery is unremarkable. 3. Runoff shows moderately calcified anterior and posterior tibial arteries along with peroneal artery. The anterior tibial artery is occluded in the distal segment. Both the posterior tibial artery and peroneal artery are believed to be patent.
--- NOTE | 2018-03-05 19:08 | CP.PCM.PN ---
Subjective - Date & Time of Evaluation Date of Evaluation: 03/05/18 Time of Evaluation: 19:08 - Subjective Subjective: CHIEF COMPLAINTS TODAY : AFEBRILE, VSS AWAKE AND ALERT Bilateral ulcers on the dorsal surface of the left third and fifth digit left foot and right fourth digit right foot S/P CT ANGIO. ROS. HEENT : N. Resp : No cough, wheezing ,pleuritic CP ,or hemoptysis Cardio : No anginal CP, PND, orthopnea, palpitation GI : No abd.pain, n/v ,diarrhea or GI bleeding . 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 Musculoskel : No joint swelling , Derm : No rash Psych : Normal affect. Ext : No swelling ,calf pain PE. Pt. is alert awake in no distress. V.S As noted in the chart Head ,ear nose,throat and eyes : Normal. Neck : Supple with normal carotids. Lungs: Clear air entry. Heart : S1 & S2 normal with S4. No murmur. Abd : Soft non tender with normal bowel sounds. Neuro : Moves all ext. with no localized deficit. Ext : No edema with intact pulses.Non tender calves .left foot third digit and fifth digit with ulcerations. On the dorsal surface of the third right toe there is a superficial ulcer with dried pus Derm : No rashes or decubitus ulcer. LABS/RADIOLOGY: Bone scan is positive for osteomyelitis of the fourth right toe and third left toe. There is severe vascular calcification of lower extremities could not determine arterial Doppler CT ABD. ANGIO/ILEO-FEM RUN OFF DONE- Objective - Vital Signs/Intake and Output Vital Signs (last 24 hours): Temp Pulse Resp BP Pulse Ox 97.9 F 53 L 20 165/78 H 97 03/05/18 16:55 03/05/18 16:55 03/05/18 16:55 03/05/18 16:55 03/05/18 16:55 - Medications Medications: Current Medications Acetaminophen (Tylenol 325mg Tab) 650 mg PO Q6 PRN PRN Reason: Pain, moderate (4-7) Albuterol Sulfate (Albuterol 0.083% Inhal Sandrine (2.5 Mg/3 Ml) Ud) 2.5 mg INH RQ6 PRN PRN Reason: Wheezing Bisoprolol Fumarate (Zebeta) 10 mg PO DAILY [facility] Last Admin: 09/07/18 09:19 Dose: 10 mg Clopidogrel Bisulfate (Plavix) 75 mg PO DAILY [facility] Last Admin: 03/05/18 09:20 Dose: 75 mg Heparin Sodium (Porcine) (Heparin) 5,000 units SC Q12 [facility] Last Admin: 03/05/18 09:20 Dose: 5,000 units Piperacillin Sod/Tazobactam Sod (Zosyn 3.375 Gm Iv Premix) 3.375 gm in 50 mls @ 200 mls/hr IVPB Q8H [facility] PRN Reason: Protocol Last Admin: 03/05/18 18:24 Dose: 200 mls/hr Insulin Glargine (Lantus) 10 unit SC [facility] Last Admin: 03/02/18 22:18 Dose: 10 unit Insulin Human Regular (Novolin R) 0 unit SC ACHS [facility] PRN Reason: Protocol Last Admin: 03/05/18 17:34 Dose: 2 units Metformin HCl (Glucophage) 500 mg PO BID [facility] Last Admin: 03/05/18 17:28 Dose: 500 mg Mirtazapine (Remeron) 15 mg PO [facility] Last Admin: 03/04/18 21:46 Dose: 15 mg Montelukast Sodium (Singulair) 10 mg PO [facility] Last Admin: 03/04/18 21:46 Dose: 10 mg Mupirocin (Bactroban Ointment) 0 gm TOP DAILY [facility] Last Admin: 03/05/18 11:00 Dose: Not Given Oxycodone HCl (Oxycodone Immediate Release Tab) 30 mg PO BID [facility] Last Admin: 03/05/18 09:25 Dose: Not Given Rosuvastatin Calcium (Crestor) 10 mg PO [facility] Last Admin: 03/04/18 21:45 Dose: 10 mg Sitagliptin Phosphate (Januvia) 100 mg PO DAILY [facility] Last Admin: 03/03/18 10:28 Dose: 100 mg - Labs Labs: 03/05/18 08:19 03/05/18 08:19 PT 10.5 SECONDS (9.7-12.2) 03/02/18 05:40 INR 1.0 03/02/18 05:40 APTT 34 SECONDS (21-34) 03/02/18 05:40 Assessment and Plan (1) Bilateral pressure ulcer of feet Assessment & Plan: three-phase bone scan +ve osteomyelitis left third digit/and right fourth digit. WOUND CULTURE LT FOOT ULCER -03/04/18 GRAM-POSITIVE COCCI- CULTURE PENDING VASCULAR W/U IN PROGRESSS S/P CT ANGIO UNABLE TO GET MRI LT FOOT BECAUSE OF HARDWARE /AND SCREWS BILATERAL HIPS. CONTINUE iv ZOSYN 3.375 EVERY 8 HOURLY FOR NOW WHILE AWAITING CULTURES. WILL ADJUST ANTIBIOTICS ACCORDING TO CULTURES. PODIATRY F/U DR. CANNON NOTED. PATIENT HAS SUPERFICIAL ULCERS BUT BONE SCAN LIGHTED UP / ? EARLY ACUTE OSTEOMYLTIS. AWAIT VASCULAR SURGERY RECOMENDATIONS, BUT IF NO VASCULAR INTERVENTION, WILL CONSIDER IV ABX FOR 4-[address] CANNON -PODIATRY/AND LWC. CASE DISCUSSED WITH PRODUCTION PAINTER PERFECTO Harry Status: Acute (2) COPD (chronic obstructive pulmonary disease) Status: Acute (3) Diabetes Status: Acute (4) HTN (hypertension) Status: Acute (5) Onychomycosis of left great toe Status: Acute
[2018-03-06] MEDS: Piperacill/Tazo 3.375gm in Dex 3.375 GM/50 ML BAG IVPB SCH ×2 (02:31→10:00)
--- NOTE | 2018-03-06 08:07 | CP.PCM.PN ---
Subjective - Date & Time of Evaluation Date of Evaluation: 03/06/18 Time of Evaluation: 08:05 - Subjective Subjective: Surgery Pt seen and examined. No acute events. Denies pain. CTA reviewed with Dr. Saeed. plan for angio on Thursday discussed. Objective - Vital Signs/Intake and Output Vital Signs (last 24 hours): Temp Pulse Resp BP Pulse Ox 97.9 F 55 L 20 142/58 L 95 03/05/18 23:35 03/06/18 00:00 03/05/18 23:35 03/05/18 23:35 03/05/18 23:35 Intake and Output: 03/06/18 03/06/18 06:59 18:59 Output Total 500 Balance -500 - Medications Medications: Current Medications Acetaminophen (Tylenol 325mg Tab) 650 mg PO Q6 PRN PRN Reason: Pain, moderate (4-7) Albuterol Sulfate (Albuterol 0.083% Inhal Sandrine (2.5 Mg/3 Ml) Ud) 2.5 mg INH RQ6 PRN PRN Reason: Wheezing Bisoprolol Fumarate (Zebeta) 10 mg PO DAILY [facility] Last Admin: 03/05/18 09:19 Dose: 10 mg Clopidogrel Bisulfate (Plavix) 75 mg PO DAILY [facility] Last Admin: 03/05/18 09:20 Dose: 75 mg Piperacillin Sod/Tazobactam Sod (Zosyn 3.375 Gm Iv Premix) 3.375 gm in 50 mls @ 200 mls/hr IVPB Q8H [facility] PRN Reason: Protocol Last Admin: 03/06/18 02:31 Dose: 200 mls/hr Insulin Glargine (Lantus) 10 unit SC [facility] Last Admin: 03/02/18 22:18 Dose: 10 unit Insulin Human Regular (Novolin R) 0 unit SC ACHS [facility] PRN Reason: Protocol Last Admin: 03/05/18 22:39 Dose: Not Given Metformin HCl (Glucophage) 500 mg PO BID [facility] Last Admin: 03/05/18 17:28 Dose: 500 mg Mirtazapine (Remeron) 15 mg PO HS [facility] Last Admin: 03/05/18 21:21 Dose: 15 mg Montelukast Sodium (Singulair) 10 mg PO [facility] Last Admin: 03/05/18 21:21 Dose: 10 mg Mupirocin (Bactroban Ointment) 0 gm TOP DAILY [facility] Last Admin: 03/05/18 11:00 Dose: Not Given Oxycodone HCl (Oxycodone Immediate Release Tab) 30 mg PO BID [facility] Last Admin: 03/05/18 18:25 Dose: 30 mg Rosuvastatin Calcium (Crestor) 10 mg PO HS [facility] Last Admin: 03/05/18 21:21 Dose: 10 mg Sitagliptin Phosphate (Januvia) 100 mg PO DAILY [facility] Last Admin: 03/03/18 10:28 Dose: 100 mg - Labs Labs: 03/05/18 08:19 03/05/18 08:19 PT 10.5 SECONDS (9.7-12.2) 03/02/18 05:40 INR 1.0 03/02/18 05:40 APTT 34 SECONDS (21-34) 03/02/18 05:40 - Constitutional Appears: No Acute Distress - Head Exam Head Exam: ATRAUMATIC, NORMAL INSPECTION, NORMOCEPHALIC - Eye Exam Eye Exam: EOMI, Normal appearance, PERRL Pupil Exam: NORMAL ACCOMODATION, PERRL - ENT Exam ENT Exam: Mucous Membranes Moist, Normal Exam - Neck Exam Neck Exam: Full ROM, Normal Inspection. absent: Lymphadenopathy - Respiratory Exam Respiratory Exam: NORMAL BREATHING PATTERN - Cardiovascular Exam Cardiovascular Exam: REGULAR RHYTHM - GI/Abdominal Exam GI & Abdominal Exam: Soft, Normal Bowel Sounds. absent: Distended, Tenderness - Extremities Exam Extremities Exam: absent: Normal Inspection Additional comments: dressing in place on foot. - Neurological Exam Neurological Exam: Alert, Awake, CN II-XII Intact, Oriented x3 - Psychiatric Exam Psychiatric exam: Normal Affect, Normal Mood - Skin Skin Exam: Erythema, Intact, Warm. absent: Dry, Normal Color Assessment and Plan - Assessment and Plan (Free Text) Assessment: A 77 year old male with PMHx of DM2, COPD, and CAD with ulcerations of b/l toes : unlikely PVD : good distal pulses BOne scan R toes osteomyelitis CTA severe b/l calcification Plan: Afebrile, absent leukocytosis -Angioplasty on Mon -Npo aftermidnight on MOn Continue IV abx per ID recs wound dressing changed with resident F/U further recs with Dr. Saeed
[2018-03-06] MEDS: (Novolin R) Insulin Human Regular 100 units/ml vial SC SCH ×4 (08:11→21:48)
[2018-03-06] MEDS: oxyCODONE 30 mg Immediate Release Tab PO SCH (09:56)
--- NOTE | 2018-03-06 11:51 | CP.PCM.PN ---
Subjective - Date & Time of Evaluation Date of Evaluation: 03/06/18 Time of Evaluation: 11:51 - Subjective Subjective: CHIEF COMPLAINTS TODAY : AFEBRILE, VSS AWAKE AND ALERT Bilateral ulcers on the dorsal surface of the left third and fifth digit left foot and right fourth digit right foot S/P CT ANGIO. for angioplasty THURSDAY ROS. HEENT : N. Resp : No cough, wheezing ,pleuritic CP ,or hemoptysis Cardio : No anginal CP, PND, orthopnea, palpitation GI : No abd.pain, n/v ,diarrhea or GI bleeding . 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 Musculoskel : No joint swelling , Derm : No rash Psych : Normal affect. Ext : No swelling ,calf pain PE. Pt. is alert awake in no distress. V.S As noted in the chart Head ,ear nose,throat and eyes : Normal. Neck : Supple with normal carotids. Lungs: Clear air entry. Heart : S1 & S2 normal with S4. No murmur. Abd : Soft non tender with normal bowel sounds. Neuro : Moves all ext. with no localized deficit. Ext : No edema with intact pulses.Non tender calves .left foot third digit and fifth digit with ulcerations. On the dorsal surface of the third right toe there is a superficial ulcer with dried pus Derm : No rashes or decubitus ulcer. LABS/RADIOLOGY: WOUND CULTURE +VE MRSA Bone scan is positive for osteomyelitis of the fourth right toe and third left toe. There is severe vascular calcification of lower extremities could not determine arterial Doppler CT ABD. ANGIO/ILEO-FEM RUN OFF DONE- Objective - Vital Signs/Intake and Output Vital Signs (last 24 hours): Temp Pulse Resp BP Pulse Ox 98 F 54 L 18 151/66 H 98 03/06/18 08:00 03/06/18 08:00 03/06/18 08:00 03/06/18 08:00 03/06/18 08:00 Intake and Output: 03/06/18 03/06/18 06:59 18:59 Output Total 500 Balance -500 - Medications Medications: Current Medications Acetaminophen (Tylenol 325mg Tab) 650 mg PO Q6 PRN PRN Reason: Pain, moderate (4-7) Albuterol Sulfate (Albuterol 0.083% Inhal Sandrine (2.5 Mg/3 Ml) Ud) 2.5 mg INH RQ6 PRN PRN Reason: Wheezing Bisoprolol Fumarate (Zebeta) 10 mg PO DAILY [facility] Last Admin: 03/06/18 09:56 Dose: 10 mg Clopidogrel Bisulfate (Plavix) 75 mg PO DAILY [facility] Last Admin: 03/06/18 09:56 Dose: 75 mg Vancomycin HCl 1 gm/ Sodium (Chloride) 250 mls @ 166.7 mls/hr IVPB Q24H [facility] PRN Reason: Protocol Ciprofloxacin (Cipro 400mg/200ml Dsw) 400 mg in 200 mls @ 133 mls/hr IVPB Q12H [facility] PRN Reason: Protocol Insulin Glargine (Lantus) 10 unit SC HS [facility] Last Admin: 03/02/18 22:18 Dose: 10 unit Insulin Human Regular (Novolin R) 0 unit SC [facility] PRN Reason: Protocol Last Admin: 03/06/18 08:11 Dose: Not Given Metformin HCl (Glucophage) 500 mg PO BID [facility] Last Admin: 03/06/18 09:56 Dose: 500 mg Mirtazapine (Remeron) 15 mg PO HS [facility] Last Admin: 03/05/18 21:21 Dose: 15 mg Montelukast Sodium (Singulair) 10 mg PO [facility] Last Admin: 03/05/18 21:21 Dose: 10 mg Mupirocin (Bactroban Ointment) 0 gm TOP DAILY [facility] Last Admin: 03/06/18 10:18 Dose: Not Given Rosuvastatin Calcium (Crestor) 10 mg PO [facility] Last Admin: 03/05/18 21:21 Dose: 10 mg Sitagliptin Phosphate (Januvia) 100 mg PO DAILY [facility] Last Admin: 03/03/18 10:28 Dose: 100 mg - Labs Labs: 03/05/18 08:19 03/05/18 08:19 PT 10.5 SECONDS (9.7-12.2) 03/02/18 05:40 INR 1.0 03/02/18 05:40 APTT 34 SECONDS (21-34) 03/02/18 05:40 Assessment and Plan (1) Bilateral pressure ulcer of feet Assessment & Plan: WOUND CULTURE LT FOOT ULCER -03/04/18 MRSA ADD IV VANCOMYCIN 1GM IVPB Q 24HRLY 03/06/18 START IV CIPRO 400MG IVPB [id number] 03/06/18 DC iv ZOSYN 3.375 EVERY 8 HOURLY VASCULAR W/U IN PROGRESSS S/P CT ANGIO PER VASCULAR SURGERY. Status: Acute (2) COPD (chronic obstructive pulmonary disease) Status: Acute (3) Diabetes Status: Acute (4) HTN (hypertension) Status: Acute (5) Onychomycosis of left great toe Assessment & Plan: LWC PER PODIATRY. Status: Acute
--- NOTE | 2018-03-06 12:17 | PQF ---
PROVIDER RESPONSE TEXT: Metabolic Encephalopathy in the setting f Hypoglycemia and Hyponatremia treated with D50 IV and IVF w / D5 NS 125ml/hr :Metabolic Encephalopathy in the setting f Hypoglycemia and Hyponatremia treated wit h D50 IV and IVF w/ D5 NS 125ml/hr REVIEWER QUERY TEXT: Clarification of Clinical Diagnostic Findings Please clarify documentation or clinical relevance for the clinical / diagnostic findings or whether those are insignificant or unable to be further specified. Metabolic Encephalopathy in the setting f Hypoglycemia and Hyponatremia treated with D50 IV and IVF w / D5 NS 125ml/hr -Other Explanation. -Unable to Determine The patient's Clinical Indicators include: Clinical Findings: Hypoglycemia w/ BS= 27. Disorientation, AMS, Gen weakness. Lw Na level of 128 Treatment D50 IV , IVF w/ D5 NS 125ml/hr Risk Factor : Hypoglycemia, Hyponatremia Query created by: Cathy Piña on 03/04/2018 7:09 PM Electronically signed by: Dayton Mancia MD 03/06/2018 12:14 PM
[2018-03-06] MEDS: Ciprofloxacin 400mg/200ml D5W 400 MG/200 ML BAG IVPB SCH (13:46)
--- NOTE | 2018-03-06 14:32 | CP.PCM.PN ---
Subjective - Date & Time of Evaluation Date of Evaluation: 03/06/18 Time of Evaluation: 14:32 - Subjective Subjective: CHIEF COMPLAINTS TODAY : No further hypoglycemic episodes. Patient has a wound on the left third toe which appears to be infected ROS. HEENT : N. Resp : No cough, wheezing ,pleuritic CP ,or hemoptysis Cardio : No anginal CP, PND, orthopnea, palpitation GI : No abd.pain, n/v ,diarrhea or GI bleeding . 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 Musculoskel : No joint swelling , Derm : No rash Psych : Normal affect. Ext : No swelling ,calf pain PE. Pt. is alert awake in no distress. V.S As noted in the chart Head ,ear nose,throat and eyes : Normal. Neck : Supple with normal carotids. Lungs: Clear air entry. Heart : S1 & S2 normal with S4. No murmur. Abd : Soft non tender with normal bowel sounds. Neuro : Moves all ext. with no localized deficit. Ext : No edema with intact pulses.Non tender calves on the dorsal surface of the third right toe there is a superficial ulcer with dried pus Derm : No rashes or decubitus ulcer. LABS/RADIOLOGY: Bone scan is positive for osteomyelitis of the fourth right toe and third left toe. There is severe vascular calcification of lower extremities could not determine arterial Doppler studies the wound culture fromower extremities shows MRSA ASSESSMENT/PLAN : Continue IV antibiotics local wound care. CTA of the lower extremities. Patient will need a PICC antibiotics and probably 2 weeks of rehab Objective - Vital Signs/Intake and Output Vital Signs (last 24 hours): Temp Pulse Resp BP Pulse Ox 98 F 54 L 18 151/66 H 98 03/06/18 08:00 03/06/18 08:00 03/06/18 08:00 03/06/18 08:00 03/06/18 08:00 - Medications Medications: Current Medications Acetaminophen (Tylenol 325mg Tab) 650 mg PO Q6 PRN PRN Reason: Pain, moderate (4-7) Albuterol Sulfate (Albuterol 0.083% Inhal Sandrine (2.5 Mg/3 Ml) Ud) 2.5 mg INH RQ6 PRN PRN Reason: Wheezing Bisoprolol Fumarate (Zebeta) 10 mg PO DAILY [facility] Last Admin: 03/06/18 09:56 Dose: 10 mg Clopidogrel Bisulfate (Plavix) 75 mg PO DAILY [facility] Last Admin: 03/06/18 09:56 Dose: 75 mg Vancomycin HCl 1 gm/ Sodium (Chloride) 200 mls @ 166.7 mls/hr IVPB Q24H [facility] PRN Reason: Protocol Ciprofloxacin (Cipro 400mg/200ml Dsw) 400 mg in 200 mls @ 133 mls/hr IVPB Q12H [facility] PRN Reason: Protocol Last Admin: 03/06/18 13:46 Dose: 133 mls/hr Insulin Glargine (Lantus) 10 unit SC [facility] Last Admin: 03/02/18 22:18 Dose: 10 unit Insulin Human Regular (Novolin R) 0 unit SC [facility] PRN Reason: Protocol Last Admin: 03/06/18 12:10 Dose: 3 units Metformin HCl (Glucophage) 500 mg PO BID [facility] Last Admin: 03/06/18 09:56 Dose: 500 mg Mirtazapine (Remeron) 15 mg PO [facility] Last Admin: 03/05/18 21:21 Dose: 15 mg Montelukast Sodium (Singulair) 10 mg PO [facility] Last Admin: 03/05/18 21:21 Dose: 10 mg Mupirocin (Bactroban Ointment) 0 gm TOP DAILY [facility] Last Admin: 03/06/18 10:18 Dose: Not Given Rosuvastatin Calcium (Crestor) 10 mg PO [facility] Last Admin: 03/05/18 21:21 Dose: 10 mg Sitagliptin Phosphate (Januvia) 100 mg PO DAILY [facility] Last Admin: 03/03/18 10:28 Dose: 100 mg - Labs Labs: 03/05/18 08:19 03/05/18 08:19 PT 10.5 SECONDS (9.7-12.2) 03/02/18 05:40 INR 1.0 03/02/18 05:40 APTT 34 SECONDS (21-34) 03/02/18 05:40
--- NOTE | 2018-03-06 15:33 | CP.PCM.PN ---
<Elliot Juárez - Last Filed: 03/06/18 15:32> Subjective - Date & Time of Evaluation Date of Evaluation: 03/06/18 Time of Evaluation: 15:32 - Subjective Subjective: Pt seen for continued treatment of toe ulcers both feet . Objective - Vital Signs/Intake and Output Vital Signs (last 24 hours): Temp Pulse Resp BP Pulse Ox 98 F 54 L 18 151/66 H 98 03/06/18 08:00 03/06/18 08:00 03/06/18 08:00 03/06/18 08:00 03/06/18 08:00 Intake and Output: 03/06/18 03/06/18 06:59 18:59 Intake Total 800 Output Total 500 350 Balance -500 450 - Medications Medications: Current Medications Acetaminophen (Tylenol 325mg Tab) 650 mg PO Q6 PRN PRN Reason: Pain, moderate (4-7) Albuterol Sulfate (Albuterol 0.083% Inhal Sandrine (2.5 Mg/3 Ml) Ud) 2.5 mg INH RQ6 PRN PRN Reason: Wheezing Bisoprolol Fumarate (Zebeta) 10 mg PO DAILY [facility] Last Admin: 03/06/18 09:56 Dose: 10 mg Clopidogrel Bisulfate (Plavix) 75 mg PO DAILY [facility] Last Admin: 03/06/18 09:56 Dose: 75 mg Vancomycin HCl 1 gm/ Sodium (Chloride) 200 mls @ 166.7 mls/hr IVPB Q24H [facility] PRN Reason: Protocol Ciprofloxacin (Cipro 400mg/200ml Dsw) 400 mg in 200 mls @ 133 mls/hr IVPB Q12H [facility] PRN Reason: Protocol Last Admin: 03/06/18 13:46 Dose: 133 mls/hr Insulin Glargine (Lantus) 10 unit SC HS [facility] Last Admin: 03/02/18 22:18 Dose: 10 unit Insulin Human Regular (Novolin R) 0 unit SC [facility] PRN Reason: Protocol Last Admin: 03/06/18 12:10 Dose: 3 units Metformin HCl (Glucophage) 500 mg PO BID [facility] Last Admin: 03/06/18 09:56 Dose: 500 mg Mirtazapine (Remeron) 15 mg PO HS [facility] Last Admin: 03/05/18 21:21 Dose: 15 mg Montelukast Sodium (Singulair) 10 mg PO HS [facility] Last Admin: 03/05/18 21:21 Dose: 10 mg Mupirocin (Bactroban Ointment) 0 gm TOP DAILY [facility] Last Admin: 03/06/18 10:18 Dose: Not Given Rosuvastatin Calcium (Crestor) 10 mg PO [facility] Last Admin: 03/05/18 21:21 Dose: 10 mg Sitagliptin Phosphate (Januvia) 100 mg PO DAILY [facility] Last Admin: 03/03/18 10:28 Dose: 100 mg - Labs Labs: 03/05/18 08:19 03/05/18 08:19 PT 10.5 SECONDS (9.7-12.2) 03/02/18 05:40 INR 1.0 03/02/18 05:40 APTT 34 SECONDS (21-34) 03/02/18 05:40 <Milena Salgado - Last Filed: 03/06/18 21:08> Objective - Vital Signs/Intake and Output Vital Signs (last 24 hours): Temp Pulse Resp BP Pulse Ox 98.4 F 57 L 20 133/61 96 03/06/18 19:00 03/06/18 19:00 03/06/18 19:00 03/06/18 19:00 03/06/18 19:00 Intake and Output: 03/06/18 03/07/18 18:59 06:59 Intake Total 800 Output Total 350 Balance 450 - Medications Medications: Current Medications Acetaminophen (Tylenol 325mg Tab) 650 mg PO Q6 PRN PRN Reason: Pain, moderate (4-7) Albuterol Sulfate (Albuterol 0.083% Inhal Sandrine (2.5 Mg/3 Ml) Ud) 2.5 mg INH RQ6 PRN PRN Reason: Wheezing Bisoprolol Fumarate (Zebeta) 10 mg PO DAILY [facility] Last Admin: 03/06/18 09:56 Dose: 10 mg Clopidogrel Bisulfate (Plavix) 75 mg PO DAILY [facility] Last Admin: 03/06/18 09:56 Dose: 75 mg Vancomycin HCl 1 gm/ Sodium (Chloride) 200 mls @ 166.7 mls/hr IVPB Q24H [facility] PRN Reason: Protocol Last Admin: 03/06/18 17:38 Dose: 166.7 mls/hr Ciprofloxacin (Cipro 400mg/200ml Dsw) 400 mg in 200 mls @ 133 mls/hr IVPB Q12H [facility] PRN Reason: Protocol Last Admin: 03/06/18 13:46 Dose: 133 mls/hr Insulin Glargine (Lantus) 10 unit SC HS [facility] Last Admin: 03/02/18 22:18 Dose: 10 unit Insulin Human Regular (Novolin R) 0 unit SC [facility] PRN Reason: Protocol Last Admin: 03/06/18 17:36 Dose: Not Given Metformin HCl (Glucophage) 500 mg PO BID [facility] Last Admin: 03/06/18 18:32 Dose: 500 mg Mirtazapine (Remeron) 15 mg PO HS [facility] Last Admin: 03/05/18 21:21 Dose: 15 mg Montelukast Sodium (Singulair) 10 mg PO [facility] Last Admin: 03/05/18 21:21 Dose: 10 mg Mupirocin (Bactroban Ointment) 0 gm TOP DAILY [facility] Last Admin: 03/06/18 10:18 Dose: Not Given Rosuvastatin Calcium (Crestor) 10 mg PO [facility] Last Admin: 03/05/18 21:21 Dose: 10 mg Sitagliptin Phosphate (Januvia) 100 mg PO DAILY [facility] Last Admin: 03/03/18 10:28 Dose: 100 mg - Labs Labs: 03/05/18 08:19 03/05/18 08:19 PT 10.5 SECONDS (9.7-12.2) 03/02/18 05:40 INR 1.0 03/02/18 05:40 APTT 34 SECONDS (21-34) 03/02/18 05:40 - Constitutional Appears: Well, Non-toxic, No Acute Distress - Extremities Exam Additional comments: Dressing is clean, dry and intact. No strike through noted - Neurological Exam Neurological Exam: Alert, Awake, Oriented x3 - Psychiatric Exam Psychiatric exam: Normal Affect, Normal Mood Assessment and Plan - Assessment and Plan (Free Text) Assessment: 77M seen and evaluated at bedside for b/l diabetic foot ulcerations Plan: Nuclear bone scan + for OM No plan for surgical intervention at this time Podiatry will continue to follow while patient in house
[2018-03-06] MEDS: Vancomycin 1 GM in Sodium Chloride 0.9% 200 ML IVPB SCH (17:38)
[2018-03-07] MEDS: Ciprofloxacin 400mg/200ml D5W 400 MG/200 ML BAG IVPB SCH ×2 (01:16→13:42)
[2018-03-07] MEDS: (Novolin R) Insulin Human Regular 100 units/ml vial SC SCH ×4 (07:19→22:20)
--- NOTE | 2018-03-07 08:00 | CP.PCM.PN ---
Subjective - Date & Time of Evaluation Date of Evaluation: 03/07/18 Time of Evaluation: 07:58 - Subjective Subjective: Vascular surgery progress note for Dr. Justin Elliott, PGY-2 Pt S & E at bedside at 0700 Pt reports no LE pain, no other complaints at this time. Understands he is for angio tomorrow. Objective - Vital Signs/Intake and Output Vital Signs (last 24 hours): Temp Pulse Resp BP Pulse Ox 98.3 F 50 L 20 150/67 97 03/06/18 23:35 03/07/18 07:00 03/06/18 23:35 03/06/18 23:35 03/06/18 23:35 - Medications Medications: Current Medications Acetaminophen (Tylenol 325mg Tab) 650 mg PO Q6 PRN PRN Reason: Pain, moderate (4-7) Bisoprolol Fumarate (Zebeta) 10 mg PO DAILY [facility] Last Admin: 03/06/18 09:56 Dose: 10 mg Clopidogrel Bisulfate (Plavix) 75 mg PO DAILY [facility] Last Admin: 03/06/18 09:56 Dose: 75 mg Vancomycin HCl 1 gm/ Sodium (Chloride) 200 mls @ 166.7 mls/hr IVPB Q24H [facility] PRN Reason: Protocol Last Admin: 03/06/18 17:38 Dose: 166.7 mls/hr Ciprofloxacin (Cipro 400mg/200ml Dsw) 400 mg in 200 mls @ 133 mls/hr IVPB Q12H [facility] PRN Reason: Protocol Last Admin: 03/07/18 01:16 Dose: 133 mls/hr Insulin Glargine (Lantus) 10 unit SC HS [facility] Last Admin: 03/02/18 22:18 Dose: 10 unit Insulin Human Regular (Novolin R) 0 unit SC [facility] PRN Reason: Protocol Last Admin: 03/07/18 07:19 Dose: Not Given Metformin HCl (Glucophage) 500 mg PO BID [facility] Last Admin: 03/06/18 18:32 Dose: 500 mg Mirtazapine (Remeron) 15 mg PO HS [facility] Last Admin: 03/06/18 21:51 Dose: 15 mg Montelukast Sodium (Singulair) 10 mg PO HS [facility] Last Admin: 03/06/18 21:51 Dose: 10 mg Mupirocin (Bactroban Ointment) 0 gm TOP DAILY [facility] Last Admin: 03/06/18 10:18 Dose: Not Given Rosuvastatin Calcium (Crestor) 10 mg PO HS [facility] Last Admin: 03/06/18 21:51 Dose: 10 mg Sitagliptin Phosphate (Januvia) 100 mg PO DAILY [facility] Last Admin: 03/03/18 10:28 Dose: 100 mg - Labs Labs: 03/05/18 08:19 03/05/18 08:19 PT 10.5 SECONDS (9.7-12.2) 03/02/18 05:40 INR 1.0 03/02/18 05:40 APTT 34 SECONDS (21-34) 03/02/18 05:40 - Constitutional Appears: Non-toxic, No Acute Distress - Head Exam Head Exam: ATRAUMATIC, NORMAL INSPECTION, NORMOCEPHALIC - Eye Exam Eye Exam: EOMI, Normal appearance - ENT Exam ENT Exam: Mucous Membranes Moist, Normal Exam - Neck Exam Neck Exam: Full ROM, Normal Inspection - Respiratory Exam Respiratory Exam: NORMAL BREATHING PATTERN - Cardiovascular Exam Cardiovascular Exam: REGULAR RHYTHM - GI/Abdominal Exam GI & Abdominal Exam: Soft. absent: Tenderness - Extremities Exam Extremities Exam: absent: Normal Inspection (dressings in place over feet) - Neurological Exam Neurological Exam: Alert, Awake, CN II-XII Intact, Oriented x3 - Psychiatric Exam Psychiatric exam: Normal Affect, Normal Mood - Skin Skin Exam: Dry, Normal Color, Warm Assessment and Plan - Assessment and Plan (Free Text) Assessment: 77M with PMHx of DM2, COPD, and CAD with ulcerations of b/l toes BOne scan R toes osteomyelitis CTA severe b/l calcification Plan: Angio 03/09 NPO after MN Cont IV Abx Wound care PRN DW Dr. Christophe Elliott, PGY-2
[2018-03-07 08:05] LABS: BASO # 0.1 K/uL (0.0-0.2); EOS # 0.2 K/uL (0.0-0.7); HEMOGLOBIN 9.6 g/dL (12.0-18.0); LYMPH # 1.1 K/uL (1.0-4.3); LYMPH % 16.3 % (20.0-40.0); MEAN CELL VOLUME 83.5 fL (80.0-94.0); MEAN CORPUSCULAR HEMOGLOBIN 29.2 pg (27.0-31.0); MEAN CORPUSCULAR HGB CONC 34.9 g/dL (33.0-37.0); MEAN PLATELET VOLUME 9.7 fL (7.2-11.7); MONO # 0.5 K/uL (0.0-0.8); MONO % 7.1 % (0.0-10.0); NEUT # 4.7 K/uL (1.8-7.0); NEUT % 72.6 % (50.0-75.0); RBC 3.31 Mil/uL (4.40-5.90); RED CELL DISTRIBUTION WIDTH 15.1 % (11.5-14.5); WHITE BLOOD COUNT 6.5 K/uL (4.8-10.8)
[2018-03-07 08:28] LABS: ALBUMIN 2.9 g/dL (3.5-5.0); ALT/SGPT 27 U/L (21-72); AST/SGOT 19 U/L (17-59); BLOOD UREA NITROGEN 18 mg/dL (9-20); CALCIUM 8.2 mg/dl (8.6-10.4); GFR NON-AFRICAN AMERICAN > 60
--- NOTE | 2018-03-07 15:56 | CP.PCM.PN ---
Subjective - Date & Time of Evaluation Date of Evaluation: 03/07/18 Time of Evaluation: 15:56 - Subjective Subjective: CHIEF COMPLAINTS TODAY : No further hypoglycemic episodes. Patient has a wound on the left third toe which appears to be infected ROS. HEENT : N. Resp : No cough, wheezing ,pleuritic CP ,or hemoptysis Cardio : No anginal CP, PND, orthopnea, palpitation GI : No abd.pain, n/v ,diarrhea or GI bleeding . DOCUMENT IMPROVEMENT SPECIALIST : No headache, vertigo, focal deficit. Musculoskel : No joint swelling , Derm : No rash Psych : Normal affect. Ext : No swelling ,calf pain PE. Pt. is alert awake in no distress. V.S As noted in the chart Head ,ear nose,throat and eyes : Normal. Neck : Supple with normal carotids. Lungs: Clear air entry. Heart : S1 & S2 normal with S4. No murmur. Abd : Soft non tender with normal bowel sounds. Neuro : Moves all ext. with no localized deficit. Ext : No edema with intact pulses.Non tender calves on the dorsal surface of the third right toe there is a superficial ulcer with dried pus Derm : No rashes or decubitus ulcer. LABS/RADIOLOGY: Bone scan is positive for osteomyelitis of the fourth right toe and third left toe. There is severe vascular calcification of lower extremities could not determine arterial Doppler studies the wound culture fromower extremities shows MRSA ASSESSMENT/PLAN : Continue IV antibiotics local wound care. CTA of the lower extremities. Patient will need a PICC antibiotics and probably 2 weeks of rehab Objective - Vital Signs/Intake and Output Vital Signs (last 24 hours): Temp Pulse Resp BP Pulse Ox 98.3 F 50 L 20 150/67 97 03/06/18 23:35 03/07/18 07:00 03/06/18 23:35 03/06/18 23:35 03/06/18 23:35 - Medications Medications: Current Medications Acetaminophen (Tylenol 325mg Tab) 650 mg PO Q6 PRN PRN Reason: Pain, moderate (4-7) Bisoprolol Fumarate (Zebeta) 10 mg PO DAILY [facility] Last Admin: 03/07/18 09:24 Dose: 10 mg Clopidogrel Bisulfate (Plavix) 75 mg PO DAILY [facility] Last Admin: 03/07/18 09:24 Dose: 75 mg Vancomycin HCl 1 gm/ Sodium (Chloride) 200 mls @ 166.7 mls/hr IVPB Q24H [facility] PRN Reason: Protocol Last Admin: 03/06/18 17:38 Dose: 166.7 mls/hr Ciprofloxacin (Cipro 400mg/200ml Dsw) 400 mg in 200 mls @ 133 mls/hr IVPB Q12H [facility] PRN Reason: Protocol Last Admin: 03/07/18 13:42 Dose: 133 mls/hr Insulin Glargine (Lantus) 10 unit SC HS [facility] Last Admin: 03/02/18 22:18 Dose: 10 unit Insulin Human Regular (Novolin R) 0 unit SC [facility] PRN Reason: Protocol Last Admin: 03/07/18 12:42 Dose: 3 units Metformin HCl (Glucophage) 500 mg PO BID [facility] Last Admin: 03/07/18 09:24 Dose: 500 mg Mirtazapine (Remeron) 15 mg PO HS [facility] Last Admin: 03/06/18 21:51 Dose: 15 mg Montelukast Sodium (Singulair) 10 mg PO [facility] Last Admin: 03/06/18 21:51 Dose: 10 mg Mupirocin (Bactroban Ointment) 0 gm TOP DAILY [facility] Last Admin: 03/07/18 09:40 Dose: Not Given Rosuvastatin Calcium (Crestor) 10 mg PO [facility] Last Admin: 03/06/18 21:51 Dose: 10 mg Sitagliptin Phosphate (Januvia) 100 mg PO DAILY [facility] Last Admin: 03/03/18 10:28 Dose: 100 mg - Labs Labs: 03/07/18 07:49 03/07/18 07:49 PT 10.5 SECONDS (9.7-12.2) 03/02/18 05:40 INR 1.0 03/02/18 05:40 APTT 34 SECONDS (21-34) 03/02/18 05:40
[2018-03-07] MEDS: Vancomycin 1 GM in Sodium Chloride 0.9% 200 ML IVPB SCH (17:31)
--- NOTE | 2018-03-07 23:35 | CP.PCM.PN ---
Subjective - Date & Time of Evaluation Date of Evaluation: 03/07/18 Time of Evaluation: 23:35 - Subjective Subjective: CHIEF COMPLAINTS TODAY : AFEBRILE, VSS AWAKE AND ALERT Bilateral ulcers on the dorsal surface of the left third and fifth digit left foot and right fourth digit right foot for CT -angio ON THURSDAY ROS. HEENT : N. Resp : No cough, wheezing ,pleuritic CP ,or hemoptysis Cardio : No anginal CP, PND, orthopnea, palpitation GI : No abd.pain, n/v ,diarrhea or GI bleeding . COMMUNITY HEALTH SPECIALIST : No headache, vertigo, focal deficit. Musculoskel : No joint swelling , Derm : No rash Psych : Normal affect. Ext : No swelling ,calf pain PE. Pt. is alert awake in no distress. V.S As noted in the chart Head ,ear nose,throat and eyes : Normal. Neck : Supple with normal carotids. Lungs: Clear air entry. Heart : S1 & S2 normal with S4. No murmur. Abd : Soft non tender with normal bowel sounds. Neuro : Moves all ext. with no localized deficit. Ext : No edema with intact pulses.Non tender calves .left foot third digit and fifth digit with ulcerations. On the dorsal surface of the third right toe there is a superficial ulcer with dried pus Derm : No rashes or decubitus ulcer. LABS/RADIOLOGY: WOUND CULTURE +VE MRSA Bone scan is positive for osteomyelitis of the fourth right toe and third left toe. There is severe vascular calcification of lower extremities could not determine arterial Doppler CT ABD. ANGIO/ILEO-FEM RUN OFF DONE-NOTED Objective - Vital Signs/Intake and Output Vital Signs (last 24 hours): Temp Pulse Resp BP Pulse Ox 98.2 F 55 L 20 167/73 H 97 03/07/18 15:00 03/07/18 18:00 03/07/18 15:00 03/07/18 15:00 03/07/18 18:00 Intake and Output: 03/07/18 03/08/18 18:59 06:59 Intake Total 440 Output Total 650 Balance -210 - Medications Medications: Current Medications Acetaminophen (Tylenol 325mg Tab) 650 mg PO Q6 PRN PRN Reason: Pain, moderate (4-7) Bisoprolol Fumarate (Zebeta) 10 mg PO DAILY [facility] Last Admin: 03/07/18 09:24 Dose: 10 mg Clopidogrel Bisulfate (Plavix) 75 mg PO DAILY [facility] Last Admin: 03/07/18 09:24 Dose: 75 mg Vancomycin HCl 1 gm/ Sodium (Chloride) 200 mls @ 166.7 mls/hr IVPB Q24H [facility] PRN Reason: Protocol Last Admin: 03/07/18 17:31 Dose: 166.7 mls/hr Ciprofloxacin (Cipro 400mg/200ml Dsw) 400 mg in 200 mls @ 133 mls/hr IVPB Q12H [facility] PRN Reason: Protocol Last Admin: 03/07/18 13:42 Dose: 133 mls/hr Insulin Glargine (Lantus) 10 unit SC [facility] Last Admin: 03/02/18 22:18 Dose: 10 unit Insulin Human Regular (Novolin R) 0 unit SC [facility] PRN Reason: Protocol Last Admin: 03/07/18 22:20 Dose: Not Given Metformin HCl (Glucophage) 500 mg PO BID [facility] Last Admin: 03/07/18 17:31 Dose: 500 mg Mirtazapine (Remeron) 15 mg PO [facility] Last Admin: 03/07/18 21:40 Dose: 15 mg Montelukast Sodium (Singulair) 10 mg PO [facility] Last Admin: 03/07/18 21:40 Dose: 10 mg Mupirocin (Bactroban Ointment) 0 gm TOP DAILY [facility] Last Admin: 03/07/18 09:40 Dose: Not Given Rosuvastatin Calcium (Crestor) 10 mg PO [facility] Last Admin: 03/07/18 21:40 Dose: 10 mg Sitagliptin Phosphate (Januvia) 100 mg PO DAILY [facility] Last Admin: 03/03/18 10:28 Dose: 100 mg - Labs Labs: 03/07/18 07:49 03/07/18 07:49 PT 10.5 SECONDS (9.7-12.2) 03/02/18 05:40 INR 1.0 03/02/18 05:40 APTT 34 SECONDS (21-34) 03/02/18 05:40 Assessment and Plan (1) Bilateral pressure ulcer of feet Assessment & Plan: WOUND CULTURE LT FOOT ULCER -03/04/18 MRSA ON IV VANCOMYCIN 1GM IVPB Q 24HRLY 03/06/18 ON IV CIPRO 400MG IVPB [id number] 03/06/18 VASCULAR W/U IN PROGRESSS S/P CT ANGIO PER VASCULAR SURGERY. NPO IN AM -FOR OR. Status: Acute (2) COPD (chronic obstructive pulmonary disease) Status: Acute (3) Diabetes Status: Acute (4) HTN (hypertension) Status: Acute (5) Onychomycosis of left great toe Status: Acute
[2018-03-08] MEDS: Ciprofloxacin 400mg/200ml D5W 400 MG/200 ML BAG IVPB SCH ×2 (01:40→14:00)
[2018-03-08] MEDS: (Novolin R) Insulin Human Regular 100 units/ml vial SC SCH ×4 (07:37→22:22)
[2018-03-08] MEDS ORDERED: Lidocaine 2% MPF (5 ml) Inj ONE (09:03)
[2018-03-08] MEDS ORDERED: Iodixanol 320 MG/ML 200 ML BOTTLE IV ONE (09:04)
[2018-03-08] MEDS ORDERED: Iodixanol 320 MG/ML 100 ML BOTTLE IV ONE ×3 (09:04→12:00)
[2018-03-08] MEDS ORDERED: Heparin 2,000 ML IV ONE (09:04)
--- NOTE | 2018-03-08 10:05 | CP.PCM.PN ---
<Elliot Juárez - Last Filed: 03/08/18 10:02> Subjective - Date & Time of Evaluation Date of Evaluation: 03/08/18 Time of Evaluation: 10:02 - Subjective Subjective: continued tx of ulcers of toes Dr Saeed to do angiography . Objective - Vital Signs/Intake and Output Vital Signs (last 24 hours): Temp Pulse Resp BP Pulse Ox 98.1 F 52 L 20 166/63 H 100 03/08/18 00:00 03/08/18 00:00 03/08/18 00:00 03/08/18 00:00 03/08/18 00:00 Intake and Output: 03/08/18 03/08/18 06:59 18:59 Intake Total 440 Output Total 2550 Balance -2110 - Medications Medications: Current Medications Acetaminophen (Tylenol 325mg Tab) 650 mg PO Q6 PRN PRN Reason: Pain, moderate (4-7) Bisoprolol Fumarate (Zebeta) 10 mg PO DAILY [facility] Last Admin: 03/07/18 09:24 Dose: 10 mg Clopidogrel Bisulfate (Plavix) 75 mg PO DAILY [facility] Last Admin: 03/07/18 09:24 Dose: 75 mg Vancomycin HCl 1 gm/ Sodium (Chloride) 200 mls @ 166.7 mls/hr IVPB Q24H [facility] PRN Reason: Protocol Last Admin: 03/07/18 17:31 Dose: 166.7 mls/hr Ciprofloxacin (Cipro 400mg/200ml Dsw) 400 mg in 200 mls @ 133 mls/hr IVPB Q12H [facility] PRN Reason: Protocol Last Admin: 03/08/18 01:40 Dose: 133 mls/hr Insulin Glargine (Lantus) 10 unit SC HS [facility] Last Admin: 03/02/18 22:18 Dose: 10 unit Insulin Human Regular (Novolin R) 0 unit SC ACHS [facility] PRN Reason: Protocol Last Admin: 03/08/18 07:37 Dose: Not Given Metformin HCl (Glucophage) 500 mg PO BID [facility] Last Admin: 03/07/18 17:31 Dose: 500 mg Mirtazapine (Remeron) 15 mg PO HS [facility] Last Admin: 03/07/18 21:40 Dose: 15 mg Montelukast Sodium (Singulair) 10 mg PO [facility] Last Admin: 09/09/18 21:40 Dose: 10 mg Mupirocin (Bactroban Ointment) 0 gm TOP DAILY [facility] Last Admin: 03/07/18 09:40 Dose: Not Given Rosuvastatin Calcium (Crestor) 10 mg PO [facility] Last Admin: 03/07/18 21:40 Dose: 10 mg Sitagliptin Phosphate (Januvia) 100 mg PO DAILY [facility] Last Admin: 03/03/18 10:28 Dose: 100 mg - Labs Labs: 03/07/18 07:49 03/07/18 07:49 PT 10.5 SECONDS (9.7-12.2) 03/02/18 05:40 INR 1.0 03/02/18 05:40 APTT 34 SECONDS (21-34) 03/02/18 05:40 <Suzy Rodrigues - Last Filed: 03/09/18 10:33> Objective - Vital Signs/Intake and Output Vital Signs (last 24 hours): Temp Pulse Resp BP Pulse Ox 98.1 F 52 L 20 166/63 H 100 03/08/18 00:00 03/08/18 00:00 03/08/18 00:00 03/08/18 00:00 03/08/18 00:00 Intake and Output: 03/08/18 03/08/18 06:59 18:59 Intake Total 440 Output Total 2550 Balance -2110 - Medications Medications: Current Medications Acetaminophen (Tylenol 325mg Tab) 650 mg PO Q6 PRN PRN Reason: Pain, moderate (4-7) Bisoprolol Fumarate (Zebeta) 10 mg PO DAILY [facility] Last Admin: 03/07/18 09:24 Dose: 10 mg Clopidogrel Bisulfate (Plavix) 75 mg PO DAILY [facility] Last Admin: 03/07/18 09:24 Dose: 75 mg Vancomycin HCl 1 gm/ Sodium (Chloride) 200 mls @ 166.7 mls/hr IVPB Q24H [facility] PRN Reason: Protocol Last Admin: 03/07/18 17:31 Dose: 166.7 mls/hr Ciprofloxacin (Cipro 400mg/200ml Dsw) 400 mg in 200 mls @ 133 mls/hr IVPB Q12H [facility] PRN Reason: Protocol Last Admin: 03/08/18 01:40 Dose: 133 mls/hr Insulin Glargine (Lantus) 10 unit SC [facility] Last Admin: 03/02/18 22:18 Dose: 10 unit Insulin Human Regular (Novolin R) 0 unit SC ACHS [facility] PRN Reason: Protocol Last Admin: 03/08/18 07:37 Dose: Not Given Metformin HCl (Glucophage) 500 mg PO BID [facility] Last Admin: 03/07/18 17:31 Dose: 500 mg Mirtazapine (Remeron) 15 mg PO HS [facility] Last Admin: 03/07/18 21:40 Dose: 15 mg Montelukast Sodium (Singulair) 10 mg PO HS [facility] Last Admin: 03/07/18 21:40 Dose: 10 mg Mupirocin (Bactroban Ointment) 0 gm TOP DAILY [facility] Last Admin: 03/07/18 09:40 Dose: Not Given Rosuvastatin Calcium (Crestor) 10 mg PO [facility] Last Admin: 03/07/18 21:40 Dose: 10 mg Sitagliptin Phosphate (Januvia) 100 mg PO DAILY [facility] Last Admin: 03/03/18 10:28 Dose: 100 mg - Labs Labs: 03/07/18 07:49 03/07/18 07:49 PT 10.5 SECONDS (9.7-12.2) 03/02/18 05:40 INR 1.0 03/02/18 05:40 APTT 34 SECONDS (21-34) 03/02/18 05:40 - Constitutional Appears: Well, Non-toxic - Extremities Exam Additional comments: B/L LE focused exam: Vasc: DP/PT pulses 1/4 B/L. Skin temperature warm to warm from proximal to distal. CFT < 3 seconds to all digits B/L. No edema noted to periwound areas Neuro: Epicritic and protective sensation grossly intact B/L Derm: Superficial, unstagable ulcerations noted to dorsal aspect of left third and fifth digit as well as right fourth digit. Minimal periwound erythema noted to all wounds without streaking or ascending cellulitis noted. No malodor, no active drainage or purulence, no probe to bone, no other clinical signs of infection. Elongated, dystrophic, onychomycotic toenails noted to digits 1-5 B/L MSK: Minimal tenderness on palpation of all ulceration sites. ROM WNL at all major joints given age and comorbidities. MMT 4/5 in all major muscle groups B/L - Neurological Exam Neurological Exam: Alert, Awake Assessment and Plan - Assessment and Plan (Free Text) Assessment: 77M seen and evaluated at bedside for bilateral diabetic foot ulcerations Plan: Pt seen and examined at bedside with attending Dr. Juárez Nuclear bone scan + for OM to right 4th digit and left 3rd digit Pt to go for angiography with Dr. Saeed today No plan for surgical intervention at this time Continue local wound care with saline cleanse and bandage of bactroban, 4x4 and Kerlix dressing Podiatry will continue to follow while patient in house
[2018-03-08] MEDS ORDERED: Midazolam 2 MG/2 ML VIAL ONE ×3 (11:19→12:12)
[2018-03-08] MEDS ORDERED: Etomidate 20 mg/10ml Inj IV ONE (12:13)
--- NOTE | 2018-03-08 12:56 | CP.PCM.PN ---
Subjective - Date & Time of Evaluation Date of Evaluation: 03/08/18 Time of Evaluation: 12:56 - Subjective Subjective: CHIEF COMPLAINTS TODAY : No further hypoglycemic episodes. Patient has a wound on the left third toe which appears to be infected ROS. HEENT : N. Resp : No cough, wheezing ,pleuritic CP ,or hemoptysis Cardio : No anginal CP, PND, orthopnea, palpitation GI : No abd.pain, n/v ,diarrhea or GI bleeding . FLAP MAKER : No headache, vertigo, focal deficit. Musculoskel : No joint swelling , Derm : No rash Psych : Normal affect. Ext : No swelling ,calf pain PE. Pt. is alert awake in no distress. V.S As noted in the chart Head ,ear nose,throat and eyes : Normal. Neck : Supple with normal carotids. Lungs: Clear air entry. Heart : S1 & S2 normal with S4. No murmur. Abd : Soft non tender with normal bowel sounds. Neuro : Moves all ext. with no localized deficit. Ext : No edema with intact pulses.Non tender calves on the dorsal surface of the third right toe there is a superficial ulcer with dried pus Derm : No rashes or decubitus ulcer. LABS/RADIOLOGY: Bone scan is positive for osteomyelitis of the fourth right toe and third left toe. There is severe vascular calcification of lower extremities could not determine arterial Doppler studies the wound culture fromower extremities shows MRSA ASSESSMENT/PLAN : Continue IV antibiotics local wound care. CTA of the lower extremities. Patient will need a PICC antibiotics and probably 2 weeks of rehab Objective - Vital Signs/Intake and Output Vital Signs (last 24 hours): Temp Pulse Resp BP Pulse Ox 98.1 F 52 L 20 166/63 H 100 03/08/18 00:00 03/08/18 00:00 03/08/18 00:00 03/08/18 00:00 03/08/18 00:00 Intake and Output: 03/08/18 03/08/18 11:59 23:59 Output Total 1900 Balance -1900 - Medications Medications: Current Medications Acetaminophen (Tylenol 325mg Tab) 650 mg PO Q6 PRN PRN Reason: Pain, moderate (4-7) Bisoprolol Fumarate (Zebeta) 10 mg PO DAILY [facility] Last Admin: 03/07/18 09:24 Dose: 10 mg Clopidogrel Bisulfate (Plavix) 75 mg PO DAILY [facility] Last Admin: 03/07/18 09:24 Dose: 75 mg Vancomycin HCl 1 gm/ Sodium (Chloride) 200 mls @ 166.7 mls/hr IVPB Q24H [facility] PRN Reason: Protocol Last Admin: 03/07/18 17:31 Dose: 166.7 mls/hr Ciprofloxacin (Cipro 400mg/200ml Dsw) 400 mg in 200 mls @ 133 mls/hr IVPB Q12H [facility] PRN Reason: Protocol Last Admin: 03/08/18 01:40 Dose: 133 mls/hr Insulin Glargine (Lantus) 10 unit SC HS [facility] Last Admin: 03/02/18 22:18 Dose: 10 unit Insulin Human Regular (Novolin R) 0 unit SC ACHS [facility] PRN Reason: Protocol Last Admin: 03/08/18 11:30 Dose: Not Given Metformin HCl (Glucophage) 500 mg PO BID [facility] Last Admin: 03/08/18 10:00 Dose: Not Given Mirtazapine (Remeron) 15 mg PO [facility] Last Admin: 03/07/18 21:40 Dose: 15 mg Montelukast Sodium (Singulair) 10 mg PO HS [facility] Last Admin: 03/07/18 21:40 Dose: 10 mg Mupirocin (Bactroban Ointment) 0 gm TOP DAILY [facility] Last Admin: 03/08/18 11:00 Dose: Not Given Rosuvastatin Calcium (Crestor) 10 mg PO [facility] Last Admin: 03/07/18 21:40 Dose: 10 mg Sitagliptin Phosphate (Januvia) 100 mg PO DAILY [facility] Last Admin: 03/03/18 10:28 Dose: 100 mg - Labs Labs: 03/07/18 07:49 03/07/18 07:49 PT 10.5 SECONDS (9.7-12.2) 03/02/18 05:40 INR 1.0 03/02/18 05:40 APTT 34 SECONDS (21-34) 03/02/18 05:40
--- NOTE | 2018-03-08 13:04 | PCM.SURG1 ---
Surgeon's Initial Post Op Note - Surgeon's Notes Surgeon: anna [employer] Designer: 0 Type of Anesthesia: IV Sedation Anesthesia Administered By: jill Pre-Operative Diagnosis: ischemic ulceration both feet Operative Findings: severe tibial disease bilaterally Post-Operative Diagnosis: same Operation Performed: aortofemoral angiogram via left groin. selective catherization of right femoral artery. balloon angioplasty 2mm of psoterior tibial artery. perclose left groin Specimen/Specimens Removed: 0 Estimated Blood Loss: EBL {In ML}: 50 Blood Products Given: N/A Drains Used: No Drains Post-Op Condition: Good Date of Surgery/Procedure: 03/08/18 Time of Surgery/Procedure: 13:04
[2018-03-08] MEDS: Vancomycin 1 GM in Sodium Chloride 0.9% 200 ML IVPB SCH (17:46)
--- NOTE | 2018-03-08 21:29 | CP.PCM.PN ---
Subjective - Date & Time of Evaluation Date of Evaluation: 03/08/18 Time of Evaluation: 21:29 - Subjective Subjective: S/P OR TODAY EVENTS NOTED. PT SEEN POST OP. 03/08/18 COMFORTABLE Pre-Operative Diagnosis: ischemic ulceration both feet Operative Findings: severe tibial disease bilaterally Post-Operative Diagnosis: same Operation Performed: aortofemoral angiogram via left groin. selective catherization of right femoral artery. balloon angioplasty 2mm of psoterior tibial artery. perclose left groin ROS. HEENT : N. Resp : No cough, wheezing ,pleuritic CP ,or hemoptysis Cardio : No anginal CP, PND, orthopnea, palpitation GI : No abd.pain, n/v ,diarrhea or GI bleeding . AUDIO VIDEO MECHANIC : No headache, vertigo, focal deficit. Musculoskel : No joint swelling , Derm : No rash Psych : Normal affect. Ext : No swelling ,calf pain PE. Pt. is alert awake in no distress. V.S As noted in the chart Head ,ear nose,throat and eyes : Normal. Neck : Supple with normal carotids. Lungs: Clear air entry. Heart : S1 & S2 normal with S4. No murmur. Abd : Soft non tender with normal bowel sounds. Neuro : Moves all ext. with no localized deficit. Ext : No edema with intact pulses.Non tender calves .left foot third digit and fifth digit with ulcerations. On the dorsal surface of the third right toe there is a superficial ulcer with dried pus Derm : No rashes or decubitus ulcer. LABS/RADIOLOGY: WOUND CULTURE +VE MRSA Bone scan is positive for osteomyelitis of the fourth right toe and third left toe. There is severe vascular calcification of lower extremities could not determine arterial Doppler CT ABD. ANGIO/ILEO-FEM RUN OFF DONE-NOTED Objective - Vital Signs/Intake and Output Vital Signs (last 24 hours): Temp Pulse Resp BP Pulse Ox 97.6 F 47 L 18 149/61 98 03/08/18 16:00 03/08/18 17:19 03/08/18 16:00 03/08/18 16:00 03/08/18 16:00 - Medications Medications: Current Medications Acetaminophen (Tylenol 325mg Tab) 650 mg PO Q6 PRN PRN Reason: Pain, moderate (4-7) Bisoprolol Fumarate (Zebeta) 10 mg PO DAILY [facility] Last Admin: 03/08/18 10:00 Dose: Not Given Clopidogrel Bisulfate (Plavix) 75 mg PO DAILY [facility] Last Admin: 03/08/18 10:00 Dose: Not Given Vancomycin HCl 1 gm/ Sodium (Chloride) 200 mls @ 166.7 mls/hr IVPB Q24H [facility] PRN Reason: Protocol Last Admin: 03/08/18 17:46 Dose: 166.7 mls/hr Ciprofloxacin (Cipro 400mg/200ml Dsw) 400 mg in 200 mls @ 133 mls/hr IVPB Q12H [facility] PRN Reason: Protocol Last Admin: 03/08/18 14:00 Dose: Not Given Insulin Glargine (Lantus) 10 unit SC [facility] Last Admin: 03/02/18 22:18 Dose: 10 unit Insulin Human Regular (Novolin R) 0 unit SC [facility] PRN Reason: Protocol Last Admin: 03/08/18 11:30 Dose: Not Given Metformin HCl (Glucophage) 500 mg PO BID [facility] Last Admin: 03/08/18 17:47 Dose: 500 mg Mirtazapine (Remeron) 15 mg PO [facility] Last Admin: 03/07/18 21:40 Dose: 15 mg Montelukast Sodium (Singulair) 10 mg PO [facility] Last Admin: 03/07/18 21:40 Dose: 10 mg Mupirocin (Bactroban Ointment) 0 gm TOP DAILY [facility] Last Admin: 03/08/18 11:00 Dose: Not Given Rosuvastatin Calcium (Crestor) 10 mg PO [facility] Last Admin: 03/07/18 21:40 Dose: 10 mg Sitagliptin Phosphate (Januvia) 100 mg PO DAILY [facility] Last Admin: 03/03/18 10:28 Dose: 100 mg - Labs Labs: 03/07/18 07:49 03/07/18 07:49 PT 10.5 SECONDS (9.7-12.2) 03/02/18 05:40 INR 1.0 03/02/18 05:40 APTT 34 SECONDS (21-34) 03/02/18 05:40 Assessment and Plan (1) Bilateral pressure ulcer of feet Assessment & Plan: WOUND CULTURE LT FOOT ULCER -03/04/18 MRSA ON IV VANCOMYCIN 1GM IVPB Q 24HRLY 03/06/18 ON IV CIPRO 400MG IVPB [id number] 03/06/18. F/U VANCO TROUGH IN AM CASE DISCUSSED WITH ATTENDING. PATIENT WILL NEED picc LINE FOR iv ANTIBIOTICS X 4WKS F/U -PO RX X2WKS LWC PER DR CANNON. Status: Acute (2) COPD (chronic obstructive pulmonary disease) Status: Acute (3) Diabetes Status: Acute (4) HTN (hypertension) Status: Acute (5) Onychomycosis of left great toe Status: Acute
[2018-03-09] MEDS: Ciprofloxacin 400mg/200ml D5W 400 MG/200 ML BAG IVPB SCH ×2 (02:06→14:33)
[2018-03-09 07:36] LABS: ALBUMIN 2.8 g/dL (3.5-5.0); ALT/SGPT 31 U/L (21-72); AST/SGOT 28 U/L (17-59); BASO # 0.1 K/uL (0.0-0.2); BASO % 0.7 % (0.0-2.0); BILIRUBIN,DIRECT 0.2 mg/dL (0.0-0.4); BLOOD UREA NITROGEN 16 mg/dL (9-20); CALCIUM 8.4 mg/dl (8.6-10.4); EOS # 0.3 K/uL (0.0-0.7); EOS % 3.2 % (0.0-4.0); GFR NON-AFRICAN AMERICAN > 60; HEMOGLOBIN 9.7 g/dL (12.0-18.0); LYMPH # 1.1 K/uL (1.0-4.3); LYMPH % 12.9 % (20.0-40.0); MEAN CELL VOLUME 84.6 fL (80.0-94.0); MEAN CORPUSCULAR HEMOGLOBIN 29.3 pg (27.0-31.0); MEAN CORPUSCULAR HGB CONC 34.6 g/dL (33.0-37.0); MEAN PLATELET VOLUME 9.4 fL (7.2-11.7); MONO # 0.6 K/uL (0.0-0.8); MONO % 6.7 % (0.0-10.0); NEUT # 6.4 K/uL (1.8-7.0); NEUT % 76.5 % (50.0-75.0); RBC 3.33 Mil/uL (4.40-5.90); RED CELL DISTRIBUTION WIDTH 14.9 % (11.5-14.5); WHITE BLOOD COUNT 8.4 K/uL (4.8-10.8)
--- NOTE | 2018-03-09 07:46 | VAS ---
DATE: 03/08/2018 PREOPERATIVE DIAGNOSIS: Ischemic ulceration, both feet. PROCEDURE CARRIED OUT: Aortofemoral angiogram via right groin with selective catheterization of left femoral artery, balloon angioplasty of posterior tibial artery. SURGEON: Jeffrey Saeed Jr., MD ASSISTANTS: None. ANESTHESIOLOGIST: Bonny Goode CRNA. INDICATIONS: The patient is a 77-year-old man with ischemic ulcerations in both feet. OPERATIVE FINDINGS: The aorta and renal arteries are free of significant occlusive disease. Both common femoral and external iliac, common femoral arteries, superficial femoral and profunda femoral arteries are wide open. On the right side which is the more affected leg, the posterior tibial was occluded at the ankle. With no named vessel in the foot, the anterior tibial artery was diffusely diseased in its proximal segment and was visualized again, and it is a very flimsy vessel in the foot. Subsequent to the performance of diagnostic arteriogram, a stiff-angled Glidewire was advanced over the aortic bifurcation. A 6-Emirati sheath positioned in the proximal portion of the popliteal artery. After it was positioned in the popliteal artery, we attempted to cross the lesion distal, which was unsuccessful with a variety of guidewires and devices. We then carried out a balloon angioplasty using a 2-mm balloon with 2 segmental stenoses in the mid portion of the posterior tibial artery. Attempts were then made to carry out a balloon angioplasty of the anterior tibial artery, but we were unable to cross the lesion in its [id number] third segment. We then took detailed pictures of the left leg, particularly the tibial segments. However, due to lack of the patient's cooperation, numerous films were taken. We can only ascertain that the trifurcation was intact. The peroneal artery appeared to continue down the foot and the posterior tibial artery was the main vessel into the foot. However, detailed visualization of the foot itself was impossible due the patient's movement. Again, we attempted this numerous times and we were unable to successfully visualize all the vessels down to the area of the foot. Direct examination will be necessary. Heparin was given after Perclose device was deployed in the left groin, and the procedure was terminated. Jeffrey Saeed Jr., MD
[2018-03-09] MEDS: (Novolin R) Insulin Human Regular 100 units/ml vial SC SCH ×4 (08:30→21:20)
--- NOTE | 2018-03-09 10:58 | CP.PCM.PN ---
Subjective - Date & Time of Evaluation Date of Evaluation: 03/09/18 Time of Evaluation: 10:54 - Subjective Subjective: PGY-1 vasc surgery note for Dr Saeed Patient is seen and examined at bedside. report no acute evens overnight. Patient denies fever, chills, lower extremity pain. Patient to go for Angio of left lower extremity tomorrow. Objective - Vital Signs/Intake and Output Vital Signs (last 24 hours): Temp Pulse Resp BP Pulse Ox 98.0 F 73 20 173/70 H 98 03/09/18 00:00 03/09/18 00:00 03/09/18 00:00 03/09/18 00:00 03/09/18 00:00 Intake and Output: 03/09/18 03/09/18 06:59 18:59 Intake Total 500 Output Total 1450 Balance -950 - Medications Medications: Current Medications Acetaminophen (Tylenol 325mg Tab) 650 mg PO Q6 PRN PRN Reason: Pain, moderate (4-7) Bisoprolol Fumarate (Zebeta) 10 mg PO DAILY [facility] Last Admin: 03/08/18 10:00 Dose: Not Given Clopidogrel Bisulfate (Plavix) 75 mg PO DAILY [facility] Last Admin: 03/08/18 10:00 Dose: Not Given Vancomycin HCl 1 gm/ Sodium (Chloride) 200 mls @ 166.7 mls/hr IVPB Q24H [facility] PRN Reason: Protocol Last Admin: 03/08/18 17:46 Dose: 166.7 mls/hr Ciprofloxacin (Cipro 400mg/200ml Dsw) 400 mg in 200 mls @ 133 mls/hr IVPB Q12H [facility] PRN Reason: Protocol Last Admin: 03/09/18 02:06 Dose: 133 mls/hr Insulin Glargine (Lantus) 10 unit SC HS [facility] Last Admin: 03/02/18 22:18 Dose: 10 unit Insulin Human Regular (Novolin R) 0 unit SC ACHS [facility] PRN Reason: Protocol Last Admin: 03/09/18 08:30 Dose: 2 units Metformin HCl (Glucophage) 500 mg PO BID [facility] Last Admin: 03/08/18 17:47 Dose: 500 mg Mirtazapine (Remeron) 15 mg PO HS [facility] Last Admin: 03/08/18 21:44 Dose: 15 mg Montelukast Sodium (Singulair) 10 mg PO HS [facility] Last Admin: 03/08/18 21:44 Dose: 10 mg Mupirocin (Bactroban Ointment) 0 gm TOP DAILY [facility] Last Admin: 03/08/18 11:00 Dose: Not Given Rosuvastatin Calcium (Crestor) 10 mg PO HS [facility] Last Admin: 03/08/18 21:44 Dose: 10 mg Sitagliptin Phosphate (Januvia) 100 mg PO DAILY [facility] Last Admin: 03/03/18 10:28 Dose: 100 mg - Labs Labs: 03/09/18 06:52 03/09/18 06:52 PT 10.5 SECONDS (9.7-12.2) 03/02/18 05:40 INR 1.0 03/02/18 05:40 APTT 34 SECONDS (21-34) 03/02/18 05:40 - Head Exam Head Exam: ATRAUMATIC, NORMAL INSPECTION, NORMOCEPHALIC - Eye Exam Eye Exam: EOMI, Normal appearance - ENT Exam ENT Exam: Mucous Membranes Moist, Normal Exam - Neck Exam Neck Exam: Full ROM - Respiratory Exam Respiratory Exam: NORMAL BREATHING PATTERN. absent: Accessory Muscle Use, Respiratory Distress - GI/Abdominal Exam GI & Abdominal Exam: Soft - Extremities Exam Extremities Exam: absent: Pedal Edema, Tenderness - Back Exam Back Exam: NORMAL INSPECTION - Neurological Exam Neurological Exam: Alert, Awake, Oriented x3 - Psychiatric Exam Psychiatric exam: Normal Affect, Normal Mood - Skin Skin Exam: Normal Color, Warm Assessment and Plan - Assessment and Plan (Free Text) Assessment: 77 yo M with PMHx of DM2, COPD, and CAD with ulcerations of b/l toes s/p aortofemoral angiogram via left groin, selective catherization of right femoral artery, balloon angioplasty 2mm of posterior tibial artery Plan: - plan for angio tomorow 03/10 on left lower extremity - NPO after midnight -f/u am labs - continue abx and pain medication as indicated - wound care PRN Plan discussed with Lalit Kapoor, PGY-1
--- NOTE | 2018-03-09 11:22 | RAD ---
Date of service: 03/09/2018 HISTORY: PICC placement COMPARISON: Comparison chest 03/02/2018 FINDINGS: Interval placement right-sided PICC line with tip in the SVC LUNGS: Slight progression of right basilar atelectasis ; rule out developing right lower lobe infiltrate. And blunting right CP angle could be due to small effusion. Mild left basilar atelectasis and/or scarring. PLEURA: As above. No pneumothorax apparent. CARDIOVASCULAR: Normal. OSSEOUS STRUCTURES: No significant abnormalities. VISUALIZED UPPER ABDOMEN: Normal. OTHER FINDINGS: None. IMPRESSION: Interval placement right-sided PICC line with tip in the SVC. Slight progression of right basilar atelectasis ; rule out developing right lower lobe infiltrate. And blunting right CP angle could be due to small effusion. Mild left basilar atelectasis and/or scarring. The
--- NOTE | 2018-03-09 14:10 | CP.PCM.PN ---
Subjective - Date & Time of Evaluation Date of Evaluation: 03/09/18 Time of Evaluation: 14:08 - Subjective Subjective: CHIEF COMPLAINTS TODAY : No further hypoglycemic episodes. Patient has a wound on the left third toe which appears to be infected ROS. HEENT : N. Resp : No cough, wheezing ,pleuritic CP ,or hemoptysis Cardio : No anginal CP, PND, orthopnea, palpitation GI : No abd.pain, n/v ,diarrhea or GI bleeding . PAINTER SPRAY : No headache, vertigo, focal deficit. Musculoskel : No joint swelling , Derm : No rash Psych : Normal affect. Ext : No swelling ,calf pain PE. Pt. is alert awake in no distress. V.S As noted in the chart Head ,ear nose,throat and eyes : Normal. Neck : Supple with normal carotids. Lungs: Clear air entry. Heart : S1 & S2 normal with S4. No murmur. Abd : Soft non tender with normal bowel sounds. Neuro : Moves all ext. with no localized deficit. Ext : No edema with intact pulses.Non tender calves on the dorsal surface of the third right toe there is a superficial ulcer with dried pus Derm : No rashes or decubitus ulcer. LABS/RADIOLOGY: Bone scan is positive for osteomyelitis of the fourth right toe and third left toe. There is severe vascular calcification of lower extremities could not determine arterial Doppler studies the wound culture fromower extremities shows MRSA ASSESSMENT/PLAN : Continue IV antibiotics local wound care. patient had aortofemoral aortogram on the left groin. Posterior tibial 2 mm angioplasty on the right done. Patient is for angiogram left leg in AM Patient has a PICC line and will be transferred to [place] for IV antibiotics and local wound care Objective - Vital Signs/Intake and Output Vital Signs (last 24 hours): Temp Pulse Resp BP Pulse Ox 98.0 F 73 20 173/70 H 98 03/09/18 00:00 03/09/18 00:00 03/09/18 00:00 03/09/18 00:00 03/09/18 00:00 Intake and Output: 03/09/18 03/09/18 11:59 23:59 Output Total 150 Balance -150 - Medications Medications: Current Medications Acetaminophen (Tylenol 325mg Tab) 650 mg PO Q6 PRN PRN Reason: Pain, moderate (4-7) Bisoprolol Fumarate (Zebeta) 10 mg PO DAILY [facility] Last Admin: 03/08/18 10:00 Dose: Not Given Clopidogrel Bisulfate (Plavix) 75 mg PO DAILY [facility] Last Admin: 03/09/18 10:20 Dose: 75 mg Vancomycin HCl 1 gm/ Sodium (Chloride) 200 mls @ 166.7 mls/hr IVPB Q24H [facility] PRN Reason: Protocol Last Admin: 03/08/18 17:46 Dose: 166.7 mls/hr Ciprofloxacin (Cipro 400mg/200ml Dsw) 400 mg in 200 mls @ 133 mls/hr IVPB Q12H [facility] PRN Reason: Protocol Last Admin: 03/09/18 02:06 Dose: 133 mls/hr Insulin Glargine (Lantus) 10 unit SC HS [facility] Last Admin: 03/02/18 22:18 Dose: 10 unit Insulin Human Regular (Novolin R) 0 unit SC ACHS [facility] PRN Reason: Protocol Last Admin: 03/09/18 12:30 Dose: 8 units Metformin HCl (Glucophage) 500 mg PO BID [facility] Last Admin: 03/09/18 10:20 Dose: 500 mg Mirtazapine (Remeron) 15 mg PO HS [facility] Last Admin: 03/08/18 21:44 Dose: 15 mg Montelukast Sodium (Singulair) 10 mg PO HS [facility] Last Admin: 03/08/18 21:44 Dose: 10 mg Mupirocin (Bactroban Ointment) 0 gm TOP DAILY [facility] Last Admin: 03/09/18 12:30 Dose: Not Given Rosuvastatin Calcium (Crestor) 10 mg PO HS [facility] Last Admin: 03/08/18 21:44 Dose: 10 mg Sitagliptin Phosphate (Januvia) 100 mg PO DAILY [facility] Last Admin: 03/03/18 10:28 Dose: 100 mg - Labs Labs: 03/09/18 06:52 03/09/18 06:52 PT 10.5 SECONDS (9.7-12.2) 03/02/18 05:40 INR 1.0 03/02/18 05:40 APTT 34 SECONDS (21-34) 03/02/18 05:40
--- NOTE | 2018-03-09 14:25 | CP.PCM.PN ---
Subjective - Date & Time of Evaluation Date of Evaluation: 03/09/18 Time of Evaluation: 14:25 - Subjective Subjective: Subjective: afebrile COMFORTABLE S/P PICC LINE RT ARM 03/09/18 PT FOR OR IN AM FOR ANGIOPLASTY LT. EXTREMITY ROS. HEENT : N. Resp : No cough, wheezing ,pleuritic CP ,or hemoptysis Cardio : No anginal CP, PND, orthopnea, palpitation GI : No abd.pain, n/v ,diarrhea or GI bleeding . DEVOPS ARCHITECT : No headache, vertigo, focal deficit. Musculoskel : No joint swelling , Derm : No rash Psych : Normal affect. Ext : No swelling ,calf pain B/L TOE ULCERS LT FOOT 3RD, 5TH DIGIT RT FOOT 3RD DIGIT PE. Pt. is alert awake in no distress. V.S As noted in the chart Head ,ear nose,throat and eyes : Normal. Neck : Supple with normal carotids. Lungs: Clear air entry. Heart : S1 & S2 normal with S4. No murmur. Abd : Soft non tender with normal bowel sounds. Neuro : Moves all ext. with no localized deficit. Ext : No edema with intact pulses.Non tender calves .left foot third digit and fifth digit with ulcerations. On the dorsal surface of the third right toe there is a superficial ulcer with dried pus Derm : No rashes or decubitus ulcer. LABS/RADIOLOGY: bun 16/CREATININE 0.9 VANCO TROUGH 6.8 LOW.03/09/18 WOUND CULTURE +VE MRSA Bone scan is positive for osteomyelitis of the fourth right toe and third left toe. There is severe vascular calcification of lower extremities could not determine arterial Doppler CT ABD. ANGIO/ILEO-FEM RUN OFF DONE-NOTED Objective - Vital Signs/Intake and Output Vital Signs (last 24 hours): Temp Pulse Resp BP Pulse Ox 98.0 F 73 20 173/70 H 98 03/09/18 00:00 03/09/18 00:00 03/09/18 00:00 03/09/18 00:00 03/09/18 00:00 Intake and Output: 03/09/18 03/09/18 06:59 18:59 Intake Total 500 Output Total 1450 Balance -950 - Medications Medications: Current Medications Acetaminophen (Tylenol 325mg Tab) 650 mg PO Q6 PRN PRN Reason: Pain, moderate (4-7) Bisoprolol Fumarate (Zebeta) 10 mg PO DAILY [facility] Last Admin: 03/08/18 10:00 Dose: Not Given Clopidogrel Bisulfate (Plavix) 75 mg PO DAILY [facility] Last Admin: 03/09/18 10:20 Dose: 75 mg Vancomycin HCl 1 gm/ Sodium (Chloride) 200 mls @ 166.7 mls/hr IVPB Q24H [facility] PRN Reason: Protocol Last Admin: 03/08/18 17:46 Dose: 166.7 mls/hr Ciprofloxacin (Cipro 400mg/200ml Dsw) 400 mg in 200 mls @ 133 mls/hr IVPB Q12H [facility] PRN Reason: Protocol Last Admin: 03/09/18 02:06 Dose: 133 mls/hr Insulin Glargine (Lantus) 10 unit SC HS [facility] Last Admin: 03/02/18 22:18 Dose: 10 unit Insulin Human Regular (Novolin R) 0 unit SC ACHS [facility] PRN Reason: Protocol Last Admin: 03/09/18 12:30 Dose: 8 units Metformin HCl (Glucophage) 500 mg PO BID [facility] Last Admin: 03/09/18 10:20 Dose: 500 mg Mirtazapine (Remeron) 15 mg PO HS [facility] Last Admin: 03/08/18 21:44 Dose: 15 mg Montelukast Sodium (Singulair) 10 mg PO HS [facility] Last Admin: 03/08/18 21:44 Dose: 10 mg Mupirocin (Bactroban Ointment) 0 gm TOP DAILY [facility] Last Admin: 03/09/18 12:30 Dose: Not Given Rosuvastatin Calcium (Crestor) 10 mg PO HS [facility] Last Admin: 03/08/18 21:44 Dose: 10 mg Sitagliptin Phosphate (Januvia) 100 mg PO DAILY [facility] Last Admin: 03/03/18 10:28 Dose: 100 mg - Labs Labs: 03/09/18 06:52 03/09/18 06:52 PT 10.5 SECONDS (9.7-12.2) 03/02/18 05:40 INR 1.0 03/02/18 05:40 APTT 34 SECONDS (21-34) 03/02/18 05:40 Assessment and Plan (1) Osteomyelitis of right foot Assessment & Plan: INCREASE IV VANCOMYCIN 1.4 GM IVPB Q 24HRLY START IN A.M. 03/06/18 X 4WEEKS ON IV CIPRO 400MG IVPB [id number] 03/06/18. X 4 WKS-- F/U BY PO ABX - LEVAQUIN 750MG OD [id number]. F/U VANCO TROUGH WEEKLY AND KEEP BETWEEN 10-20MG/DL/ BMP,CBC, ESR. CRP WEEKLY LFTS WEEKLY. WATCH FOR TENDINITIS,ARTHRITIS AND OTHER SIDE EFFECTS OF QUINOLONES. Status: Acute (2) Bilateral pressure ulcer of feet Assessment & Plan: CASE DISCUSSED WITH ATTENDING. PATIENT S/P PICC LINE RT ARM. CONTINUE iv ANTIBIOTICS X 4WKS ABOVE F/U -PO RX WITH LEVAQUIN 750MG PO OD X2WKS [facility] PER DR CANNON. Status: Acute (3) COPD (chronic obstructive pulmonary disease) Status: Acute (4) Diabetes Status: Acute (5) HTN (hypertension) Status: Acute (6) Onychomycosis of left great toe Status: Acute
[2018-03-09] MEDS: Vancomycin 1 GM in Sodium Chloride 0.9% 200 ML IVPB SCH (17:30)
[2018-03-10] MEDS: Ciprofloxacin 400mg/200ml D5W 400 MG/200 ML BAG IVPB SCH ×2 (01:50→13:23)
[2018-03-10] MEDS: Vancomycin 1.4 GM in Sodium Chloride 0.9% 250 ML IVPB SCH (05:19)
[2018-03-10] MEDS: (Novolin R) Insulin Human Regular 100 units/ml vial SC SCH ×4 (08:02→21:09)
[2018-03-10 08:13] LABS: INR 1.1; PROTHROMBIN TIME 11.9 SECONDS (9.7-12.2)
[2018-03-10 08:21] LABS: BASO % 0.6 % (0.0-2.0); EOS # 0.3 K/uL (0.0-0.7); EOS % 3.8 % (0.0-4.0); HEMOGLOBIN 9.6 g/dL (12.0-18.0); LYMPH # 1.1 K/uL (1.0-4.3); LYMPH % 15.9 % (20.0-40.0); MEAN CELL VOLUME 84.6 fL (80.0-94.0); MEAN CORPUSCULAR HGB CONC 34.3 g/dL (33.0-37.0); MEAN PLATELET VOLUME 9.4 fL (7.2-11.7); MONO # 0.4 K/uL (0.0-0.8); NEUT # 5.1 K/uL (1.8-7.0); NEUT % 73.7 % (50.0-75.0); RBC 3.31 Mil/uL (4.40-5.90); RED CELL DISTRIBUTION WIDTH 14.9 % (11.5-14.5)
[2018-03-10 08:27] LABS: BLOOD UREA NITROGEN 14 mg/dL (9-20); CALCIUM 8.4 mg/dl (8.6-10.4); GFR NON-AFRICAN AMERICAN > 60
[2018-03-10] MEDS ORDERED: Potassium Chloride 20 mEq ER Tab PO SCH (10:00)
--- NOTE | 2018-03-10 12:02 | CP.PCM.PN ---
Subjective - Date & Time of Evaluation Date of Evaluation: 03/10/18 Time of Evaluation: 12:02 - Subjective Subjective: Podiatry Progress Note - Dr. Juárez 77 y/o male seen at bedside this morning with Dr. Juárez for bilateral superficial toe ulcerations. Pt resting comfortably in bed. Denies pain to the digits. Denies any new pedal complaints. Denies F/C/N/V/CP/SOB Objective - Vital Signs/Intake and Output Vital Signs (last 24 hours): Temp Pulse Resp BP Pulse Ox 98.1 F 48 L 20 171/68 H 99 03/10/18 08:32 03/10/18 08:32 03/10/18 08:32 03/10/18 08:32 03/10/18 08:32 Intake and Output: 03/10/18 03/10/18 06:59 18:59 Intake Total 200 600 Output Total 400 450 Balance -200 150 - Medications Medications: Current Medications Acetaminophen (Tylenol 325mg Tab) 650 mg PO Q6 PRN PRN Reason: Pain, moderate (4-7) Bisoprolol Fumarate (Zebeta) 10 mg PO DAILY [facility] Last Admin: 03/08/18 10:00 Dose: Not Given Clopidogrel Bisulfate (Plavix) 75 mg PO DAILY [facility] Last Admin: 03/10/18 09:47 Dose: Not Given Ciprofloxacin (Cipro 400mg/200ml Dsw) 400 mg in 200 mls @ 133 mls/hr IVPB Q12H [facility] PRN Reason: Protocol Last Admin: 03/10/18 01:50 Dose: 133 mls/hr Vancomycin HCl 1.4 gm/ Sodium (Chloride) 250 mls @ 166.7 mls/hr IVPB Q24H [facility] PRN Reason: Protocol Last Admin: 03/10/18 05:19 Dose: 166.7 mls/hr Potassium Chloride (Potassium Chloride 20 Meq/100 Ml) 20 meq in 100 mls @ 50 mls/hr IVPB Q2H [facility] Stop: 03/10/18 15:59 Last Admin: 03/10/18 11:04 Dose: 50 mls/hr Insulin Glargine (Lantus) 10 unit SC HS [facility] Last Admin: 03/02/18 22:18 Dose: 10 unit Insulin Human Regular (Novolin R) 0 unit SC ACHS [facility] PRN Reason: Protocol Last Admin: 03/10/18 11:15 Dose: Not Given Metformin HCl (Glucophage) 500 mg PO BID [facility] Last Admin: 03/10/18 09:47 Dose: Not Given Mirtazapine (Remeron) 15 mg PO [facility] Last Admin: 03/09/18 22:01 Dose: 15 mg Montelukast Sodium (Singulair) 10 mg PO [facility] Last Admin: 03/09/18 22:02 Dose: 10 mg Mupirocin (Bactroban Ointment) 0 gm TOP DAILY [facility] Last Admin: 03/09/18 12:30 Dose: Not Given Rosuvastatin Calcium (Crestor) 10 mg PO [facility] Last Admin: 03/09/18 22:02 Dose: 10 mg Sitagliptin Phosphate (Januvia) 100 mg PO DAILY [facility] Last Admin: 03/03/18 10:28 Dose: 100 mg - Labs Labs: 03/10/18 07:46 03/10/18 07:46 PT 11.9 SECONDS (9.7-12.2) 03/10/18 07:46 INR 1.1 03/10/18 07:46 APTT 33 SECONDS (21-34) 03/10/18 07:46 - Constitutional Appears: Well, Non-toxic, No Acute Distress - Extremities Exam Additional comments: B/L LE focused exam: Vasc: DP/PT pulses 1/4 B/L. Skin temperature warm to warm from proximal to distal. CFT < 3 seconds to all digits B/L. No edema noted to periwound areas Neuro: Epicritic and protective sensation grossly intact B/L Derm: Superficial, unstagable ulcerations noted to dorsal aspect of left third and fifth digit as well as right fourth digit. Minimal periwound erythema noted to all wounds without streaking or ascending cellulitis noted. No malodor, no active drainage or purulence, no probe to bone, no other clinical signs of infection. Elongated, dystrophic, onychomycotic toenails noted to digits 1-5 B/L MSK: Minimal tenderness on palpation of all ulceration sites. ROM WNL at all major joints given age and comorbidities. MMT 4/5 in all major muscle groups B/L - Neurological Exam Neurological Exam: Alert, Awake, Oriented x3 - Psychiatric Exam Psychiatric exam: Normal Affect, Normal Mood Assessment and Plan - Assessment and Plan (Free Text) Assessment: 77 y/o male with bilateral superficial toe ulcerations Plan: Pt seen and evaluated at bedside with attending Dr. Juárez Afebrile, no leukocytosis Wounds cleaned with saline and dressed with bactroban, 4x4 gauze Pt s/p angio with Dr. Saeed No plan for surgical intervention at this time Continue local wound care with saline cleanse and bandage of bactroban, 4x4 and Kerlix dressing Podiatry will continue to follow while patient in house
--- NOTE | 2018-03-10 14:01 | CP.PCM.PN ---
Subjective - Date & Time of Evaluation Date of Evaluation: 03/10/18 Time of Evaluation: 14:01 - Subjective Subjective: afebrile COMFORTABLE S/P PICC LINE RT ARM 03/09/18 PT FOR OR IN TODAY FOR ANGIOPLASTY LT. EXTREMITY ROS. HEENT : N. Resp : No cough, wheezing ,pleuritic CP ,or hemoptysis Cardio : No anginal CP, PND, orthopnea, palpitation GI : No abd.pain, n/v ,diarrhea or GI bleeding . 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 Musculoskel : No joint swelling , Derm : No rash Psych : Normal affect. Ext : No swelling ,calf pain B/L TOE ULCERS LT FOOT 3RD, 5TH DIGIT RT FOOT 3RD DIGIT PE. Pt. is alert awake in no distress. V.S As noted in the chart Head ,ear nose,throat and eyes : Normal. Neck : Supple with normal carotids. Lungs: Clear air entry. Heart : S1 & S2 normal with S4. No murmur. Abd : Soft non tender with normal bowel sounds. Neuro : Moves all ext. with no localized deficit. Ext : No edema with intact pulses.Non tender calves .left foot third digit and fifth digit with ulcerations. On the dorsal surface of the third right toe there is a superficial ulcer with dried pus Derm : No rashes or decubitus ulcer. LABS/RADIOLOGY: bun 16/CREATININE 0.9 VANCO TROUGH 6.8 LOW.03/09/18 WOUND CULTURE +VE MRSA Bone scan is positive for osteomyelitis of the fourth right toe and third left toe. There is severe vascular calcification of lower extremities could not determine arterial Doppler Objective - Vital Signs/Intake and Output Vital Signs (last 24 hours): Temp Pulse Resp BP Pulse Ox 98.1 F 48 L 20 171/68 H 99 03/10/18 08:32 03/10/18 08:32 03/10/18 08:32 03/10/18 08:32 03/10/18 08:32 Intake and Output: 03/10/18 03/10/18 06:59 18:59 Intake Total 200 600 Output Total 400 450 Balance -200 150 - Medications Medications: Current Medications Acetaminophen (Tylenol 325mg Tab) 650 mg PO Q6 PRN PRN Reason: Pain, moderate (4-7) Bisoprolol Fumarate (Zebeta) 10 mg PO DAILY [facility] Last Admin: 03/08/18 10:00 Dose: Not Given Clopidogrel Bisulfate (Plavix) 75 mg PO DAILY [facility] Last Admin: 03/10/18 09:47 Dose: Not Given Ciprofloxacin (Cipro 400mg/200ml Dsw) 400 mg in 200 mls @ 133 mls/hr IVPB Q12H [facility] PRN Reason: Protocol Last Admin: 03/10/18 13:23 Dose: 133 mls/hr Vancomycin HCl 1.4 gm/ Sodium (Chloride) 250 mls @ 166.7 mls/hr IVPB Q24H [facility] PRN Reason: Protocol Last Admin: 03/10/18 05:19 Dose: 166.7 mls/hr Potassium Chloride (Potassium Chloride 20 Meq/100 Ml) 20 meq in 100 mls @ 50 mls/hr IVPB Q2H [facility] Stop: 03/10/18 15:59 Last Admin: 03/10/18 11:04 Dose: 50 mls/hr Insulin Glargine (Lantus) 10 unit SC HS [facility] Last Admin: 03/02/18 22:18 Dose: 10 unit Insulin Human Regular (Novolin R) 0 unit SC ACHS [facility] PRN Reason: Protocol Last Admin: 03/10/18 11:15 Dose: Not Given Metformin HCl (Glucophage) 500 mg PO BID [facility] Last Admin: 03/10/18 09:47 Dose: Not Given Mirtazapine (Remeron) 15 mg PO HS [facility] Last Admin: 03/09/18 22:01 Dose: 15 mg Montelukast Sodium (Singulair) 10 mg PO HS [facility] Last Admin: 03/09/18 22:02 Dose: 10 mg Mupirocin (Bactroban Ointment) 0 gm TOP DAILY [facility] Last Admin: 03/09/18 12:30 Dose: Not Given Rosuvastatin Calcium (Crestor) 10 mg PO HS [facility] Last Admin: 03/09/18 22:02 Dose: 10 mg Sitagliptin Phosphate (Januvia) 100 mg PO DAILY [facility] Last Admin: 03/03/18 10:28 Dose: 100 mg - Labs Labs: 03/10/18 07:46 03/10/18 07:46 PT 11.9 SECONDS (9.7-12.2) 03/10/18 07:46 INR 1.1 03/10/18 07:46 APTT 33 SECONDS (21-34) 03/10/18 07:46 Assessment and Plan (1) Osteomyelitis of right foot Assessment & Plan: ON IV VANCOMYCIN 1.4 GM IVPB Q 24HRLY START IN A.M. 03/06/18 X 4WEEKS ON IV CIPRO 400MG IVPB [id number] 03/06/18. X 4 WKS-- F/U BY PO ABX - LEVAQUIN 750MG OD [id number]. F/U VANCO TROUGH WEEKLY AND KEEP BETWEEN 10-20 TX/ML/ BMP,CBC, ESR. CRP WEEKLY LFTS WEEKLY. WATCH FOR TENDINITIS,ARTHRITIS AND OTHER SIDE EFFECTS OF QUINOLONES. Status: Acute (2) Bilateral pressure ulcer of feet Status: Acute (3) COPD (chronic obstructive pulmonary disease) Status: Acute (4) Diabetes Status: Acute (5) HTN (hypertension) Status: Acute (6) Onychomycosis of left great toe Assessment & Plan: [facility] PER DR CANNON. Status: Acute
--- NOTE | 2018-03-10 14:02 | CP.PCM.PN ---
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 HEENT : N. Resp : No cough, wheezing ,pleuritic CP ,or hemoptysis Cardio : No anginal CP, PND, orthopnea, palpitation GI : No abd.pain, n/v ,diarrhea or GI bleeding . 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 Musculoskel : No joint swelling , Derm : No rash Psych : Normal affect. Ext : No swelling ,calf pain PE. Pt. is alert awake in no distress. V.S As noted in the chart Head ,ear nose,throat and eyes : Normal. Neck : Supple with normal carotids. Lungs: Clear air entry. Heart : S1 & S2 normal with S4. No murmur. Abd : Soft non tender with normal bowel sounds. Neuro : Moves all ext. with no localized deficit. Ext : No edema with intact pulses.Non tender calves on the dorsal surface of the third right toe there is a superficial ulcer with dried pus Derm : No rashes or decubitus ulcer. LABS/RADIOLOGY: Bone scan is positive for osteomyelitis of the fourth right toe and third left toe. There is severe vascular calcification of lower extremities could not determine arterial Doppler studies the wound culture fromower extremities shows MRSA ASSESSMENT/PLAN : Continue IV antibiotics local wound care. patient had aortofemoral aortogram on the left groin. Posterior tibial 2 mm angioplasty on the right done. Patient is for angiogram left leg in AM Patient has a PICC line and will be transferred to [place] for IV antibiotics and local wound care WILL ADD LISINOPRIL Objective - Vital Signs/Intake and Output Vital Signs (last 24 hours): Temp Pulse Resp BP Pulse Ox 98.1 F 48 L 20 171/68 H 99 03/10/18 08:32 03/10/18 08:32 03/10/18 08:32 03/10/18 08:32 03/10/18 08:32 Intake and Output: 03/10/18 03/10/18 11:59 23:59 Intake Total 600 Output Total 450 Balance 150 - Medications Medications: Current Medications Acetaminophen (Tylenol 325mg Tab) 650 mg PO Q6 PRN PRN Reason: Pain, moderate (4-7) Bisoprolol Fumarate (Zebeta) 10 mg PO DAILY [facility] Last Admin: 03/08/18 10:00 Dose: Not Given Clopidogrel Bisulfate (Plavix) 75 mg PO DAILY [facility] Last Admin: 03/10/18 09:47 Dose: Not Given Ciprofloxacin (Cipro 400mg/200ml Dsw) 400 mg in 200 mls @ 133 mls/hr IVPB Q12H [facility] PRN Reason: Protocol Last Admin: 03/10/18 13:23 Dose: 133 mls/hr Vancomycin HCl 1.4 gm/ Sodium (Chloride) 250 mls @ 166.7 mls/hr IVPB Q24H [facility] PRN Reason: Protocol Last Admin: 03/10/18 05:19 Dose: 166.7 mls/hr Potassium Chloride (Potassium Chloride 20 Meq/100 Ml) 20 meq in 100 mls @ 50 mls/hr IVPB Q2H [facility] Stop: 03/10/18 15:59 Last Admin: 03/10/18 11:04 Dose: 50 mls/hr Insulin Glargine (Lantus) 10 unit SC [facility] Last Admin: 03/02/18 22:18 Dose: 10 unit Insulin Human Regular (Novolin R) 0 unit SC ACHS [facility] PRN Reason: Protocol Last Admin: 03/10/18 11:15 Dose: Not Given Metformin HCl (Glucophage) 500 mg PO BID [facility] Last Admin: 03/10/18 09:47 Dose: Not Given Mirtazapine (Remeron) 15 mg PO HS [facility] Last Admin: 03/09/18 22:01 Dose: 15 mg Montelukast Sodium (Singulair) 10 mg PO [facility] Last Admin: 03/09/18 22:02 Dose: 10 mg Mupirocin (Bactroban Ointment) 0 gm TOP DAILY [facility] Last Admin: 03/09/18 12:30 Dose: Not Given Rosuvastatin Calcium (Crestor) 10 mg PO [facility] Last Admin: 03/09/18 22:02 Dose: 10 mg Sitagliptin Phosphate (Januvia) 100 mg PO DAILY [facility] Last Admin: 03/03/18 10:28 Dose: 100 mg - Labs Labs: 03/10/18 07:46 03/10/18 07:46 PT 11.9 SECONDS (9.7-12.2) 03/10/18 07:46 INR 1.1 03/10/18 07:46 APTT 33 SECONDS (21-34) 03/10/18 07:46
[2018-03-10] MEDS ORDERED: Iodixanol 320 MG/ML 200 ML BOTTLE IV ONE ×2 (16:59→17:27)
[2018-03-10] MEDS ORDERED: Midazolam 2 MG/2 ML VIAL ONE ×2 (17:23)
[2018-03-10] MEDS ORDERED: Lidocaine 2% MPF (5 ml) Inj ONE (17:34)
--- NOTE | 2018-03-10 18:22 | PCM.SURG1 ---
Surgeon's Initial Post Op Note - Surgeon's Notes Surgeon: anna Tar Boiler: 0 Type of Anesthesia: IV Sedation Anesthesia Administered By: [facility] Pre-Operative Diagnosis: ischemic ulceration left foot Operative Findings: severe tibial disease. anterior tibial occluded. peroneal major vessel to foot. psoterior tibial severely diseased. perclose right groin Post-Operative Diagnosis: same Operation Performed: aortofemoral angiogram. selctive catherization of left femoral artery. balloon angioplasty posterior tibial 1.5-2.0 balloon. perclose Specimen/Specimens Removed: 0 Estimated Blood Loss: EBL {In ML}: 25 Blood Products Given: N/A Drains Used: No Drains Post-Op Condition: Good Date of Surgery/Procedure: 03/10/18 Time of Surgery/Procedure: 18:23
[2018-03-10] MEDS: Dextrose 5%/0.45% NS 1,000 ML IV SCH (18:54)
[2018-03-11] MEDS: Ciprofloxacin 400mg/200ml D5W 400 MG/200 ML BAG IVPB SCH ×2 (02:02→14:29)
[2018-03-11] MEDS: Vancomycin 1.4 GM in Sodium Chloride 0.9% 250 ML IVPB SCH (05:24)
--- NOTE | 2018-03-11 07:29 | CP.PCM.PN ---
Subjective - Date & Time of Evaluation Date of Evaluation: 03/11/18 Time of Evaluation: 07:25 - Subjective Subjective: Surgery Pt seen and examined. Pt underwent angioplasty yesterday and tolerated it well. distal pusles present. Dressing in place. denies leg/foot pain. Objective - Vital Signs/Intake and Output Vital Signs (last 24 hours): Temp Pulse Resp BP Pulse Ox 97.9 F 55 L 20 180/68 H 99 03/10/18 23:40 03/11/18 04:00 03/10/18 23:40 03/10/18 23:40 03/10/18 23:40 Intake and Output: 03/11/18 03/11/18 06:59 18:59 Intake Total 1680 Output Total 2250 Balance -570 - Medications Medications: Current Medications Acetaminophen (Tylenol 325mg Tab) 650 mg PO Q6 PRN PRN Reason: Pain, moderate (4-7) Bisoprolol Fumarate (Zebeta) 10 mg PO DAILY [facility] Last Admin: 03/08/18 10:00 Dose: Not Given Clopidogrel Bisulfate (Plavix) 75 mg PO DAILY [facility] Last Admin: 03/10/18 09:47 Dose: Not Given Ciprofloxacin (Cipro 400mg/200ml Dsw) 400 mg in 200 mls @ 133 mls/hr IVPB Q12H RADHA PRN Reason: Protocol Last Admin: 03/11/18 02:02 Dose: 133 mls/hr Vancomycin HCl 1.4 gm/ Sodium (Chloride) 250 mls @ 166.7 mls/hr IVPB Q24H RADHA PRN Reason: Protocol Last Admin: 03/11/18 05:24 Dose: 166.7 mls/hr Dextrose/Sodium Chloride (Dextrose 5%/0.45% Ns 1000 Ml) 1,000 mls @ 82.5 mls/ hr IV .Q12H8M [facility] Last Admin: 03/10/18 18:54 Dose: 82.5 mls/hr Insulin Glargine (Lantus) 10 unit SC HS [facility] Last Admin: 03/02/18 22:18 Dose: 10 unit Insulin Human Regular (Novolin R) 0 unit SC ACHS RADHA PRN Reason: Protocol Last Admin: 03/10/18 21:09 Dose: 2 units Lisinopril (Zestril) 20 mg PO DAILY [facility] Last Admin: 03/10/18 14:45 Dose: 20 mg Metformin HCl (Glucophage) 500 mg PO BID [facility] Last Admin: 03/10/18 18:00 Dose: Not Given Mirtazapine (Remeron) 15 mg PO [facility] Last Admin: 03/10/18 21:08 Dose: 15 mg Montelukast Sodium (Singulair) 10 mg PO [facility] Last Admin: 03/10/18 21:08 Dose: 10 mg Mupirocin (Bactroban Ointment) 0 gm TOP DAILY [facility] Last Admin: 03/10/18 14:34 Dose: Not Given Rosuvastatin Calcium (Crestor) 10 mg PO [facility] Last Admin: 03/10/18 21:09 Dose: 10 mg Sitagliptin Phosphate (Januvia) 100 mg PO DAILY [facility] Last Admin: 03/03/18 10:28 Dose: 100 mg - Labs Labs: 03/10/18 07:46 03/10/18 07:46 PT 11.9 SECONDS (9.7-12.2) 03/10/18 07:46 INR 1.1 03/10/18 07:46 APTT 33 SECONDS (21-34) 03/10/18 07:46 - Constitutional Appears: No Acute Distress - Head Exam Head Exam: ATRAUMATIC, NORMAL INSPECTION, NORMOCEPHALIC - Eye Exam Eye Exam: EOMI, Normal appearance, PERRL Pupil Exam: NORMAL ACCOMODATION, PERRL - ENT Exam ENT Exam: Mucous Membranes Moist, Normal Exam - Neck Exam Neck Exam: Full ROM, Normal Inspection. absent: Lymphadenopathy - Respiratory Exam Respiratory Exam: NORMAL BREATHING PATTERN - Cardiovascular Exam Cardiovascular Exam: REGULAR RHYTHM, +S1, +S2. absent: Murmur - GI/Abdominal Exam GI & Abdominal Exam: Soft, Normal Bowel Sounds. absent: Distended, Firm, Guarding, Rigid, Tenderness - Extremities Exam Extremities Exam: Full ROM, Normal Capillary Refill, Normal Inspection. absent : Joint Swelling, Pedal Edema Additional comments: dopplerable distal pulses. feet dressing in place. NT - Back Exam Back Exam: NORMAL INSPECTION - Neurological Exam Neurological Exam: Alert, Awake, CN II-XII Intact, Normal Gait, Oriented x3 - Psychiatric Exam Psychiatric exam: Normal Affect, Normal Mood - Skin Skin Exam: Dry, Intact, Normal Color, Warm Assessment and Plan - Assessment and Plan (Free Text) Assessment: POD 1 s/p aortofemoral angiogram. selctive catherization of left femoral artery. balloon angioplasty posterior tibial 1.5-2.0 balloon POD 3 s/p angio , R LE angioplasty good distal pulses and warm feet Groin site no hematoma -Clear for DC for surgical standpoint. -Medical managment Will DW Dr. Saeed
[2018-03-11] MEDS: (Novolin R) Insulin Human Regular 100 units/ml vial SC SCH ×2 (08:35→12:52)
[2018-03-11] MEDS: Dextrose 5%/0.45% NS 1,000 ML IV SCH (08:35)
[2018-03-11 08:56] LABS: ALB/GLOB RATIO 0.9 (1.0-2.1); ALBUMIN 2.7 g/dL (3.5-5.0); ALT/SGPT 49 U/L (21-72); AST/SGOT 45 U/L (17-59); BLOOD UREA NITROGEN 13 mg/dL (9-20); CALCIUM 8.2 mg/dl (8.6-10.4); GFR NON-AFRICAN AMERICAN > 60
[2018-03-11] MEDS ORDERED: Nitroglycerin 2% Ointment Foilpak UD TOP ONE (12:00)
--- NOTE | 2018-03-11 13:07 | CP.PCM.PN ---
Subjective - Date & Time of Evaluation Date of Evaluation: 03/11/18 Time of Evaluation: 13:07 - Subjective Subjective: PATIENT SEEN AND EXAMINED Objective - Vital Signs/Intake and Output Vital Signs (last 24 hours): Temp Pulse Resp BP Pulse Ox 97.5 F L 55 L 18 173/72 H 100 03/11/18 08:48 03/11/18 08:48 03/11/18 08:48 03/11/18 11:17 03/11/18 08:48 Intake and Output: 03/11/18 03/11/18 06:59 18:59 Intake Total 1680 Output Total 2250 Balance -570 - Medications Medications: Current Medications Acetaminophen (Tylenol 325mg Tab) 650 mg PO Q6 PRN PRN Reason: Pain, moderate (4-7) Bisoprolol Fumarate (Zebeta) 10 mg PO DAILY [facility] Last Admin: 03/08/18 10:00 Dose: Not Given Clopidogrel Bisulfate (Plavix) 75 mg PO DAILY [facility] Last Admin: 03/11/18 09:56 Dose: 75 mg Ciprofloxacin (Cipro 400mg/200ml Dsw) 400 mg in 200 mls @ 133 mls/hr IVPB Q12H RADHA PRN Reason: Protocol Last Admin: 03/11/18 02:02 Dose: 133 mls/hr Vancomycin HCl 1.4 gm/ Sodium (Chloride) 250 mls @ 166.7 mls/hr IVPB Q24H RADHA PRN Reason: Protocol Last Admin: 03/11/18 05:24 Dose: 166.7 mls/hr Dextrose/Sodium Chloride (Dextrose 5%/0.45% Ns 1000 Ml) 1,000 mls @ 82.5 mls/ hr IV .Q12H8M [facility] Last Admin: 03/11/18 08:35 Dose: 82.5 mls/hr Insulin Glargine (Lantus) 10 unit SC HS [facility] Last Admin: 03/02/18 22:18 Dose: 10 unit Insulin Human Regular (Novolin R) 0 unit SC ACHS [facility] PRN Reason: Protocol Last Admin: 03/11/18 12:52 Dose: 4 units Lisinopril (Zestril) 20 mg PO DAILY [facility] Last Admin: 03/11/18 09:57 Dose: 20 mg Metformin HCl (Glucophage) 500 mg PO BID [facility] Last Admin: 03/11/18 09:56 Dose: 500 mg Mirtazapine (Remeron) 15 mg PO HS [facility] Last Admin: 03/10/18 21:08 Dose: 15 mg Montelukast Sodium (Singulair) 10 mg PO HS [facility] Last Admin: 03/10/18 21:08 Dose: 10 mg Mupirocin (Bactroban Ointment) 0 gm TOP DAILY [facility] Last Admin: 03/11/18 09:58 Dose: Not Given Rosuvastatin Calcium (Crestor) 10 mg PO HS [facility] Last Admin: 03/10/18 21:09 Dose: 10 mg Sitagliptin Phosphate (Januvia) 100 mg PO DAILY [facility] Last Admin: 03/03/18 10:28 Dose: 100 mg - Labs Labs: 03/10/18 07:46 03/11/18 07:47 PT 11.9 SECONDS (9.7-12.2) 03/10/18 07:46 INR 1.1 03/10/18 07:46 APTT 33 SECONDS (21-34) 03/10/18 07:46 Assessment and Plan - Assessment and Plan (Free Text) Assessment: PLACE UNDER THE SERVICE OF DR NINO AT [facility] ----CALL DR NINO FOR ADMITTING ORDER FOLLOW UP WITH DR LUTHER ---CALL FOR APPOINTMENT FOLLOW UP WITH DR CANNON ---CALL FOR APPOINTMENT No plan for surgical intervention at this time/ Wounds dressed with Bactroban, DSD CONTINUE HOME MEDICATION DISCONTINUE ZEBETA DUE TO SNUS WHIT JANUVIA AND LANTUS DUE TO HYPOGLYCEMIA NEW PRESCRIPTION GIVEN LISINOPRIL MG PO DAILY CIPRO IV 400 MG Q12H FOR 22 MORE DAYS FOR A TOTAL OF 4 WEEKS THEN F/U BY PO LEVAQUIN 750 MG QOD FOR 2 WEEKS VANCO 1.4 G IVPB Q24H FOR 22 MORE DAYS FOR A TOTAL OF 4 WEEKS F/U VANCO THROUGH WEEKLY (KEEP BETWEEN 10-20) BMP CBC ESR CRP WEEKLY BLOOE WORK AND SEND THE RESULT TO DR LUTHER (ID) ACTIVITY TOLERATED AND FACILITY PROTOCOL PICC LINE CARE AND FACILITY PROTOCOL CALL DR NINO OR GO TO THE EMERGENCY ROOM IF SYMPTOM RETURN OR WORSENING
--- NOTE | 2018-03-11 14:05 | CP.PCM.DIS ---
Provider - Provider Date of Admission: 03/03/18 17:10 Attending physician: Dayton Mancia MD Time Spent in preparation of Discharge (in minutes): 35 Hospital Course - Lab Results Lab Results: Micro Results 03/06/18 14:14 Naris MRSA Culture (Admit) - Final MRSA NOT DETECTED 03/02/18 06:00 Blood Blood Culture - Final NO GROWTH AFTER 5 DAYS 03/02/18 06:00 Blood Gram Stain - Final TEST NOT PERFORMED 03/02/18 06:30 Blood Blood Culture - Final NO GROWTH AFTER 5 DAYS 03/02/18 06:30 Blood Gram Stain - Final TEST NOT PERFORMED 03/04/18 20:18 Toe Gram Stain - Final 03/04/18 20:18 Toe Wound Culture - Final Methicillin Resistant S Aureus 03/03/18 18:45 Urine,Clean Catch Urine Culture - Final No Growth (<1,000 CFU/ML) Most Recent Lab Values WBC 7.0 K/uL (4.8-10.8) 03/10/18 07:46 RBC 3.31 Mil/uL (4.40-5.90) L 03/10/18 07:46 Hgb 9.6 g/dL (12.0-18.0) L 03/10/18 07:46 Hct 28.0 % (35.0-51.0) L 03/10/18 07:46 MCV 84.6 fL (80.0-94.0) 03/10/18 07:46 MCH 29.0 pg (27.0-31.0) 03/10/18 07:46 MCHC 34.3 g/dL (33.0-37.0) 03/10/18 07:46 RDW 14.9 % (11.5-14.5) H 03/10/18 07:46 Plt Count 152 K/uL (130-400) 03/10/18 07:46 MPV 9.4 fL (7.2-11.7) 03/10/18 07:46 Neut % (Auto) 73.7 % (50.0-75.0) 03/10/18 07:46 Lymph % (Auto) 15.9 % (20.0-40.0) L 03/10/18 07:46 Russell % (Auto) 6.0 % (0.0-10.0) 03/10/18 07:46 Eos % (Auto) 3.8 % (0.0-4.0) 03/10/18 07:46 Baso % (Auto) 0.6 % (0.0-2.0) 03/10/18 07:46 Neut # (Auto) 5.1 K/uL (1.8-7.0) 03/10/18 07:46 Lymph # (Auto) 1.1 K/uL (1.0-4.3) 03/10/18 07:46 Russell # (Auto) 0.4 K/uL (0.0-0.8) 03/10/18 07:46 Eos # (Auto) 0.3 K/uL (0.0-0.7) 03/10/18 07:46 Baso # (Auto) 0.0 K/uL (0.0-0.2) 03/10/18 07:46 ESR 40 mm/hr (0-15) H 03/05/18 08:19 PT 11.9 SECONDS (9.7-12.2) 03/10/18 07:46 INR 1.1 03/10/18 07:46 APTT 33 SECONDS (21-34) 03/10/18 07:46 pO2 16 mm/Hg (30-55) L 03/02/18 05:30 VBG pH 7.31 (7.32-7.43) L 03/02/18 05:30 VBG pCO2 61 mmHg (40-60) H 03/02/18 05:30 VBG HCO3 24.9 mmol/L 03/02/18 05:30 VBG Total CO2 32.6 mmol/L (22-28) H 03/02/18 05:30 VBG O2 Sat (Calc) 24.6 % (40-65) L 03/02/18 05:30 VBG Base Excess 2.8 mmol/L (0.0-2.0) H 03/02/18 05:30 VBG Potassium 3.4 mmol/L (3.6-5.2) L 03/02/18 05:30 Sodium 130.0 mmol/l (132-148) L 03/02/18 05:30 Chloride 94.0 mmol/L (98-107) L 03/02/18 05:30 Glucose 98 mg/dl (75-110) 03/02/18 05:30 Lactate 1.8 mmol/L (0.7-2.1) 03/02/18 05:30 Sodium 132 mmol/L (132-148) 03/11/18 07:47 Potassium 3.9 mmol/L (3.6-5.2) 03/11/18 07:47 Chloride 98 mmol/L (98-107) 03/11/18 07:47 Carbon Dioxide 29 mmol/L (22-30) 03/11/18 07:47 Anion Gap 9 (10-20) L 03/11/18 07:47 BUN 13 mg/dL (9-20) 03/11/18 07:47 Creatinine 0.8 mg/dL (0.8-1.5) 03/11/18 07:47 Est GFR ( Amer) > 60 03/11/18 07:47 Est GFR (Non-Af Amer) > 60 03/11/18 07:47 POC Glucose (mg/dL) 288 mg/dL (65-110) H 03/11/18 11:50 Random Glucose 244 mg/dL (75-110) H 03/11/18 07:47 Hemoglobin A1c 7.7 % (4.2-6.5) H 03/04/18 06:27 Calcium 8.2 mg/dl (8.6-10.4) L 03/11/18 07:47 Phosphorus 3.0 mg/dL (2.5-4.5) 03/03/18 07:13 Magnesium 1.5 mg/dL (1.6-2.3) L 03/03/18 07:13 Total Bilirubin 0.2 mg/dL (0.2-1.3) 03/11/18 07:47 Direct Bilirubin 0.2 mg/dL (0.0-0.4) 03/09/18 06:52 AST 45 U/L (17-59) 03/11/18 07:47 ALT 49 U/L (21-72) 03/11/18 07:47 Alkaline Phosphatase 91 U/L (38-126) 03/11/18 07:47 Troponin I 0.0310 ng/mL (0.00-0.120) 03/02/18 05:40 C-React Prot High Sens 11.83 mg/L (1.00-3.00) H 03/05/18 08:19 Total Protein 5.6 g/dL (6.3-8.3) L 03/11/18 07:47 Albumin 2.7 g/dL (3.5-5.0) L 03/11/18 07:47 Globulin 2.9 gm/dL (2.2-3.9) 03/11/18 07:47 Albumin/Globulin Ratio 0.9 (1.0-2.1) L 03/11/18 07:47 Lipase 11 U/L (23-300) L 03/02/18 05:40 Free T4 1.24 ng/dL (0.78-2.19) 03/02/18 05:40 TSH 3rd Generation 3.74 mIU/L (0.46-4.68) 03/02/18 05:40 Venous Blood Potassium 3.4 mmol/L (3.6-5.2) L 03/02/18 05:30 Urine Color Straw (YELLOW) 03/03/18 18:45 Urine Clarity Clear (Clear) 03/03/18 18:45 Urine pH 7.0 (5.0-8.0) 03/03/18 18:45 Ur Specific Gardner 1.006 (1.003-1.030) 03/03/18 18:45 Urine Protein Negative mg/dL (NEGATIVE) 03/03/18 18:45 Urine Glucose (UA) 3+ mg/dL (Normal) H 03/03/18 18:45 Urine Ketones Negative mg/dL (NEGATIVE) 03/03/18 18:45 Urine Blood Negative (NEGATIVE) 03/03/18 18:45 Urine Nitrate Negative (NEGATIVE) 03/03/18 18:45 Urine Bilirubin Negative (NEGATIVE) 03/03/18 18:45 Urine Urobilinogen Normal mg/dL (0.2-1.0) 03/03/18 18:45 Ur Leukocyte Esterase Neg Hermes/uL (Negative) 03/03/18 18:45 Urine WBC (Auto) < 1 /hpf (0-5) 03/03/18 18:45 Urine RBC (Auto) < 1 /hpf (0-3) 03/03/18 18:45 Vancomycin Trough 6.8 ug/mL (5.0-10.0) 03/09/18 17:23 - Hospital Course Hospital Course: This morning patient was found to be disoriented and generalized weakness. The son called the paramedics found her blood sugar and responded partly with D50 IV push. Patient currently is clear mental status and in no acute distress PAST HIST. Patient has a history of type 2 diabetes. Occasionally the son gives patient Lantus at night for high sugar but most of the time patient takes metformin. Patient used to take glipizide was discontinued due to frequent hypoglycemia. Patient has a history of coronary artery disease COPD bilateral hip fractures and lumbar radiculopathy. Patient's blood sugar stabilized with insulin sliding scale. On further examination patient had discoloration of lower extremity both right and left toes. Further workup showed patient had osteomyelitis right third and left fourth toe. Patient wound culture showed staph aureus MRSA. Patient also underwent selective angiogram of the right and the left femoral arteries. Patient had successful angioplasty of the left posterior tibial and right peroneal artery. Patient is now being transferred to rehab center for IV antibiotics for MRSA infection of the lower extremity with osteomyelitis. Discharge Exam - Head Exam Head Exam: ATRAUMATIC, NORMAL INSPECTION, NORMOCEPHALIC Discharge Plan - Discharge Medications Prescriptions: Ciprofloxacin Lactate/D5w [Ciprofloxacn-D5w 200 mg/100 ml] 400 mg IV Q12H 22 Days piggyback Levofloxacin [Levaquin] 750 mg PO QOD6 14 Days tablet - Follow Up Plan Condition: STABLE Disposition: HOME/ ROUTINE Instructions: Fungal Nail Infections, Peripherally-Inserted Central Catheter, Pressure Sores (DC), Low Blood Sugar, Adult (DC), How to Prevent Pressure Sores Additional Instructions: PLACE UNDER THE SERVICE OF DR MANCIA AT [facility] ----CALL DR MANCIA FOR ADMITTING ORDER FOLLOW UP WITH DR CRISTINA ---CALL FOR APPOINTMENT FOLLOW UP WITH DR JUÁREZ ---CALL FOR APPOINTMENT No plan for surgical intervention at this time/ Wounds dressed with Bactroban, DSD CONTINUE HOME MEDICATION DISCONTINUE ZEBETA DUE TO SNUS WHIT JANUVIA AND LANTUS DUE TO HYPOGLYCEMIA NEW PRESCRIPTION GIVEN LISINOPRIL MG PO DAILY CIPRO IV 400 MG Q12H FOR 22 MORE DAYS FOR A TOTAL OF 4 WEEKS THEN F/U BY PO LEVAQUIN 750 MG QOD FOR 2 WEEKS VANCO 1.4 G IVPB Q24H FOR 22 MORE DAYS FOR A TOTAL OF 4 WEEKS F/U VANCO THROUGH WEEKLY (KEEP BETWEEN 10-20) BMP CBC ESR CRP WEEKLY BLOOE WORK AND SEND THE RESULT TO DR CRISTINA (ID) ACTIVITY TOLERATED AND FACILITY PROTOCOL PICC LINE CARE AND FACILITY PROTOCOL CALL DR MANCIA OR GO TO THE EMERGENCY ROOM IF SYMPTOM RETURN OR WORSENING Referrals: Anders Cristina MD [Staff Provider] - Jeffrey Saeed Jr., MD [Staff Provider] - Dayton Mancia MD [Staff Provider] - Elliot Juárez DPM [Staff Provider] -
--- NOTE | 2018-03-11 14:13 | CP.PCM.PN ---
Subjective - Date & Time of Evaluation Date of Evaluation: 03/11/18 Time of Evaluation: 14:13 - Subjective Subjective: afebrile COMFORTABLE. NO COMPLAINTS B/L GROINS NO HEMATOMA. +VE DISTAL PULSES S/P PICC LINE RT ARM 03/09/18 S/P ANGIOPLASTY LT. EXTREMITY. 03/10/18-POD 1 FOR [facility] TODAY ROS. HEENT : N. Resp : No cough, wheezing ,pleuritic CP ,or hemoptysis Cardio : No anginal CP, PND, orthopnea, palpitation GI : No abd.pain, n/v ,diarrhea or GI bleeding . FLORICULTURIST : No headache, vertigo, focal deficit. Musculoskel : No joint swelling , Derm : No rash Psych : Normal affect. Ext : No swelling ,calf pain B/L TOE ULCERS LT FOOT 3RD, 5TH DIGIT RT FOOT 3RD DIGIT PE. Pt. is alert awake in no distress. V.S As noted in the chart Head ,ear nose,throat and eyes : Normal. Neck : Supple with normal carotids. Lungs: Clear air entry. Heart : S1 & S2 normal with S4. No murmur. Abd : Soft non tender with normal bowel sounds. Neuro : Moves all ext. with no localized deficit. Ext : No edema with intact pulses.Non tender calves .left foot third digit and fifth digit with ulcerations. On the dorsal surface of the third right toe there is a superficial ulcer with dried pus Derm : No rashes or decubitus ulcer. LABS/RADIOLOGY: bun 16/CREATININE 0.9 VANCO TROUGH 6.8 LOW.03/09/18 WOUND CULTURE +VE MRSA Bone scan is positive for osteomyelitis of the fourth right toe and third left toe. There is severe vascular calcification of lower extremities could not determine arterial Doppler Objective - Vital Signs/Intake and Output Vital Signs (last 24 hours): Temp Pulse Resp BP Pulse Ox 97.5 F L 55 L 18 173/72 H 100 03/11/18 08:48 03/11/18 08:48 03/11/18 08:48 03/11/18 11:17 03/11/18 08:48 Intake and Output: 03/11/18 03/11/18 06:59 18:59 Intake Total 1680 Output Total 2250 Balance -570 - Medications Medications: Current Medications Acetaminophen (Tylenol 325mg Tab) 650 mg PO Q6 PRN PRN Reason: Pain, moderate (4-7) Bisoprolol Fumarate (Zebeta) 10 mg PO DAILY [facility] Last Admin: 03/08/18 10:00 Dose: Not Given Clopidogrel Bisulfate (Plavix) 75 mg PO DAILY [facility] Last Admin: 03/11/18 09:56 Dose: 75 mg Ciprofloxacin (Cipro 400mg/200ml Dsw) 400 mg in 200 mls @ 133 mls/hr IVPB Q12H [facility] PRN Reason: Protocol Last Admin: 03/11/18 02:02 Dose: 133 mls/hr Vancomycin HCl 1.4 gm/ Sodium (Chloride) 250 mls @ 166.7 mls/hr IVPB Q24H [facility] PRN Reason: Protocol Last Admin: 03/11/18 05:24 Dose: 166.7 mls/hr Dextrose/Sodium Chloride (Dextrose 5%/0.45% Ns 1000 Ml) 1,000 mls @ 82.5 mls/ hr IV .Q12H8M [facility] Last Admin: 03/11/18 08:35 Dose: 82.5 mls/hr Insulin Glargine (Lantus) 10 unit SC [facility] Last Admin: 03/02/18 22:18 Dose: 10 unit Insulin Human Regular (Novolin R) 0 unit SC ACHS [facility] PRN Reason: Protocol Last Admin: 03/11/18 12:52 Dose: 4 units Lisinopril (Zestril) 20 mg PO DAILY [facility] Last Admin: 03/11/18 09:57 Dose: 20 mg Metformin HCl (Glucophage) 500 mg PO BID [facility] Last Admin: 03/11/18 09:56 Dose: 500 mg Mirtazapine (Remeron) 15 mg PO [facility] Last Admin: 03/10/18 21:08 Dose: 15 mg Montelukast Sodium (Singulair) 10 mg PO HS [facility] Last Admin: 03/10/18 21:08 Dose: 10 mg Mupirocin (Bactroban Ointment) 0 gm TOP DAILY [facility] Last Admin: 03/11/18 09:58 Dose: Not Given Rosuvastatin Calcium (Crestor) 10 mg PO HS [facility] Last Admin: 03/10/18 21:09 Dose: 10 mg Sitagliptin Phosphate (Januvia) 100 mg PO DAILY [facility] Last Admin: 03/03/18 10:28 Dose: 100 mg - Labs Labs: 03/10/18 07:46 03/11/18 07:47 PT 11.9 SECONDS (9.7-12.2) 03/10/18 07:46 INR 1.1 03/10/18 07:46 APTT 33 SECONDS (21-34) 03/10/18 07:46 Assessment and Plan (1) Osteomyelitis of right foot Assessment & Plan: ON IV VANCOMYCIN 1.4 GM IVPB Q 24HRLY START IN A.M. 03/06/18 X 4WEEKS i.e 22days more ON IV CIPRO 400MG IVPB [id number] 03/06/18. X 4 WKS--i.e 22days more F/U BY PO ABX - LEVAQUIN 750MG OD [id number]. F/U VANCO TROUGH WEEKLY AND KEEP BETWEEN 10-20 micrgram/ML/ BMP,CBC, ESR. CRP WEEKLY LFTS WEEKLY. WATCH FOR TENDINITIS,ARTHRITIS AND OTHER SIDE EFFECTS OF QUINOLONES. Status: Acute (2) Bilateral pressure ulcer of feet Assessment & Plan: lwc as per podiatry. DR CANNON ON CASE Status: Acute (3) COPD (chronic obstructive pulmonary disease) Status: Acute (4) Diabetes Status: Acute (5) HTN (hypertension) Status: Acute (6) Onychomycosis of left great toe Assessment & Plan: LWC PER PODIATRY. Status: Acute (7) PVD (peripheral vascular disease) with claudication Assessment & Plan: POD 1 s/p aortofemoral angiogram. selctive catherization of left femoral artery. balloon angioplasty posterior tibial 1.5-2.0 balloon POD 3 s/p angio , R LE angioplasty good distal pulses and warm feet Groin site no hematoma pt cleared by surgeryfor dc to [facility]. Status: Acute
[2018-03-11 17:27] VITALS: BP 156/66; PULSE 60; RESP 20; TEMP 98; O2SAT 96
--- NOTE | 2018-03-11 17:43 | VAS ---
DATE: 03/10/2018 OPERATIVE ANGIOGRAM REPORT PREOPERATIVE DIAGNOSIS: Ischemic ulceration of the left foot. PROCEDURE CARRIED OUT: Aortofemoral angiogram via right groin with selective catheterization of left femoral artery, balloon angioplasty of posterior tibial artery using 1.5 to 2 mm tapered balloon. SURGEON: Jeffrey Saeed Jr., MD BENEFIT DIRECTOR: None. ANESTHESIOLOGIST: Alexandra Gandhi MD ANESTHESIA: Local with sedation. INDICATIONS: The patient is an elderly man, who had an angiogram few days ago for a treatment of the right leg. At that time, he was found to have severe tibial disease; however, due to variety of reasons, we were unable to obtain adequate views of the left foot. OPERATIVE FINDINGS: 1. The aorta and renal arteries were free of significant occlusive disease. 2. The iliac arteries and vessel had occlusive disease in the proximal portion of the profunda femoris and popliteal arteries are widely patent. Subsequent to the performance of the diagnostic arteriogram, a stiff-angled Glidewire was advanced over the aortic bifurcation and a 6-Latvian sheath positioned in the popliteal artery. Using road mapping techniques, we attempted to cross the anterior tibial artery, which was unsuccessful. We then went to the posterior tibial artery, crossed this down to the level of the ankle over the completion films. Despite the administration of nitroglycerin, the administration of contrast is suboptimal and did not feel that much improvement except in the segment, there is some marked improvement. We then terminated the procedure. There were no named vessels in the foot, except for remnant of the dorsalis pedis artery, which was too small, which we taken for the bypass. The operation carried out was aortofemoral angiogram via right groin with selective catheterization of the left femoral artery, balloon angioplasty of the left posterior tibial artery, and then a Perclose device was deployed in the right groin. Jeffrey Saeed Jr., MD
== END 2018-03-11 19:49 | DRG 981 ==
LOC: C.ER 05:04 → C.9E 06:18 → C.5S 10:47 → OBSVTOIN 03-03 17:10 → C.5S 03-06 07:53
PROVIDERS: ADMIT Internal Medicine Cardiovascular Disease; ATTEND Internal Medicine Cardiovascular Disease
PROC: 047S3ZZ Dilation of Left Posterior Tibial Artery, Percutaneous Approach (ICD-10-PCS; principal; 2018-03-08)
PROC: 02HV33Z Insertion of Infusion Device into Superior Vena Cava, Percutaneous Approach (ICD-10-PCS; 2018-03-09)
PROC: 047R3ZZ Dilation of Right Posterior Tibial Artery, Percutaneous Approach (ICD-10-PCS; 2018-03-10)
PROC: B41DYZZ Fluoroscopy of Aorta and Bilateral Lower Extremity Arteries using Other Contrast (ICD-10-PCS; 2018-03-10)
DX: E11.649 Type 2 diabetes mellitus with hypoglycemia without coma (principal); G93.41 Metabolic encephalopathy; M86.9 Osteomyelitis, unspecified; E11.51 Type 2 diabetes mellitus with diabetic peripheral angiopathy without gangrene; I12.9 Hypertensive chronic kidney disease with stage 1 through stage 4 chronic kidney disease, or unspecified chronic kidney disease; M54.16 Radiculopathy, lumbar region; B35.1 Tinea unguium; E11.22 Type 2 diabetes mellitus with diabetic chronic kidney disease; N18.9 Chronic kidney disease, unspecified; E78.00 Pure hypercholesterolemia, unspecified; I25.10 Atherosclerotic heart disease of native coronary artery without angina pectoris; J44.9 Chronic obstructive pulmonary disease, unspecified; E11.69 Type 2 diabetes mellitus with other specified complication; B95.62 Methicillin resistant Staphylococcus aureus infection as the cause of diseases classified elsewhere; F32.9 Major depressive disorder, single episode, unspecified

== ENCOUNTER 2018-06-21 16:17 | Inpatient (IN) | payer MEDICARE, OTHER ==
[2018-06-21 16:22] VITALS: BMI 21.6
--- NOTE | 2018-06-21 16:30 | C.PDOC ---
History Of Present Illness 77 years old male presents to ED for complaints of left foot diabetic ulcer that began few days ago. As per son, he noticed blood when changing patient's socks few days ago then cleaned it with hydrogen peroxide. As per son, patient's foot looked better but never healed. Denies fever or any other complaints. As per son, patient is on pain medication for his medical problems, so "not sure if patient is experiencing pain due to the ulcer." ADMITTED 02/2018 HO osteomyelitis right third and left fourth toe +MRSA. Patient also underwent selective angiogram of the right and the left femoral arteries. Patient had successful angioplasty of the left posterior tibial and right peroneal artery. Time Seen by Provider: 06/21/18 16:28 Chief Complaint (Nursing): Lower Extremity Problem/Injury History Per: Patient History/Exam Limitations: no limitations Onset/Duration Of Symptoms: Days Current Symptoms Are (Timing): Still Present Recent travel outside of the [place]: No Past Medical History Reviewed: Historical Data, Nursing Documentation, Vital Signs Vital Signs: Last Vital Signs Temp 97.6 F 06/21/18 16:23 Pulse 81 06/21/18 16:23 Resp 17 06/21/18 16:23 BP 157/79 H 06/21/18 16:23 Pulse Ox 100 06/21/18 16:23 - Medical History PMH: Bronchitis, Cardia Arrhythmia, COPD, Depression, Diabetes, Fractures (left and right hip fx), HTN, Hypercholesterolemia, Hyperlipidemia, Chronic Kidney Di sease Surgical History: - [facility] Procedures ANESTH INJECT-SPIN CANAL (06/23/12) CORONAR ARTERIOGR-2 CATH (09/26/14) DILATION OF LEFT POSTERIOR TIBIAL ARTERY, PERC APPROACH (03/03/18) DILATION OF RIGHT POSTERIOR TIBIAL ARTERY, PERC APPROACH (03/03/18) FLUOROSCOPY OF AORTA, BI LE ART USING OTH CONTRAST (03/03/18) INJECT STEROID (06/23/12) INSERTION OF INFUSION DEV INTO SUP VENA CAVA, PERC APPROACH (03/03/18) LEFT HEART CARDIAC CATH (09/26/14) LT HEART ANGIOCARDIOGRAM (09/26/14) LUMBOSAC SPINE X-RAY NEC (06/23/12) OPEN REDUC-INT FIX FEMUR (09/26/14) PACKED CELL TRANSFUSION (09/26/14) PARTIAL HIP REPLACEMENT (02/01/15) SPINAL CANAL INJECT NEC (06/23/12) Family History: States: Unknown Family Hx - Social History Hx Tobacco Use: No Hx Alcohol Use: No Hx Substance Use: No - Immunization History Hx Tetanus Toxoid Vaccination: No Hx Influenza Vaccination: Yes Hx Pneumococcal Vaccination: Yes Review Of Systems Constitutional: Negative for: Fever, Chills Musculoskeletal: Positive for: Other (Left foot ulcer ) Physical Exam - Physical Exam Appears: Non-toxic, No Acute Distress Skin: Normal Color, Warm, Dry, No Rash Head: Atraumatic, Normacephalic Eye(s): bilateral: Normal Inspection Oral Mucosa: Moist Neck: Normal ROM, Supple Chest: Symmetrical, No Tenderness Cardiovascular: Rhythm Regular, No Murmur Respiratory: Normal Breath Sounds, No Rales, No Rhonchi, No Wheezing, Other (NARD) Extremity: Normal ROM, Other (Ulcer on top of left 3rd toe. Local edema. Clear crusting. ) Extremity: Bilateral: Normal ROM Pulses: Left Radial: Normal, Right Radial: Normal Neurological/Psych: Oriented x3, Normal Speech ED Course And Treatment - Laboratory Results Result Diagrams: 06/21/18 17:14 06/21/18 17:14 ECG: Interpreted By Me ECG Rhythm: Sinus Rhythm ECG Interpretation: Normal Rate From EC O2 Sat by Pulse Oximetry: 100 (RA) Pulse Ox Interpretation: Normal Progress - Re-Evaluation Re-evaluation Note: 06/21/18 16:55 D/W DR NINO WILL ADMIT - Data Reviewed Data Reviewed: Lab, Diagnostic imaging, EKG, Old records Medical Decision Making Medical Decision Making: Plan: * IV Fluids * CXR * Blood work * EKG * Blood Culture * Wound Culture * Foot X-Ray Disposition Counseled Patient/Family Regarding: Studies Performed, Diagnosis, Need For Followup - Disposition Disposition: HOSPITALIZED Disposition Time: 16:56 Condition: STABLE - POA Present On Arrival: Poor Glycemic Control - Clinical Impression Clinical Impression: Diabetic ulcer of left foot - Scribe Statement The provider has reviewed the documentation as recorded by the Antoine Hull All medical record entries made by the Romanibsony were at my direction and personally dictated by me. I have reviewed the chart and agree that the record accurately reflects my personal performance of the history, physical exam, medical decision making, and the department course for this patient. I have also personally directed, reviewed, and agree with the discharge instructions and disposition.
[2018-06-21] MEDS ORDERED: Piperacillin/Tazobact 3.375 gm 100 ML IV STA (16:57)
[2018-06-21 17:26] LABS: BASO % 0.7 % (0.0-2.0); EOS # 0.2 K/uL (0.0-0.7); EOS % 2.2 % (0.0-4.0); HEMOGLOBIN 10.1 g/dL (12.0-18.0); LYMPH % 15.3 % (20.0-40.0); MEAN CELL VOLUME 85.2 fL (80.0-94.0); MEAN CORPUSCULAR HEMOGLOBIN 28.4 pg (27.0-31.0); MEAN CORPUSCULAR HGB CONC 33.3 g/dL (33.0-37.0); MEAN PLATELET VOLUME 9.4 fL (7.2-11.7); MONO # 0.5 K/uL (0.0-0.8); MONO % 7.3 % (0.0-10.0); NEUT # 5.1 K/uL (1.8-7.0); NEUT % 74.5 % (50.0-75.0); RBC 3.55 Mil/uL (4.40-5.90); RED CELL DISTRIBUTION WIDTH 15.4 % (11.5-14.5); WHITE BLOOD COUNT 6.9 K/uL (4.8-10.8)
--- NOTE | 2018-06-21 17:33 | RAD ---
Date of service: 06/21/2018 PROCEDURE: CHEST RADIOGRAPH, 1 VIEW HISTORY: MED CLEAR COMPARISON: 03/09/2018 FINDINGS: LUNGS: Clear. PLEURA: No pneumothorax or pleural fluid seen. CARDIOVASCULAR: Atherosclerotic calcifications identified primarily aortic arch. No radiographic findings to suggest acute or significant cardiovascular disease. OSSEOUS STRUCTURES: Bilateral rib fractures, healed and unchanged compared to the prior study. VISUALIZED UPPER ABDOMEN: Normal. OTHER FINDINGS: Removal of support apparatus since the prior study: PICC line IMPRESSION: No active disease.No significant interval change compared to the prior examination(s).
[2018-06-21 17:38] LABS: CALCIUM 8.5 mg/dl (8.6-10.4)
[2018-06-21] MEDS ORDERED: Piperacillin/Tazobact 3.375 gm 100 ML IVPB ONE (17:51)
--- NOTE | 2018-06-21 19:34 | CP.PCM.CON ---
History of Present Illness - History of Present Illness History of Present Illness: INFECTIOUS DISEASE CONSULT; HPI; 77 years old male presents to ED for complaints of left foot diabetic ulcer that began few days ago. As per son, he noticed blood when changing patient's socks few days ago then cleaned it with hydrogen peroxide. As per son, patient's foot looked better but never healed. Denies fever or any other complaints. As per son, patient is on pain medication for his medical problems, so "not sure if patient is experiencing pain due to the ulcer." ADMITTED 02/2018 HO osteomyelitis right third and left fourth toe +MRSA. Patient also underwent selective angiogram of the right and the left femoral arteries. Patient had successful angioplasty of the left posterior tibial and right peroneal artery. PMH: Bronchitis, Cardia Arrhythmia, COPD, Depression, Diabetes, Fractures (left and right hip fx), HTN, Hypercholesterolemia, Hyperlipidemia, Chronic Kidney Disease Surgical History: L hip ORIF - [facility] Procedures ANESTH INJECT-SPIN CANAL (06/23/12) CORONAR ARTERIOGR-2 CATH (09/26/14) DILATION OF LEFT POSTERIOR TIBIAL ARTERY, PERC APPROACH (03/03/18) DILATION OF RIGHT POSTERIOR TIBIAL ARTERY, PERC APPROACH (03/03/18) FLUOROSCOPY OF AORTA, BI LE ART USING OTH CONTRAST (03/03/18) INJECT STEROID (06/23/12) INSERTION OF INFUSION DEV INTO SUP VENA CAVA, PERC APPROACH (03/03/18) LEFT HEART CARDIAC CATH (09/26/14) LT HEART ANGIOCARDIOGRAM (09/26/14) LUMBOSAC SPINE X-RAY NEC (06/23/12) OPEN REDUC-INT FIX FEMUR (09/26/14) PACKED CELL TRANSFUSION (09/26/14) PARTIAL HIP REPLACEMENT (07/30/14) SPINAL CANAL INJECT NEC (06/23/12) Family History: States: Unknown Family Hx - Social History Hx Tobacco Use: No Hx Alcohol Use: No Hx Substance Use: No - Immunization History Hx Tetanus Toxoid Vaccination: No Hx Influenza Vaccination: Yes Hx Pneumococcal Vaccination: Yes Meds: See MAR All: NKDA Review of Systems - Constitutional Constitutional: absent: Chills, Fever - EENT Eyes: absent: Change in Vision Nose/Mouth/Throat: absent: Mouth Lesions - Cardiovascular Cardiovascular: Dyspnea on Exertion. absent: Chest Pain, Dyspnea, Pedal Edema - Respiratory Respiratory: absent: Cough - Gastrointestinal Gastrointestinal: absent: Abdominal Pain, Diarrhea, Nausea, Vomiting - Genitourinary Genitourinary: absent: Dysuria, Freq UTI - Neurological Neurological: absent: Headaches - Psychiatric Psychiatric: Depression - Hematologic/Lymphatic Hematologic: As Per HPI. absent: Easy Bleeding, Easy Bruising Past Patient History - Infectious Disease Hx of Infectious Diseases: None - Past Medical History & Family History Past Medical History?: Yes - Past Social History Smoking Status: Former Smoker - CARDIAC Hx Cardia Arrhythmia: Yes Hx Hypercholesterolemia: Yes Hx Hypertension: Yes - PULMONARY Hx Bronchitis: Yes Hx Chronic Obstructive Pulmonary Disease (COPD): Yes - NEUROLOGICAL Hx Neurological Disorder: Yes HX Cerebrovascular Accident: Yes - HEENT Hx HEENT Problems: No - RENAL Hx Chronic Kidney Disease: Yes - ENDOCRINE/METABOLIC Hx Endocrine Disorders: Yes Hx Diabetes Mellitus Type 1: Yes Hx Diabetes Mellitus Type 2: Yes - HEMATOLOGICAL/ONCOLOGICAL Hx Blood Disorders: No - INTEGUMENTARY Hx Dermatological Problems: No - MUSCULOSKELETAL/RHEUMATOLOGICAL Hx Fractures: Yes (left and right hip fx) - GASTROINTESTINAL Hx Gastrointestinal Disorders: No - GENITOURINARY/GYNECOLOGICAL Hx Genitourinary Disorders: Yes Hx Prostate Problems: Yes - PSYCHIATRIC Hx Depression: Yes Hx Substance Use: No - SURGICAL HISTORY Hx Surgeries: Yes Hx Cardiac Catheterization: Yes Hx Orthopedic Surgery: Yes (left and right hip) - ANESTHESIA Hx Anesthesia: Yes Hx Anesthesia Reactions: No Hx Malignant Hyperthermia: No Meds Allergies/Adverse Reactions: Allergies Allergy/AdvReac Type Severity Reaction Status Date / Time No Known Allergies Allergy Verified 06/21/18 16:22 Physical Exam - Constitutional Appears: No Acute Distress - Head Exam Head Exam: NORMAL INSPECTION - Eye Exam Eye Exam: EOMI, PERRL - ENT Exam ENT Exam: Normal Oropharynx - Neck Exam Neck exam: Positive for: Normal Inspection - Respiratory Exam Respiratory Exam: Decreased Breath Sounds, NORMAL BREATHING PATTERN - Cardiovascular Exam Cardiovascular Exam: REGULAR RHYTHM, +S1, +S2 - GI/Abdominal Exam GI & Abdominal Exam: Normal Bowel Sounds, Soft. absent: Organomegaly - Extremities Exam Extremities exam: Positive for: pedal pulses present (LT 2ND TOE ULCER WITH NECROSIS AND SEROSANGUINOUS DRAINAGE.). Negative for: calf tenderness, pedal edema - Neurological Exam Neurological exam: Alert, CN II-XII Intact, Oriented x3 - Psychiatric Exam Psychiatric exam: Normal Mood - Skin Skin Exam: Normal Color, Warm Results - Vital Signs Recent Vital Signs: Last Vital Signs Temp 98.6 F 06/21/18 19:20 Pulse 68 06/21/18 19:20 Resp 20 06/21/18 19:20 BP 153/81 H 06/21/18 19:20 Pulse Ox 95 06/21/18 19:20 - Labs Result Diagrams: 06/21/18 17:14 06/21/18 17:14 Labs: Laboratory Results - last 24 hr 06/21/18 06/21/18 17:14 17:14 WBC 6.9 RBC 3.55 L Hgb 10.1 L Hct 30.3 L MCV 85.2 MCH 28.4 MCHC 33.3 RDW 15.4 H Plt Count 166 MPV 9.4 Neut % (Auto) 74.5 Lymph % (Auto) 15.3 L [place] % (Auto) 7.3 Eos % (Auto) 2.2 Baso % (Auto) 0.7 Neut # (Auto) 5.1 Lymph # (Auto) 1.0 [place] # (Auto) 0.5 Eos # (Auto) 0.2 Baso # (Auto) 0.0 Sodium 133 Potassium 4.9 Chloride 97 L Carbon Dioxide 29 Anion Gap 12 BUN 38 H Creatinine 1.5 Est GFR ( Amer) 55 Est GFR (Non-Af Amer) 45 Random Glucose 254 H Calcium 8.5 L - Imaging and Cardiology Chest x-ray Status: Report reviewed by me (NAD) Assessment & Plan (1) Diabetic ulcer of left foot Status: Acute (2) PVD (peripheral vascular disease) Status: Acute (3) Acute renal insufficiency Status: Acute (4) Closed left hip fracture Status: Acute (5) Diabetes Status: Acute - Assessment and Plan (Free Text) Plan: PLAN. PANCULTURE ESR CRP. WOUND CULTURE LT 2ND TOE ULCER. MRSA SCREEN. START IV ROCEPHIN 1GM IVPB QD DAILY. 06/21/18. ADD IV CLEOCIN 300MG IVPB Q 8HRLY 06/21/18. F/U CULTURES TO ADJUST ABX. F/U XRAY LT FOOT 3 VIEW R/O FRACTURE /OR OSSEOUS PROCESS. LWC ORDERED. WOUND CARE-.Wound clean with sterile saline and dress with betadine, DSD
--- NOTE | 2018-06-21 19:50 | CP.PCM.HP ---
History of Present Illness - History of Present Illness History of Present Illness: 77 years old white male admitted with possible osteomyelitis of the left third foot toe. Few months ago patient was admitted with osteomyelitis of the left third toe patient had extensive IV antibiotics and rehab. Patient also had angioplasty with stent on the right tibial artery. Apparently the wound had healed. But recently there was an opening of the wound with some discharge and dried up scab surrounding inflammation and also mild pain. Patient presented to emergency room was evaluated and admitted for possible osteomyelitis recurrent. Past history patient has a history of COPD history of coronary artery disease with stent history of bilateral hip prostheses history of hypertension history of type 2 diabetes and history of hypertensionselective Present on Admission - Present on Admission Any Indicators Present on Admission: No Review of Systems - Constitutional Constitutional: absent: As Per HPI, Anorexia, Chills, Daytime Sleepiness, Excessive Sweating, Fatigue, Fever, Frequent Falls, Headache, Increased Appetite, Lethargy, Malaise, Night Sweats, Snoring, Sleep Apnea, Weight Gain, Weight Loss, Weakness, Other - EENT Eyes: absent: As Per HPI, Blind Spots, Blurred Vision, Change in Vision, Decreased Night Vision, Diplopia, Discharge, Dry Eye, Exophthalmos, Floaters, Irritation, Itchy Eyes, Loss of Peripheral Vision, Pain, Photophobia, Requires Corrective Lenses, Sees Flashes, Spots in Vision, Tunnel Vision, Other Visual Disturbances, Loss of Vision, Other Nose/Mouth/Throat: absent: As Per HPI, Epistaxis, Nasal Congestion, Nasal Discharge, Nasal Obstruction, Nasal Trauma, Nose Pain, Post Nasal Drip, Sinus P ain, Sinus Pressure, Bleeding Gums, Change in Voice, Dental Pain, Dry Mouth, Dysphagia, Halitosis, Hoarsness, Lip Swelling, Mouth Lesions, Mouth Pain, Odynophagia, Sore Throat, Throat Swelling, Tongue Swelling, Facial Pain, Neck Pain, Neck Mass, Other - Cardiovascular Cardiovascular: absent: As Per HPI, Acrocyanosis, Chest Pain, Chest Pain at Rest, Chest Pain with Activity, Claudication, Diaphoresis, Dyspnea, Dyspnea on Exertion, Edema, Irregular Heart Rhythm, Pain Radiating to Arm/Neck/Jaw, Leg Edema, Leg Ulcers, Lightheadedness, Orthopnea, Palpitations, Paroxysmal Nocturnal Dyspnea, Pedal Edema, Radiating Pain, Rapid Heart Rate, Slow Heart Rate, Syncope, Other - Respiratory Respiratory: Dyspnea, Wheezing. absent: As Per HPI, Cough, Hemoptysis, Dyspnea on Exertion, Snoring, Stridor, Pain on Inspiration, Chest Congestion, Excessive Mucous Production, Change in Mucous Color, Pain with Coughing, Other - Gastrointestinal Gastrointestinal: absent: As Per HPI, Abdominal Pain, Belching, Bloating, Change in Bowel Habits, Change in Stool Character, Coffee Ground Emesis, Constipation, Cramping, Diarrhea, Dyspepsia, Dysphagia, Early Satiety, Excessive Flatus, Fecal Incontinence, Heartburn, Hematemesis, Hematochezia, Loose Stools, Melena, Nausea, Odynophagia, Temesmus, Vomiting, Other - Genitourinary Genitourinary: absent: As Per HPI, Change in Urinary Stream, Difficulty Urinating, Dysuria, Flank Pain, Hematuria, Pyuria, Nocturia, Urinary Incontinence, Urinary Frequency, Urinary Hesitance, Urinary Urgency, Voiding Freq/Small Amts, Freq UTI, Hx Renal/Bladder Calculi, Hx /Renal Surgery, Bladder Distension, Other - Musculoskeletal Musculoskeletal: Arthralgias, Muscle Cramps, Muscle Weakness, Myalgias - Neurological Neurological: Paresthesias, Radicular Pain, Restless Legs, Weakness Past Patient History - Infectious Disease Hx of Infectious Diseases: None - Past Medical History & Family History Past Medical History?: Yes - Past Social History Smoking Status: Former Smoker - CARDIAC Hx Cardia Arrhythmia: Yes Hx Hypercholesterolemia: Yes Hx Hypertension: Yes - PULMONARY Hx Bronchitis: Yes Hx Chronic Obstructive Pulmonary Disease (COPD): Yes - NEUROLOGICAL Hx Neurological Disorder: Yes HX Cerebrovascular Accident: Yes - HEENT Hx HEENT Problems: No - RENAL Hx Chronic Kidney Disease: Yes - ENDOCRINE/METABOLIC Hx Endocrine Disorders: Yes Hx Diabetes Mellitus Type 1: Yes Hx Diabetes Mellitus Type 2: Yes - HEMATOLOGICAL/ONCOLOGICAL Hx Blood Disorders: No - INTEGUMENTARY Hx Dermatological Problems: No - MUSCULOSKELETAL/RHEUMATOLOGICAL Hx Fractures: Yes (left and right hip fx) - GASTROINTESTINAL Hx Gastrointestinal Disorders: No - GENITOURINARY/GYNECOLOGICAL Hx Genitourinary Disorders: Yes Hx Prostate Problems: Yes - PSYCHIATRIC Hx Depression: Yes Hx Substance Use: No - SURGICAL HISTORY Hx Surgeries: Yes Hx Cardiac Catheterization: Yes Hx Orthopedic Surgery: Yes (left and right hip) - ANESTHESIA Hx Anesthesia: Yes Hx Anesthesia Reactions: No Hx Malignant Hyperthermia: No Meds Allergies/Adverse Reactions: Allergies Allergy/AdvReac Type Severity Reaction Status Date / Time No Known Allergies Allergy Verified 06/21/18 16:22 Physical Exam - Constitutional Appears: Well - Head Exam Head Exam: ATRAUMATIC, NORMAL INSPECTION, NORMOCEPHALIC - Eye Exam Eye Exam: EOMI, Normal appearance, PERRL Pupil Exam: NORMAL ACCOMODATION, PERRL - ENT Exam ENT Exam: Mucous Membranes Moist, Normal Exam - Neck Exam Neck exam: Positive for: Normal Inspection - Respiratory Exam Respiratory Exam: Clear to Auscultation Bilateral, Rhonchi, NORMAL BREATHING PATTERN - Cardiovascular Exam Cardiovascular Exam: REGULAR RHYTHM - GI/Abdominal Exam GI & Abdominal Exam: Normal Bowel Sounds, Soft. absent: Tenderness - Rectal Exam Rectal Exam: NORMAL INSPECTION - Exam Exam: Circumcision, NORMAL INSPECTION External exam: NORMAL EXTERNAL EXAM Speculum exam: NORMAL SPECULUM EXAM Bimanual exam: NORMAL BIMANUAL EXAM - Extremities Exam Extremities exam: Positive for: full ROM. Negative for: calf tenderness, pedal edema (right third toe on the dorsal surface there is dried up scab with surroon. The whole toe is swo and tender to touch) - Back Exam Back exam: NORMAL INSPECTION - Neurological Exam Neurological exam: Alert, CN II-XII Intact, Normal Gait, Oriented x3, Reflexes Normal - Psychiatric Exam Psychiatric exam: Normal Affect, Normal Mood - Skin Skin Exam: Dry, Intact, Normal Color, Warm Results - Vital Signs Recent Vital Signs: Last Vital Signs Temp 98.6 F 06/21/18 19:20 Pulse 68 06/21/18 19:20 Resp 20 06/21/18 19:20 BP 153/81 H 06/21/18 19:20 Pulse Ox 95 06/21/18 19:20 - Labs Result Diagrams: 06/21/18 17:14 06/22/18 06:30 Labs: Laboratory Results - last 24 hr 06/21/18 06/21/18 17:14 17:14 WBC 6.9 RBC 3.55 L Hgb 10.1 L Hct 30.3 L MCV 85.2 MCH 28.4 MCHC 33.3 RDW 15.4 H Plt Count 166 MPV 9.4 Neut % (Auto) 74.5 Lymph % (Auto) 15.3 L [place] % (Auto) 7.3 Eos % (Auto) 2.2 Baso % (Auto) 0.7 Neut # (Auto) 5.1 Lymph # (Auto) 1.0 [place] # (Auto) 0.5 Eos # (Auto) 0.2 Baso # (Auto) 0.0 Sodium 133 Potassium 4.9 Chloride 97 L Carbon Dioxide 29 Anion Gap 12 BUN 38 H Creatinine 1.5 Est GFR ( Amer) 55 Est GFR (Non-Af Amer) 45 Random Glucose 254 H Calcium 8.5 L Assessment & Plan (1) Diabetic ulcer of left foot Status: Acute Comment: local wound care. IVcs bone scan. ID and podiatry evaluation (2) PVD (peripheral vascular disease) Status: Acute (3) COPD (chronic obstructive pulmonary disease) Status: Acute (4) COPD exacerbation Status: Acute (5) Diabetes Status: Acute (6) HTN (hypertension) Status: Acute
[2018-06-21] MEDS: Clindamycin 300 MG in Sodium Chloride 0.9% 50 ML IVPB SCH (20:33)
[2018-06-21] MEDS: Saccharomyces Boulardi 250 mg Cap PO SCH (21:52)
[2018-06-22] MEDS: Clindamycin 300 MG in Sodium Chloride 0.9% 50 ML IVPB SCH ×2 (03:38→12:15)
[2018-06-22 07:07] LABS: CALCIUM 8.4 mg/dl (8.6-10.4)
--- NOTE | 2018-06-22 08:52 | RAD ---
Date of service: 06/21/2018 PROCEDURE: Left Foot Radiographs. HISTORY: DFU 3 TOE COMPARISON: None. FINDINGS: BONES: No definite acute fracture appreciable. Diffuse osteopenia is identified suggesting osteoporosis. Clinically correlate further. No destructive bony lesion appreciable. JOINTS: Degenerative joint disease is seen diffusely but seen worst at the 1st metatarsophalangeal joint. No subluxation or dislocation appreciated. Mild hallux valgus deformity evident. SOFT TISSUES: Vascular calcifications are identified at the dorsal and plantar foot soft tissues as well as anterior and posterior ankle soft tissues. OTHER FINDINGS: None. IMPRESSION: No acute fracture or dislocation identified. Diffuse degenerative joint disease appreciated, seen worst at the 1st metatarsophalangeal joint.
[2018-06-22] MEDS: Enoxaparin 40 mg Syringe SC SCH (12:29)
--- NOTE | 2018-06-22 14:57 | CP.PCM.PN ---
Subjective - Date & Time of Evaluation Date of Evaluation: 06/22/18 Time of Evaluation: 14:55 - Subjective Subjective: CHIEF COMPLAINTS TODAY : Patient currently is complaining of mild pain in the left foot ROS. HEENT : N. Resp : No cough, wheezing ,pleuritic CP ,or hemoptysis Cardio : No anginal CP, PND, orthopnea, palpitation GI : No abd.pain, n/v ,diarrhea or GI bleeding . [employer] : No headache, vertigo, focal deficit. Musculoskel : No joint swelling , Derm : No rash Psych : Normal affect. Ext : No swelling ,calf pain PE. Pt. is alert awake in no distress. V.S As noted in the chart Head ,ear nose,throat and eyes : Normal. Neck : Supple with normal carotids. Lungs: Clear air entry. Heart : S1 & S2 normal with S4. No murmur. Abd : Soft non tender with normal bowel sounds. Neuro : Moves all ext. with no localized deficit. Ext : No edema with intact pulses.Non tender calves the left third toe is swollen with inflammation and cellulitis with dried up scab on the dorsum surface Derm : No rashes or decubitus ulcer. LABS/RADIOLOGY: ASSESSMENT/PLAN : Continue IV antibiotics sugar monitoring and a bone scan Objective - Vital Signs/Intake and Output Vital Signs (last 24 hours): Temp Pulse Resp BP Pulse Ox 97.5 F L 72 20 146/69 96 06/22/18 08:06 06/22/18 08:06 06/22/18 08:06 06/22/18 08:06 06/22/18 08:06 Intake and Output: 06/22/18 06/22/18 11:59 23:59 Intake Total 290 Balance 290 - Medications Medications: Current Medications Clopidogrel Bisulfate (Plavix) 75 mg PO DAILY [facility] Last Admin: 06/22/18 13:49 Dose: 75 mg Ezetimibe (Zetia) 10 mg PO DAILY [facility] Last Admin: 06/22/18 13:49 Dose: 10 mg Enoxaparin Sodium (Lovenox) 40 mg SC DAILY [facility] Last Admin: 06/22/18 12:29 Dose: 40 mg Ceftriaxone Sodium 1 gm/ (Sodium Chloride) 100 mls @ 100 mls/hr IVPB DAILY [facility]; Protocol Last Admin: 06/22/18 10:45 Dose: 100 mls/hr Clindamycin Phosphate 300 mg/ (Sodium Chloride) 52 mls @ 100 mls/hr IVPB Q8H [facility]; Protocol Last Admin: 06/22/18 12:15 Dose: 100 mls/hr Insulin Human Regular (Novolin R) 0 unit SC ACHS [facility]; Protocol Lisinopril (Zestril) 20 mg PO DAILY [facility] Last Admin: 06/22/18 13:50 Dose: 20 mg Metformin HCl (Glucophage) 500 mg PO BIDCC [facility] Mirtazapine (Remeron) 15 mg PO HS [facility] Oxycodone HCl (Oxycodone Immediate Release Tab) 30 mg PO BID [facility] Rosuvastatin Calcium (Crestor) 10 mg PO DAILY [facility] Last Admin: 06/22/18 13:49 Dose: 10 mg Saccharomyces Boulardii (Florastor) 250 mg PO HS [facility] Last Admin: 06/21/18 21:52 Dose: 250 mg Sitagliptin Phosphate (Januvia) 100 mg PO DAILY [facility] Last Admin: 06/22/18 13:50 Dose: 100 mg - Labs Labs: 06/21/18 17:14 06/22/18 06:30 Assessment and Plan (1) Diabetic ulcer of left foot Status: Acute (2) PVD (peripheral vascular disease) Status: Acute (3) COPD (chronic obstructive pulmonary disease) Status: Acute (4) COPD exacerbation Status: Acute (5) Diabetes Status: Acute (6) HTN (hypertension) Status: Acute
[2018-06-22] MEDS: (Novolin R) Insulin Human Regular 100 units/ml vial SC SCH ×2 (16:30→21:54)
[2018-06-22] MEDS: oxyCODONE 30 mg Immediate Release Tab PO SCH (17:51)
[2018-06-22] MEDS: Saccharomyces Boulardi 250 mg Cap PO SCH (21:47)
--- NOTE | 2018-06-22 23:46 | CP.PCM.PN ---
Subjective - Date & Time of Evaluation Date of Evaluation: 06/22/18 Time of Evaluation: 23:46 - Subjective Subjective: CHIEF COMPLAINTS TODAY : AFEBRILE c/o pain left foot. ROS. HEENT : N. Resp : No cough, wheezing ,pleuritic CP ,or hemoptysis Cardio : No anginal CP, PND, orthopnea, palpitation GI : No abd.pain, n/v ,diarrhea or GI bleeding . 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 Musculoskel : No joint swelling , Derm : No rash Psych : Normal affect. Ext : No swelling ,calf pain LT.FOOT IN DRESSING. PE. Pt. is alert awake in no distress. V.S As noted in the chart Head ,ear nose,throat and eyes : Normal. Neck : Supple with normal carotids. Lungs: Clear air entry. Heart : S1 & S2 normal with S4. No murmur. Abd : Soft non tender with normal bowel sounds. Neuro : Moves all ext. with no localized deficit. Ext : No edema with intact pulses.Non tender calves , the left 2ND toe is swollen with inflammation and cellulitis with NECROTIC SCAB on the dorsum surface. Derm : No rashes or decubitus ulcer. LABS/RADIOLOGY: REVIEWED wound culture +GPC BLOOD CULTURE 1:2 SETS +VE GPC IN CLUSTERS ( anerobic vial ) esr 25 XRAY LT FOOT; diffuse degenerative disease. No osseous lesions seen.no fracture ASSESSMENT/PLAN : Continue IV antibiotics iv rocephin /iv vancomycin. f/u cultures.. 3phase bone scan left foot r/o osteomyelitis second toe. sugar monitoring Objective - Vital Signs/Intake and Output Vital Signs (last 24 hours): Temp Pulse Resp BP Pulse Ox 97.7 F 68 20 154/57 H 96 06/22/18 15:00 06/22/18 15:00 06/22/18 15:00 06/22/18 15:00 06/22/18 15:00 Intake and Output: 06/22/18 06/23/18 18:59 06:59 Intake Total 450 Balance 450 - Medications Medications: Current Medications Clopidogrel Bisulfate (Plavix) 75 mg PO DAILY [facility] Last Admin: 06/22/18 13:49 Dose: 75 mg Ezetimibe (Zetia) 10 mg PO DAILY [facility] Last Admin: 06/22/18 13:49 Dose: 10 mg Enoxaparin Sodium (Lovenox) 40 mg SC DAILY [facility] Last Admin: 06/22/18 12:29 Dose: 40 mg Ceftriaxone Sodium 1 gm/ (Sodium Chloride) 100 mls @ 100 mls/hr IVPB DAILY [facility]; Protocol Last Admin: 06/22/18 10:45 Dose: 100 mls/hr Clindamycin Phosphate 300 mg/ (Sodium Chloride) 52 mls @ 100 mls/hr IVPB Q8H S ; Protocol Last Admin: 06/22/18 12:15 Dose: 100 mls/hr Insulin Human Regular (Novolin R) 0 unit SC [facility]; Protocol Last Admin: 06/22/18 21:54 Dose: Not Given Lisinopril (Zestril) 20 mg PO DAILY [facility] Last Admin: 06/22/18 13:50 Dose: 20 mg [facility] Last Admin: 06/22/18 17:50 Dose: 500 mg Mirtazapine (Remeron) 15 mg PO [facility] Oxycodone HCl (Oxycodone Immediate Release Tab) 30 mg PO BID [facility] Last Admin: 06/22/18 17:51 Dose: 30 mg Rosuvastatin Calcium (Crestor) 10 mg PO DAILY [facility] Last Admin: 06/22/18 13:49 Dose: 10 mg Saccharomyces Boulardii (Florastor) 250 mg PO HS [facility] Last Admin: 06/22/18 21:47 Dose: 250 mg Sitagliptin Phosphate (Januvia) 100 mg PO DAILY [facility] Last Admin: 06/22/18 13:50 Dose: 100 mg - Labs Labs: 06/21/18 17:14 06/22/18 06:30 Assessment and Plan (1) Diabetic ulcer of left foot Status: Acute (2) PVD (peripheral vascular disease) Status: Acute (3) Acute renal insufficiency Status: Acute (4) Closed left hip fracture Status: Acute (5) Diabetes Status: Acute - Assessment and Plan (Free Text) Plan: CONTINUE IV ROCEPHIN 1GM IVPB QD DAILY. 06/21/18. ON IV CLEOCIN 300MG IVPB Q 8HRLY 06/21/18. F/U CULTURES TO ADJUST ABX. F/U XRAY LT FOOT 3 VIEW R/O FRACTURE /OR OSSEOUS PROCESS. LWC ORDERED. WOUND CARE-.Wound clean with sterile saline and dress with betadine, DSD
[2018-06-23] MEDS: Clindamycin 300 MG in Sodium Chloride 0.9% 50 ML IVPB SCH ×4 (03:04→18:54)
[2018-06-23 07:31] LABS: BASO # 0.1 K/uL (0.0-0.2); BASO % 1.1 % (0.0-2.0); EOS # 0.3 K/uL (0.0-0.7); EOS % 4.8 % (0.0-4.0); LYMPH # 1.7 K/uL (1.0-4.3); LYMPH % 28.8 % (20.0-40.0); MEAN CELL VOLUME 84.5 fL (80.0-94.0); MEAN CORPUSCULAR HEMOGLOBIN 28.8 pg (27.0-31.0); MEAN CORPUSCULAR HGB CONC 34.1 g/dL (33.0-37.0); MEAN PLATELET VOLUME 10.1 fL (7.2-11.7); MONO # 0.5 K/uL (0.0-0.8); MONO % 8.4 % (0.0-10.0); NEUT # 3.3 K/uL (1.8-7.0); NEUT % 56.9 % (50.0-75.0); RBC 3.14 Mil/uL (4.40-5.90); RED CELL DISTRIBUTION WIDTH 15.3 % (11.5-14.5); WHITE BLOOD COUNT 5.8 K/uL (4.8-10.8)
[2018-06-23 07:48] LABS: ALB/GLOB RATIO 1.1 (1.0-2.1); ALBUMIN 3.2 g/dL (3.5-5.0); CALCIUM 8.4 mg/dl (8.6-10.4)
[2018-06-23] MEDS: (Novolin R) Insulin Human Regular 100 units/ml vial SC SCH ×4 (07:57→21:25)
[2018-06-23] MEDS: oxyCODONE 30 mg Immediate Release Tab PO SCH ×2 (09:38→17:47)
[2018-06-23] MEDS: Enoxaparin 40 mg Syringe SC SCH (09:40)
--- NOTE | 2018-06-23 13:02 | NM ---
Date of service: 06/23/2018 PROCEDURE: Three-phase bone Scan HISTORY: R/O LT FOOT OSTEO 2ND TOE COMPARISON: 03/04/2018 three-phase bone scan. 06/21/2018 radiographs left foot. TECHNIQUE: Following administration of 24.3 miCu of Tc MDP three-phase bone scan performed with particular attention directed to the 2nd digit left foot. FINDINGS: Flow component: Increased flow to the left lower extremity, including the 2nd digit Blood pool component: Accumulation of radionuclide left 2nd digit Delayed images at 3:00: Retention of radionuclide 2nd digit. Other findings: Degenerative changes both knees and ankles IMPRESSION: Positive 3 phase bone scan for acute osseous process left 2nd digit.
--- NOTE | 2018-06-23 14:06 | CP.PCM.PN ---
Subjective - Date & Time of Evaluation Date of Evaluation: 06/23/18 Time of Evaluation: 14:05 - Subjective Subjective: CHIEF COMPLAINTS TODAY : Patient currently is complaining of mild pain in the left foot ROS. HEENT : N. Resp : No cough, wheezing ,pleuritic CP ,or hemoptysis Cardio : No anginal CP, PND, orthopnea, palpitation GI : No abd.pain, n/v ,diarrhea or GI bleeding . 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 Musculoskel : No joint swelling , Derm : No rash Psych : Normal affect. Ext : No swelling ,calf pain PE. Pt. is alert awake in no distress. V.S As noted in the chart Head ,ear nose,throat and eyes : Normal. Neck : Supple with normal carotids. Lungs: Clear air entry. Heart : S1 & S2 normal with S4. No murmur. Abd : Soft non tender with normal bowel sounds. Neuro : Moves all ext. with no localized deficit. Ext : No edema with intact pulses.Non tender calves the left third toe is swollen with inflammation and cellulitis with dried up scab on the dorsum surface Derm : No rashes or decubitus ulcer. 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 cONTINUE iv ANTIBIOTICS AND MONITOR BLOOD SUGAR Objective - Vital Signs/Intake and Output Vital Signs (last 24 hours): Temp Pulse Resp BP Pulse Ox 97.5 F L 57 L 20 117/64 96 06/23/18 07:36 06/23/18 07:36 06/23/18 07:36 06/23/18 07:36 06/23/18 07:36 Intake and Output: 06/23/18 06/23/18 11:59 23:59 Intake Total 410 Balance 410 - Medications Medications: Current Medications Clopidogrel Bisulfate (Plavix) 75 mg PO DAILY [facility] Last Admin: 06/23/18 09:39 Dose: 75 mg Ezetimibe (Zetia) 10 mg PO DAILY [facility] Last Admin: 06/23/18 09:39 Dose: 10 mg Enoxaparin Sodium (Lovenox) 40 mg SC DAILY [facility] Last Admin: 06/23/18 09:40 Dose: 40 mg Ceftriaxone Sodium 1 gm/ (Sodium Chloride) 100 mls @ 100 mls/hr IVPB DAILY [facility]; Protocol Last Admin: 06/23/18 09:46 Dose: 100 mls/hr Clindamycin Phosphate 300 mg/ (Sodium Chloride) 52 mls @ 100 mls/hr IVPB Q8H [facility]; Protocol Last Admin: 06/23/18 11:57 Dose: 100 mls/hr Insulin Human Regular (Novolin R) 0 unit SC ACHS [facility]; Protocol Last Admin: 06/23/18 11:56 Dose: 2 units Lisinopril (Zestril) 20 mg PO DAILY [facility] Last Admin: 06/23/18 09:41 Dose: Not Given [facility] Last Admin: 06/23/18 08:51 Dose: 500 mg Mirtazapine (Remeron) 15 mg PO [facility] Oxycodone HCl (Oxycodone Immediate Release Tab) 30 mg PO BID [facility] Last Admin: 06/23/18 09:38 Dose: 30 mg Rosuvastatin Calcium (Crestor) 10 mg PO DAILY [facility] Last Admin: 06/23/18 11:56 Dose: 10 mg Saccharomyces Boulardii (Florastor) 250 mg PO HS [facility] Last Admin: 06/22/18 21:47 Dose: 250 mg Sitagliptin Phosphate (Januvia) 100 mg PO DAILY [facility] Last Admin: 06/23/18 09:39 Dose: 100 mg - Labs Labs: 06/23/18 07:19 06/23/18 07:19 Assessment and Plan (1) Diabetic ulcer of left foot Status: Acute (2) PVD (peripheral vascular disease) Status: Acute (3) COPD (chronic obstructive pulmonary disease) Status: Acute (4) COPD exacerbation Status: Acute (5) Diabetes Status: Acute (6) HTN (hypertension) Status: Acute
--- NOTE | 2018-06-23 14:18 | CP.PCM.PN ---
Subjective - Date & Time of Evaluation Date of Evaluation: 06/23/18 Time of Evaluation: 14:18 - Subjective Subjective: CHIEF COMPLAINTS TODAY : AFEBRILE c/o pain left foot. ROS. HEENT : N. Resp : No cough, wheezing ,pleuritic CP ,or hemoptysis Cardio : No anginal CP, PND, orthopnea, palpitation GI : No abd.pain, n/v ,diarrhea or GI bleeding . 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 Musculoskel : No joint swelling , Derm : No rash Psych : Normal affect. Ext : No swelling ,calf pain LT.FOOT IN DRESSING. PE. Pt. is alert awake in no distress. V.S As noted in the chart Head ,ear nose,throat and eyes : Normal. Neck : Supple with normal carotids. Lungs: Clear air entry. Heart : S1 & S2 normal with S4. No murmur. Abd : Soft non tender with normal bowel sounds. Neuro : Moves all ext. with no localized deficit. Ext : No edema with intact pulses.Non tender calves , the left 2ND toe is swollen with inflammation and cellulitis with NECROTIC SCAB on the dorsum surface. Derm : No rashes or decubitus ulcer. LABS/RADIOLOGY: REVIEWED wound culture +SCN BLOOD CULTURE 1:2 SETS +VE STAPH COAGULASE-NEGATIVE ? CONTAMINANT. esr 25 XRAY LT FOOT; diffuse degenerative disease. No osseous lesions seen.no fracture THREE-PHASE BONE SCAN; +VE OSTEOMYELITIS SECOND LEFT PHALANX FOOT. ASSESSMENT/PLAN : Continue IV antibiotics iv rocephin /iv vancomycin. f/u cultures.. PODIATRY CONSULT Objective - Vital Signs/Intake and Output Vital Signs (last 24 hours): Temp Pulse Resp BP Pulse Ox 97.5 F L 57 L 20 117/64 96 06/23/18 07:36 06/23/18 07:36 06/23/18 07:36 06/23/18 07:36 06/23/18 07:36 Intake and Output: 06/23/18 06/23/18 06:59 18:59 Intake Total 410 Balance 410 - Medications Medications: Current Medications Clopidogrel Bisulfate (Plavix) 75 mg PO DAILY [facility] Last Admin: 06/23/18 09:39 Dose: 75 mg Ezetimibe (Zetia) 10 mg PO DAILY [facility] Last Admin: 06/23/18 09:39 Dose: 10 mg Enoxaparin Sodium (Lovenox) 40 mg SC DAILY [facility] Last Admin: 06/23/18 09:40 Dose: 40 mg Ceftriaxone Sodium 1 gm/ (Sodium Chloride) 100 mls @ 100 mls/hr IVPB DAILY [facility]; Protocol Last Admin: 06/23/18 09:46 Dose: 100 mls/hr Clindamycin Phosphate 300 mg/ (Sodium Chloride) 52 mls @ 100 mls/hr IVPB Q8H [facility]; Protocol Last Admin: 06/23/18 11:57 Dose: 100 mls/hr Insulin Human Regular (Novolin R) 0 unit SC ACHS [facility]; Protocol Last Admin: 06/23/18 11:56 Dose: 2 units Lisinopril (Zestril) 20 mg PO DAILY [facility] Last Admin: 06/23/18 09:41 Dose: Not Given [facility]) [facility] Last Admin: 06/23/18 08:51 Dose: 500 mg Mirtazapine (Remeron) 15 mg PO [facility] Oxycodone HCl (Oxycodone Immediate Release Tab) 30 mg PO BID [facility] Last Admin: 06/23/18 09:38 Dose: 30 mg Rosuvastatin Calcium (Crestor) 10 mg PO DAILY [facility] Last Admin: 06/23/18 11:56 Dose: 10 mg Saccharomyces Boulardii (Florastor) 250 mg PO HS [facility] Last Admin: 06/22/18 21:47 Dose: 250 mg Sitagliptin Phosphate (Januvia) 100 mg PO DAILY [facility] Last Admin: 06/23/18 09:39 Dose: 100 mg - Labs Labs: 06/23/18 07:19 06/23/18 07:19 Assessment and Plan (1) Diabetic ulcer of left foot Status: Acute (2) PVD (peripheral vascular disease) Status: Acute (3) Acute renal insufficiency Status: Acute (4) Closed left hip fracture Status: Acute (5) Diabetes Status: Acute
--- NOTE | 2018-06-23 15:27 | CP.PCM.CON ---
History of Present Illness - History of Present Illness History of Present Illness: Podiatry Consult Note - Dr. Juárez 77 y/o male with PMHx of DM, COPD, CAD seen and evaluated at bedside for ulcerations of left foot 3rd and 5th toes. Patient states that he was admitted for the left foot ulcers two days ago as he noticed more swelling and pain. Denies noting any pus from the toe but said his son noticed bleeding and decided to bring him to the hospital. Pt is known to Dr. Juárez's service and has been treated chronically for the toe ulcers. Admits to a history of vascular intervention by Dr. Saeed to improve his blood flow. Denies any acute overnight events or other pedal complaints at this time. Denies any recent N/V/F/C/CP/D PSH: Bilateral hip arthroplasty, LLE revascularization All: NKDA FamHx: Unknown SocHx: Denies smoking or alcohol use Review of Systems - Review of Systems All systems: reviewed and no additional remarkable complaints except (per HPI) Past Patient History - Infectious Disease Hx of Infectious Diseases: None - Past Medical History & Family History Past Medical History?: Yes - Past Social History Smoking Status: Former Smoker - CARDIAC Hx Cardia Arrhythmia: Yes Hx Hypercholesterolemia: Yes Hx Hypertension: Yes - PULMONARY Hx Bronchitis: Yes Hx Chronic Obstructive Pulmonary Disease (COPD): Yes - NEUROLOGICAL Hx Neurological Disorder: Yes HX Cerebrovascular Accident: Yes - HEENT Hx HEENT Problems: No - RENAL Hx Chronic Kidney Disease: Yes - ENDOCRINE/METABOLIC Hx Endocrine Disorders: Yes Hx Diabetes Mellitus Type 1: Yes Hx Diabetes Mellitus Type 2: Yes - HEMATOLOGICAL/ONCOLOGICAL Hx Blood Disorders: No - INTEGUMENTARY Hx Dermatological Problems: No - MUSCULOSKELETAL/RHEUMATOLOGICAL Hx Fractures: Yes (left and right hip fx) - GASTROINTESTINAL Hx Gastrointestinal Disorders: No - GENITOURINARY/GYNECOLOGICAL Hx Genitourinary Disorders: Yes Hx Prostate Problems: Yes - PSYCHIATRIC Hx Depression: Yes Hx Substance Use: No - SURGICAL HISTORY Hx Surgeries: Yes Hx Cardiac Catheterization: Yes Hx Orthopedic Surgery: Yes (left and right hip) - ANESTHESIA Hx Anesthesia: Yes Hx Anesthesia Reactions: No Hx Malignant Hyperthermia: No Meds Allergies/Adverse Reactions: Allergies Allergy/AdvReac Type Severity Reaction Status Date / Time No Known Allergies Allergy Verified 06/21/18 16:22 - Medications Medications: Current Medications Clopidogrel Bisulfate (Plavix) 75 mg PO DAILY [facility] Last Admin: 06/23/18 09:39 Dose: 75 mg Ezetimibe (Zetia) 10 mg PO DAILY [facility] Last Admin: 06/23/18 09:39 Dose: 10 mg Enoxaparin Sodium (Lovenox) 40 mg SC DAILY [facility] Last Admin: 06/23/18 09:40 Dose: 40 mg Ceftriaxone Sodium 1 gm/ (Sodium Chloride) 100 mls @ 100 mls/hr IVPB DAILY [facility]; Protocol Last Admin: 06/23/18 09:46 Dose: 100 mls/hr Clindamycin Phosphate 300 mg/ (Sodium Chloride) 52 mls @ 100 mls/hr IVPB Q8H [facility]; Protocol Last Admin: 06/23/18 11:57 Dose: 100 mls/hr Insulin Human Regular (Novolin R) 0 unit SC ACHS [facility]; Protocol Last Admin: 06/23/18 11:56 Dose: 2 units Lisinopril (Zestril) 20 mg PO DAILY [facility] Last Admin: 06/23/18 09:41 Dose: Not Given [facility] Last Admin: 06/23/18 08:51 Dose: 500 mg Mirtazapine (Remeron) 15 mg PO [facility] Oxycodone HCl (Oxycodone Immediate Release Tab) 30 mg PO BID [facility] Last Admin: 06/23/18 09:38 Dose: 30 mg Rosuvastatin Calcium (Crestor) 10 mg PO DAILY [facility] Last Admin: 06/23/18 11:56 Dose: 10 mg Saccharomyces Boulardii (Florastor) 250 mg PO HS [facility] Last Admin: 06/22/18 21:47 Dose: 250 mg Sitagliptin Phosphate (Januvia) 100 mg PO DAILY [facility] Last Admin: 06/23/18 09:39 Dose: 100 mg Physical Exam - Constitutional Appears: Well, Non-toxic, No Acute Distress - Extremities Exam Additional comments: Left LE focused exam: Vasc: DP/PT pulses 1/4. Skin temperature warm to warm from proximal to distal. CFT < 3 seconds to all digits. No edema noted to periwound areas Neuro: Epicritic and protective sensation grossly intact Derm: Superficial, unstagable ulcerations noted to dorsal aspect of left third and fifth digit. Hyperpigmentation noted to 3rd digit diffusely. No malodor, no drainage, no probe to bone, no other clinical signs of infection. MSK: Minimal tenderness on palpation of all ulceration sites. ROM WNL at all major joints. - Neurological Exam Neurological exam: Alert, Oriented x3 - Psychiatric Exam Psychiatric exam: Normal Affect, Normal Mood Results - Vital Signs Recent Vital Signs: Last Vital Signs Temp 97.5 F L 06/23/18 07:36 Pulse 57 L 06/23/18 07:36 Resp 20 06/23/18 07:36 BP 117/64 06/23/18 07:36 Pulse Ox 96 06/23/18 07:36 - Labs Result Diagrams: 06/23/18 07:19 06/23/18 07:19 Labs: Laboratory Results - last 24 hr 06/22/18 06/22/18 06/22/18 07:23 11:16 16:19 WBC RBC Hgb Hct MCV MCH MCHC RDW Plt Count MPV Neut % (Auto) Lymph % (Auto) [place] % (Auto) Eos % (Auto) Baso % (Auto) Neut # (Auto) Lymph # (Auto) [place] # (Auto) Eos # (Auto) Baso # (Auto) Sodium Potassium Chloride Carbon Dioxide Anion Gap BUN Creatinine Est GFR ( Amer) Est GFR (Non-Af Amer) POC Glucose (mg/dL) 115 H 234 H 219 H Random Glucose Calcium Total Bilirubin AST ALT Alkaline Phosphatase Total Protein Albumin Globulin Albumin/Globulin Ratio 06/22/18 06/23/18 06/23/18 20:50 07:19 07:19 WBC 5.8 RBC 3.14 L Hgb 9.0 L Hct 26.6 L MCV 84.5 MCH 28.8 MCHC 34.1 RDW 15.3 H Plt Count 148 MPV 10.1 Neut % (Auto) 56.9 Lymph % (Auto) 28.8 [place] % (Auto) 8.4 Eos % (Auto) 4.8 H Baso % (Auto) 1.1 Neut # (Auto) 3.3 Lymph # (Auto) 1.7 [place] # (Auto) 0.5 Eos # (Auto) 0.3 Baso # (Auto) 0.1 Sodium 133 Potassium 4.0 Chloride 99 Carbon Dioxide 29 Anion Gap 9 L BUN 31 H Creatinine 1.4 Est GFR ( Amer) 59 Est GFR (Non-Af Amer) 49 POC Glucose (mg/dL) 155 H Random Glucose 129 H Calcium 8.4 L Total Bilirubin 0.2 AST 41 ALT 39 Alkaline Phosphatase 77 Total Protein 6.2 L Albumin 3.2 L Globulin 3.0 Albumin/Globulin Ratio 1.1 Assessment & Plan - Assessment and Plan (Free Text) Assessment: 77 y/o male with diabetic ulcerations of left foot 3rd and 5th digits Plan: Patient seen and evaluated at bedside Discussed plan with with Dr. Juárez Continue IV abx per ID - wound cx shows growth of Coag neg Staph L foot x-rays show no destructive osseous lesions Nuclear bone scan shows increased uptake at left foot at 2nd digit Wound dressed with betadine and DSD Vascular consult placed for Dr. Saeed - pt is 3 months s/p vascular intervention to LLE Podiatry will continue to follow while patient in house
--- NOTE | 2018-06-23 17:53 | CARD ---
APPROVED REPORT Date of service: 06/21/2018 EKG Measurement Heart [id number] <Conclusion> Normal sinus rhythm Anteroseptal infarct, age undetermined Abnormal ECG
[2018-06-23] MEDS: Albuterol-Ipratrop 3 mg / 0.5 (3 ml) UD INH SCH ×2 (19:22)
[2018-06-23] MEDS: Saccharomyces Boulardi 250 mg Cap PO SCH (21:25)
--- NOTE | 2018-06-23 22:09 | CP.PCM.CON ---
History of Present Illness - History of Present Illness History of Present Illness: Surgery Consult Note. Dr. Saeed 77yo M with PMHx of PVD, DM, COPD, CAD, here for evaluation of left foot ulcers. Patient was brought in 2 days ago when he noticed more swelling and pain at the left foot. He also noted skin changes to the left toes which have not improved despite angioplasty performed by Dr. Saeed in Feb 2018. He denies any fevers or chills. Denies any drainage or discharge from the toe ulcers. Denies any ot her complaints. Vascular surgery consultation requested by the Podiatry team. PMD: Dr. Mancia PMHx: PVD, DM, COPD, CAD PSHx: Bilateral Hip Arthroplasty, B/L LE angioplasty (02/2018) Family Hx: non-contributory Social hx: Denies ETOH use, Denies Tobacco use, denies illicit drugs NKDA Review of Systems - Review of Systems All systems: reviewed and no additional remarkable complaints except - Constitutional Constitutional: absent: Chills, Fever - Cardiovascular Cardiovascular: absent: Chest Pain, Dyspnea - Respiratory Respiratory: absent: Cough, Dyspnea - Gastrointestinal Gastrointestinal: absent: Abdominal Pain, Nausea, Vomiting - Genitourinary Genitourinary: absent: Dysuria - Integumentary Integumentary: Skin Ulcer (left toes worse than right toes) Past Patient History - Infectious Disease Hx of Infectious Diseases: None - Past Medical History & Family History Past Medical History?: Yes Past Family History: Reviewed and not pertinent - Past Social History Smoking Status: Former Smoker Alcohol: None Drugs: Denies - CARDIAC Hx Cardia Arrhythmia: Yes Hx Hypercholesterolemia: Yes Hx Hypertension: Yes - PULMONARY Hx Bronchitis: Yes Hx Chronic Obstructive Pulmonary Disease (COPD): Yes - NEUROLOGICAL Hx Neurological Disorder: Yes HX Cerebrovascular Accident: Yes - HEENT Hx HEENT Problems: No - RENAL Hx Chronic Kidney Disease: Yes - ENDOCRINE/METABOLIC Hx Endocrine Disorders: Yes Hx Diabetes Mellitus Type 1: Yes Hx Diabetes Mellitus Type 2: Yes - HEMATOLOGICAL/ONCOLOGICAL Hx Blood Disorders: No - INTEGUMENTARY Hx Dermatological Problems: No - MUSCULOSKELETAL/RHEUMATOLOGICAL Hx Fractures: Yes (left and right hip fx) - GASTROINTESTINAL Hx Gastrointestinal Disorders: No - GENITOURINARY/GYNECOLOGICAL Hx Genitourinary Disorders: Yes Hx Prostate Problems: Yes - PSYCHIATRIC Hx Depression: Yes Hx Substance Use: No - SURGICAL HISTORY Hx Surgeries: Yes Hx Cardiac Catheterization: Yes Hx Orthopedic Surgery: Yes (left and right hip) - ANESTHESIA Hx Anesthesia: Yes Hx Anesthesia Reactions: No Hx Malignant Hyperthermia: No Meds Allergies/Adverse Reactions: Allergies Allergy/AdvReac Type Severity Reaction Status Date / Time No Known Allergies Allergy Verified 06/21/18 16:22 - Medications Medications: Current Medications Albuterol/Ipratropium (Duoneb 3 Mg/0.5 Mg (3 Ml) Ud) 3 ml INH RBID [facility] Last Admin: 06/23/18 19:22 Dose: 3 ml Clopidogrel Bisulfate (Plavix) 75 mg PO DAILY [facility] Last Admin: 06/23/18 09:39 Dose: 75 mg Ezetimibe (Zetia) 10 mg PO DAILY [facility] Last Admin: 06/23/18 09:39 Dose: 10 mg Enoxaparin Sodium (Lovenox) 40 mg SC DAILY [facility] Last Admin: 06/23/18 09:40 Dose: 40 mg Ceftriaxone Sodium 1 gm/ (Sodium Chloride) 100 mls @ 100 mls/hr IVPB DAILY [facility]; Protocol Last Admin: 06/23/18 09:46 Dose: 100 mls/hr Clindamycin Phosphate 300 mg/ (Sodium Chloride) 52 mls @ 100 mls/hr IVPB Q8H [facility]; Protocol Last Admin: 06/23/18 18:54 Dose: 100 mls/hr Insulin Human Regular (Novolin R) 0 unit SC ACHS [facility]; Protocol Last Admin: 06/23/18 21:25 Dose: Not Given Lisinopril (Zestril) 20 mg PO DAILY [facility] Last Admin: 06/23/18 09:41 Dose: Not Given [facility] Last Admin: 06/23/18 17:47 Dose: 500 mg Mirtazapine (Remeron) 15 mg PO [facility] Last Admin: 06/23/18 21:26 Dose: 15 mg Oxycodone HCl (Oxycodone Immediate Release Tab) 30 mg PO BID [facility] Last Admin: 06/23/18 17:47 Dose: 30 mg Rosuvastatin Calcium (Crestor) 10 mg PO DAILY [facility] Last Admin: 06/23/18 11:56 Dose: 10 mg Saccharomyces Boulardii (Florastor) 250 mg PO [facility] Last Admin: 06/23/18 21:25 Dose: 250 mg Sitagliptin Phosphate (Januvia) 100 mg PO DAILY [facility] Last Admin: 06/23/18 09:39 Dose: 100 mg Physical Exam - Constitutional Appears: Non-toxic, No Acute Distress - Head Exam Head Exam: ATRAUMATIC, NORMAL INSPECTION, NORMOCEPHALIC - Eye Exam Eye Exam: EOMI, Normal appearance. absent: Scleral icterus - ENT Exam ENT Exam: Mucous Membranes Moist - Respiratory Exam Respiratory Exam: NORMAL BREATHING PATTERN. absent: Accessory Muscle Use, Respiratory Distress - Cardiovascular Exam Cardiovascular Exam: RRR. absent: JVD - Extremities Exam Additional comments: right toe skin changes noted, healing left toe skin changes with necrotic 2nd/3rd toes noted. Malodorous. No active drainage or discharge. B/L lower extremity dopplerable signals DP/PT Feet warm bilaterally - Neurological Exam Neurological exam: Alert, Oriented x3 - Psychiatric Exam Psychiatric exam: Normal Affect, Normal Mood Results - Vital Signs Recent Vital Signs: Last Vital Signs Temp 97.5 F L 06/23/18 16:00 Pulse 62 06/23/18 19:24 Resp 20 06/23/18 16:00 BP 122/71 06/23/18 16:00 Pulse Ox 98 06/23/18 16:00 - Labs Result Diagrams: 06/23/18 07:19 06/23/18 07:19 Labs: Laboratory Results - last 24 hr 06/22/18 06/22/18 06/22/18 07:23 11:16 16:19 WBC RBC Hgb Hct MCV MCH MCHC RDW Plt Count MPV Neut % (Auto) Lymph % (Auto) [place] % (Auto) Eos % (Auto) Baso % (Auto) Neut # (Auto) Lymph # (Auto) [place] # (Auto) Eos # (Auto) Baso # (Auto) Sodium Potassium Chloride Carbon Dioxide Anion Gap BUN Creatinine Est GFR ( Amer) Est GFR (Non-Af Amer) POC Glucose (mg/dL) 115 H 234 H 219 H Random Glucose Calcium Total Bilirubin AST ALT Alkaline Phosphatase Total Protein Albumin Globulin Albumin/Globulin Ratio 06/22/18 06/23/18 06/23/18 20:50 07:13 07:19 WBC 5.8 RBC 3.14 L Hgb 9.0 L Hct 26.6 L MCV 84.5 MCH 28.8 MCHC 34.1 RDW 15.3 H Plt Count 148 MPV 10.1 Neut % (Auto) 56.9 Lymph % (Auto) 28.8 [place] % (Auto) 8.4 Eos % (Auto) 4.8 H Baso % (Auto) 1.1 Neut # (Auto) 3.3 Lymph # (Auto) 1.7 [place] # (Auto) 0.5 Eos # (Auto) 0.3 Baso # (Auto) 0.1 Sodium Potassium Chloride Carbon Dioxide Anion Gap BUN Creatinine Est GFR ( Amer) Est GFR (Non-Af Amer) POC Glucose (mg/dL) 155 H 145 H Random Glucose Calcium Total Bilirubin AST ALT Alkaline Phosphatase Total Protein Albumin Globulin Albumin/Globulin Ratio 06/23/18 06/23/18 06/23/18 07:19 11:03 16:49 WBC RBC Hgb Hct MCV MCH MCHC RDW Plt Count MPV Neut % (Auto) Lymph % (Auto) [place] % (Auto) Eos % (Auto) Baso % (Auto) Neut # (Auto) Lymph # (Auto) [place] # (Auto) Eos # (Auto) Baso # (Auto) Sodium 133 Potassium 4.0 Chloride 99 Carbon Dioxide 29 Anion Gap 9 L BUN 31 H Creatinine 1.4 Est GFR ( Amer) 59 Est GFR (Non-Af Amer) 49 POC Glucose (mg/dL) 161 H 135 H Random Glucose 129 H Calcium 8.4 L Total Bilirubin 0.2 AST 41 ALT 39 Alkaline Phosphatase 77 Total Protein 6.2 L Albumin 3.2 L Globulin 3.0 Albumin/Globulin Ratio 1.1 06/23/18 20:58 WBC RBC Hgb Hct MCV MCH MCHC RDW Plt Count MPV Neut % (Auto) Lymph % (Auto) [place] % (Auto) Eos % (Auto) Baso % (Auto) Neut # (Auto) Lymph # (Auto) [place] # (Auto) Eos # (Auto) Baso # (Auto) Sodium Potassium Chloride Carbon Dioxide Anion Gap BUN Creatinine Est GFR ( Amer) Est GFR (Non-Af Amer) POC Glucose (mg/dL) 192 H Random Glucose Calcium Total Bilirubin AST ALT Alkaline Phosphatase Total Protein Albumin Globulin Albumin/Globulin Ratio Assessment & Plan - Assessment and Plan (Free Text) Assessment: 77yo M with severe PVD. Left foot non-healing wound. Possible osteo - Bone scan results noted Plan: - f/u arterial Duplex w ABIs - Continue IV Abx as per Primary team - Further recs as we follow patient's clinical course Further recs as per Dr. Christophe Butts PGY2 surgery
[2018-06-24] MEDS: Clindamycin 300 MG in Sodium Chloride 0.9% 50 ML IVPB SCH ×4 (02:44→18:49)
[2018-06-24] MEDS: Albuterol-Ipratrop 3 mg / 0.5 (3 ml) UD INH SCH ×2 (07:43→20:12)
[2018-06-24 07:45] LABS: BASO # 0.1 K/uL (0.0-0.2); BASO % 0.9 % (0.0-2.0); EOS # 0.3 K/uL (0.0-0.7); EOS % 4.9 % (0.0-4.0); HEMOGLOBIN 8.7 g/dL (12.0-18.0); LYMPH # 1.6 K/uL (1.0-4.3); LYMPH % 24.8 % (20.0-40.0); MEAN CELL VOLUME 84.8 fL (80.0-94.0); MEAN CORPUSCULAR HEMOGLOBIN 28.3 pg (27.0-31.0); MEAN CORPUSCULAR HGB CONC 33.4 g/dL (33.0-37.0); MEAN PLATELET VOLUME 10.1 fL (7.2-11.7); MONO # 0.5 K/uL (0.0-0.8); MONO % 7.3 % (0.0-10.0); NEUT % 62.1 % (50.0-75.0); PROTHROMBIN TIME 11.2 SECONDS (9.7-12.2); RBC 3.05 Mil/uL (4.40-5.90); RED CELL DISTRIBUTION WIDTH 15.3 % (11.5-14.5); WHITE BLOOD COUNT 6.5 K/uL (4.8-10.8)
[2018-06-24 07:53] LABS: ALB/GLOB RATIO 1.1 (1.0-2.1); ALBUMIN 3.1 g/dL (3.5-5.0); CALCIUM 8.3 mg/dl (8.6-10.4)
[2018-06-24] MEDS: (Novolin R) Insulin Human Regular 100 units/ml vial SC SCH ×4 (08:25→21:25)
[2018-06-24] MEDS: oxyCODONE 30 mg Immediate Release Tab PO SCH ×2 (10:27→17:33)
[2018-06-24] MEDS: Enoxaparin 40 mg Syringe SC SCH (10:28)
--- NOTE | 2018-06-24 11:54 | CP.PCM.PN ---
Subjective - Date & Time of Evaluation Date of Evaluation: 06/24/18 Time of Evaluation: 11:52 - Subjective Subjective: Vascular Surgery Progress Note for Dr. Saeed This 77M was seen and examined this Am at bedside. No acute events overnight. No new complainst at this time. Vascular studies pending. Objective - Vital Signs/Intake and Output Vital Signs (last 24 hours): Temp Pulse Resp BP Pulse Ox 97.8 F 69 20 128/63 97 06/24/18 07:53 06/24/18 07:53 06/24/18 07:53 06/24/18 07:53 06/24/18 07:53 Intake and Output: 06/24/18 06/24/18 06:59 18:59 Intake Total 400 Balance 400 - Medications Medications: Current Medications Albuterol/Ipratropium (Duoneb 3 Mg/0.5 Mg (3 Ml) Ud) 3 ml INH RBID [facility] Last Admin: 06/24/18 07:43 Dose: 3 ml Clopidogrel Bisulfate (Plavix) 75 mg PO DAILY [facility] Last Admin: 06/24/18 10:27 Dose: 75 mg Ezetimibe (Zetia) 10 mg PO DAILY [facility] Last Admin: 06/24/18 10:27 Dose: 10 mg Enoxaparin Sodium (Lovenox) 40 mg SC DAILY [facility] Last Admin: 06/24/18 10:28 Dose: 40 mg Ceftriaxone Sodium 1 gm/ (Sodium Chloride) 100 mls @ 100 mls/hr IVPB DAILY [facility]; Protocol Last Admin: 06/24/18 10:28 Dose: 100 mls/hr Clindamycin Phosphate 300 mg/ (Sodium Chloride) 52 mls @ 100 mls/hr IVPB Q8H [facility]; Protocol Last Admin: 06/24/18 02:44 Dose: 100 mls/hr Insulin Human Regular (Novolin R) 0 unit SC ACHS [facility]; Protocol Last Admin: 06/24/18 08:25 Dose: 2 units Lisinopril (Zestril) 20 mg PO DAILY [facility] Last Admin: 06/24/18 10:33 Dose: 20 mg Metformin HCl (Glucophage) 500 mg PO BIDCC [facility] Last Admin: 06/24/18 08:24 Dose: 500 mg Mirtazapine (Remeron) 15 mg PO HS [facility] Last Admin: 12/26/18 21:26 Dose: 15 mg Oxycodone HCl (Oxycodone Immediate Release Tab) 30 mg PO BID [facility] Last Admin: 06/24/18 10:27 Dose: 30 mg Rosuvastatin Calcium (Crestor) 10 mg PO DAILY [facility] Last Admin: 06/24/18 10:27 Dose: 10 mg Saccharomyces Boulardii (Florastor) 250 mg PO HS [facility] Last Admin: 06/23/18 21:25 Dose: 250 mg Sitagliptin Phosphate (Januvia) 100 mg PO DAILY [facility] Last Admin: 06/24/18 10:28 Dose: Not Given - Labs Labs: 06/24/18 07:25 06/24/18 07:25 PT 11.2 SECONDS (9.7-12.2) 06/24/18 07:25 INR 1.0 06/24/18 07:25 - Constitutional Appears: Non-toxic, No Acute Distress - Head Exam Head Exam: ATRAUMATIC, NORMOCEPHALIC - Eye Exam Eye Exam: EOMI - Respiratory Exam Respiratory Exam: NORMAL BREATHING PATTERN - Cardiovascular Exam Cardiovascular Exam: +S1, +S2 - Extremities Exam Additional comments: right toe skin changes noted, healing left toe skin changes with necrotic 2nd/3rd toes noted. Malodorous. No active drainage or discharge. B/L lower extremity dopplerable signals DP/PT Feet warm bilaterally Assessment and Plan - Assessment and Plan (Free Text) Assessment: 77yo M with severe PVD. Left foot non-healing wound. Possible osteo - Bone scan results noted Plan: - f/u arterial Duplex w ABIs - Continue IV Abx as per Primary team Further recs per Dr. Christophe Peres PGY3
--- NOTE | 2018-06-24 13:45 | CP.PCM.PN ---
Subjective - Date & Time of Evaluation Date of Evaluation: 06/24/18 Time of Evaluation: 13:45 - Subjective Subjective: CHIEF COMPLAINTS TODAY : Patient currently is complaining of mild pain in the left foot ROS. HEENT : N. Resp : No cough, wheezing ,pleuritic CP ,or hemoptysis Cardio : No anginal CP, PND, orthopnea, palpitation GI : No abd.pain, n/v ,diarrhea or GI bleeding . DRAPERY SEAMSTRESS : No headache, vertigo, focal deficit. Musculoskel : No joint swelling , Derm : No rash Psych : Normal affect. Ext : No swelling ,calf pain PE. Pt. is alert awake in no distress. V.S As noted in the chart Head ,ear nose,throat and eyes : Normal. Neck : Supple with normal carotids. Lungs: Clear air entry. Heart : S1 & S2 normal with S4. No murmur. Abd : Soft non tender with normal bowel sounds. Neuro : Moves all ext. with no localized deficit. Ext : No edema with intact pulses.Non tender calves the left third toe is swollen with inflammation and cellulitis with dried up scab on the dorsum surface Derm : No rashes or decubitus ulcer. 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 cONTINUE iv ANTIBIOTICS AND MONITOR BLOOD SUGAR vascular surgery on consult. Objective - Vital Signs/Intake and Output Vital Signs (last 24 hours): Temp Pulse Resp BP Pulse Ox 97.8 F 69 20 128/63 97 06/24/18 07:53 06/24/18 07:53 06/24/18 07:53 06/24/18 07:53 06/24/18 07:53 - Medications Medications: Current Medications Albuterol/Ipratropium (Duoneb 3 Mg/0.5 Mg (3 Ml) Ud) 3 ml INH RBID [facility] Last Admin: 06/24/18 07:43 Dose: 3 ml Clopidogrel Bisulfate (Plavix) 75 mg PO DAILY [facility] Last Admin: 06/24/18 10:27 Dose: 75 mg Ezetimibe (Zetia) 10 mg PO DAILY [facility] Last Admin: 06/24/18 10:27 Dose: 10 mg Enoxaparin Sodium (Lovenox) 40 mg SC DAILY [facility] Last Admin: 06/24/18 10:28 Dose: 40 mg Ceftriaxone Sodium 1 gm/ (Sodium Chloride) 100 mls @ 100 mls/hr IVPB DAILY [facility]; Protocol Last Admin: 06/24/18 10:28 Dose: 100 mls/hr Clindamycin Phosphate 300 mg/ (Sodium Chloride) 52 mls @ 100 mls/hr IVPB Q8H [facility]; Protocol Last Admin: 06/24/18 12:08 Dose: 100 mls/hr Insulin Human Regular (Novolin R) 0 unit SC ACHS [facility]; Protocol Last Admin: 06/24/18 12:08 Dose: 2 units Lisinopril (Zestril) 20 mg PO DAILY [facility] Last Admin: 06/24/18 10:33 Dose: 20 mg Metformin HCl (Glucophage) 500 mg PO BIDCC [facility] Last Admin: 06/24/18 08:24 Dose: 500 mg Mirtazapine (Remeron) 15 mg PO HS [facility] Last Admin: 06/23/18 21:26 Dose: 15 mg Oxycodone HCl (Oxycodone Immediate Release Tab) 30 mg PO BID [facility] Last Admin: 06/24/18 10:27 Dose: 30 mg Rosuvastatin Calcium (Crestor) 10 mg PO DAILY [facility] Last Admin: 06/24/18 10:27 Dose: 10 mg Saccharomyces Boulardii (Florastor) 250 mg PO HS [facility] Last Admin: 06/23/18 21:25 Dose: 250 mg Sitagliptin Phosphate (Januvia) 100 mg PO DAILY [facility] Last Admin: 06/24/18 10:28 Dose: Not Given - Labs Labs: 06/24/18 07:25 06/24/18 07:25 PT 11.2 SECONDS (9.7-12.2) 06/24/18 07:25 INR 1.0 06/24/18 07:25 Assessment and Plan (1) Diabetic ulcer of left foot Status: Acute (2) PVD (peripheral vascular disease) Status: Acute (3) COPD (chronic obstructive pulmonary disease) Status: Acute (4) COPD exacerbation Status: Acute (5) Diabetes Status: Acute (6) HTN (hypertension) Status: Acute
--- NOTE | 2018-06-24 15:33 | RAD ---
Date of service: 06/24/2018 HISTORY: PICC Insertion COMPARISON: 06/21/2018 FINDINGS: LUNGS: No active pulmonary disease. PLEURA: No significant pleural effusion identified, no pneumothorax apparent. CARDIOVASCULAR: No aortic atherosclerotic calcification present. Normal cardiac size. No congestive change. New right PICC catheter terminates at the level of the cavoatrial junction. OSSEOUS STRUCTURES: No significant abnormalities. VISUALIZED UPPER ABDOMEN: Normal. OTHER FINDINGS: None. IMPRESSION: No infiltrate. New right PICC catheter terminates at the level of the cavoatrial junction.
--- NOTE | 2018-06-24 16:33 | CP.PCM.PN ---
Subjective - Date & Time of Evaluation Date of Evaluation: 06/24/18 Time of Evaluation: 16:32 - Subjective Subjective: 77 y/o male seen at bedside this morning with attending Dr. Juárez regarding left foot 3rd and 5th digit ulcers. Pt states he is feeling fine today. Denies any pedal complaints. Says he had his bone scan but is awaiting tests to see how his blood flow is. Denies any overnight events. Denies F/C/N/V/CP/SOB Objective - Vital Signs/Intake and Output Vital Signs (last 24 hours): Temp Pulse Resp BP Pulse Ox 97.8 F 69 20 128/63 97 06/24/18 07:53 06/24/18 07:53 06/24/18 07:53 06/24/18 07:53 06/24/18 07:53 Intake and Output: 06/24/18 06/24/18 06:59 18:59 Intake Total 400 Balance 400 - Medications Medications: Current Medications Albuterol/Ipratropium (Duoneb 3 Mg/0.5 Mg (3 Ml) Ud) 3 ml INH RBID [facility] Last Admin: 06/24/18 07:43 Dose: 3 ml Clopidogrel Bisulfate (Plavix) 75 mg PO DAILY [facility] Last Admin: 06/24/18 10:27 Dose: 75 mg Ezetimibe (Zetia) 10 mg PO DAILY [facility] Last Admin: 06/24/18 10:27 Dose: 10 mg Enoxaparin Sodium (Lovenox) 40 mg SC DAILY [facility] Last Admin: 06/24/18 10:28 Dose: 40 mg Ceftriaxone Sodium 1 gm/ (Sodium Chloride) 100 mls @ 100 mls/hr IVPB DAILY [facility]; Protocol Last Admin: 06/24/18 10:28 Dose: 100 mls/hr Clindamycin Phosphate 300 mg/ (Sodium Chloride) 52 mls @ 100 mls/hr IVPB Q8H [facility]; Protocol Last Admin: 06/24/18 12:08 Dose: 100 mls/hr Insulin Glargine (Lantus) 20 unit SC HS [facility] Insulin Human Regular (Novolin R) 0 unit SC ACHS [facility]; Protocol Last Admin: 06/24/18 12:08 Dose: 2 units Lisinopril (Zestril) 20 mg PO DAILY [facility] Last Admin: 06/24/18 10:33 Dose: 20 mg [facility] Last Admin: 06/24/18 08:24 Dose: 500 mg Mirtazapine (Remeron) 15 mg PO [facility] Last Admin: 06/23/18 21:26 Dose: 15 mg Oxycodone HCl (Oxycodone Immediate Release Tab) 30 mg PO BID [facility] Last Admin: 06/24/18 10:27 Dose: 30 mg Rosuvastatin Calcium (Crestor) 10 mg PO DAILY [facility] Last Admin: 06/24/18 10:27 Dose: 10 mg Saccharomyces Boulardii (Florastor) 250 mg PO [facility] Last Admin: 06/23/18 21:25 Dose: 250 mg Sitagliptin Phosphate (Januvia) 100 mg PO DAILY [facility] Last Admin: 06/24/18 10:28 Dose: Not Given - Labs Labs: 06/24/18 07:25 06/24/18 07:25 PT 11.2 SECONDS (9.7-12.2) 06/24/18 07:25 INR 1.0 06/24/18 07:25 - Constitutional Appears: Well, Non-toxic, No Acute Distress - Extremities Exam Additional comments: Left lower extremity focused exam: Vasc: DP/PT pulses 1/4. Skin temperature warm to warm from proximal to distal. CFT < 3 seconds to all digits. No edema noted to periwound areas Neuro: Epicritic and protective sensation grossly intact Derm: Superficial, unstagable ulcerations noted to dorsal aspect of left third and fifth digit. Hyperpigmentation with hyperkeratosis noted to 3rd digit diffusely. No malodor, no drainage, no probe to bone, no other clinical signs of infection. Ortho: Minimal tenderness on palpation of all ulceration sites. ROM WNL at all major joints. - Neurological Exam Neurological Exam: Alert, Awake, Oriented x3 - Psychiatric Exam Psychiatric exam: Normal Affect, Normal Mood Assessment and Plan - Assessment and Plan (Free Text) Assessment: 77 y/o male with diabetic ulcerations of left foot 3rd and 5th digits Plan: Patient seen and evaluated at bedside with Dr. Juárez Continue IV abx per ID - wound cx shows growth of Coag neg Staph L foot x-rays show no destructive osseous lesions Nuclear bone scan shows increased uptake at left foot at 2nd digit Wound dressed with betadine and DSD Vascular consult placed for Dr. Saeed - pt is 3 months s/p vascular inter vention to [facility] Await results of DEISY/PVR studies Podiatry will continue to follow while patient in house
--- NOTE | 2018-06-24 20:36 | CP.PCM.PN ---
Subjective - Date & Time of Evaluation Date of Evaluation: 06/24/18 Time of Evaluation: 20:36 - Subjective Subjective: CHIEF COMPLAINTS TODAY : AFEBRILE NAEO c/o pain left foot. SEEN BY VASCULAR SURGERY ROS. HEENT : N. Resp : No cough, wheezing ,pleuritic CP ,or hemoptysis Cardio : No anginal CP, PND, orthopnea, palpitation GI : No abd.pain, n/v ,diarrhea or GI bleeding . [employer] : No headache, vertigo, focal deficit. Musculoskel : No joint swelling , Derm : No rash Psych : Normal affect. Ext : No swelling ,calf pain LT.FOOT IN DRESSING. PE. Pt. is alert awake in no distress. V.S As noted in the chart Head ,ear nose,throat and eyes : Normal. Neck : Supple with normal carotids. Lungs: Clear air entry. Heart : S1 & S2 normal with S4. No murmur. Abd : Soft non tender with normal bowel sounds. Neuro : Moves all ext. with no localized deficit. Ext : No edema with intact pulses.Non tender calves , the left 2ND toe is swollen with inflammation and cellulitis with NECROTIC SCAB on the dorsum surface. Derm : No rashes or decubitus ulcer. LABS/RADIOLOGY: REVIEWED wound culture +SCN BLOOD CULTURE 1:2 SETS +VE STAPH COAGULASE-NEGATIVE ? CONTAMINANT. esr 25 XRAY LT FOOT; diffuse degenerative disease. No osseous lesions seen.no fracture THREE-PHASE BONE SCAN; +VE OSTEOMYELITIS SECOND LEFT PHALANX FOOT. ASSESSMENT/PLAN : AWAIT VASCULAR STUDIES. Continue IV antibiotics iv rocephin /iv CLEOCIN 06/21/18 VANCO DC IN VIEW OF NEPHROTOXICITY CULTURES +VE SCN ? SKIN CONTRERAS PODIATRY F/U NOTED. LWC Objective - Vital Signs/Intake and Output Vital Signs (last 24 hours): Temp Pulse Resp BP Pulse Ox 97.7 F 56 L 20 135/69 96 06/24/18 18:03 06/24/18 18:03 06/24/18 18:03 06/24/18 18:03 06/24/18 18:03 - Medications Medications: Current Medications Albuterol/Ipratropium (Duoneb 3 Mg/0.5 Mg (3 Ml) Ud) 3 ml INH RBID [facility] Last Admin: 06/24/18 20:12 Dose: 3 ml Clopidogrel Bisulfate (Plavix) 75 mg PO DAILY [facility] Last Admin: 06/24/18 10:27 Dose: 75 mg Ezetimibe (Zetia) 10 mg PO DAILY [facility] Last Admin: 06/24/18 10:27 Dose: 10 mg Enoxaparin Sodium (Lovenox) 40 mg SC DAILY [facility] Last Admin: 06/24/18 10:28 Dose: 40 mg Ceftriaxone Sodium 1 gm/ (Sodium Chloride) 100 mls @ 100 mls/hr IVPB DAILY [facility]; Protocol Last Admin: 06/24/18 10:28 Dose: 100 mls/hr Clindamycin Phosphate 300 mg/ (Sodium Chloride) 52 mls @ 100 mls/hr IVPB Q8H [facility]; Protocol Last Admin: 06/24/18 18:49 Dose: 100 mls/hr Insulin Glargine (Lantus) 20 unit SC [facility] Insulin Human Regular (Novolin R) 0 unit SC ACHS [facility]; Protocol Last Admin: 06/24/18 16:52 Dose: 6 units Lisinopril (Zestril) 20 mg PO DAILY [facility] Last Admin: 06/24/18 10:33 Dose: 20 mg [facility] Last Admin: 06/24/18 16:50 Dose: 500 mg Mirtazapine (Remeron) 15 mg PO [facility] Last Admin: 06/23/18 21:26 Dose: 15 mg Oxycodone HCl (Oxycodone Immediate Release Tab) 30 mg PO BID [facility] Last Admin: 06/24/18 17:33 Dose: 30 mg Rosuvastatin Calcium (Crestor) 10 mg PO DAILY [facility] Last Admin: 06/24/18 10:27 Dose: 10 mg Saccharomyces Boulardii (Florastor) 250 mg PO [facility] Last Admin: 06/23/18 21:25 Dose: 250 mg Sitagliptin Phosphate (Januvia) 100 mg PO DAILY [facility] Last Admin: 06/24/18 10:28 Dose: Not Given - Labs Labs: 06/24/18 07:25 06/24/18 07:25 PT 11.2 SECONDS (9.7-12.2) 06/24/18 07:25 INR 1.0 06/24/18 07:25 Assessment and Plan (1) Osteomyelitis of right foot Assessment & Plan: +VE BONE SCAN : OM 2ND PHALNX LEFT FOOT. Status: Acute (2) Diabetic ulcer of left foot Status: Acute (3) PVD (peripheral vascular disease) Status: Acute (4) Acute renal insufficiency Status: Acute (5) Closed left hip fracture Status: Acute (6) Diabetes Status: Acute
[2018-06-24] MEDS: (Lantus) Insulin Glargine, Recombinant SC SCH (21:25)
[2018-06-24] MEDS: Saccharomyces Boulardi 250 mg Cap PO SCH (22:22)
[2018-06-25] MEDS: Clindamycin 300 MG in Sodium Chloride 0.9% 50 ML IVPB SCH ×3 (03:48→19:06)
[2018-06-25 07:11] LABS: BASO # 0.1 K/uL (0.0-0.2); BASO % 0.9 % (0.0-2.0); EOS # 0.2 K/uL (0.0-0.7); EOS % 3.5 % (0.0-4.0); HEMOGLOBIN 8.7 g/dL (12.0-18.0); LYMPH # 1.1 K/uL (1.0-4.3); MEAN CELL VOLUME 84.8 fL (80.0-94.0); MEAN CORPUSCULAR HEMOGLOBIN 28.5 pg (27.0-31.0); MEAN CORPUSCULAR HGB CONC 33.6 g/dL (33.0-37.0); MEAN PLATELET VOLUME 9.5 fL (7.2-11.7); MONO # 0.4 K/uL (0.0-0.8); MONO % 5.7 % (0.0-10.0); NEUT # 5.3 K/uL (1.8-7.0); NEUT % 73.9 % (50.0-75.0); RBC 3.07 Mil/uL (4.40-5.90); RED CELL DISTRIBUTION WIDTH 15.1 % (11.5-14.5); WHITE BLOOD COUNT 7.2 K/uL (4.8-10.8)
[2018-06-25 07:26] LABS: ALB/GLOB RATIO 1.2 (1.0-2.1); ALBUMIN 3.3 g/dL (3.5-5.0); CALCIUM 8.3 mg/dl (8.6-10.4)
[2018-06-25] MEDS: (Novolin R) Insulin Human Regular 100 units/ml vial SC SCH ×4 (07:55→22:08)
[2018-06-25] MEDS: Albuterol-Ipratrop 3 mg / 0.5 (3 ml) UD INH SCH ×2 (08:25→19:45)
[2018-06-25] MEDS: oxyCODONE 30 mg Immediate Release Tab PO SCH ×2 (09:33→19:08)
[2018-06-25] MEDS: Enoxaparin 40 mg Syringe SC SCH (09:35)
[2018-06-25] MEDS ORDERED: Iodixanol 320 MG/ML 200 ML BOTTLE IV ONE (12:04)
[2018-06-25] MEDS ORDERED: Midazolam 2 MG/2 ML VIAL ONE (12:07)
[2018-06-25] MEDS ORDERED: Propofol 10 mg/ml Inj (20 ML) ONE (12:08)
[2018-06-25] MEDS ORDERED: Lidocaine 2% MPF (5 ml) Inj ONE (12:09)
--- NOTE | 2018-06-25 13:22 | CP.PCM.PN ---
Subjective - Date & Time of Evaluation Date of Evaluation: 06/25/18 Time of Evaluation: 13:21 - Subjective Subjective: CHIEF COMPLAINTS TODAY : last night patient's blood sugar hadped down to 60. Patient was given . Lantus has been discontinued. Awaiting for angios of the left leg. ROS. HEENT : N. Resp : No cough, wheezing ,pleuritic CP ,or hemoptysis Cardio : No anginal CP, PND, orthopnea, palpitation GI : No abd.pain, n/v ,diarrhea or GI bleeding . HAND QUILTER : No headache, vertigo, focal deficit. Musculoskel : No joint swelling , Derm : No rash Psych : Normal affect. Ext : No swelling ,calf pain PE. Pt. is alert awake in no distress. V.S As noted in the chart Head ,ear nose,throat and eyes : Normal. Neck : Supple with normal carotids. Lungs: Clear air entry. Heart : S1 & S2 normal with S4. No murmur. Abd : Soft non tender with normal bowel sounds. Neuro : Moves all ext. with no localized deficit. Ext : No edema with intact pulses.Non tender calves the left third toe is swoll en with inflammation and cellulitis with dried up scab on the dorsum surface Derm : No rashes or decubitus ulcer. 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 cONTINUE iv ANTIBIOTICS AND MONITOR BLOOD SUGAR vascular surgery on consult. Objective - Vital Signs/Intake and Output Vital Signs (last 24 hours): Temp Pulse Resp BP Pulse Ox 96.8 F L 66 20 162/73 H 96 06/25/18 08:00 06/25/18 08:00 06/25/18 08:00 06/25/18 08:00 06/25/18 08:00 Intake and Output: 06/25/18 06/25/18 11:59 23:59 Intake Total 50 Output Total 450 Balance -400 - Medications Medications: Current Medications Albuterol/Ipratropium (Duoneb 3 Mg/0.5 Mg (3 Ml) Ud) 3 ml INH RBID [facility] Last Admin: 06/25/18 08:25 Dose: 3 ml Clopidogrel Bisulfate (Plavix) 75 mg PO DAILY [facility] Last Admin: 06/25/18 09:36 Dose: Not Given Ezetimibe (Zetia) 10 mg PO DAILY [facility] Last Admin: 06/25/18 09:32 Dose: 10 mg Enoxaparin Sodium (Lovenox) 40 mg SC DAILY [facility] Last Admin: 06/25/18 09:35 Dose: Not Given Ceftriaxone Sodium 1 gm/ (Sodium Chloride) 100 mls @ 100 mls/hr IVPB DAILY [facility]; Protocol Last Admin: 06/25/18 09:32 Dose: 100 mls/hr Clindamycin Phosphate 300 mg/ (Sodium Chloride) 52 mls @ 100 mls/hr IVPB Q8H [facility]; Protocol Last Admin: 06/25/18 12:15 Dose: Not Given Insulin Glargine (Lantus) 20 unit SC [facility] Last Admin: 06/24/18 21:25 Dose: Not Given Insulin Human Regular (Novolin R) 0 unit SC [facility]; Protocol Last Admin: 06/25/18 12:13 Dose: Not Given Lisinopril (Zestril) 20 mg PO DAILY [facility] Last Admin: 06/25/18 09:32 Dose: 20 mg [facility] ([facility]) [facility] Last Admin: 06/25/18 07:55 Dose: Not Given Mirtazapine (Remeron) 15 mg PO [facility] Last Admin: 06/24/18 22:22 Dose: 15 mg Oxycodone HCl (Oxycodone Immediate Release Tab) 30 mg PO BID [facility] Last Admin: 06/25/18 09:33 Dose: 30 mg Rosuvastatin Calcium (Crestor) 10 mg PO DAILY [facility] Last Admin: 06/25/18 09:32 Dose: 10 mg Saccharomyces Boulardii (Florastor) 250 mg PO [facility] Last Admin: 06/24/18 22:22 Dose: 250 mg Sitagliptin Phosphate (Januvia) 100 mg PO DAILY [facility] Last Admin: 06/25/18 09:35 Dose: Not Given - Labs Labs: 06/25/18 07:08 06/25/18 07:08 PT 11.2 SECONDS (9.7-12.2) 06/24/18 07:25 INR 1.0 06/24/18 07:25 Assessment and Plan (1) Diabetic ulcer of left foot Status: Acute (2) PVD (peripheral vascular disease) Status: Acute (3) COPD (chronic obstructive pulmonary disease) Status: Acute (4) COPD exacerbation Status: Acute (5) Diabetes Status: Acute (6) HTN (hypertension) Status: Acute
--- NOTE | 2018-06-25 13:32 | CP.PCM.PN ---
Subjective - Date & Time of Evaluation Date of Evaluation: 06/25/18 Time of Evaluation: 13:32 Objective - Vital Signs/Intake and Output Vital Signs (last 24 hours): Temp Pulse Resp BP Pulse Ox 96.8 F L 66 20 162/73 H 96 06/25/18 08:00 06/25/18 08:00 06/25/18 08:00 06/25/18 08:00 06/25/18 08:00 Intake and Output: 06/25/18 06/25/18 06:59 18:59 Intake Total 650 Output Total 1050 Balance -400 - Medications Medications: Current Medications Albuterol/Ipratropium (Duoneb 3 Mg/0.5 Mg (3 Ml) Ud) 3 ml INH RBID [facility] Last Admin: 06/25/18 08:25 Dose: 3 ml Clopidogrel Bisulfate (Plavix) 75 mg PO DAILY [facility] Last Admin: 06/25/18 09:36 Dose: Not Given Ezetimibe (Zetia) 10 mg PO DAILY [facility] Last Admin: 06/25/18 09:32 Dose: 10 mg Enoxaparin Sodium (Lovenox) 40 mg SC DAILY [facility] Last Admin: 06/25/18 09:35 Dose: Not Given Ceftriaxone Sodium 1 gm/ (Sodium Chloride) 100 mls @ 100 mls/hr IVPB DAILY [facility]; Protocol Last Admin: 06/25/18 09:32 Dose: 100 mls/hr Clindamycin Phosphate 300 mg/ (Sodium Chloride) 52 mls @ 100 mls/hr IVPB Q8H [facility]; Protocol Last Admin: 06/25/18 12:15 Dose: Not Given Insulin Glargine (Lantus) 20 unit SC [facility] Last Admin: 06/24/18 21:25 Dose: Not Given Insulin Human Regular (Novolin R) 0 unit SC ACHS [facility]; Protocol Last Admin: 06/25/18 12:13 Dose: Not Given Lisinopril (Zestril) 20 mg PO DAILY [facility] Last Admin: 06/25/18 09:32 Dose: 20 mg Metformin HCl (Glucophage) 500 mg PO [facility] Last Admin: 06/25/18 07:55 Dose: Not Given Mirtazapine (Remeron) 15 mg PO HS [facility] Last Admin: 06/24/18 22:22 Dose: 15 mg Oxycodone HCl (Oxycodone Immediate Release Tab) 30 mg PO BID [facility] Last Admin: 06/25/18 09:33 Dose: 30 mg Rosuvastatin Calcium (Crestor) 10 mg PO DAILY [facility] Last Admin: 06/25/18 09:32 Dose: 10 mg Saccharomyces Boulardii (Florastor) 250 mg PO HS [facility] Last Admin: 06/24/18 22:22 Dose: 250 mg Sitagliptin Phosphate (Januvia) 100 mg PO DAILY [facility] Last Admin: 06/25/18 09:35 Dose: Not Given - Labs Labs: 06/25/18 07:08 06/25/18 07:08 PT 11.2 SECONDS (9.7-12.2) 06/24/18 07:25 INR 1.0 06/24/18 07:25 Assessment and Plan (1) Osteomyelitis of right foot Status: Acute (2) Diabetic ulcer of left foot Status: Acute (3) PVD (peripheral vascular disease) Status: Acute (4) Acute renal insufficiency Status: Acute (5) Closed left hip fracture Status: Acute (6) Diabetes Status: Acute
--- NOTE | 2018-06-25 13:51 | PCM.SURG1 ---
Surgeon's Initial Post Op Note - Surgeon's Notes Surgeon: anna Electrician Helper Powerhouse: 0 Type of Anesthesia: IV Sedation Anesthesia Administered By: tam Pre-Operative Diagnosis: gangrene of left foot Operative Findings: 50% popliteal stenosis. all 3 tibial vessels occluded distally. Posteriot tibial open to ankle but diseased-plastied. peroneal open to its end. anteror tibial occludes soon after origin with no distal vessel. mynx right groin Post-Operative Diagnosis: same Operation Performed: aortofemoral angiogram via right groin. selective catherization of left femoral artery. balloon angioplasty left popliteal 4 mm. balloon angioplasty of left posterior tibial artery 1.5-2 mm Specimen/Specimens Removed: 0 Estimated Blood Loss: EBL {In ML}: 25 Blood Products Given: N/A Drains Used: No Drains Post-Op Condition: Good Date of Surgery/Procedure: 06/25/18 Time of Surgery/Procedure: 13:54
--- NOTE | 2018-06-25 20:24 | CP.PCM.PN ---
Subjective - Date & Time of Evaluation Date of Evaluation: 06/25/18 Time of Evaluation: 20:24 - Subjective Subjective: CHIEF COMPLAINTS TODAY : AFEBRILE ADYEO SEEN BY VASCULAR SURGERY Operation Performed: aortofemoral angiogram via right groin. selective catherization of left femoral artery. balloon angioplasty left popliteal 4 mm. balloon angioplasty of left posterior tibial artery 1.5-2 mm ROS. HEENT : N. Resp : No cough, wheezing ,pleuritic CP ,or hemoptysis Cardio : No anginal CP, PND, orthopnea, palpitation GI : No abd.pain, n/v ,diarrhea or GI bleeding . TOOL AND DIE MACHINIST : No headache, vertigo, focal deficit. Musculoskel : No joint swelling , Derm : No rash Psych : Normal affect. Ext : No swelling ,calf pain LT.FOOT IN DRESSING. PE. Pt. is alert awake in no distress. V.S As noted in the chart Head ,ear nose,throat and eyes : Normal. Neck : Supple with normal carotids. Lungs: Clear air entry. Heart : S1 & S2 normal with S4. No murmur. Abd : Soft non tender with normal bowel sounds. Neuro : Moves all ext. with no localized deficit. Ext : No edema with intact pulses.Non tender calves , the left 2ND toe is swollen with inflammation and cellulitis with NECROTIC SCAB on the dorsum surface. Derm : No rashes or decubitus ulcer. LABS/RADIOLOGY: REVIEWED wound culture +SCN BLOOD CULTURE 1:2 SETS +VE STAPH COAGULASE-NEGATIVE ? CONTAMINANT. esr 25 creat 1.5/bun 33 gfr 45 XRAY LT FOOT; diffuse degenerative disease. No osseous lesions seen.no fracture THREE-PHASE BONE SCAN; +VE OSTEOMYELITIS SECOND LEFT PHALANX FOOT. ASSESSMENT/PLAN : Will discuss with podiatry .Patient has history of MRSA in the past, so we will have to cover MRSA coverage with daptomycin which is less nephrotoxic for 6 weeks for osteomyelitis left second phalanx left foot, if no further surgery planned dc iv Cleocin in view of pseudomembranous colitis if given for prolonged time. DC IV ROCEPHIN. PATIENT WILL NEED A picc LINE FOR iv ANTIBIOTICS FOR SUBACUTE REHABILITATION. CASE DISCUSSED WITH SEED CLEANING MACHINE OPERATOR MS TOBAR.. Objective - Vital Signs/Intake and Output Vital Signs (last 24 hours): Temp Pulse Resp BP Pulse Ox 97.9 F 71 20 146/63 97 12/28/18 16:00 06/25/18 16:00 06/25/18 16:00 06/25/18 16:00 06/25/18 16:00 Intake and Output: 06/25/18 06/26/18 18:59 06:59 Intake Total 100 Balance 100 - Medications Medications: Current Medications Albuterol/Ipratropium (Duoneb 3 Mg/0.5 Mg (3 Ml) Ud) 3 ml INH RBID [facility] Last Admin: 06/25/18 19:45 Dose: 3 ml Clopidogrel Bisulfate (Plavix) 75 mg PO DAILY [facility] Last Admin: 06/25/18 09:36 Dose: Not Given Ezetimibe (Zetia) 10 mg PO DAILY [facility] Last Admin: 06/25/18 09:32 Dose: 10 mg Enoxaparin Sodium (Lovenox) 40 mg SC DAILY [facility] Last Admin: 06/25/18 09:35 Dose: Not Given Ceftriaxone Sodium 1 gm/ (Sodium Chloride) 100 mls @ 100 mls/hr IVPB DAILY [facility]; Protocol Last Admin: 06/25/18 09:32 Dose: 100 mls/hr Clindamycin Phosphate 300 mg/ (Sodium Chloride) 52 mls @ 100 mls/hr IVPB Q8H [facility]; Protocol Last Admin: 06/25/18 19:06 Dose: 100 mls/hr Insulin Glargine (Lantus) 20 unit SC [facility] Last Admin: 06/24/18 21:25 Dose: Not Given Insulin Human Regular (Novolin R) 0 [facility]; Protocol Last Admin: 06/25/18 15:37 Dose: 6 units Lisinopril (Zestril) 20 mg PO DAILY [facility] Last Admin: 06/25/18 09:32 Dose: 20 mg Metformin HCl (Glucophage) [facility] Last Admin: 06/25/18 19:07 Dose: Not Given Mirtazapine (Remeron) 15 mg PO HS [facility] Last Admin: 06/24/18 22:22 Dose: 15 mg Oxycodone HCl (Oxycodone Immediate Release Tab) 30 mg PO BID [facility] Last Admin: 06/25/18 19:08 Dose: 30 mg Rosuvastatin Calcium (Crestor) 10 mg PO DAILY [facility] Last Admin: 06/25/18 09:32 Dose: 10 mg Saccharomyces Boulardii (Florastor) 250 mg PO [facility] Last Admin: 06/24/18 22:22 Dose: 250 mg Sitagliptin Phosphate (Januvia) 100 mg PO DAILY [facility] Last Admin: 06/25/18 09:35 Dose: Not Given - Labs Labs: 06/25/18 07:08 06/25/18 07:08 PT 11.2 SECONDS (9.7-12.2) 06/24/18 07:25 INR 1.0 06/24/18 07:25 Assessment and Plan (1) Osteomyelitis of right foot Status: Acute (2) Diabetic ulcer of left foot Status: Acute (3) PVD (peripheral vascular disease) Status: Acute (4) Acute renal insufficiency Status: Acute (5) Closed left hip fracture Status: Acute (6) Diabetes Status: Acute
[2018-06-25] MEDS ORDERED: DAPTOmycin 500 mg Inj (Cubicin) IV SCH (20:45)
[2018-06-25] MEDS: Saccharomyces Boulardi 250 mg Cap PO SCH (22:06)
[2018-06-25] MEDS: (Lantus) Insulin Glargine, Recombinant SC SCH (22:07)
--- NOTE | 2018-06-26 05:41 | VAS ---
DATE: 06/25/2018 PREOPERATIVE DIAGNOSIS: Gangrene, ischemic ulceration; left foot. POSTOPERATIVE DIAGNOSIS: Gangrene, ischemic ulceration; left foot. PROCEDURES CARRIED OUT: 1. Aortofemoral angiogram via right groin with selective catheterization of left femoral artery. 2. Balloon angioplasty of popliteal artery using a 4-mm balloon and balloon angioplasty of the left posterior tibial artery using a 1.5 to 2 mm tapered balloon. SURGEON: Jeffrey Saeed Jr., MD SENIOR MEDICAL TRANSCRIPTIONIST: None. ANESTHESIOLOGIST: Gilberto Banda CRNA ANESTHESIA: Local with sedation. DESCRIPTION OF PROCEDURE: The patient is an elderly man with history of previous interventions to left leg, nonhealing ulcer. OPERATIVE FINDINGS: The aorta and renal arteries were free of significant occlusive disease though adequate picture was not obtained of the right renal artery. The aorta was widely patent. The common internal and external iliac arteries were all widely patent. Common femoral arteries and profunda femoris arteries were widely patent. Beyond the right side, the superficial femoral arteries were patent down to the level of the popliteal and below this, detailed pictures were not taken due to the patient's body habitus. On the left side, there was approximately 50% to 60% stenosis of the proximal portion of the popliteal artery, and below this, all three tibial vessels were occluded. The anterior tibial artery tied at approximately 2 inches after its origin. The peroneal artery was the major vessel into the foot and the posterior tibial artery was severely diseased throughout it course. There were no named vessels in the foot. Subsequent to the performance of the diagnostic arteriogram, a stiff-angled guidewire was advanced over the aortic bifurcation and a 6-Italian sheath positioned in the distal portion of the popliteal artery. Using road mapping techniques, the posterior tibial artery was cannulated and a guidewire was advanced distally as far as _the ankle joint. We heparinized the patient and dilated with a 1.5 to 2-mm balloon from the ankle up to the trifurcation. Subsequent pictures showed routine improvement throughout the course of the vessel. Attempts were made to cannulate the anterior tibial artery but were unsuccessful ,it occluded soon after the origin. We then dilated with a 4-mm balloon the popliteal artery stenosis on the way out. Subsequent picture showed improvement as well. At that point, we then deployed a Mynx device in the groin and terminated the procedure. BLOOD LOSS FOR THE PROCEDURE: 25 mL. OPERATION CARRIED OUT: Aortofemoral angiogram via right groin with selective catheterization of left femoral artery, balloon angioplasty of left popliteal artery, and balloon angioplasty of left posterior tibial artery. Jeffrey Saeed Jr., MD MTDJonas
[2018-06-26 07:08] LABS: EOS # 0.2 K/uL (0.0-0.7); MEAN PLATELET VOLUME 10.3 fL (7.2-11.7); MONO # 0.5 K/uL (0.0-0.8)
[2018-06-26 07:19] LABS: ALBUMIN 2.9 g/dL (3.5-5.0); CALCIUM 7.9 mg/dl (8.6-10.4)
[2018-06-26 07:26] LABS: BASO % 0.6 % (0.0-2.0); EOS % 2.8 % (0.0-4.0); LYMPH % 14.1 % (20.0-40.0); MEAN CELL VOLUME 84.2 fL (80.0-94.0); MEAN CORPUSCULAR HEMOGLOBIN 28.3 pg (27.0-31.0); MEAN CORPUSCULAR HGB CONC 33.6 g/dL (33.0-37.0); NEUT # 5.6 K/uL (1.8-7.0); NEUT % 75.5 % (50.0-75.0); RBC 2.27 Mil/uL (4.40-5.90); RED CELL DISTRIBUTION WIDTH 15.3 % (11.5-14.5); WHITE BLOOD COUNT 7.4 K/uL (4.8-10.8)
[2018-06-26 07:39] LABS: HEMOGLOBIN 6.4 g/dL (12.0-18.0)
--- NOTE | 2018-06-26 08:00 | CP.PCM.PN ---
Subjective - Date & Time of Evaluation Date of Evaluation: 06/26/18 Time of Evaluation: 07:57 - Subjective Subjective: Vascular Surgery - Dr. Saeed Pt S&E. Pt developed groin hematoma s/p angio yesterday. This morning there is no increase in the size of hematoma in the groin and scrotal area. Pt denies any complaints at this time and states that he has remained on bedrest. No Fevers/Chills, SOB/chest pain. Objective - Vital Signs/Intake and Output Vital Signs (last 24 hours): Temp Pulse Resp BP Pulse Ox 98.1 F 76 20 132/68 96 06/26/18 00:00 06/26/18 00:00 06/26/18 00:00 06/26/18 00:00 06/26/18 00:00 Intake and Output: 06/26/18 06/26/18 06:59 18:59 Intake Total 620 Output Total 550 Balance 70 - Medications Medications: Current Medications Albuterol/Ipratropium (Duoneb 3 Mg/0.5 Mg (3 Ml) Ud) 3 ml INH [facility]ID [facility] Last Admin: 06/25/18 19:45 Dose: 3 ml Clopidogrel Bisulfate (Plavix) 75 mg PO DAILY [facility] Last Admin: 06/25/18 09:36 Dose: Not Given Ezetimibe (Zetia) 10 mg PO DAILY [facility] Last Admin: 06/25/18 09:32 Dose: 10 mg Enoxaparin Sodium (Lovenox) 40 mg SC DAILY [facility] Last Admin: 06/25/18 09:35 Dose: Not Given Daptomycin 390 mg/ Sodium (Chloride) 100 mls @ 100 mls/hr IV Q24H [facility] Stop: 06/30/18 21:31 Last Admin: 06/25/18 22:06 Dose: 100 mls/hr Insulin Glargine (Lantus) 20 unit SC [facility] Last Admin: 06/25/18 22:07 Dose: 20 units Insulin Human Regular (Novolin R) 0 unit SC [facility]; Protocol Last Admin: 06/25/18 22:08 Dose: Not Given Lisinopril (Zestril) 20 mg PO DAILY [facility] Last Admin: 06/25/18 09:32 Dose: 20 mg Metformin HCl (Glucophage) 500 mg PO [facility] Last Admin: 06/25/18 19:07 Dose: Not Given Mirtazapine (Remeron) 15 mg PO HS [facility] Last Admin: 06/25/18 22:08 Dose: 15 mg Oxycodone HCl (Oxycodone Immediate Release Tab) 30 mg PO BID [facility] Last Admin: 06/25/18 19:08 Dose: 30 mg Saccharomyces Boulardii (Florastor) 250 mg PO HS [facility] Last Admin: 06/25/18 22:06 Dose: 250 mg Sitagliptin Phosphate (Januvia) 100 mg PO DAILY [facility] Last Admin: 06/25/18 09:35 Dose: Not Given - Labs Labs: 06/26/18 07:02 06/26/18 07:02 PT 11.2 SECONDS (9.7-12.2) 06/24/18 07:25 INR 1.0 06/24/18 07:25 - Constitutional Appears: No Acute Distress - Head Exam Head Exam: ATRAUMATIC, NORMAL INSPECTION, NORMOCEPHALIC - Eye Exam Eye Exam: Normal appearance - Respiratory Exam Respiratory Exam: NORMAL BREATHING PATTERN. absent: Respiratory Distress - Cardiovascular Exam Cardiovascular Exam: REGULAR RHYTHM - GI/Abdominal Exam GI & Abdominal Exam: Soft. absent: Distended, Guarding, Rigid, Tenderness, Rebound Additional comments: Right groin with hematoma extending into scrotum, not increased from yesterday, popliteal pulses and femoral pulses intact - Neurological Exam Neurological Exam: Alert, Oriented x3 - Psychiatric Exam Psychiatric exam: Normal Affect, Normal Mood - Skin Skin Exam: Dry, Intact Assessment and Plan - Assessment and Plan (Free Text) Assessment: 77 y/o M w/ PVD and L foot ulcer s/p balloon angioplasty of left popliteal and posterior tibial artery, POD 1 -monitor groin hematoma -F/U H&H, Transfuse PRN -Maintain pressure dressing and bedrest for now Further reccs as per Dr. Christophe Duvall PGY4
[2018-06-26] MEDS: (Novolin R) Insulin Human Regular 100 units/ml vial SC SCH ×4 (08:05→21:21)
[2018-06-26] MEDS: Albuterol-Ipratrop 3 mg / 0.5 (3 ml) UD INH SCH ×2 (08:29→20:08)
[2018-06-26 09:28] LABS: HEMOGLOBIN 6.9 g/dL (12.0-18.0); MEAN CELL VOLUME 84.9 fL (80.0-94.0); MEAN CORPUSCULAR HEMOGLOBIN 28.4 pg (27.0-31.0); MEAN CORPUSCULAR HGB CONC 33.5 g/dL (33.0-37.0); MEAN PLATELET VOLUME 10.3 fL (7.2-11.7); RBC 2.44 Mil/uL (4.40-5.90); RED CELL DISTRIBUTION WIDTH 15.4 % (11.5-14.5); WHITE BLOOD COUNT 8.2 K/uL (4.8-10.8)
[2018-06-26] MEDS: Enoxaparin 40 mg Syringe SC SCH (10:27)
[2018-06-26] MEDS: oxyCODONE 30 mg Immediate Release Tab PO SCH ×2 (10:34→18:19)
--- NOTE | 2018-06-26 11:30 | CP.PCM.PN ---
Subjective - Date & Time of Evaluation Date of Evaluation: 06/26/18 Time of Evaluation: 11:23 - Subjective Subjective: 77 y/o male seen at bedside this morning with attending Dr. Juárez regarding left foot 3rd and 5th digit ulcers. Pt states he is feeling fine today. Denies any pedal complaints. Denies any overnight events. Denies F/C/N/V/CP/SOB Objective - Vital Signs/Intake and Output Vital Signs (last 24 hours): Temp Pulse Resp BP Pulse Ox 98.2 F 72 20 131/69 95 06/26/18 08:22 06/26/18 08:22 06/26/18 08:22 06/26/18 08:22 06/26/18 08:22 Intake and Output: 06/26/18 06/26/18 06:59 18:59 Intake Total 620 Output Total 550 Balance 70 - Medications Medications: Current Medications Albuterol/Ipratropium (Duoneb 3 Mg/0.5 Mg (3 Ml) Ud) 3 ml INH RBID [facility] Last Admin: 06/26/18 08:29 Dose: 3 ml Clopidogrel Bisulfate (Plavix) 75 mg PO DAILY [facility] Last Admin: 06/26/18 10:28 Dose: Not Given Ezetimibe (Zetia) 10 mg PO DAILY [facility] Last Admin: 06/26/18 10:34 Dose: 10 mg Enoxaparin Sodium (Lovenox) 40 mg SC DAILY [facility] Last Admin: 06/26/18 10:27 Dose: Not Given Daptomycin 390 mg/ Sodium (Chloride) 100 mls @ 100 mls/hr IV Q24H [facility] Stop: 06/30/18 21:31 Last Admin: 06/25/18 22:06 Dose: 100 mls/hr Insulin Glargine (Lantus) 20 unit SC [facility] Last Admin: 06/25/18 22:07 Dose: 20 units Insulin Human Regular (Novolin R) 0 unit SC [facility]; Protocol Last Admin: 06/26/18 08:05 Dose: Not Given Lisinopril (Zestril) 20 mg PO DAILY [facility] Last Admin: 06/26/18 10:34 Dose: 20 mg Metformin HCl (Glucophage) 500 mg PO BIDCC [facility] Last Admin: 06/26/18 08:07 Dose: 500 mg Mirtazapine (Remeron) 15 mg PO [facility] Last Admin: 06/25/18 22:08 Dose: 15 mg Oxycodone HCl (Oxycodone Immediate Release Tab) 30 mg PO BID [facility] Last Admin: 06/26/18 10:34 Dose: 30 mg Saccharomyces Boulardii (Florastor) 250 mg PO HS [facility] Last Admin: 06/25/18 22:06 Dose: 250 mg Sitagliptin Phosphate (Januvia) 100 mg PO DAILY [facility] Last Admin: 06/25/18 09:35 Dose: Not Given - Labs Labs: 06/26/18 09:25 06/26/18 07:02 PT 11.2 SECONDS (9.7-12.2) 06/24/18 07:25 INR 1.0 06/24/18 07:25 - Constitutional Appears: Well, Non-toxic, No Acute Distress - Head Exam Head Exam: ATRAUMATIC, NORMOCEPHALIC - Extremities Exam Additional comments: Left lower extremity focused exam: Vasc: DP/PT pulses 1/4. Skin temperature warm to warm from proximal to distal. CFT < 3 seconds to all digits. No edema noted to periwound areas Neuro: Epicritic and protective sensation grossly intact Derm: ulceration noted to dorsal aspect of left third digit, positive probe to bone, positive malodor, positive purulent drainage, demarcating to the level of the IPJ, Hyperpigmentation with hyperkeratosis noted to 3rd digit diffusely. superficial ulceration to the 5th digit, No malodor, no drainage, no probe to bone, no other clinical signs of infection. Ortho: Minimal tenderness on palpation of all ulceration sites. ROM WNL at all major joints. - Neurological Exam Neurological Exam: Alert, Awake, Oriented x3 - Psychiatric Exam Psychiatric exam: Normal Affect, Normal Mood Assessment and Plan - Assessment and Plan (Free Text) Assessment: 77 y/o male with diabetic ulcerations of left foot 3rd and 5th digits Plan: Patient seen and evaluated at bedside with Dr. Juárez Continue IV abx per ID - wound cx shows growth of Coag neg Staph New wound cultures ordered- Pending L foot x-rays show no destructive osseous lesions Nuclear bone scan shows increased uptake at left foot at 2nd digit Wound dressed with betadine and DSD Vascular consult placed for Dr. Saeed - pt is 3 months s/p vascular intervention to LLE Patient s/p POD1 vascular procedure- selective catherization of left femoral artery. balloon angioplasty left popliteal 4 mm. balloon angioplasty of left posterior tibial artery 1.5-2 mm Podiatry- tentative plan to perform partial amputation of the left 3rd digit, pending demarcation, likely procedure next week Podiatry will continue to follow while patient in house
--- NOTE | 2018-06-26 14:17 | CP.PCM.PN ---
Subjective - Date & Time of Evaluation Date of Evaluation: 06/26/18 Time of Evaluation: 14:15 - Subjective Subjective: CHIEF COMPLAINTS TODAY : patient has developed a hematoma in the ri after femoral angiogram. Hemoglobin has dropped down to 6.9 ROS. HEENT : N. Resp : No cough, wheezing ,pleuritic CP ,or hemoptysis Cardio : No anginal CP, PND, orthopnea, palpitation GI : No abd.pain, n/v ,diarrhea or GI bleeding . 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 Musculoskel : No joint swelling , Derm : No rash Psych : Normal affect. Ext : No swelling ,calf pain PE. Pt. is alert awake in no distress. V.S As noted in the chart Head ,ear nose,throat and eyes : Normal. Neck : Supple with normal carotids. Lungs: Clear air entry. Heart : S1 & S2 normal with S4. No murmur. Abd : Soft non tender with normal bowel sounds. Neuro : Moves all ext. with no localized deficit. Ext : No edema with intact pulses.Non tender calves the left third toe is swollen with inflammation and cellulitis with dried up scab on the dorsum surface Derm : No rashes or decubitus ulcer. LABS/RADIOLOGY:status post angioplasty of the left tibial posterior, and popliteal artery yesterday ASSESSMENT/PLAN : continue monitoring right groin, transfusion of 2 units of packed cells. Observe for retroperitoneal bleeding Continue IV antibiotics If stable rehab next week Objective - Vital Signs/Intake and Output Vital Signs (last 24 hours): Temp Pulse Resp BP Pulse Ox 98 F 71 22 143/51 L 95 06/26/18 14:08 06/26/18 14:08 06/26/18 14:08 06/26/18 14:08 06/26/18 08:22 Intake and Output: 06/26/18 06/26/18 11:59 23:59 Intake Total 120 0 Output Total 200 Balance -80 0 - Medications Medications: Current Medications Albuterol/Ipratropium (Duoneb 3 Mg/0.5 Mg (3 Ml) Ud) 3 ml INH RBID [facility] Last Admin: 06/26/18 08:29 Dose: 3 ml Clopidogrel Bisulfate (Plavix) 75 mg PO DAILY [facility] Last Admin: 06/26/18 10:28 Dose: Not Given Ezetimibe (Zetia) 10 mg PO DAILY [facility] Last Admin: 06/26/18 10:34 Dose: 10 mg Enoxaparin Sodium (Lovenox) 40 mg SC DAILY [facility] Last Admin: 06/26/18 10:27 Dose: Not Given Daptomycin 390 mg/ Sodium (Chloride) 100 mls @ 100 mls/hr IV Q24H [facility] Stop: 06/30/18 21:31 Last Admin: 06/25/18 22:06 Dose: 100 mls/hr Insulin Glargine (Lantus) 20 unit SC [facility] Last Admin: 06/25/18 22:07 Dose: 20 units Insulin Human Regular (Novolin R) 0 unit SC [facility]; Protocol Last Admin: 06/26/18 12:14 Dose: Not Given Lisinopril (Zestril) 20 mg PO DAILY [facility] Last Admin: 06/26/18 10:34 Dose: 20 mg Metformin HCl (Glucophage) 500 mg PO BIDCC [facility] Last Admin: 06/26/18 08:07 Dose: 500 mg Mirtazapine (Remeron) 15 mg PO [facility] Last Admin: 06/25/18 22:08 Dose: 15 mg Oxycodone HCl (Oxycodone Immediate Release Tab) 30 mg PO BID [facility] Last Admin: 06/26/18 10:34 Dose: 30 mg Saccharomyces Boulardii (Florastor) 250 mg PO [facility] Last Admin: 06/25/18 22:06 Dose: 250 mg Sitagliptin Phosphate (Januvia) 100 mg PO DAILY [facility] Last Admin: 06/26/18 11:31 Dose: 100 mg - Labs Labs: 06/26/18 09:25 06/26/18 07:02 PT 11.2 SECONDS (9.7-12.2) 06/24/18 07:25 INR 1.0 06/24/18 07:25 Assessment and Plan (1) Diabetic ulcer of left foot Status: Acute (2) PVD (peripheral vascular disease) Status: Acute (3) COPD (chronic obstructive pulmonary disease) Status: Acute (4) COPD exacerbation Status: Acute (5) Diabetes Status: Acute (6) HTN (hypertension) Status: Acute
--- NOTE | 2018-06-26 20:10 | CP.PCM.PN ---
Subjective - Date & Time of Evaluation Date of Evaluation: 06/26/18 Time of Evaluation: 20:10 - Subjective Subjective: CHIEF COMPLAINTS TODAY : events noted rt groin hematoma s/p angiogram h/h dropped to 6.9/20.7 Patient for blood transfusion-2unit PRBC AFEBRILE NO COMPLAINTS-states feels fine.. Operation Performed: aortofemoral angiogram via right groin. selective catherization of left femoral artery. balloon angioplasty left popliteal 4 mm. balloon angioplasty of left posterior tibial artery 1.5-2 mm ROS. HEENT : N. Resp : No cough, wheezing ,pleuritic CP ,or hemoptysis Cardio : No anginal CP, PND, orthopnea, palpitation GI : No abd.pain, n/v ,diarrhea or GI bleeding . 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 Musculoskel : No joint swelling , Derm : No rash Psych : Normal affect. Ext : No swelling ,calf pain LT.FOOT IN DRESSING. PE. Pt. is alert awake in no distress. V.S As noted in the chart Head ,ear nose,throat and eyes : Normal. Neck : Supple with normal carotids. Lungs: Clear air entry. Heart : S1 & S2 normal with S4. No murmur. Abd : Soft non tender with normal bowel sounds. Neuro : Moves all ext. with no localized deficit. Ext : No edema with intact pulses.Non tender calves , the left 2ND toe is swollen with inflammation and cellulitis with NECROTIC SCAB on the dorsum surface. Derm : No rashes or decubitus ulcer. LABS/RADIOLOGY: REVIEWED wound culture +SCN BLOOD CULTURE 1:2 SETS +VE STAPH COAGULASE-NEGATIVE ? CONTAMINANT. esr 25 creat 1.4//BUN 29 06/26/18 LFTS N 06/26/18 XRAY LT FOOT; diffuse degenerative disease. No osseous lesions seen.no fracture THREE-PHASE BONE SCAN; +VE OSTEOMYELITIS SECOND LEFT PHALANX FOOT. ASSESSMENT/PLAN : PATIENT FOR CLOSE OBSERVATION F/U H/H PER PMD . Patient has history of MRSA in the past, so we will have to cover MRSA coverage with daptomycin which is less nephrotoxic for 6 weeks for osteomyelitis left second phalanx left foot. PATIENT WILL NEED A picc LINE FOR iv ANTIBIOTICS FOR SUBACUTE REHABILITATION. CASE DISCUSSED WITH PROTOCOL OFFICER MS TOBAR.. Objective - Vital Signs/Intake and Output Vital Signs (last 24 hours): Temp Pulse Resp BP Pulse Ox 98 F 65 22 151/75 H 95 06/26/18 16:25 06/26/18 16:25 06/26/18 16:25 06/26/18 16:58 06/26/18 15:00 Intake and Output: 06/26/18 06/27/18 18:59 06:59 Intake Total 325 Balance 325 - Medications Medications: Current Medications Albuterol/Ipratropium (Duoneb 3 Mg/0.5 Mg (3 Ml) Ud) 3 ml INH RBID [facility] Last Admin: 06/26/18 20:08 Dose: 3 ml Clopidogrel Bisulfate (Plavix) 75 mg PO DAILY [facility] Last Admin: 06/26/18 10:28 Dose: Not Given Ezetimibe (Zetia) 10 mg PO DAILY [facility] Last Admin: 06/26/18 10:34 Dose: 10 mg Enoxaparin Sodium (Lovenox) 40 mg SC DAILY [facility] Last Admin: 06/26/18 10:27 Dose: Not Given Daptomycin 390 mg/ Sodium (Chloride) 100 mls @ 100 mls/hr IV Q24H [facility] Stop: 06/30/18 21:31 Last Admin: 06/26/18 19:54 Dose: 100 mls/hr Insulin Glargine (Lantus) 20 unit SC [facility] Last Admin: 06/25/18 22:07 Dose: 20 units Insulin Human Regular (Novolin R) 0 unit SC [facility]; Protocol Last Admin: 06/26/18 18:20 Dose: 2 units Lisinopril (Zestril) 20 mg PO DAILY [facility] Last Admin: 06/26/18 10:34 Dose: 20 mg [facility] Last Admin: 06/26/18 17:30 Dose: 500 mg Mirtazapine (Remeron) 15 mg PO [facility] Last Admin: 06/25/18 22:08 Dose: 15 mg Oxycodone HCl (Oxycodone Immediate Release Tab) 30 mg PO BID [facility] Last Admin: 06/26/18 18:19 Dose: 30 mg Saccharomyces Boulardii (Florastor) 250 mg PO [facility] Last Admin: 06/25/18 22:06 Dose: 250 mg Sitagliptin Phosphate (Januvia) 100 mg PO DAILY [facility] Last Admin: 06/26/18 11:31 Dose: 100 mg - Labs Labs: 06/26/18 09:25 06/26/18 07:02 PT 11.2 SECONDS (9.7-12.2) 06/24/18 07:25 INR 1.0 06/24/18 07:25 Assessment and Plan (1) Osteomyelitis of right foot Status: Acute (2) Diabetic ulcer of left foot Status: Acute (3) PVD (peripheral vascular disease) Status: Acute (4) Acute renal insufficiency Status: Acute (5) Closed left hip fracture Status: Acute (6) Diabetes Status: Acute
[2018-06-26] MEDS: Saccharomyces Boulardi 250 mg Cap PO SCH (21:24)
[2018-06-26] MEDS: (Lantus) Insulin Glargine, Recombinant SC SCH (21:24)
[2018-06-27] MEDS: Albuterol-Ipratrop 3 mg / 0.5 (3 ml) UD INH SCH ×2 (07:21→20:24)
[2018-06-27] MEDS: (Novolin R) Insulin Human Regular 100 units/ml vial SC SCH ×4 (08:06→21:36)
[2018-06-27 08:10] LABS: BASO # 0.1 K/uL (0.0-0.2); BASO % 0.8 % (0.0-2.0); EOS # 0.3 K/uL (0.0-0.7); HEMOGLOBIN 8.6 g/dL (12.0-18.0); LYMPH # 1.1 K/uL (1.0-4.3); LYMPH % 14.8 % (20.0-40.0); MEAN CELL VOLUME 84.7 fL (80.0-94.0); MEAN CORPUSCULAR HEMOGLOBIN 29.2 pg (27.0-31.0); MEAN CORPUSCULAR HGB CONC 34.5 g/dL (33.0-37.0); MEAN PLATELET VOLUME 10.2 fL (7.2-11.7); MONO # 0.5 K/uL (0.0-0.8); MONO % 6.7 % (0.0-10.0); NEUT # 5.5 K/uL (1.8-7.0); NEUT % 73.7 % (50.0-75.0); RBC 2.93 Mil/uL (4.40-5.90); WHITE BLOOD COUNT 7.4 K/uL (4.8-10.8)
[2018-06-27 08:20] LABS: ALB/GLOB RATIO 1.1 (1.0-2.1); CALCIUM 8.1 mg/dl (8.6-10.4)
[2018-06-27] MEDS: oxyCODONE 30 mg Immediate Release Tab PO SCH ×2 (10:28→17:39)
--- NOTE | 2018-06-27 11:32 | CP.PCM.PN ---
Subjective - Date & Time of Evaluation Date of Evaluation: 06/27/18 Time of Evaluation: 11:31 - Subjective Subjective: Podiatry progress note for Dr. Juárez 77 y/o male seen at bedside this morning regarding left foot 3rd and 5th digit ulcers. Pt states he is feeling fine today. Denies any pedal complaints. Denies any overnight events. Denies F/C/N/V/CP/SOB Objective - Vital Signs/Intake and Output Vital Signs (last 24 hours): Temp Pulse Resp BP Pulse Ox 98 F 63 20 140/77 96 06/27/18 07:00 06/27/18 07:00 06/27/18 07:00 06/27/18 07:00 06/27/18 07:00 Intake and Output: 06/27/18 06/27/18 06:59 18:59 Intake Total 1450 Output Total 2300 Balance -850 - Medications Medications: Current Medications Albuterol/Ipratropium (Duoneb 3 Mg/0.5 Mg (3 Ml) Ud) 3 ml INH RBID [facility] Last Admin: 06/27/18 07:21 Dose: Not Given Clopidogrel Bisulfate (Plavix) 75 mg PO DAILY [facility] Last Admin: 06/27/18 10:29 Dose: Not Given Ezetimibe (Zetia) 10 mg PO DAILY [facility] Last Admin: 06/27/18 10:28 Dose: 10 mg Enoxaparin Sodium (Lovenox) 40 mg SC DAILY [facility] Last Admin: 06/26/18 10:27 Dose: Not Given Daptomycin 390 mg/ Sodium (Chloride) 100 mls @ 100 mls/hr IV Q24H [facility] Stop: 06/30/18 21:31 Last Admin: 06/26/18 21:48 Dose: Not Given Insulin Glargine (Lantus) 20 unit SC [facility] Last Admin: 06/26/18 21:24 Dose: 20 units Insulin Human Regular (Novolin R) 0 unit SC [facility]; Protocol Last Admin: 06/27/18 08:06 Dose: 3 units Lisinopril (Zestril) 20 mg PO DAILY [facility] Last Admin: 06/27/18 10:28 Dose: 20 mg Metformin HCl (Glucophage) 500 mg PO BIDCC [facility] Last Admin: 06/27/18 08:06 Dose: 500 mg Mirtazapine (Remeron) 15 mg PO [facility] Last Admin: 06/26/18 23:29 Dose: 15 mg Oxycodone HCl (Oxycodone Immediate Release Tab) 30 mg PO BID [facility] Last Admin: 06/27/18 10:28 Dose: 30 mg Saccharomyces Boulardii (Florastor) 250 mg PO HS [facility] Last Admin: 06/26/18 21:24 Dose: 250 mg Sitagliptin Phosphate (Januvia) 100 mg PO DAILY [facility] Last Admin: 06/27/18 11:08 Dose: 100 mg - Labs Labs: 06/27/18 07:42 06/27/18 07:42 PT 11.2 SECONDS (9.7-12.2) 06/24/18 07:25 INR 1.0 06/24/18 07:25 - Constitutional Appears: Well, Non-toxic, No Acute Distress - Head Exam Head Exam: ATRAUMATIC, NORMOCEPHALIC - Extremities Exam Additional comments: Left lower extremity focused exam: Vasc: DP/PT pulses 1/4. Skin temperature warm to warm from proximal to distal. CFT < 3 seconds to all digits. No edema noted to periwound areas Neuro: Epicritic and protective sensation grossly intact Derm: ulceration noted to dorsal aspect of left third digit, positive probe to bone, positive malodor, positive purulent drainage, demarcating to the level of the IPJ, Hyperpigmentation with hyperkeratosis noted to 3rd digit diffusely. superficial ulceration to the 5th digit, No malodor, no drainage, no probe to bone, no other clinical signs of infection. Ortho: Minimal tenderness on palpation of all ulceration sites. ROM WNL at all major joints. - Neurological Exam Neurological Exam: Alert, Awake, Oriented x3 - Psychiatric Exam Psychiatric exam: Normal Affect, Normal Mood Assessment and Plan - Assessment and Plan (Free Text) Assessment: 77 y/o male with diabetic ulcerations of left foot 3rd and 5th digits Plan: Patient seen and evaluated at bedside with Dr. Juárez Continue IV abx per ID - wound cx shows growth of Coag neg Staph New wound cultures ordered- Gram positive cocci L foot x-rays show no destructive osseous lesions Nuclear bone scan shows increased uptake at left foot at 2nd digit Wound dressed with betadine and DSD Vascular consult placed for Dr. Saeed - pt is 3 months s/p vascular intervention to LLE Patient s/p POD1 vascular procedure- selective catherization of left femoral artery. balloon angioplasty left popliteal 4 mm. balloon angioplasty of left posterior tibial artery 1.5-2 mm Podiatry- tentative plan to perform partial amputation of the left 3rd digit, pending demarcation, likely procedure next week Podiatry will continue to follow while patient in house
--- NOTE | 2018-06-27 16:24 | CP.PCM.PN ---
Subjective - Date & Time of Evaluation Date of Evaluation: 06/27/18 Time of Evaluation: 16:23 - Subjective Subjective: CHIEF COMPLAINTS TODAY : patient has developed a hematoma in the ri after femoral angiogram. Hemoglobin has dropped down to 6.9 2 units of PC ROS. HEENT : N. Resp : No cough, wheezing ,pleuritic CP ,or hemoptysis Cardio : No anginal CP, PND, orthopnea, palpitation GI : No abd.pain, n/v ,diarrhea or GI bleeding . 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 Musculoskel : No joint swelling , Derm : No rash Psych : Normal affect. Ext : No swelling ,calf pain PE. Pt. is alert awake in no distress. V.S As noted in the chart Head ,ear nose,throat and eyes : Normal. Neck : Supple with normal carotids. Lungs: Clear air entry. Heart : S1 & S2 normal with S4. No murmur. Abd : Soft non tender with normal bowel sounds. Neuro : Moves all ext. with no localized deficit. Ext : No edema with intact pulses.Non tender calves the left third toe is swollen with inflammation and cellulitis with dried up scab on the dorsum surface Derm : No rashes or decubitus ulcer. LABS/RADIOLOGY:status post angioplasty of the left tibial posterior, and popliteal artery yesterday ASSESSMENT/PLAN : continue monitoring right groin, transfusion of 2 units of packed cells. O bserve for retroperitoneal bleeding Continue IV antibiotics If stable rehab next week Objective - Vital Signs/Intake and Output Vital Signs (last 24 hours): Temp Pulse Resp BP Pulse Ox 98 F 63 20 140/77 96 06/27/18 07:00 06/27/18 07:00 06/27/18 07:00 06/27/18 07:00 06/27/18 07:00 Intake and Output: 06/27/18 06/27/18 11:59 23:59 Intake Total 1050 Output Total 550 Balance 500 - Medications Medications: Current Medications Albuterol/Ipratropium (Duoneb 3 Mg/0.5 Mg (3 Ml) Ud) 3 ml INH RBID [facility] Last Admin: 06/27/18 07:21 Dose: Not Given Clopidogrel Bisulfate (Plavix) 75 mg PO DAILY [facility] Last Admin: 06/27/18 10:29 Dose: Not Given Ezetimibe (Zetia) 10 mg PO DAILY [facility] Last Admin: 06/27/18 10:28 Dose: 10 mg Enoxaparin Sodium (Lovenox) 40 mg SC DAILY [facility] Last Admin: 06/26/18 10:27 Dose: Not Given Daptomycin 390 mg/ Sodium (Chloride) 100 mls @ 100 mls/hr IV Q24H [facility] Stop: 06/30/18 21:31 Last Admin: 06/26/18 21:48 Dose: Not Given Insulin Glargine (Lantus) 20 unit SC [facility] Last Admin: 06/26/18 21:24 Dose: 20 units Insulin Human Regular (Novolin R) 0 unit SC [facility]; Protocol Last Admin: 06/27/18 16:19 Dose: Not Given Lisinopril (Zestril) 20 mg PO DAILY [facility] Last Admin: 06/27/18 10:28 Dose: 20 mg [facility]) [facility] Last Admin: 06/27/18 08:06 Dose: 500 mg Mirtazapine (Remeron) 15 mg PO [facility] Last Admin: 06/26/18 23:29 Dose: 15 mg Oxycodone HCl (Oxycodone Immediate Release Tab) 30 mg PO BID [facility] Last Admin: 06/27/18 10:28 Dose: 30 mg Saccharomyces Boulardii (Florastor) 250 mg PO [facility] Last Admin: 06/26/18 21:24 Dose: 250 mg Sitagliptin Phosphate (Januvia) 100 mg PO DAILY [facility] Last Admin: 06/27/18 11:08 Dose: 100 mg - Labs Labs: 06/27/18 07:42 06/27/18 07:42 PT 11.2 SECONDS (9.7-12.2) 06/24/18 07:25 INR 1.0 06/24/18 07:25 Assessment and Plan (1) Diabetic ulcer of left foot Status: Acute (2) PVD (peripheral vascular disease) Status: Acute (3) COPD (chronic obstructive pulmonary disease) Status: Acute (4) COPD exacerbation Status: Acute (5) Diabetes Status: Acute (6) HTN (hypertension) Status: Acute
[2018-06-27] MEDS: Saccharomyces Boulardi 250 mg Cap PO SCH (21:25)
[2018-06-27] MEDS: (Lantus) Insulin Glargine, Recombinant SC SCH (21:25)
--- NOTE | 2018-06-27 23:54 | CP.PCM.PN ---
Subjective - Date & Time of Evaluation Date of Evaluation: 06/27/18 Time of Evaluation: 23:54 - Subjective Subjective: CHIEF COMPLAINTS TODAY : afebrile no new complaints comfortable h/h 8.6/24.9 s/p 2units prbc transfusion s/p Operation Performed: aortofemoral angiogram via right groin. selective catherization of left femoral artery. balloon angioplasty left popliteal 4 mm. balloon angioplasty of left posterior tibial artery 1.5-2 mm ROS. HEENT : N. Resp : No cough, wheezing ,pleuritic CP ,or hemoptysis Cardio : No anginal CP, PND, orthopnea, palpitation GI : No abd.pain, n/v ,diarrhea or GI bleeding . MOTION PICTURE COMMENTATOR : No headache, vertigo, focal deficit. Musculoskel : No joint swelling , Derm : No rash Psych : Normal affect. Ext : No swelling ,calf pain LT.FOOT IN DRESSING. PE. Pt. is alert awake in no distress. V.S As noted in the chart Head ,ear nose,throat and eyes : Normal. Neck : Supple with normal carotids. Lungs: Clear air entry. Heart : S1 & S2 normal with S4. No murmur. Abd : Soft non tender with normal bowel sounds. Neuro : Moves all ext. with no localized deficit. Ext : No edema with intact pulses.Non tender calves , the left 2ND toe is swollen with inflammation and cellulitis with NECROTIC SCAB on the dorsum surface. Derm : No rashes or decubitus ulcer. LABS/RADIOLOGY: REVIEWED. repeat wound culture 06/26/18 +ve [facility] - P wound culture +SCN BLOOD CULTURE 1:2 SETS +VE STAPH COAGULASE-NEGATIVE ? CONTAMINANT. esr 25 creat 1.4//BUN 29 06/26/18---> creat 1.8/bun 31 LFTS N 06/26/18 XRAY LT FOOT; diffuse degenerative disease. No osseous lesions seen.no fracture THREE-PHASE BONE SCAN; +VE OSTEOMYELITIS SECOND LEFT PHALANX FOOT. ASSESSMENT/PLAN : PATIENT FOR CLOSE OBSERVATION F/U H/H PER PMD . Patient has history of MRSA in the past, so we will have to cover MRSA coverage with daptomycin which is less nephrotoxic for 6 weeks for osteomyelitis left second phalanx left foot. PATIENT WILL NEED A picc LINE FOR iv ANTIBIOTICS FOR SUBACUTE REHABILITATION. CASE DISCUSSED WITH MACHINE SPLITTER MS TOBAR.. Objective - Vital Signs/Intake and Output Vital Signs (last 24 hours): Temp Pulse Resp BP Pulse Ox 97.9 F 64 20 150/74 92 L 06/27/18 16:48 06/27/18 16:48 06/27/18 16:48 06/27/18 16:48 06/27/18 16:48 Intake and Output: 06/27/18 06/28/18 18:59 06:59 Intake Total 100 Output Total 600 Balance -500 - Medications Medications: Current Medications Albuterol/Ipratropium (Duoneb 3 Mg/0.5 Mg (3 Ml) Ud) 3 ml INH RBID [facility] Last Admin: 06/27/18 20:24 Dose: 3 ml Clopidogrel Bisulfate (Plavix) 75 mg PO DAILY [facility] Last Admin: 06/27/18 10:29 Dose: Not Given Ezetimibe (Zetia) 10 mg PO DAILY [facility] Last Admin: 06/27/18 10:28 Dose: 10 mg Enoxaparin Sodium (Lovenox) 40 mg SC DAILY [facility] Last Admin: 06/26/18 10:27 Dose: Not Given Daptomycin 390 mg/ Sodium (Chloride) 100 mls @ 100 mls/hr IV Q24H [facility] Stop: 06/30/18 21:31 Last Admin: 06/27/18 21:27 Dose: 100 mls/hr Insulin Glargine (Lantus) 20 unit SC [facility] Last Admin: 06/27/18 21:25 Dose: 20 units Insulin Human Regular (Novolin R) 0 unit SC [facility]; Protocol Last Admin: 06/27/18 21:36 Dose: Not Given Lisinopril (Zestril) 20 mg PO DAILY [facility] Last Admin: 06/27/18 10:28 Dose: [facility] Last Admin: 06/27/18 17:39 Dose: 500 mg Mirtazapine (Remeron) 15 mg PO [facility] Last Admin: 06/27/18 21:25 Dose: 15 mg Oxycodone HCl (Oxycodone Immediate Release Tab) 30 mg PO BID [facility] Last Admin: 06/27/18 17:39 Dose: 30 mg Saccharomyces Boulardii (Florastor) 250 mg PO [facility] Last Admin: 06/27/18 21:25 Dose: 250 mg Sitagliptin Phosphate (Januvia) 100 mg PO DAILY [facility] Last Admin: 06/27/18 11:08 Dose: 100 mg - Labs Labs: 06/27/18 07:42 06/27/18 07:42 PT 11.2 SECONDS (9.7-12.2) 06/24/18 07:25 INR 1.0 06/24/18 07:25 Assessment and Plan (1) Osteomyelitis of right foot Status: Acute (2) Diabetic ulcer of left foot Status: Acute (3) PVD (peripheral vascular disease) Status: Acute (4) Acute renal insufficiency Status: Acute (5) Closed left hip fracture Status: Acute (6) Diabetes Status: Acute
[2018-06-28] MEDS: (Novolin R) Insulin Human Regular 100 units/ml vial SC SCH ×4 (07:21→21:31)
[2018-06-28 07:23] LABS: BASO % 0.7 % (0.0-2.0); EOS # 0.3 K/uL (0.0-0.7); EOS % 4.5 % (0.0-4.0); HEMOGLOBIN 8.6 g/dL (12.0-18.0); LYMPH # 1.2 K/uL (1.0-4.3); LYMPH % 17.6 % (20.0-40.0); MEAN CELL VOLUME 85.1 fL (80.0-94.0); MEAN CORPUSCULAR HEMOGLOBIN 29.4 pg (27.0-31.0); MEAN CORPUSCULAR HGB CONC 34.5 g/dL (33.0-37.0); MEAN PLATELET VOLUME 10.6 fL (7.2-11.7); MONO # 0.6 K/uL (0.0-0.8); NEUT # 4.6 K/uL (1.8-7.0); NEUT % 68.2 % (50.0-75.0); RBC 2.92 Mil/uL (4.40-5.90); RED CELL DISTRIBUTION WIDTH 14.6 % (11.5-14.5); WHITE BLOOD COUNT 6.7 K/uL (4.8-10.8)
[2018-06-28 07:47] LABS: ALB/GLOB RATIO 1.1 (1.0-2.1); CALCIUM 8.2 mg/dl (8.6-10.4)
[2018-06-28] MEDS: Albuterol-Ipratrop 3 mg / 0.5 (3 ml) UD INH SCH (08:00)
[2018-06-28 09:46] VITALS: RESP 20
[2018-06-28] MEDS: oxyCODONE 30 mg Immediate Release Tab PO SCH ×2 (09:54→17:22)
--- NOTE | 2018-06-28 10:43 | CP.PCM.PN ---
Subjective - Date & Time of Evaluation Date of Evaluation: 06/28/18 Time of Evaluation: 10:41 - Subjective Subjective: Podiatry progress note for Dr. Juárez 77 y/o male seen at bedside this morning with Dr. Juárez regarding left foot 3rd and 5th digit ulcers. Pt states he is feeling fine today. Denies any pedal complaints. Denies any overnight events. Denies F/C/N/V/CP/SOB. Objective - Vital Signs/Intake and Output Vital Signs (last 24 hours): Temp Pulse Resp BP Pulse Ox 97.9 F 64 20 170/81 H 96 06/28/18 07:00 06/28/18 07:00 06/28/18 07:00 06/28/18 07:00 06/28/18 07:00 Intake and Output: 06/28/18 06/28/18 06:59 18:59 Intake Total 200 Output Total 800 Balance -600 - Medications Medications: Current Medications Albuterol/Ipratropium (Duoneb 3 Mg/0.5 Mg (3 Ml) Ud) 3 ml INH RBID [facility] Last Admin: 06/28/18 08:00 Dose: 3 ml Clopidogrel Bisulfate (Plavix) 75 mg PO DAILY [facility] Last Admin: 06/28/18 09:55 Dose: 75 mg Ezetimibe (Zetia) 10 mg PO DAILY [facility] Last Admin: 06/28/18 09:55 Dose: 10 mg Enoxaparin Sodium (Lovenox) 40 mg SC DAILY [facility] Last Admin: 06/26/18 10:27 Dose: Not Given Daptomycin 390 mg/ Sodium (Chloride) 100 mls @ 100 mls/hr IV Q24H [facility] Stop: 06/30/18 21:31 Last Admin: 06/27/18 21:27 Dose: 100 mls/hr Insulin Glargine (Lantus) 20 unit SC HS [facility] Last Admin: 06/27/18 21:25 Dose: 20 units Insulin Human Regular (Novolin R) 0 unit SC ACHS [facility]; Protocol Last Admin: 06/28/18 07:21 Dose: Not Given Lisinopril (Zestril) 20 mg PO DAILY [facility] Last Admin: 06/28/18 09:55 Dose: 20 mg Metformin HCl (Glucophage) 500 mg PO BIDCC [facility] Last Admin: 06/28/18 09:55 Dose: 500 mg Mirtazapine (Remeron) 15 mg PO HS [facility] Last Admin: 06/27/18 21:25 Dose: 15 mg Oxycodone HCl (Oxycodone Immediate Release Tab) 30 mg PO BID [facility] Last Admin: 06/28/18 09:54 Dose: 30 mg Saccharomyces Boulardii (Florastor) 250 mg PO HS [facility] Last Admin: 06/27/18 21:25 Dose: 250 mg Sitagliptin Phosphate (Januvia) 100 mg PO DAILY [facility] Last Admin: 06/28/18 09:54 Dose: 100 mg - Labs Labs: 06/28/18 07:14 06/28/18 07:14 PT 11.2 SECONDS (9.7-12.2) 06/24/18 07:25 INR 1.0 06/24/18 07:25 - Constitutional Appears: Well, Non-toxic, No Acute Distress - Head Exam Head Exam: ATRAUMATIC, NORMOCEPHALIC - Extremities Exam Additional comments: Left lower extremity focused exam: Vasc: DP/PT pulses 1/4. Skin temperature warm to warm from proximal to distal. CFT < 3 seconds to all digits. No edema noted to periwound areas Neuro: Epicritic and protective sensation grossly intact Derm: ulceration noted to dorsal aspect of left third digit, positive probe to bone, positive malodor, positive purulent drainage, demarcating to the level of the IPJ, Hyperpigmentation with hyperkeratosis noted to 3rd digit diffusely. superficial ulceration to the 5th digit, No malodor, no drainage, no probe to bone, no other clinical signs of infection. Ortho: Minimal tenderness on palpation of all ulceration sites. ROM WNL at all major joints. - Neurological Exam Neurological Exam: Alert, Awake, Oriented x3 - Psychiatric Exam Psychiatric exam: Normal Affect, Normal Mood Assessment and Plan - Assessment and Plan (Free Text) Assessment: 77 y/o male with diabetic ulcerations of left foot 3rd and 5th digits Plan: Patient seen and evaluated at bedside with Dr. Juárez Continue IV abx per ID - wound cx shows growth of Coag neg Staph New wound cultures ordered- MRSA L foot x-rays show no destructive osseous lesions Nuclear bone scan shows increased uptake at left foot at 2nd digit Wound dressed with betadine and DSD Vascular consult placed for Dr. Saeed - pt is 3 months s/p vascular intervention to LLE Patient s/p POD2 vascular procedure- selective catherization of left femoral artery. balloon angioplasty left popliteal 4 mm. balloon angioplasty of left posterior tibial artery 1.5-2 mm Podiatry- tentative plan to perform partial amputation of the left 3rd digit, pending demarcation Patient agreeable to partial amputation of the Left 3rd digit Patient to go to the OR on 7:45 AM Please provide medical clearance for patient to obtain surgery Podiatry will continue to follow while patient in house
--- NOTE | 2018-06-28 13:03 | CP.PCM.PN ---
Subjective - Date & Time of Evaluation Date of Evaluation: 06/28/18 Time of Evaluation: 13:02 - Subjective Subjective: CHIEF COMPLAINTS TODAY : afebrile no new complaints comfortable ROS. HEENT : N. Resp : No cough, wheezing ,pleuritic CP ,or hemoptysis Cardio : No anginal CP, PND, orthopnea, palpitation GI : No abd.pain, n/v ,diarrhea or GI bleeding . BUYER INTERN : No headache, vertigo, focal deficit. Musculoskel : No joint swelling , Derm : No rash Psych : Normal affect. Ext : No swelling ,calf pain LT.FOOT IN DRESSING. PE. Pt. is alert awake in no distress. V.S As noted in the chart Head ,ear nose,throat and eyes : Normal. Neck : Supple with normal carotids. Lungs: Clear air entry. Heart : S1 & S2 normal with S4. No murmur. Abd : Soft non tender with normal bowel sounds. Neuro : Moves all ext. with no localized deficit. Ext : No edema with intact pulses.Non tender calves , the left 2ND toe is swollen with inflammation and cellulitis with NECROTIC SCAB on the dorsum surface. Derm : No rashes or decubitus ulcer. LABS/RADIOLOGY: REVIEWED. repeat wound culture 06/26/18 +ve [facility] - P wound culture +SCN BLOOD CULTURE 1:2 SETS +VE STAPH COAGULASE-NEGATIVE ? CONTAMINANT. XRAY LT FOOT; diffuse degenerative disease. No osseous lesions seen.no fracture THREE-PHASE BONE SCAN; +VE OSTEOMYELITIS SECOND LEFT PHALANX FOOT. ASSESSMENT/PLAN : PATIENT FOR CLOSE OBSERVATION F/U H/H PER PMD . ON IV DAPTOMYCIN IN VIEW OF NEPHROTOXICITY. F/U BMP/LFTS PATIENT WILL NEED A picc LINE FOR iv ANTIBIOTICS FOR SUBACUTE REHABILITATION. CASE DISCUSSED WITH BRAND ADVISOR MS TOBAR.. Objective - Vital Signs/Intake and Output Vital Signs (last 24 hours): Temp Pulse Resp BP Pulse Ox 97.9 F 64 20 170/81 H 96 06/28/18 07:00 06/28/18 07:00 06/28/18 07:00 06/28/18 07:00 06/28/18 07:00 Intake and Output: 06/28/18 06/28/18 06:59 18:59 Intake Total 200 Output Total 800 Balance -600 - Medications Medications: Current Medications Albuterol/Ipratropium (Duoneb 3 Mg/0.5 Mg (3 Ml) Ud) 3 ml INH RBID [facility] Last Admin: 06/28/18 08:00 Dose: 3 ml Clopidogrel Bisulfate (Plavix) 75 mg PO DAILY [facility] Last Admin: 06/28/18 09:55 Dose: 75 mg Ezetimibe (Zetia) 10 mg PO DAILY [facility] Last Admin: 06/28/18 09:55 Dose: 10 mg Enoxaparin Sodium (Lovenox) 40 mg SC DAILY [facility] Last Admin: 06/26/18 10:27 Dose: Not Given Daptomycin 390 mg/ Sodium (Chloride) 100 mls @ 100 mls/hr IV Q24H [facility] Stop: 06/30/18 21:31 Last Admin: 06/27/18 21:27 Dose: 100 mls/hr Insulin Glargine (Lantus) 20 unit SC [facility] Last Admin: 06/27/18 21:25 Dose: 20 units Insulin Human Regular (Novolin R) 0 unit SC [facility]; Protocol Last Admin: 06/28/18 11:19 Dose: 4 units Lisinopril (Zestril) 20 mg PO DAILY [facility] Last Admin: 06/28/18 09:55 Dose: 20 mg Metformin HCl (Glucophage) 500 mg PO BIDCC [facility] Last Admin: 06/28/18 09:55 Dose: 500 mg Mirtazapine (Remeron) 15 mg PO [facility] Last Admin: 06/27/18 21:25 Dose: 15 mg Oxycodone HCl (Oxycodone Immediate Release Tab) 30 mg PO BID [facility] Last Admin: 06/28/18 09:54 Dose: 30 mg Saccharomyces Boulardii (Florastor) 250 mg PO [facility] Last Admin: 06/27/18 21:25 Dose: 250 mg Sitagliptin Phosphate (Januvia) 100 mg PO DAILY [facility] Last Admin: 06/28/18 09:54 Dose: 100 mg - Labs Labs: 06/28/18 07:14 06/28/18 07:14 PT 11.2 SECONDS (9.7-12.2) 06/24/18 07:25 INR 1.0 06/24/18 07:25 Assessment and Plan (1) Osteomyelitis of right foot Status: Acute (2) Diabetic ulcer of left foot Status: Acute (3) PVD (peripheral vascular disease) Status: Acute (4) Acute renal insufficiency Status: Acute (5) Closed left hip fracture Status: Acute (6) Diabetes Status: Acute
--- NOTE | 2018-06-28 13:07 | VASCLAB ---
Date of service: 06/26/2018 PROCEDURE: Left Lower Extremity Arterial Exam. HISTORY: PVD. Left foot osteo. COMPARISON: None available. TECHNIQUE: Grayscale and duplex Doppler evaluation of the left common femoral, femoral, profunda femoral, popliteal, posterior tibial, anterior tibial and dorsalis pedis arteries was performed. Report prepared by NIKI Kilgore FINDINGS: LEFT LOWER EXTREMITY: * Common Femoral Artery: Peak Systolic Velocity - 114: Doppler Waveform: Triphasic.: Plaque description - * Profunda Femoral Artery: Peak Systolic Velocity - 90: Doppler Waveform: Biphasic.: Plaque description - * Femoral Artery o Proximal Segment: Peak Systolic Velocity - 87: Doppler Waveform: Triphasic.: Plaque description - o Middle Segment: Peak Systolic Velocity - 97: Doppler Waveform: Triphasic.: Plaque description - o Distal Segment: Peak Systolic Velocity - 84: Doppler Waveform: Triphasic.: Plaque description - * Popliteal Artery o Proximal Segment: Peak Systolic Velocity - 81: Doppler Waveform: Triphasic.: Plaque description - o Middle Segment: Peak Systolic Velocity - 161: Doppler Waveform: Triphasic.: Plaque description - o Distal Segment: Peak Systolic Velocity - 107: Doppler Waveform: Monophasic: Plaque description - * Posterior Tibial Artery: Peak Systolic Velocity - 107: Doppler Waveform: Monophasic: Plaque description - * Anterior Tibial Artery: Peak Systolic Velocity - 0: Doppler Waveform: Absent: Plaque description - * Peroneal Artery: Peak Systolic Velocity - 153: Doppler Waveform: Absent: Plaque description - * Dorsalis Pedis Artery: Peak Systolic Velocity - 53: Doppler Waveform: Monophasic: Plaque description - OTHER FINDINGS: None. IMPRESSION: Increased peak systolic velocities of the left mid popliteal and mid peroneal arteries, are suggestive of 30-49% stenosis.
--- NOTE | 2018-06-28 13:59 | CP.PCM.PN ---
Subjective - Date & Time of Evaluation Date of Evaluation: 06/28/18 Time of Evaluation: 13:59 - Subjective Subjective: CHIEF COMPLAINTS TODAY : patient has developed a hematoma in the ri after femoral angiogram. Hemoglobin is 8.6 ROS. HEENT : N. Resp : No cough, wheezing ,pleuritic CP ,or hemoptysis Cardio : No anginal CP, PND, orthopnea, palpitation GI : No abd.pain, n/v ,diarrhea or GI bleeding . SENIOR VALIDATION ENGINEER : No headache, vertigo, focal deficit. Musculoskel : No joint swelling , Derm : No rash Psych : Normal affect. Ext : No swelling ,calf pain PE. Pt. is alert awake in no distress. V.S As noted in the chart Head ,ear nose,throat and eyes : Normal. Neck : Supple with normal carotids. Lungs: Clear air entry. Heart : S1 & S2 normal with S4. No murmur. Abd : Soft non tender with normal bowel sounds. Neuro : Moves all ext. with no localized deficit. Ext : No edema with intact pulses.Non tender calves the left third toe is swollen with inflammation and cellulitis with dried up scab on the dorsum surface Derm : No rashes or decubitus ulcer. LABS/RADIOLOGY:status post angioplasty of the left tibial posterior, and popliteal artery yesterday ASSESSMENT/PLAN : continue monitoring right groin, transfusion of 2 units of packed cells. Observe for retroperitoneal bleeding Continue IV antibiotics If stable rehab next week Objective - Vital Signs/Intake and Output Vital Signs (last 24 hours): Temp Pulse Resp BP Pulse Ox 97.9 F 64 20 170/81 H 96 06/28/18 07:00 06/28/18 07:00 06/28/18 07:00 06/28/18 07:00 06/28/18 07:00 Intake and Output: 06/28/18 06/28/18 11:59 23:59 Intake Total 100 Output Total 200 Balance -100 - Medications Medications: Current Medications Albuterol/Ipratropium (Duoneb 3 Mg/0.5 Mg (3 Ml) Ud) 3 ml INH RBID [facility] Last Admin: 06/28/18 08:00 Dose: 3 ml Clopidogrel Bisulfate (Plavix) 75 mg PO DAILY [facility] Last Admin: 06/28/18 09:55 Dose: 75 mg Ezetimibe (Zetia) 10 mg PO DAILY [facility] Last Admin: 06/28/18 09:55 Dose: 10 mg Enoxaparin Sodium (Lovenox) 40 mg SC DAILY [facility] Last Admin: 06/26/18 10:27 Dose: Not Given Daptomycin 390 mg/ Sodium (Chloride) 100 mls @ 100 mls/hr IV Q24H [facility] Stop: 06/30/18 21:31 Last Admin: 06/27/18 21:27 Dose: 100 mls/hr Insulin Glargine (Lantus) 20 unit SC [facility] Last Admin: 06/27/18 21:25 Dose: 20 units Insulin Human Regular (Novolin R) 0 unit SC [facility]; Protocol Last Admin: 06/28/18 11:19 Dose: 4 units Lisinopril (Zestril) 20 mg PO DAILY [facility] Last Admin: 06/28/18 09:55 Dose: 20 mg [facility] Last Admin: 06/28/18 09:55 Dose: 500 mg Mirtazapine (Remeron) 15 mg PO [facility] Last Admin: 06/27/18 21:25 Dose: 15 mg Oxycodone HCl (Oxycodone Immediate Release Tab) 30 mg PO BID [facility] Last Admin: 06/28/18 09:54 Dose: 30 mg Saccharomyces Boulardii (Florastor) 250 mg PO [facility] Last Admin: 06/27/18 21:25 Dose: 250 mg Sitagliptin Phosphate (Januvia) 100 mg PO DAILY [facility] Last Admin: 06/28/18 09:54 Dose: 100 mg - Labs Labs: 06/28/18 07:14 06/28/18 07:14 PT 11.2 SECONDS (9.7-12.2) 06/24/18 07:25 INR 1.0 06/24/18 07:25 Assessment and Plan (1) Diabetic ulcer of left foot Status: Acute (2) PVD (peripheral vascular disease) Status: Acute (3) COPD (chronic obstructive pulmonary disease) Status: Acute (4) COPD exacerbation Status: Acute (5) Diabetes Status: Acute (6) HTN (hypertension) Status: Acute
[2018-06-28] MEDS: Saccharomyces Boulardi 250 mg Cap PO SCH (21:30)
[2018-06-28] MEDS: (Lantus) Insulin Glargine, Recombinant SC SCH (21:31)
[2018-06-29 07:48] LABS: BASO # 0.1 K/uL (0.0-0.2); EOS # 0.2 K/uL (0.0-0.7); EOS % 3.7 % (0.0-4.0); HEMOGLOBIN 9.3 g/dL (12.0-18.0); LYMPH # 1.2 K/uL (1.0-4.3); LYMPH % 18.4 % (20.0-40.0); MEAN CELL VOLUME 85.1 fL (80.0-94.0); MEAN CORPUSCULAR HEMOGLOBIN 29.2 pg (27.0-31.0); MEAN CORPUSCULAR HGB CONC 34.3 g/dL (33.0-37.0); MEAN PLATELET VOLUME 9.8 fL (7.2-11.7); MONO # 0.5 K/uL (0.0-0.8); NEUT # 4.7 K/uL (1.8-7.0); NEUT % 68.9 % (50.0-75.0); NRBC % 0.1 % (0.0-2.0); RBC 3.18 Mil/uL (4.40-5.90); RED CELL DISTRIBUTION WIDTH 14.9 % (11.5-14.5); WHITE BLOOD COUNT 6.8 K/uL (4.8-10.8)
[2018-06-29 08:06] LABS: ALB/GLOB RATIO 1.1 (1.0-2.1); ALBUMIN 3.2 g/dL (3.5-5.0); CALCIUM 8.4 mg/dl (8.6-10.4)
[2018-06-29] MEDS: (Novolin R) Insulin Human Regular 100 units/ml vial SC SCH ×4 (08:37→21:39)
[2018-06-29] MEDS: oxyCODONE 30 mg Immediate Release Tab PO SCH ×2 (09:47→17:49)
--- NOTE | 2018-06-29 13:10 | CP.PCM.PN ---
Subjective - Date & Time of Evaluation Date of Evaluation: 06/29/18 Time of Evaluation: 13:08 - Subjective Subjective: Podiatry progress note for Dr. Juárez 77 y/o male seen at bedside this morning regarding left foot 3rd and 5th digit ulcers. Pt states he is feeling fine today. Denies any pedal complaints. Denies any overnight events. Denies F/C/N/V/CP/SOB. Objective - Vital Signs/Intake and Output Vital Signs (last 24 hours): Temp Pulse Resp BP Pulse Ox 98.1 F 77 20 156/78 H 96 06/29/18 07:47 06/29/18 07:47 06/29/18 07:47 06/29/18 07:47 06/29/18 07:47 Intake and Output: 06/29/18 06/29/18 06:59 18:59 Intake Total 300 240 Balance 300 240 - Medications Medications: Current Medications Clopidogrel Bisulfate (Plavix) 75 mg PO DAILY [facility] Last Admin: 06/29/18 09:46 Dose: 75 mg Ezetimibe (Zetia) 10 mg PO DAILY [facility] Last Admin: 06/29/18 09:47 Dose: 10 mg Enoxaparin Sodium (Lovenox) 40 mg SC DAILY [facility] Last Admin: 06/26/18 10:27 Dose: Not Given Daptomycin 390 mg/ Sodium (Chloride) 100 mls @ 100 mls/hr IV Q24H [facility] Stop: 06/30/18 21:31 Last Admin: 06/28/18 21:29 Dose: 100 mls/hr Insulin Glargine (Lantus) 20 unit SC [facility] Last Admin: 06/28/18 21:31 Dose: 20 units Insulin Human Regular (Novolin R) [facility]; Protocol Last Admin: 06/29/18 08:37 Dose: Not Given Lisinopril (Zestril) 20 mg PO DAILY [facility] Last Admin: 06/29/18 09:50 Dose: 20 mg Metformin HCl (Glucophage) 500 mg PO BIDCC [facility] Last Admin: 06/29/18 09:47 Dose: 500 mg Mirtazapine (Remeron) 15 mg PO [facility] Last Admin: 06/28/18 21:33 Dose: 15 mg Saccharomyces Boulardii (Florastor) 250 mg PO [facility] Last Admin: 06/28/18 21:30 Dose: 250 mg Sitagliptin Phosphate (Januvia) 100 mg PO DAILY [facility] Last Admin: 06/29/18 09:46 Dose: 100 mg - Labs Labs: 06/29/18 07:40 06/29/18 07:40 PT 11.2 SECONDS (9.7-12.2) 06/24/18 07:25 INR 1.0 06/24/18 07:25 - Constitutional Appears: Well, Non-toxic, No Acute Distress - Head Exam Head Exam: ATRAUMATIC, NORMOCEPHALIC - Extremities Exam Additional comments: Left lower extremity focused exam: Vasc: DP/PT pulses 1/4. Skin temperature warm to warm from proximal to distal. CFT < 3 seconds to all digits. No edema noted to periwound areas Neuro: Epicritic and protective sensation grossly intact Derm: ulceration noted to dorsal aspect of left third digit, positive probe to bone, positive malodor, positive purulent drainage, demarcating to the level of the IPJ, Hyperpigmentation with hyperkeratosis noted to 3rd digit diffusely. superficial ulceration to the 5th digit, No malodor, no drainage, no probe to bone, no other clinical signs of infection. Ortho: Minimal tenderness on palpation of all ulceration sites. ROM WNL at all major joints. - Neurological Exam Neurological Exam: Alert, Awake, Oriented x3 - Psychiatric Exam Psychiatric exam: Normal Affect, Normal Mood Assessment and Plan - Assessment and Plan (Free Text) Assessment: 77 y/o male with diabetic ulcerations of left foot 3rd and 5th digits Plan: Patient seen and evaluated at bedside with Dr. Juárez Continue IV abx per ID - wound cx shows growth of Coag neg Staph New wound cultures ordered- MRSA L foot x-rays show no destructive osseous lesions Nuclear bone scan shows increased uptake at left foot at 2nd digit Wound dressed with betadine and DSD Vascular consult placed for Dr. Saeed - pt is 3 months s/p vascular intervention to LLE Patient s/p POD2 vascular procedure- selective catherization of left femoral artery. balloon angioplasty left popliteal 4 mm. balloon angioplasty of left posterior tibial artery 1.5-2 mm Podiatry- tentative plan to perform partial amputation of the left 3rd digit, pending demarcation Patient agreeable to partial amputation of the Left 3rd digit Patient to go to the OR on 7:45 AM NPO Order placed, Lovenox on hold/Plavix on hold, INR 4:00AM ordered Please provide medical clearance for patient to obtain surgery Podiatry will continue to follow while patient in house
--- NOTE | 2018-06-29 14:56 | CP.PCM.PN ---
Subjective - Date & Time of Evaluation Date of Evaluation: 06/29/18 Time of Evaluation: 14:52 - Subjective Subjective: PT. IS NOT CAPABLE TO MAKE DECISION FOR SURGERY WILL HAVE TO TALK TO SON PT IS A HIGH RISK FOR SURGERY WILL TRY 4 WEEKS OF IV AB REPEAT BONE SCAN AFTER AB PRESENT BONE SCAN COULD BE FALSE POSITIVE WILL HAVE TO POSTPONE SURGERY IN AM Objective - Vital Signs/Intake and Output Vital Signs (last 24 hours): Temp Pulse Resp BP Pulse Ox 98.1 F 77 20 156/78 H 96 06/29/18 07:47 06/29/18 07:47 06/29/18 07:47 06/29/18 07:47 06/29/18 07:47 Intake and Output: 06/29/18 06/29/18 11:59 23:59 Intake Total 540 Balance 540 - Medications Medications: Current Medications Clopidogrel Bisulfate (Plavix) 75 mg PO DAILY [facility] Last Admin: 06/29/18 09:46 Dose: 75 mg Ezetimibe (Zetia) 10 mg PO DAILY [facility] Last Admin: 06/29/18 09:47 Dose: 10 mg Enoxaparin Sodium (Lovenox) 40 mg SC DAILY [facility] Last Admin: 06/26/18 10:27 Dose: Not Given Daptomycin 390 mg/ Sodium (Chloride) 100 mls @ 100 mls/hr IV Q24H [facility] Stop: 06/30/18 21:31 Last Admin: 06/28/18 21:29 Dose: 100 mls/hr Insulin Glargine (Lantus) 20 unit SC [facility] Last Admin: 06/28/18 21:31 Dose: 20 units Insulin Human Regular (Novolin R) 0 unit SC [facility]; Protocol Last Admin: 06/29/18 13:30 Dose: 2 units Lisinopril (Zestril) 20 mg PO DAILY [facility] Last Admin: 06/29/18 09:50 Dose: 20 mg [facility] Last Admin: 06/29/18 09:47 Dose: 500 mg Mirtazapine (Remeron) 15 mg PO [facility] Last Admin: 06/28/18 21:33 Dose: 15 mg Oxycodone HCl (Oxycodone Immediate Release Tab) 30 mg PO BID [facility] Saccharomyces Boulardii (Florastor) 250 mg PO [facility] Last Admin: 06/28/18 21:30 Dose: 250 mg Sitagliptin Phosphate (Januvia) 100 mg PO DAILY [facility] Last Admin: 06/29/18 09:46 Dose: 100 mg - Labs Labs: 06/29/18 07:40 06/29/18 07:40 PT 11.2 SECONDS (9.7-12.2) 06/24/18 07:25 INR 1.0 06/24/18 07:25 Assessment and Plan (1) Diabetic ulcer of left foot Status: Acute (2) PVD (peripheral vascular disease) Status: Acute (3) COPD (chronic obstructive pulmonary disease) Status: Acute (4) COPD exacerbation Status: Acute (5) Diabetes Status: Acute (6) HTN (hypertension) Status: Acute
[2018-06-29] MEDS: (Lantus) Insulin Glargine, Recombinant SC SCH (21:40)
--- NOTE | 2018-06-29 21:56 | CP.PCM.PN ---
Subjective - Date & Time of Evaluation Date of Evaluation: 06/29/18 Time of Evaluation: 21:56 - Subjective Subjective: AFEBRILE, RESTING IN BED. OFFERS NO COMPLAINTS. TOLERATING IV DAPTOMYCIN. ROS. HEENT : N. Resp : No cough, wheezing ,pleuritic CP ,or hemoptysis Cardio : No anginal CP, PND, orthopnea, palpitation GI : No abd.pain, n/v ,diarrhea or GI bleeding . 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 Musculoskel : No joint swelling , Derm : No rash Psych : Normal affect. Ext : No swelling ,calf pain LT.FOOT IN DRESSING. PE. Pt. is alert awake in no distress. V.S As noted in the chart Head ,ear nose,throat and eyes : Normal. Neck : Supple with normal carotids. Lungs: Clear air entry. Heart : S1 & S2 normal with S4. No murmur. Abd : Soft non tender with normal bowel sounds. Neuro : Moves all ext. with no localized deficit. Ext : No edema with intact pulses.Non tender calves , the left 2ND toe is swollen with inflammation and cellulitis with NECROTIC SCAB on the dorsum surface. Derm : No rashes or decubitus ulcer. LABS/RADIOLOGY: REVIEWED. repeat wound culture 06/26/18 +VE MRSA S -VANCO R- BACTRIM CREAT 1.5/BUN 29 06/29/18 LFTS N 06/29 Objective - Vital Signs/Intake and Output Vital Signs (last 24 hours): Temp Pulse Resp BP Pulse Ox 97.8 F 64 20 140/58 L 95 06/29/18 16:00 06/29/18 16:00 06/29/18 16:00 06/29/18 16:00 06/29/18 16:00 Intake and Output: 06/29/18 06/30/18 18:59 06:59 Intake Total 240 Balance 240 - Medications Medications: Current Medications Clopidogrel Bisulfate (Plavix) 75 mg PO DAILY [facility] Last Admin: 06/29/18 09:46 Dose: 75 mg Ezetimibe (Zetia) 10 mg PO DAILY [facility] Last Admin: 06/29/18 09:47 Dose: 10 mg Enoxaparin Sodium (Lovenox) 40 mg SC DAILY [facility] Last Admin: 06/26/18 10:27 Dose: Not Given Daptomycin 390 mg/ Sodium (Chloride) 100 mls @ 100 mls/hr IV Q24H [facility] Stop: 06/30/18 21:31 Last Admin: 06/29/18 20:31 Dose: 100 mls/hr Insulin Glargine (Lantus) 20 unit SC [facility] Last Admin: 06/29/18 21:40 Dose: Not Given Insulin Human Regular (Novolin R) 0 unit SC [facility]; Protocol Last Admin: 06/29/18 21:39 Dose: Not Given Lisinopril (Zestril) 20 mg PO DAILY [facility] Last Admin: 06/29/18 09:50 Dose: 20 mg [facility]formin [facility] ([facility]ucophage) [facility] Last Admin: 06/29/18 17:48 Dose: 500 mg Mirtazapine (Remeron) 15 mg PO [facility] Last Admin: 06/28/18 21:33 Dose: 15 mg Oxycodone HCl (Oxycodone Immediate Release Tab) 30 mg PO BID [facility] Last Admin: 06/29/18 17:49 Dose: 30 mg Saccharomyces Boulardii (Florastor) 250 mg PO [facility] Last Admin: 06/28/18 21:30 Dose: 250 mg Sitagliptin Phosphate (Januvia) 100 mg PO DAILY [facility] Last Admin: 06/29/18 09:46 Dose: 100 mg - Labs Labs: 06/29/18 07:40 06/29/18 07:40 PT 11.2 SECONDS (9.7-12.2) 06/24/18 07:25 INR 1.0 06/24/18 07:25 Assessment and Plan (1) Osteomyelitis of right foot Status: Acute (2) Diabetic ulcer of left foot Status: Acute (3) PVD (peripheral vascular disease) Status: Acute (4) Acute renal insufficiency Status: Acute (5) Closed left hip fracture Status: Acute (6) Diabetes Status: Acute - Assessment and Plan (Free Text) Plan: PLAN ON IV DAPTOMYCIN IN VIEW OF NEPHROTOXICITY. F/U BMP/LFTS PATIENT WILL NEED A picc LINE FOR iv ANTIBIOTICS FOR SUBACUTE REHABILITATION. SURGERY POSTPONED. LOCAL WOUND CARE PER PODIATRY.
[2018-06-29] MEDS: Saccharomyces Boulardi 250 mg Cap PO SCH (21:59)
[2018-06-30] MEDS: (Novolin R) Insulin Human Regular 100 units/ml vial SC SCH ×4 (07:40→22:49)
[2018-06-30] MEDS: oxyCODONE 30 mg Immediate Release Tab PO SCH ×2 (09:57→17:40)
--- NOTE | 2018-06-30 12:56 | CP.PCM.PN ---
Subjective - Date & Time of Evaluation Date of Evaluation: 06/30/18 Time of Evaluation: 11:22 - Subjective Subjective: Podiatry Progress Note - Dr. Juárez 77 y/o male seen at bedside this morning with Dr. Juárez regarding left foot 3rd and 5th digit ulcers. Pt denies any pedal complaints. Denies any overnight events. Denies F/C/N/V/CP/SOB. Objective - Vital Signs/Intake and Output Vital Signs (last 24 hours): Temp Pulse Resp BP Pulse Ox 98.1 F 61 20 155/75 H 96 06/30/18 07:51 06/30/18 07:51 06/30/18 07:51 06/30/18 07:51 06/30/18 07:51 Intake and Output: 06/30/18 06/30/18 06:59 18:59 Intake Total 900 Output Total 600 Balance 300 - Medications Medications: Current Medications Clopidogrel Bisulfate (Plavix) 75 mg PO DAILY [facility] Last Admin: 06/29/18 09:46 Dose: 75 mg Ezetimibe (Zetia) 10 mg PO DAILY [facility] Last Admin: 06/30/18 09:57 Dose: 10 mg Enoxaparin Sodium (Lovenox) 40 mg SC DAILY [facility] Last Admin: 06/26/18 10:27 Dose: Not Given Daptomycin 390 mg/ Sodium (Chloride) 100 mls @ 100 mls/hr IV Q24H [facility] Stop: 06/30/18 21:31 Last Admin: 06/29/18 20:31 Dose: 100 mls/hr Insulin Glargine (Lantus) 20 unit SC [facility] Last Admin: 06/29/18 21:40 Dose: Not Given Insulin Human Regular (Novolin R) 0 unit SC [facility]; Protocol Last Admin: 06/30/18 07:40 Dose: Not Given Lisinopril (Zestril) 20 mg PO DAILY [facility] Last Admin: 06/30/18 09:57 Dose: 20 mg [facility] ([facility]) [facility] Last Admin: 06/30/18 09:56 Dose: 500 mg Mirtazapine (Remeron) 15 mg PO [facility] Last Admin: 06/29/18 21:59 Dose: 15 mg Oxycodone HCl (Oxycodone Immediate Release Tab) 30 mg PO BID [facility] Last Admin: 06/30/18 09:57 Dose: 30 mg Saccharomyces Boulardii (Florastor) 250 mg PO HS [facility] Last Admin: 06/29/18 21:59 Dose: 250 mg Sitagliptin Phosphate (Januvia) 100 mg PO DAILY [facility] Last Admin: 06/30/18 09:57 Dose: 100 mg - Labs Labs: 06/29/18 07:40 06/29/18 07:40 PT 11.2 SECONDS (9.7-12.2) 06/24/18 07:25 INR 1.0 06/24/18 07:25 - Constitutional Appears: Well, Non-toxic, No Acute Distress - Extremities Exam Additional comments: Left lower extremity focused exam: Vasc: DP/PT pulses 1/4. Skin temperature warm to warm from proximal to distal. CFT < 3 seconds to all digits. No edema noted to periwound areas Neuro: Epicritic and protective sensation grossly intact Derm: ulceration noted to dorsal aspect of left third digit, positive probe to bone. At present, no active drainage. Toe is demarcating to the level of the IPJ. Hyperpigmentation with hyperkeratosis noted to 3rd digit diffusely. Superficial ulceration to the medial aspect of the 5th digit with no malodor, no drainage, no probe to bone, no other clinical signs of infection. Ortho: No tenderness on palpation of all ulceration sites. ROM WNL at all major joints. - Neurological Exam Neurological Exam: Alert, Awake - Psychiatric Exam Psychiatric exam: Normal Affect, Normal Mood Assessment and Plan - Assessment and Plan (Free Text) Assessment: 77 y/o male with diabetic ulcerations of left foot 3rd and 5th digits Plan: Patient seen and evaluated at bedside with Dr. Juárez Continue IV abx per ID - wound cx shows growth of Coag neg Staph New wound cultures shows growth of MRSA L foot x-rays show no destructive osseous lesions Nuclear bone scan shows increased uptake at left foot at 3rd digit Wound dressed with betadine and DSD Patient is 3 days s/p vascular procedure- selective catherization of left femoral artery. balloon angioplasty left popliteal 4 mm. balloon angioplasty of left posterior tibial artery 1.5-2 mm No surgical intervention planned at this time - pt's family (son) refusing digital amputation at this time Podiatry agrees to proceed with IV abx treatment and local wound care Will continue to follow while patient in house
--- NOTE | 2018-06-30 14:23 | CP.PCM.PN ---
Subjective - Date & Time of Evaluation Date of Evaluation: 06/30/18 Time of Evaluation: 14:22 - Subjective Subjective: NO SPECIFIC COMPLAINTS VS STABLE WOUND HEALING TRANSFER TO [facility] FOR IV AB Objective - Vital Signs/Intake and Output Vital Signs (last 24 hours): Temp Pulse Resp BP Pulse Ox 98.1 F 61 20 155/75 H 96 06/30/18 07:51 06/30/18 07:51 06/30/18 07:51 06/30/18 07:51 06/30/18 07:51 Intake and Output: 06/30/18 06/30/18 11:59 23:59 Intake Total 300 Balance 300 - Medications Medications: Current Medications Clopidogrel Bisulfate (Plavix) 75 mg PO DAILY [facility] Last Admin: 06/29/18 09:46 Dose: 75 mg Ezetimibe (Zetia) 10 mg PO DAILY [facility] Last Admin: 06/30/18 09:57 Dose: 10 mg Enoxaparin Sodium (Lovenox) 40 mg SC DAILY [facility] Last Admin: 06/26/18 10:27 Dose: Not Given Daptomycin 390 mg/ Sodium (Chloride) 100 mls @ 100 mls/hr IV Q24H [facility] Stop: 06/30/18 21:31 Last Admin: 06/29/18 20:31 Dose: 100 mls/hr Insulin Glargine (Lantus) 20 unit SC [facility] Last Admin: 06/29/18 21:40 Dose: Not Given Insulin Human Regular (Novolin R) 0 unit SC [facility]; Protocol Last Admin: 06/30/18 12:27 Dose: Not Given Lisinopril (Zestril) 20 mg PO DAILY [facility] Last Admin: 06/30/18 09:57 Dose: 20 mg [facility]) [facility] Last Admin: 06/30/18 09:56 Dose: 500 mg Mirtazapine (Remeron) 15 mg PO [facility] Last Admin: 06/29/18 21:59 Dose: 15 mg Oxycodone HCl (Oxycodone Immediate Release Tab) 30 mg PO BID [facility] Last Admin: 06/30/18 09:57 Dose: 30 mg Saccharomyces Boulardii (Florastor) 250 mg PO [facility] Last Admin: 06/29/18 21:59 Dose: 250 mg Sitagliptin Phosphate (Januvia) 100 mg PO DAILY [facility] Last Admin: 06/30/18 09:57 Dose: 100 mg - Labs Labs: 06/29/18 07:40 06/29/18 07:40 PT 11.2 SECONDS (9.7-12.2) 06/24/18 07:25 INR 1.0 06/24/18 07:25 Assessment and Plan (1) Diabetic ulcer of left foot Status: Acute (2) PVD (peripheral vascular disease) Status: Acute (3) COPD (chronic obstructive pulmonary disease) Status: Acute (4) COPD exacerbation Status: Acute (5) Diabetes Status: Acute (6) HTN (hypertension) Status: Acute
--- NOTE | 2018-06-30 16:41 | CP.PCM.PN ---
Subjective - Date & Time of Evaluation Date of Evaluation: 06/30/18 Time of Evaluation: 16:40 - Subjective Subjective: AFEBRILE, RESTING IN BED. OFFERS NO COMPLAINTS. IV DAPTOMYCIN NOT APPROVED BY [facility] REPORTED BY DISASSEMBLER MS AMADOU GOMEZ. HEENT : N. Resp : No cough, wheezing ,pleuritic CP ,or hemoptysis Cardio : No anginal CP, PND, orthopnea, palpitation GI : No abd.pain, n/v ,diarrhea or GI bleeding . [employer] : No headache, vertigo, focal deficit. Musculoskel : No joint swelling , Derm : No rash Psych : Normal affect. Ext : No swelling ,calf pain LT.FOOT IN DRESSING. PE. Pt. is alert awake in no distress. V.S As noted in the chart Head ,ear nose,throat and eyes : Normal. Neck : Supple with normal carotids. Lungs: Clear air entry. Heart : S1 & S2 normal with S4. No murmur. Abd : Soft non tender with normal bowel sounds. Neuro : Moves all ext. with no localized deficit. Ext : No edema with intact pulses.Non tender calves , the left 2ND toe is swollen with inflammation and cellulitis with NECROTIC SCAB on the dorsum surface. Derm : No rashes or decubitus ulcer. LABS/RADIOLOGY: REVIEWED. repeat wound culture 06/26/18 +VE MRSA S -VANCO R- BACTRIM CREAT 1.5/BUN 06/29/18 LFTS N 06/29 Objective - Vital Signs/Intake and Output Vital Signs (last 24 hours): Temp Pulse Resp BP Pulse Ox 97.8 F 56 L 20 144/68 93 L 06/30/18 15:00 06/30/18 15:00 06/30/18 15:00 06/30/18 15:59 06/30/18 15:00 Intake and Output: 06/30/18 06/30/18 06:59 18:59 Intake Total 900 Output Total 600 Balance 300 - Medications Medications: Current Medications Clopidogrel Bisulfate (Plavix) 75 mg PO DAILY [facility] Last Admin: 06/29/18 09:46 Dose: 75 mg Ezetimibe (Zetia) 10 mg PO DAILY [facility] Last Admin: 06/30/18 09:57 Dose: 10 mg Enoxaparin Sodium (Lovenox) 40 mg SC DAILY [facility] Last Admin: 06/26/18 10:27 Dose: Not Given Daptomycin 390 mg/ Sodium (Chloride) 100 mls @ 100 mls/hr IV Q24H [facility] Stop: 06/30/18 21:31 Last Admin: 06/29/18 20:31 Dose: 100 mls/hr Insulin Glargine (Lantus) 20 unit SC [facility] Last Admin: 06/29/18 21:40 Dose: Not Given Insulin Human Regular (Novolin R) 0 unit SC [facility]; Protocol Last Admin: 06/30/18 12:27 Dose: Not Given Lisinopril (Zestril) 20 mg PO DAILY [facility] Last Admin: 06/30/18 09:57 Dose: 20 mg Metformin [facility] (Glucophage) [facility] Last Admin: 06/30/18 09:56 Dose: 500 mg Mirtazapine (Remeron) 15 mg PO [facility] Last Admin: 06/29/18 21:59 Dose: 15 mg Oxycodone HCl (Oxycodone Immediate Release Tab) 30 mg PO BID [facility] Last Admin: 06/30/18 09:57 Dose: 30 mg Saccharomyces Boulardii (Florastor) 250 mg PO [facility] Last Admin: 06/29/18 21:59 Dose: 250 mg Sitagliptin Phosphate (Januvia) 100 mg PO DAILY [facility] Last Admin: 06/30/18 09:57 Dose: 100 mg - Labs Labs: 06/29/18 07:40 06/29/18 07:40 PT 11.2 SECONDS (9.7-12.2) 06/24/18 07:25 INR 1.0 06/24/18 07:25 Assessment and Plan (1) Osteomyelitis of right foot Status: Acute (2) Diabetic ulcer of left foot Status: Acute (3) PVD (peripheral vascular disease) Status: Acute (4) Acute renal insufficiency Status: Acute (5) Closed left hip fracture Status: Acute (6) Diabetes Status: Acute - Assessment and Plan (Free Text) Plan: PLAN DC IV DAPTOMYCIN NOT APPROVED BY [facility]. START IV VANCOMYCIN 1GM IVPB Q 36HRLY X 6WEEKS.06/30/17 START IV ROCEPHIN 1GM IVPB DAILY X 4WEEKS.06/30/17 F/U BMP/LFTS,CBC W DIFF AND VANC TROUGH LEVELS EVERY WEEK ON THURSDAY. KEEP VANCO TROUGH BETWEEN 10- 20MG/ML AND NOTIFY MD. PATIENT FOR SUBACUTE REHABILITATION. SURGERY POSTPONED.F/U REPEAT BONE SCAN IN 4-5 WEEKS. IF TOES GET WORST , CONSIDER SURGICAL INTERVENTION EARLY. LOCAL WOUND CARE PER PODIATRY.
[2018-06-30] MEDS: Saccharomyces Boulardi 250 mg Cap PO SCH (22:48)
[2018-06-30] MEDS: (Lantus) Insulin Glargine, Recombinant SC SCH (22:49)
[2018-07-01] MEDS: (Novolin R) Insulin Human Regular 100 units/ml vial SC SCH ×4 (07:30→21:25)
[2018-07-01 08:07] LABS: PROTHROMBIN TIME 11.2 SECONDS (9.7-12.2)
[2018-07-01] MEDS: oxyCODONE 30 mg Immediate Release Tab PO SCH ×2 (09:06→17:46)
--- NOTE | 2018-07-01 10:15 | CP.PCM.PN ---
Subjective - Date & Time of Evaluation Date of Evaluation: 07/01/18 Time of Evaluation: 10:14 - Subjective Subjective: Podiatry Progress Note - Dr. Juárez 77 y/o male seen at bedside today regarding left foot 3rd and 5th digit ulcers. Pt denies any pedal complaints. Denies any overnight events. Denies having any pain in the left foot. Denies F/C/N/V/CP/SOB. Objective - Vital Signs/Intake and Output Vital Signs (last 24 hours): Temp Pulse Resp BP Pulse Ox 97.9 F 68 20 176/82 H 96 07/01/18 08:00 07/01/18 08:00 07/01/18 08:00 07/01/18 08:00 07/01/18 08:00 Intake and Output: 07/01/18 07/01/18 06:59 18:59 Intake Total 800 Output Total 700 Balance 100 - Medications Medications: Current Medications Clopidogrel Bisulfate (Plavix) 75 mg PO DAILY [facility] Last Admin: 06/29/18 09:46 Dose: 75 mg Ezetimibe (Zetia) 10 mg PO DAILY [facility] Last Admin: 07/01/18 09:06 Dose: 10 mg Enoxaparin Sodium (Lovenox) 40 mg SC DAILY [facility] Last Admin: 06/26/18 10:27 Dose: Not Given Insulin Glargine (Lantus) 20 unit SC [facility] Last Admin: 06/30/18 22:49 Dose: 20 units Insulin Human Regular (Novolin R) 0 unit SC [facility]; Protocol Last Admin: 07/01/18 07:30 Dose: Not Given Lisinopril (Zestril) 20 mg PO DAILY [facility] Last Admin: 07/01/18 09:06 Dose: 20 mg [facility] Last Admin: 07/01/18 07:30 Dose: 500 mg Mirtazapine (Remeron) 15 mg PO [facility] Last Admin: 06/30/18 22:00 Dose: 15 mg Oxycodone HCl (Oxycodone Immediate Release Tab) 30 mg PO BID [facility] Last Admin: 07/01/18 09:06 Dose: 30 mg Saccharomyces Boulardii (Florastor) 250 mg PO [facility] Last Admin: 06/30/18 22:48 Dose: 250 mg Sitagliptin Phosphate (Januvia) 100 mg PO DAILY [facility] Last Admin: 07/01/18 09:06 Dose: 100 mg - Labs Labs: 06/29/18 07:40 06/29/18 07:40 PT 11.2 SECONDS (9.7-12.2) 07/01/18 07:36 INR 1.0 07/01/18 07:36 - Constitutional Appears: Well, Non-toxic, No Acute Distress - Extremities Exam Additional comments: Left lower extremity focused exam: Vasc: DP/PT pulses are palpable 1/4. Skin temperature warm to warm from proximal to distal. CFT < 3 seconds to all digits. No edema noted to periwound areas Neuro: Epicritic and protective sensation grossly intact Derm: ulceration noted to dorsal aspect of left third digit, positive probe to bone noted. At present, no active drainage. Toe is demarcating to the level of the IPJ. Hyperpigmentation with hyperkeratosis noted to dorsum of 3rd digit. Superficial ulceration to the medial aspect of the 5th digit with no malodor, no drainage, no probe to bone, no fluctuance, no other clinical signs of infection. Ortho: No tenderness on palpation of all ulceration sites. ROM WNL at all major joints. - Neurological Exam Neurological Exam: Alert, Awake - Psychiatric Exam Psychiatric exam: Normal Affect, Normal Mood Assessment and Plan - Assessment and Plan (Free Text) Assessment: 77 y/o male with diabetic ulcerations of left foot 3rd and 5th digits with osteomyelitis of left 3rd digit Plan: Patient seen and evaluated at bedside Discussed plan with Dr. Juárez Continue IV abx per ID - wound cx shows growth of Coag neg Staph New wound cultures shows growth of MRSA L foot x-rays show no destructive osseous lesions Nuclear bone scan shows increased uptake at left foot at 3rd digit Wound dressed with betadine and DSD Patient is s/p vascular procedure- selective catherization of left femoral artery. balloon angioplasty left popliteal 4 mm. balloon angioplasty of left posterior tibial artery 1.5-2 mm No surgical intervention planned at this time - pt's family (son) refusing digital amputation at this time Podiatry agrees to proceed with IV abx treatment and local wound care Will continue to follow while patient in house
--- NOTE | 2018-07-01 14:14 | CP.PCM.DIS ---
Provider - Provider Date of Admission: 06/21/18 16:58 Attending physician: Dayton Mancia MD Consults: 06/21/18 19:53 Nursing Referral for Wound Care Routine Comment: Physician Instructions: Reason For Exam: LEFT FOOT NON HEALING WOUND 06/23/18 14:21 Physician Consult Routine Comment: Consulting Provider: Elliot Juárez Consulting Physician: Elliot Juárez Reason for Consult: FOOT ULCER/ OM 06/23/18 14:48 Infectious Disease Consult Routine Comment: Consulting Provider: Anders Cristina Consulting Physician: Anders Cristina Reason for Consult: DM FOOT ULCER 06/23/18 21:16 Physician Consult Routine Comment: left foot diabetic ulcer with osteomyelitis Consulting Provider: Jeffrey Saeed Jr. Consulting Physician: Jeffrey Saeed Jr. Reason for Consult: vascular evaluation following prior vasc intervention Time Spent in preparation of Discharge (in minutes): 35 Diagnosis - Discharge Diagnosis (1) Diabetic ulcer of left foot Status: Acute (2) PVD (peripheral vascular disease) Status: Acute (3) COPD (chronic obstructive pulmonary disease) Status: Acute (4) COPD exacerbation Status: Acute (5) Diabetes Status: Acute (6) HTN (hypertension) Status: Acute Hospital Course - Lab Results Lab Results: Micro Results 06/24/18 15:00 Blood-Venous Blood Culture - Final NO GROWTH AFTER 5 DAYS 06/24/18 15:00 Blood-Venous Gram Stain - Final TEST NOT PERFORMED 06/21/18 17:30 Blood S.aureus & Coag-Neg Staph PNA FISH - Final 06/21/18 17:30 Blood Blood Culture - Final Coagulase Neg Staphylococcus 06/21/18 17:30 Blood Gram Stain - Final 06/24/18 13:36 Blood-Venous Blood Culture - Final NO GROWTH AFTER 5 DAYS 06/24/18 13:36 Blood-Venous Gram Stain - Final TEST NOT PERFORMED 06/26/18 12:23 Foot - Left Gram Stain - Final 06/26/18 12:23 Foot - Left Wound Culture - Final Methicillin Resistant S Aureus 06/21/18 17:14 Blood Blood Culture - Final NO GROWTH AFTER 5 DAYS 06/21/18 17:14 Blood Gram Stain - Final TEST NOT PERFORMED 06/21/18 17:30 Foot - Left Gram Stain - Final 06/21/18 17:30 Foot - Left Wound Culture - Final Coagulase Neg Staphylococcus 06/21/18 21:44 Naris MRSA Culture (Admit) - Final MRSA NOT DETECTED Most Recent Lab Values WBC 6.8 K/uL (4.8-10.8) 06/29/18 07:40 RBC 3.18 Mil/uL (4.40-5.90) L 06/29/18 07:40 Hgb 9.3 g/dL (12.0-18.0) L 06/29/18 07:40 Hct 27.1 % (35.0-51.0) L 06/29/18 07:40 MCV 85.1 fL (80.0-94.0) 06/29/18 07:40 MCH 29.2 pg (27.0-31.0) 06/29/18 07:40 MCHC 34.3 g/dL (33.0-37.0) 06/29/18 07:40 RDW 14.9 % (11.5-14.5) H 06/29/18 07:40 Plt Count 143 K/uL (130-400) 06/29/18 07:40 MPV 9.8 fL (7.2-11.7) 06/29/18 07:40 Neut % (Auto) 68.9 % (50.0-75.0) 06/29/18 07:40 Lymph % (Auto) 18.4 % (20.0-40.0) L 06/29/18 07:40 Trego % (Auto) 8.0 % (0.0-10.0) 06/29/18 07:40 Eos % (Auto) 3.7 % (0.0-4.0) 06/29/18 07:40 Baso % (Auto) 1.0 % (0.0-2.0) 06/29/18 07:40 Neut # (Auto) 4.7 K/uL (1.8-7.0) 06/29/18 07:40 Lymph # (Auto) 1.2 K/uL (1.0-4.3) 06/29/18 07:40 Trego # (Auto) 0.5 K/uL (0.0-0.8) 06/29/18 07:40 Eos # (Auto) 0.2 K/uL (0.0-0.7) 06/29/18 07:40 Baso # (Auto) 0.1 K/uL (0.0-0.2) 06/29/18 07:40 Differential Comment 06/26/18 07:02 ESR 25 mm/hr (0-15) H 06/22/18 06:30 PT 11.2 SECONDS (9.7-12.2) 07/01/18 07:36 INR 1.0 07/01/18 07:36 Sodium 132 mmol/L (132-148) 06/29/18 07:40 Potassium 4.2 mmol/L (3.6-5.2) 06/29/18 07:40 Chloride 97 mmol/L (98-107) L 06/29/18 07:40 Carbon Dioxide 29 mmol/L (22-30) 06/29/18 07:40 Anion Gap 10 (10-20) 06/29/18 07:40 BUN 29 mg/dL (9-20) H 06/29/18 07:40 Creatinine 1.5 mg/dL (0.8-1.5) 06/29/18 07:40 Est GFR ( Amer) 55 06/29/18 07:40 Est GFR (Non-Af Amer) 45 06/29/18 07:40 POC Glucose (mg/dL) 186 mg/dL (65-110) H 07/01/18 11:27 Random Glucose 62 mg/dL (75-110) L 06/29/18 07:40 Calcium 8.4 mg/dl (8.6-10.4) L 06/29/18 07:40 Total Bilirubin 0.5 mg/dL (0.2-1.3) 06/29/18 07:40 AST 25 U/L (17-59) 06/29/18 07:40 ALT 31 U/L (21-72) 06/29/18 07:40 Alkaline Phosphatase 71 U/L (38-126) 06/29/18 07:40 C-React Prot High Sens 3.20 mg/L (1.00-3.00) H 06/22/18 06:30 Total Protein 6.2 g/dL (6.3-8.3) L 06/29/18 07:40 Albumin 3.2 g/dL (3.5-5.0) L 06/29/18 07:40 Globulin 2.9 gm/dL (2.2-3.9) 06/29/18 07:40 Albumin/Globulin Ratio 1.1 (1.0-2.1) 06/29/18 07:40 Blood Type A POSITIVE 06/26/18 09:25 Antibody Screen Negative 06/26/18 09:25 - Hospital Course Hospital Course: 77 years old white male admitted with possible osteomyelitis of the left third foot toe. Few months ago patient was admitted with osteomyelitis of the left third toe patient had extensive IV antibiotics and rehab. Patient also had angioplasty with stent on the right tibial artery. Apparently the wound had healed. But re cently there was an opening of the wound with some discharge and dried up scab surrounding inflammation and also mild pain. Patient presented to emergency room was evaluated and admitted for possible osteomyelitis recurrent. Past history patient has a history of COPD history of coronary artery disease with stent history of bilateral hip prostheses history of hypertension history of type 2 diabetes and history of hypertensionselective Patient was admitted on the floor. Patient received local wound care and IV antibiotics. Bone scan showed 3-phase uptake on the second third right toes suggesting osteomyelitis. Cultures local cultures of the wound were negative. ID and podiatry consults were obtained Podiatric service suggested amputation of the third toe. After discussing with the son all the pros and cons and in the view of possibility of false positive bone scan because of the recent osteomyelitis it was determined to continue treating IV antibiotics for 6 weeks repeat a bone scan and see the degree of healing of the toes. If there is a failure of healing the family will consider for amputation. Currently medical status is stable and patient is now transferred to rehab in [facility] where he received a local wound therapy and IV antibiotics. 07/02/18 transfer to [facility] was delayed for one day due to nonavailability of beds at the rehab center Discharge Exam - Head Exam Head Exam: ATRAUMATIC, NORMOCEPHALIC Discharge Plan - Discharge Medications Prescriptions: cefTRIAXone 1 gm [Rocephin 1 gram IVPB] 1 gm IVPB DAILY #28 bag Vancomycin 1 gm/NS 200 ml 1 gm IVPB QOD6 #28 bag - Follow Up Plan Condition: STABLE Disposition: HOME/ ROUTINE Instructions: Diabetic Foot Ulcer (DC), Peripheral Vascular (Arterial) Disease (DC) Additional Instructions: PLEASE ADMIT PATIENT UNDER DR. MANCIA SERVICE - CALL DR. MANCIA UPON PATIENT ARRIVAL TO [facility] PLEASE CALL DR. JUÁREZ PODIATRY CONSULT - PLEASE NOTIFY PLEASE CONTINUE VANCOMYCIN 1 GM Q 36 HRS X 6 WEEKS STARTED ON 06/30/18 AND ROCEPHIN 1 GM IVBP DAILY X4 WEEKS STARTED ON 06/30/18 PLEASE DO VANCO TROUGH Q WEEKLY AND KEEP BETWEEN 10-20 CBC, CMP, LFT Q WEEKLY STARTING THURSDAY WOUND CARE DAILY F/U REPEAT BONE SCAN IN 4-5 WEEKS. IF TOES GET WORST , NEEDS SURGICAL INTERVENTION EARLY AND CALL DR. MANCIA FOR ARRANGEMENT Referrals: Dayton Mancia MD [Staff Provider] -
--- NOTE | 2018-07-01 14:37 | CP.PCM.PN ---
Subjective - Date & Time of Evaluation Date of Evaluation: 07/01/18 Time of Evaluation: 14:37 - Subjective Subjective: AFEBRILE, RESTING IN BED. OFFERS NO COMPLAINTS. AWAITING DC TO [facility]. HEENT : N. Resp : No cough, wheezing ,pleuritic CP ,or hemoptysis Cardio : No anginal CP, PND, orthopnea, palpitation GI : No abd.pain, n/v ,diarrhea or GI bleeding . [employer] : No headache, vertigo, focal deficit. Musculoskel : No joint swelling , Derm : No rash Psych : Normal affect. Ext : No swelling ,calf pain LT.FOOT IN DRESSING. PE. Pt. is alert awake in no distress. V.S As noted in the chart Head ,ear nose,throat and eyes : Normal. Neck : Supple with normal carotids. Lungs: Clear air entry. Heart : S1 & S2 normal with S4. No murmur. Abd : Soft non tender with normal bowel sounds. Neuro : Moves all ext. with no localized deficit. Ext : No edema with intact pulses.Non tender calves , the left 2ND toe is swollen with inflammation and cellulitis with NECROTIC SCAB on the dorsum surface. Derm : No rashes or decubitus ulcer. LABS/RADIOLOGY: REVIEWED. repeat wound culture 06/26/18 +VE MRSA S -VANCO R- BACTRIM CREAT 1.5/BUN 29 06/29/18 LFTS N 06/29 Objective - Vital Signs/Intake and Output Vital Signs (last 24 hours): Temp Pulse Resp BP Pulse Ox 97.9 F 68 20 176/82 H 96 07/01/18 08:00 07/01/18 08:00 07/01/18 08:00 07/01/18 08:00 07/01/18 08:00 Intake and Output: 07/01/18 07/01/18 06:59 18:59 Intake Total 800 Output Total 700 Balance 100 - Medications Medications: Current Medications Clopidogrel Bisulfate (Plavix) 75 mg PO DAILY [facility] Last Admin: 06/29/18 09:46 Dose: 75 mg Ezetimibe (Zetia) 10 mg PO DAILY [facility] Last Admin: 07/01/18 09:06 Dose: 10 mg Enoxaparin Sodium (Lovenox) 40 mg SC DAILY [facility] Last Admin: 06/26/18 10:27 Dose: Not Given Insulin Glargine (Lantus) 20 unit SC [facility] Last Admin: 06/30/18 22:49 Dose: 20 units Insulin Human Regular (Novolin R) 0 unit SC [facility]; Protocol Last Admin: 07/01/18 11:36 Dose: Not Given Lisinopril (Zestril) 20 mg PO DAILY [facility] Last Admin: 07/01/18 09:06 Dose: 20 mg [facility] Last Admin: 07/01/18 07:30 Dose: 500 mg Mirtazapine (Remeron) 15 mg PO [facility] Last Admin: 06/30/18 22:00 Dose: 15 mg Oxycodone HCl (Oxycodone Immediate Release Tab) 30 mg PO BID [facility] Last Admin: 07/01/18 09:06 Dose: 30 mg Saccharomyces Boulardii (Florastor) 250 mg PO [facility] Last Admin: 06/30/18 22:48 Dose: 250 mg Sitagliptin Phosphate (Januvia) 100 mg PO DAILY [facility] Last Admin: 07/01/18 09:06 Dose: 100 mg - Labs Labs: 06/29/18 07:40 06/29/18 07:40 PT 11.2 SECONDS (9.7-12.2) 07/01/18 07:36 INR 1.0 07/01/18 07:36 Assessment and Plan (1) Osteomyelitis of right foot Status: Acute (2) Diabetic ulcer of left foot Status: Acute (3) PVD (peripheral vascular disease) Status: Acute (4) Acute renal insufficiency Status: Acute (5) Closed left hip fracture Status: Acute (6) Diabetes Status: Acute - Assessment and Plan (Free Text) Plan: CONTINUE IV VANCOMYCIN 1GM IVPB Q 36HRLY X 6WEEKS.06/30/17 CONTINUE IV ROCEPHIN 1GM IVPB DAILY X 4WEEKS.06/30/17 F/U BMP/LFTS,CBC W DIFF AND VANC TROUGH LEVELS EVERY WEEK ON THURSDAY. KEEP VANCO TROUGH BETWEEN 10- 20MG/ML AND NOTIFY MD. PATIENT FOR SUBACUTE REHABILITATION TODAY. SURGERY POSTPONED.F/U REPEAT BONE SCAN IN 4-5 WEEKS. IF TOES GET WORST , CONSIDER SURGICAL INTERVENTION EARLY. LOCAL WOUND CARE PER PODIATRY.
[2018-07-01] MEDS: Saccharomyces Boulardi 250 mg Cap PO SCH (21:40)
[2018-07-01] MEDS: (Lantus) Insulin Glargine, Recombinant SC SCH (21:41)
[2018-07-02] MEDS: (Novolin R) Insulin Human Regular 100 units/ml vial SC SCH ×2 (07:52→11:31)
[2018-07-02 08:27] VITALS: O2SAT 95
--- NOTE | 2018-07-02 09:12 | CP.PCM.PN ---
Subjective - Date & Time of Evaluation Date of Evaluation: 07/02/18 Time of Evaluation: 09:12 - Subjective Subjective: Podiatry Progress Note - Dr. Juárez 77 y/o male seen at bedside this morning with Dr. Juárez regarding left foot 3rd digit ulcer with osteomyelitis and stable left foot 5th digit ulcer. Pt denies any pedal complaints. Denies any overnight events. Sleeping at time of visit. Denies having any pain in the left foot. Denies F/C/N/V/CP/SOB. Objective - Vital Signs/Intake and Output Vital Signs (last 24 hours): Temp Pulse Resp BP Pulse Ox 97.6 F 82 20 185/83 H 95 07/02/18 07:26 07/02/18 07:26 07/02/18 07:26 07/02/18 07:26 07/02/18 07:26 Intake and Output: 07/02/18 07/02/18 06:59 18:59 Intake Total 600 Output Total 800 Balance -200 - Medications Medications: Current Medications Clopidogrel Bisulfate (Plavix) 75 mg PO DAILY [facility] Last Admin: 06/29/18 09:46 Dose: 75 mg Ezetimibe (Zetia) 10 mg PO DAILY [facility] Last Admin: 07/01/18 09:06 Dose: 10 mg Enoxaparin Sodium (Lovenox) 40 mg SC DAILY [facility] Last Admin: 06/26/18 10:27 Dose: Not Given Insulin Glargine (Lantus) 20 unit SC [facility] Last Admin: 07/01/18 21:41 Dose: 20 units Insulin Human Regular (Novolin R) 0 unit SC [facility]; Protocol Last Admin: 07/02/18 07:52 Dose: Not Given Lisinopril (Zestril) 20 mg PO DAILY [facility] Last Admin: 07/01/18 09:06 Dose: 20 mg [facility] Last Admin: 07/02/18 08:10 Dose: 500 mg Mirtazapine (Remeron) 15 mg PO [facility] Last Admin: 07/01/18 21:40 Dose: 15 mg Oxycodone HCl (Oxycodone Immediate Release Tab) 30 mg PO BID [facility] Last Admin: 07/01/18 17:46 Dose: 30 mg Saccharomyces Boulardii (Florastor) 250 mg PO [facility] Last Admin: 07/01/18 21:40 Dose: 250 mg Sitagliptin Phosphate (Januvia) 100 mg PO DAILY [facility] Last Admin: 07/01/18 09:06 Dose: 100 mg - Labs Labs: 06/29/18 07:40 06/29/18 07:40 PT 11.2 SECONDS (9.7-12.2) 07/01/18 07:36 INR 1.0 07/01/18 07:36 - Constitutional Appears: Well, Non-toxic, No Acute Distress - Extremities Exam Additional comments: Left lower extremity focused exam: Vasc: DP/PT pulses are palpable 1/4. Skin temperature warm to warm from proximal to distal. CFT < 3 seconds to all digits. No edema noted to periwound areas Neuro: Epicritic and protective sensation grossly intact Derm: ulceration noted to dorsal aspect of left third digit, positive probe to bone noted with exposed bone dorsally. No active drainage or purulence. Toe is demarcating to the level of the IPJ. Hyperpigmentation with hyperkeratosis noted to dorsum of 3rd digit. Superficial ulceration to the medial aspect of the 5th digit with no malodor, no drainage, no probe to bone, no fluctuance, no other clinical signs of infection. Ortho: No tenderness on palpation of all ulceration sites. ROM WNL at all major joints. - Neurological Exam Neurological Exam: Alert, Awake - Psychiatric Exam Psychiatric exam: Normal Affect, Normal Mood Assessment and Plan - Assessment and Plan (Free Text) Assessment: 77 y/o male with diabetic ulcerations of left foot 3rd and 5th digits with osteomyelitis of left 3rd digit Plan: Patient seen and evaluated at bedside with Dr. Juárez Continue IV abx per ID - wound cx + Coag neg Staph from left 3rd digit New wound cultures shows growth of MRSA L foot x-rays show no destructive osseous lesions Nuclear bone scan shows increased uptake at left foot at 3rd digit Wound dressed with betadine and DSD Patient is s/p vascular procedure- selective catherization of left femoral artery. balloon angioplasty left popliteal 4 mm. balloon angioplasty of left posterior tibial artery 1.5-2 mm No surgical intervention planned at this time - pt's family (son) refusing digital amputation at this time Podiatry agrees to proceed with IV abx treatment and local wound care Will continue to follow while patient in house
[2018-07-02] MEDS: oxyCODONE 30 mg Immediate Release Tab PO SCH (09:45)
[2018-07-02 15:53] VITALS: BP 119/56; PULSE 55; TEMP 97.4
== END 2018-07-02 16:07 | DRG 253 ==
LOC: C.ER 16:17 → C.9E 16:58 → C.3T 17:25
PROVIDERS: ADMIT Internal Medicine Cardiovascular Disease; ATTEND Internal Medicine Cardiovascular Disease
PROC: 047N3ZZ Dilation of Left Popliteal Artery, Percutaneous Approach (ICD-10-PCS; principal; 2018-06-25)
PROC: 047S3ZZ Dilation of Left Posterior Tibial Artery, Percutaneous Approach (ICD-10-PCS; 2018-06-25)
PROC: 30233N1 Transfusion of Nonautologous Red Blood Cells into Peripheral Vein, Percutaneous Approach (ICD-10-PCS; 2018-06-25)
DX: E11.52 Type 2 diabetes mellitus with diabetic peripheral angiopathy with gangrene (principal); E11.621 Type 2 diabetes mellitus with foot ulcer; I70.262 Atherosclerosis of native arteries of extremities with gangrene, left leg; L97.529 Non-pressure chronic ulcer of other part of left foot with unspecified severity; M86.9 Osteomyelitis, unspecified; L76.32 Postprocedural hematoma of skin and subcutaneous tissue following other procedure; E11.69 Type 2 diabetes mellitus with other specified complication; E11.22 Type 2 diabetes mellitus with diabetic chronic kidney disease; J44.1 Chronic obstructive pulmonary disease with (acute) exacerbation; B95.7 Other staphylococcus as the cause of diseases classified elsewhere; I12.9 Hypertensive chronic kidney disease with stage 1 through stage 4 chronic kidney disease, or unspecified chronic kidney disease; N18.9 Chronic kidney disease, unspecified; I25.10 Atherosclerotic heart disease of native coronary artery without angina pectoris; E78.5 Hyperlipidemia, unspecified; E78.00 Pure hypercholesterolemia, unspecified; Z96.643 Presence of artificial hip joint, bilateral; Z22.322 Carrier or suspected carrier of Methicillin resistant Staphylococcus aureus; Z95.5 Presence of coronary angioplasty implant and graft; Z86.73 Personal history of transient ischemic attack (TIA), and cerebral infarction without residual deficits; Z79.4 Long term (current) use of insulin; Z87.891 Personal history of nicotine dependence